=== PATIENT | female | born 1960 | race Caucasian/White ===

== ENCOUNTER 2016-02-29 22:46 | Inpatient (IN) | payer OTHER ==
[~2016-02-29] VITALS: Ht 162.6 cm; Wt 83.9 kg
[~2016-02-29 22:46] MED LIST: AMLO10TA2 PO; CETI10TA84 PO; CMBIN INH; FLNIN NAE; MOME200A INH; MONT1TAB3 PO; ONDA4TAB10 SL
[2016-02-29] MEDS ORDERED: METHYLPREDNISOLONE 125 MG VIAL IV STA (23:17)
[2016-02-29] MEDS ORDERED: LORAZEPAM 2 MG/ML 1 ML VIAL IV STA (23:17)
[2016-02-29] MEDS ORDERED: ALBUT/IPRATROP 3MG/0.5MG NEB 3 ML VIAL INH ONE (23:30)
[2016-03-01] VITALS (19 sets, daily range): BP systolic 118–148; BP diastolic 84–88; PULSE 88–128; TEMP 36.5–37.1; O2SAT 93–99; Ht 162.6 cm; Wt 83.9 kg
[2016-03-01] MEDS ORDERED: LEVO1TAB33 PO
[2016-03-01] MEDS ORDERED: AZIT250T PO (00:01)
[2016-03-01 00:03] LABS: BASO % 0.1 %; BASO ABS # 0.02 K/uL (0-0.2); COMPLETE YES; EOS % 0.1 %; HEMATOCRIT 41.7 % (37-47); IG% 0.3 %; LYMPH % 14.7 %; LYMPH ABS # 1.98 K/uL (1.2-3.4); MEAN CELL VOLUME 88.3 fL (80-100); MEAN CORPUSCULAR HEMOGLOBIN 30.3 pg (25-34); MEAN CORPUSCULAR HGB CONC 34.3 g/dl (32-36); MEAN PLATELET VOLUME 10.4 fL (7.4-10.4); MONO % 11.6 %; NEUT % 73.2 %; PLATELET COUNT 248 K/uL (130-400); RED BLOOD COUNT 4.72 M/uL (4.2-5.4); WHITE BLOOD COUNT 13.47 K/uL (4.8-10.8)
[2016-03-01] MEDS ORDERED: PRED20TA2 PO (00:03)
[2016-03-01] MEDS ORDERED: ALBU1.257 NEB (00:06)
[2016-03-01] MEDS ORDERED: GUAISYP4 PO (00:07)
[2016-03-01 00:26] LABS: BLOOD UREA NITROGEN 12 mg/dl (7-18); CALCIUM 9.4 mg/dl (8.5-10.1); CARBON DIOXIDE 25 mmol/L (21-32); CHLORIDE 108 mmol/L (98-107); GLUCOSE 145 mg/dl (70-99); MAGNESIUM 2.2 mg/dl (1.8-2.4); POTASSIUM 3.7 mmol/L (3.5-5.1); SODIUM 145 mmol/L (136-145)
[2016-03-01 00:31] LABS: CKMB/CK RATIO 1.1 (0-3.0)
[2016-03-01] MEDS ORDERED: HYDROCODONE/HOMATROPINE SYRUP 5MG/1.5MG 5ML UDP PO STA (00:37)
[2016-03-01] MEDS ORDERED: SODIUM CHLORIDE 0.9% 1000ML 1,000 ML IV STA (00:37)
[2016-03-01] MEDS ORDERED: LEVAQUIN 750MG / 150ML D5W IV STA (00:47)
[2016-03-01] MEDS ORDERED: ONDANSETRON INJ 2 MG/ML 2 ML VIAL IV PRN (01:30)
[2016-03-01] MEDS ORDERED: ALBUT/IPRATROP 3MG/0.5MG NEB 3 ML VIAL INH PRN (01:30)
[2016-03-01] MEDS ORDERED: ALUMINUM/MAGNESIUM/SIMETH (MAALOX MAX) 30 ML UDC PO PRN (01:30)
[2016-03-01] MEDS ORDERED: MAGNESIUM HYDROXIDE SUSP 30 ML UDC PO PRN (01:30)
[2016-03-01] MEDS ORDERED: POLYETHYLENE (MIRALAX) 17 GM PACK PO PRN (01:30)
--- NOTE | 2016-03-01 01:54 | History and Physical ---
History & Physical Date & Time of Service: Mar 01, 2016 at 01:44 Chief Complaint: Sob, Asthma, Cough Primary Care Physician: Shannan Bailey D.O. History of Present Illness Source: patient, family, clinic records, hospital records This is a 55 year old female with PMH of persistent asthma, allergic rhinitis/ seasonal allergies, HTN presents with worsening shortness of breath/wheezing x 3 days. Patient states that she has been on numerous medications for this asthma including Combivent, Dulera, prednisone, DuoNeb, Singulair, Flonase but this has been a long-standing issue. She states that she usually has to take rescue prednisone and nebulizer treatments to take care of this issue at home. She tried this treatment at home for a few days, but her breathing was worsening and so she presented to the ER. She was saturating well, but continued to wheeze and have difficulty breathing, even after being given IV steroids and nebulizer treatments. She has seen pulmonary in the past. Denies chest pain. Family History No pertinent family history Social History Smoking Status: Never Smoker Occupational Status: employed Multi-Drug Resistant Organisms History of MDRO: No Allergies Coded Allergies: Promethazine (Verified Allergy, Unknown, HYPOTENSION, 03/01/16) Sulfa Drugs (Verified Allergy, Unknown, DRESS, 03/01/16) Replaces SULFAMETHOXAZ Sulfamethoxazole (Verified Allergy, Unknown, 03/01/16) Replaces SULFAMETHOXAZ Trimethoprim (Verified Allergy, Unknown, 03/01/16) Replaces SULFAMETHOXAZ Home Medications Scheduled Amlodipine Besylate (Norvasc), 10 MG PO DAILY Azithromycin (Zithromax), 250 MG PO DIRECTED Cetirizine (Zyrtec), 10 MG PO QPM Fluticasone Propionate (Flonase Nasal [place] *), 2 SPRAYS MENG DAILY Ipratropium/Albuterol (Combivent *), 2 PUFFS INH PRN Levofloxacin (Levaquin), 500 MG PO DAILY Mometasone Furoate-Formoterol (Dulera 200/5 Mcg), 2 PUFFS INH BID Montelukast Sodium (Singulair), 10 MG PO DAILY Prednisone (Prednisone Tab), 40 MG PO DIRECTED Scheduled PRN Albuterol Sulfate (Albuterol Sulfate), 1 VIAL NEB QID PRN for SOB/Wheezing Guaifenesin/Codeine (Robitussin-Ac Syrup), 5 ML PO QID PRN for Cough Review of Systems Constitutional: No chills, No fever, No weakness Respiratory: + cough, + dyspnea at rest, + dyspnea on exertion, + shortness of breath, + sputum, + wheezing, No hemoptysis Cardiovascular: No chest pain, No edema, No orthopnea, No palpitations Abdomen: No constipation, No diarrhea, No nausea, No pain, No vomiting Musculoskeletal: + muscle pain (back, secondary to coughing) Genitourinary - Female: No dysuria, No urinary frequency, No urinary incontinence, No urinary retention, No urinary urgency Neurologic: No memory loss Psychiatric: No depression symptoms Endocrine: No fatigue Hematologic / Lymphatic: No abnormal bleeding/bruising Integumentary: No rash Allergic / Immunologic: + environmental allergies, + seasonal allergies, No food allergies Physical Exam Vital Signs Date Time Temp Pulse Resp B/P Pulse Ox O2 Delivery O2 Flow Rate FiO2 03/01/16 01:06 109 20 144/82 99 Nebulizer 03/01/16 00:12 115 03/01/16 00:00 88 24 99 Room Air 02/29/16 23:18 97 24 152/88 98 Room Air 02/29/16 23:18 98 Room Air 02/29/16 22:55 36.8 108 22 156/90 99 Room Air General Appearance: + moderate distress Respiratory/Chest: + respiratory distress, + decreased breath sounds, + accessory muscle use, + wheezing (diffuse wheezing, audible throughout lung estrada) Cardiovascular: no edema, no murmur, + tachycardia Abdomen/GI: normal bowel sounds, non tender, soft Extremities/Musculoskelatal: normal capillary refill, no pedal edema Neurologic/Psych: no motor/sensory deficits, alert, normal mood/affect Skin: normal color Lymphatic: no adenopathy Diagnostics Laboratory Results Results Past 24 Hours Test 02/29/16 23:45 Range/Units White Blood Count 13.47 4.8-10.8 K/uL Red Blood Count 4.72 4.2-5.4 M/uL Hemoglobin 14.3 12.0-16.0 g/dL Hematocrit 41.7 37-47 % Mean Corpuscular Volume 88.3 80-100 fL Mean Corpuscular Hemoglobin 30.3 25-34 pg Mean Corpuscular Hemoglobin Concent 34.3 32-36 g/dl Platelet Count 248 130-400 K/uL Mean Platelet Volume 10.4 7.4-10.4 fL Neutrophils (%) (Auto) 73.2 % Lymphocytes (%) (Auto) 14.7 % Monocytes (%) (Auto) 11.6 % Eosinophils (%) (Auto) 0.1 % Basophils (%) (Auto) 0.1 % Neutrophils # (Auto) 9.86 1.4-6.5 K/uL Lymphocytes # (Auto) 1.98 1.2-3.4 K/uL Monocytes # (Auto) 1.56 0.11-0.59 K/uL Eosinophils # (Auto) 0.01 0-0.5 K/uL Basophils # (Auto) 0.02 0-0.2 K/uL RDW Standard Deviation 45.7 36.4-46.3 fL RDW Coefficient of Variation 14.1 11.5-14.5 % Immature Granulocyte % (Auto) 0.3 % Immature Granulocyte # (Auto) 0.04 0.00-0.02 K/uL Sodium Level 145 136-145 mmol/L Potassium Level 3.7 3.5-5.1 mmol/L Chloride Level 108 98-107 mmol/L Carbon Dioxide Level 25 21-32 mmol/L Anion Gap 12.0 3-11 mmol/L Blood Urea Nitrogen 12 7-18 mg/dl Creatinine 1.10 0.60-1.20 mg/dl Est Creatinine Clear Calc Drug Dose 59.2 ml/min Estimated GFR () 65.0 Estimated GFR (Non- 56.1 BUN/Creatinine Ratio 11.0 10-20 Random Glucose 145 70-99 mg/dl Calcium Level 9.4 8.5-10.1 mg/dl Magnesium Level 2.2 1.8-2.4 mg/dl Total Creatine Kinase 589 26-192 U/L Creatine Kinase MB 6.7 0.5-3.6 ng/ml Creatine Kinase MB Ratio 1.1 0-3.0 Troponin I < 0.015 0-0.045 ng/ml CXR normal Impression Assessment and Plan This is a 55 year old female with PMH of persistent asthma, allergic rhinitis/ seasonal allergies, HTN presents with worsening shortness of breath/wheezing Acute Asthma Exacerbation -->patient with long-standing asthma and difficult to control allergies -->tried home medications, oral steroids, nebulizer treatments at home -->will add IV steroids, DuoNeb around the clock and PRN -->doxycycline -->continue mediations for allergies including Zyrtec -->will consult pulmonology for further input and medication reconciliation for outpatient HTN -->continue norvasc DVT ppx -->lovenox FULL CODE VTE Prophylaxis VTE Risk Assessment Done? Y/N: Yes Risk Level: Moderate
[2016-03-01] MEDS ORDERED: GUAIFENESIN/CODEINE 100MG/10MG 5ML UDC PO PRN (02:00)
--- NOTE | 2016-03-01 05:42 | EMERGENCY ROOM VISIT NOTE ---
History Report prepared by Rosa: Efraín Rosado Under the Supervision of: Dr. Ed Croft M.D. First contact with patient: 23:09 Chief Complaint: RESPIRATORY PROBLEMS Stated Complaint: SOB, ASTHMA, COUGH History of Present Illness The patient is a 55 year old female with a history of asthma who presents to the Emergency Room with complaints of worsening shortness of breath for the past several days. The patient also complains of coughing and rhinorrhea. She denies any fevers, abdominal pain, swelling of the extremities, or rashes. The patient has a DuoNeb at home, which she used at 2000 and 2200 tonight with minimal relief. She has been taking antibiotics and Prednisone 40 mg from her rescue kit for several days with no relief. The patient does not have any sick contacts. The patient was in the hospital for respiratory issues several years ago. Source of History: patient Onset: several days Position: other (respiratory) Quality: other (short of breath) Timing: worsening Associated Symptoms: + cough, No abdominal pain, No fevers, No rash Review of Systems See HPI for pertinent positives & negatives. A total of 10 systems reviewed and were otherwise negative. Past Medical & Surgical Medical Problems: (1) Acute asthma exacerbation (2) History of asthma (3) History of high blood pressure Family History No pertinent family history Social History Smoking Status: Never Smoker Occupation Status: employed Current/Historical Medications Scheduled Amlodipine Besylate (Norvasc), 10 MG PO DAILY Azithromycin (Zithromax), 250 MG PO DIRECTED Cetirizine (Zyrtec), 10 MG PO QPM Fluticasone Propionate (Flonase Nasal [place] *), 2 SPRAYS MENG DAILY Ipratropium/Albuterol (Combivent *), 2 PUFFS INH PRN Levofloxacin (Levaquin), 500 MG PO DAILY Mometasone Furoate-Formoterol (Dulera 200/5 Mcg), 2 PUFFS INH BID Montelukast Sodium (Singulair), 10 MG PO DAILY Prednisone (Prednisone Tab), 40 MG PO DIRECTED Scheduled PRN Albuterol Sulfate (Albuterol Sulfate), 1 VIAL NEB QID PRN for SOB/Wheezing Guaifenesin/Codeine (Robitussin-Ac Syrup), 5 ML PO QID PRN for Cough Allergies Coded Allergies: Promethazine (Verified Allergy, Unknown, HYPOTENSION, 03/01/16) Sulfa Drugs (Verified Allergy, Unknown, DRESS, 03/01/16) Replaces SULFAMETHOXAZ Sulfamethoxazole (Verified Allergy, Unknown, 03/01/16) Replaces SULFAMETHOXAZ Trimethoprim (Verified Allergy, Unknown, 03/01/16) Replaces SULFAMETHOXAZ Physical Exam Vital Signs Date Time Temp Pulse Resp B/P Pulse Ox O2 Delivery O2 Flow Rate FiO2 03/01/16 01:06 109 20 144/82 99 Nebulizer 03/01/16 00:12 115 03/01/16 00:00 88 24 99 Room Air 02/29/16 23:18 97 24 152/88 98 Room Air 02/29/16 23:18 98 Room Air 02/29/16 22:55 36.8 108 22 156/90 99 Room Air Physical Exam GENERAL: Patient is severely anxious appearing and in moderate distress. HEENT: No acute trauma, normocephalic atraumatic, mucous membranes moist, no nasal congestion, no scleral icterus. NECK: No stridor, no adenopathy, no meningismus, trachea is midline. LUNGS: Tachypneic and dyspneic with diffuse tight lung sounds and wheezing. Peak flow 175. HEART: Regular rate and rhythm. No murmurs, rubs, gallops appreciated. ABDOMEN: Soft, nontender, bowel sounds positive, no masses appreciated, no peritonitis. BACK: No midline tenderness, no CVA tenderness EXTREMITIES: Normal motion all extremities, no cyanosis, no edema. NEUROLOGIC: Alert and oriented, no acute motor or sensory deficits, no focal weakness, cranial nerves grossly intact. SKIN: No rash, no jaundice, no diaphoresis. Medical Decision & Procedures ER Provider Diagnostic Interpretation: X ray results are stated below per my interpretation: Chest: 1 view: No infiltrate, no effusion, normal cardiac border. Laboratory Results Test 02/29/16 23:45 RDW Standard Deviation 45.7 fL (36.4-46.3) RDW Coefficient of Variation 14.1 % (11.5-14.5) White Blood Count 13.47 K/uL (4.8-10.8) Red Blood Count 4.72 M/uL (4.2-5.4) Hemoglobin 14.3 g/dL (12.0-16.0) Hematocrit 41.7 % (37-47) Mean Corpuscular Volume 88.3 fL (80-100) Mean Corpuscular Hemoglobin 30.3 pg (25-34) Mean Corpuscular Hemoglobin Concent 34.3 g/dl (32-36) Platelet Count 248 K/uL (130-400) Mean Platelet Volume 10.4 fL (7.4-10.4) Neutrophils (%) (Auto) 73.2 % Lymphocytes (%) (Auto) 14.7 % Monocytes (%) (Auto) 11.6 % Eosinophils (%) (Auto) 0.1 % Basophils (%) (Auto) 0.1 % Neutrophils # (Auto) 9.86 K/uL (1.4-6.5) Lymphocytes # (Auto) 1.98 K/uL (1.2-3.4) Monocytes # (Auto) 1.56 K/uL (0.11-0.59) Eosinophils # (Auto) 0.01 K/uL (0-0.5) Basophils # (Auto) 0.02 K/uL (0-0.2) Immature Granulocyte % (Auto) 0.3 % Immature Granulocyte # (Auto) 0.04 K/uL (0.00-0.02) Est Creatinine Clear Calc Drug Dose 59.2 ml/min Magnesium Level 2.2 mg/dl (1.8-2.4) Total Creatine Kinase 589 U/L (26-192) Creatine Kinase MB 6.7 ng/ml (0.5-3.6) Creatine Kinase MB Ratio 1.1 (0-3.0) Troponin I < 0.015 ng/ml (0-0.045) Laboratory results as reviewed by me. Medications Administered Medications (Trade) Dose Ordered Sig/Delicia Route Start Time Stop Time Status Last Admin Dose Admin Albuterol/ Ipratropium (Duoneb) 12 ml ONE ONCE INH 02/29/16 23:30 02/29/16 23:31 DC 02/29/16 23:30 12 ML Methylprednisolone Sodium Succinate (Solu-Medrol IV) 125 mg NOW STAT IV 02/29/16 23:17 02/29/16 23:20 DC 02/29/16 23:58 125 MG Lorazepam (Ativan Inj) 0.5 mg NOW STAT IV 02/29/16 23:17 02/29/16 23:20 DC 02/29/16 23:59 0.5 MG Hydrocodone Bit/ Homatropine Methylb 5 ml 5 ml NOW STAT PO 03/01/16 00:37 03/01/16 00:38 DC 03/01/16 00:57 5 ML Sodium Chloride (Nss 1000ml) 1,000 ml @ 999 mls/hr Q1H1M STAT IV 03/01/16 00:37 03/01/16 01:37 DC 03/01/16 00:57 999 MLS/HR Levofloxacin (Levaquin / D5W) 750 mg NOW STAT IV 03/01/16 00:47 03/01/16 00:48 DC 03/01/16 00:57 750 MG ECG Indication: SOB/dyspnea Rate (beats per minute): 106 Rhythm: sinus tachycardia Findings: no acute ischemic change, no ectopy ED Course 2312: The patient was evaluated in room A4b. A complete history and physical exam was performed. 2317: Ativan 0.5 mg IV, Solu-Medrol 125 mg IV. 2330: DuoNeb 12 ml INH. 0015: The patient is feeling a little better but is still short of breath. 0037: NSS 1000 ml @ 999 mls/hr, Hycodan Syrup 5 ml PO. 0038: [facility] The patient will be evaluated. 0040: The patient is breathing okay at this time. 0047: Levaquin / D5w 750 mg IV. Medical Decision Differential: Infectious, Reactive Airway Disease, Pneumonia, Pneumothorax, COPD , CHF, ACS, Pulmonary Embolism, MSK, GI, Dissection, amongst other etiologies entertained. 55 yr old female arrives with acute shob and cough. Long history of asthma though no recent attacks. This has been brewing over last few days and has unfortunately failed outpatient abx/steroid regimens with regular duonebs. Is much improved with DUONEB but she persists diffuse loud wheezing and shob. Given this I feel bringing is necessary and patient agrees. Given Levaquin empirically for bronchitis though no evidence of PNA appreciated on CXR. Did discuss risks of levaquin with patient and . Consults Time Called: 29 Consulting Physician[facility] Returned Call: [phone]: Discussed the case with Elsa Reis Hospitalist. The patient will be evaluated. Impression Primary Impression: Acute asthma exacerbation Scribe Attestation The scribe's documentation has been prepared under my direction and personally reviewed by me in its entirety. I confirm that the note above accurately reflects all work, treatment, procedures, and medical decision making performed by me. Departure Information Dispostion Being Evaluated By Hospitalist Referrals Shannan Bailey D.O. (PCP) Patient Instructions A Signature Page, My [facility]
[2016-03-01] MEDS: ENOXAPARIN 40 MG/0.4 ML SYR SQ SCH (06:11)
--- NOTE | 2016-03-01 07:30 | DIAGNOSTIC IMAGING REPORT ---
CHEST ONE VIEW PORTABLE CLINICAL HISTORY: Shortness of breath COMPARISON STUDY: 02/10/2016 FINDINGS: The cardiac and mediastinal contours are normal. There is no evidence of focal pulmonary consolidation. There is no evidence of failure. No pleural effusions are visualized.[ IMPRESSION: No active disease in the chest. Electronically signed by: Onur Hoang M.D. 03/01/2016 7:28 AM
[2016-03-01 07:52] LABS: HEMATOCRIT 40.8 % (37-47); MEAN CELL VOLUME 89.1 fL (80-100); MEAN CORPUSCULAR HEMOGLOBIN 30.1 pg (25-34); MEAN CORPUSCULAR HGB CONC 33.8 g/dl (32-36); MEAN PLATELET VOLUME 10.6 fL (7.4-10.4); PLATELET COUNT 238 K/uL (130-400); RED BLOOD COUNT 4.58 M/uL (4.2-5.4)
[2016-03-01 07:59] LABS: PROTHROMBIN TIME (PATIENT) 10.3 SECONDS (9.0-12.0)
[2016-03-01] MEDS ORDERED: ALBUT/IPRATROP 3MG/0.5MG NEB 3 ML VIAL INH SCH (08:00)
[2016-03-01 08:17] LABS: BUN/CREATININE RATIO 9.1 (10-20); CALCIUM 9.5 mg/dl (8.5-10.1); CREATININE 0.91 mg/dl (0.60-1.20); POTASSIUM 3.8 mmol/L (3.5-5.1)
[2016-03-01] MEDS: METHYLPREDNISOLONE IV 60 MG in SYRINGE 0 ML IV SCH ×2 (08:36→15:59)
[2016-03-01] MEDS ORDERED: DOXYCYCLINE HYCLATE 100 MG CAP PO SCH (09:00)
[2016-03-01] MEDS: AMLODIPINE BESYLATE 5 MG TAB PO SCH (09:12)
[2016-03-01] MEDS: MONTELUKAST SOD 10 MG TAB PO SCH (09:12)
[2016-03-01] MEDS ORDERED: LEVALBUTEROL/IPRATROPIUM NEB INH PRN ×2 (09:45→13:45)
[2016-03-01] MEDS ORDERED: SODIUM CHLORIDE 0.9% 1000ML 1,000 ML IV SCH (09:45)
[2016-03-01] MEDS ORDERED: LEVALBUTEROL/IPRATROPIUM NEB INH SCH (09:45)
--- NOTE | 2016-03-01 10:04 | Progress Note ---
Medicine Progress Note Date & Time of Visit: Mar 01, 2016 at 09:59. Subjective seen resting in bed alert, states her breathing is a little better speaks in sentences with very mild effort, no accessory muscles has occasional productive cough denies chest pain, palpitations, dizziness, nausea, abdominal pain no other symptoms Objective Last 8 Hrs Date Time Temp Pulse Resp B/P Pulse Ox O2 Delivery O2 Flow Rate FiO2 03/01/16 08:58 125 24 96 Room Air 03/01/16 07:19 37.0 112 20 140/85 93 Room Air 03/01/16 05:30 94 24 96 Room Air 03/01/16 05:10 94 Room Air 03/01/16 05:10 36.6 119 18 136/85 94 Room Air 03/01/16 03:00 95 Room Air 03/01/16 03:00 36.5 128 18 133/87 95 Room Air 03/01/16 03:00 95 Room Air 03/01/16 02:49 36.5 128 18 133/87 03/01/16 02:14 121 20 127/82 96 Physical Exam: per H&P adult Head- atraumatic Eyes- EOMI, anicteric ENT- oropharynx clear Neck- supple, no JVD Lungs- (+) bilateral scattered wheezing Heart- (+) tachycardic, regular rhythm; no murmur, no gallop, no rub appreciated Abdomen- normal bowel sounds, soft, nontender Extremities- no pretibial edema, no calf tenderness Neuro- alert, oriented x 3; no focal gross motor/sensory deficits Skin- warm & dry Laboratory Results: Last 24 Hours Test 02/29/16 23:45 03/01/16 07:00 03/01/16 07:06 03/01/16 09:42 White Blood Count 13.47 K/uL 10.60 K/uL Red Blood Count 4.72 M/uL 4.58 M/uL Hemoglobin 14.3 g/dL 13.8 g/dL Hematocrit 41.7 % 40.8 % Mean Corpuscular Volume 88.3 fL 89.1 fL Mean Corpuscular Hemoglobin 30.3 pg 30.1 pg Mean Corpuscular Hemoglobin Concent 34.3 g/dl 33.8 g/dl Platelet Count 248 K/uL 238 K/uL Mean Platelet Volume 10.4 fL 10.6 fL Neutrophils (%) (Auto) 73.2 % Lymphocytes (%) (Auto) 14.7 % Monocytes (%) (Auto) 11.6 % Eosinophils (%) (Auto) 0.1 % Basophils (%) (Auto) 0.1 % Neutrophils # (Auto) 9.86 K/uL Lymphocytes # (Auto) 1.98 K/uL Monocytes # (Auto) 1.56 K/uL Eosinophils # (Auto) 0.01 K/uL Basophils # (Auto) 0.02 K/uL RDW Standard Deviation 45.7 fL 46.7 fL RDW Coefficient of Variation 14.1 % 14.4 % Immature Granulocyte % (Auto) 0.3 % Immature Granulocyte # (Auto) 0.04 K/uL Sodium Level 145 mmol/L 143 mmol/L Potassium Level 3.7 mmol/L 3.8 mmol/L Chloride Level 108 mmol/L 108 mmol/L Carbon Dioxide Level 25 mmol/L 22 mmol/L Anion Gap 12.0 mmol/L 13.0 mmol/L Blood Urea Nitrogen 12 mg/dl 8 mg/dl Creatinine 1.10 mg/dl 0.91 mg/dl Est Creatinine Clear Calc Drug Dose 59.2 ml/min 71.6 ml/min Estimated GFR () 65.0 81.7 Estimated GFR (Non- 56.1 70.5 BUN/Creatinine Ratio 11.0 9.1 Random Glucose 145 mg/dl 162 mg/dl Calcium Level 9.4 mg/dl 9.5 mg/dl Magnesium Level 2.2 mg/dl Total Creatine Kinase 589 U/L Creatine Kinase MB 6.7 ng/ml Creatine Kinase MB Ratio 1.1 Troponin I < 0.015 ng/ml Prothrombin Time 10.3 SECONDS Prothromb Time International Ratio 1.0 Assessment & Plan This is a 55 year old female with PMH of persistent asthma, allergic rhinitis/ seasonal allergies, HTN presents with worsening shortness of breath/wheezing Acute Asthma Exacerbation , possible Acute Bronchitis -->patient with long-standing asthma and difficult to control allergies -->tried home medications, oral steroids, nebulizer treatments at home - slowly improving - continue Solumedrol, Nebs changed to Xopenex, Doxycycline check Serum IGE, Dimer - discussed with Dr. Zhou Sinus Tachycardia - monitor in Tele Nonspecific T wave changes in the Anterolateral leads - no cardiac symptoms - repeat EKG in am HTN stable -->continue norvasc DVT ppx -->lovenox FULL CODE Current Inpatient Medications: Current Inpatient Medications Medications (Trade) Dose Ordered Sig/Delicia Route Start Time Stop Time Status Last Admin Dose Admin Enoxaparin Sodium (Lovenox Inj) 40 mg Q24H SQ 03/01/16 06:00 03/31/16 05:59 03/01/16 06:11 40 MG Acetaminophen (Tylenol Tab) 650 mg Q4H PRN PO 03/01/16 01:30 03/31/16 01:29 Al Hydrox/Mg Hydrox/Simethicone (Maalox Max Susp) 15 ml Q4H PRN PO 03/01/16 01:30 03/31/16 01:29 Magnesium Hydroxide (Milk Of Magnesia Susp) 30 ml Q6H PRN PO 03/01/16 01:30 03/31/16 01:29 Polyethylene (Miralax Powder Packet) 17 gm DAILY PRN PO 03/01/16 01:30 03/31/16 01:29 Ondansetron HCl 4 mg 4 mg Q6H PRN IV 03/01/16 01:30 03/31/16 01:29 Methylprednisolone Sodium Succinate/ Syringe (Solu-Medrol IV/ Syringe) 0.96 ml @ 1.5 mls/min Q8H IV 03/01/16 08:00 03/31/16 07:59 03/01/16 08:36 1.5 MLS/MIN Doxycycline Hyclate (Vibramycin Cap) 100 mg BID PO 03/01/16 09:00 03/08/16 08:59 03/01/16 09:12 100 MG Amlodipine Besylate (Norvasc Tab) 10 mg DAILY PO 03/01/16 09:00 03/31/16 08:59 03/01/16 09:12 10 MG Cetirizine HCl (zyrTEC TAB) 10 mg QPM PO 03/01/16 21:00 03/31/16 20:59 Codeine Phosphate/ Guaifenesin (Robitussin-AC Sugar Free Syrup) 5 ml QID PRN PO 03/01/16 02:00 03/31/16 01:59 Montelukast Sodium (Singulair Tab) 10 mg DAILY PO 03/01/16 09:00 03/31/16 08:59 03/01/16 09:12 10 MG Miscellaneous (Xopenex/ Atrovent Neb) 1 ea Q4H INH 03/01/16 09:45 03/31/16 09:44 UNV Miscellaneous 1 ea 1 ea Q2H PRN INH 03/01/16 09:45 03/31/16 09:44 UNV Sodium Chloride (Nss 1000ml) 1,000 ml @ 80 mls/hr [id number] IV 03/01/16 09:45 03/31/16 09:44 UNV Nystatin (Mycostatin Susp) 4 ml QID PO 03/01/16 13:00 03/11/16 12:59 UNV
--- NOTE | 2016-03-01 10:41 | PULMONARY CONSULTATION ---
DATE OF CONSULTATION: 03/01/2016 TIME: 9:00 a.m. REPORT OF CONSULTATION: The patient was seen in room 476 bed 2. She is a 55-year-old female who has a history of asthma diagnosed approximately a year ago. She actually has had some sort of breathing problems much of her lifetime. She states as a child she had pneumonia. Throughout her life she had recurring bronchitis. She was seeing Dr. Kurtz approximately 4 or 5 years ago. He had done bronchoscopy on her at some point in time. She states until 5 years ago she was still able to do 5K runs. Over the past several years she has had gradual progression in her respiratory symptoms. She states that she has had episodes of intermittent wheezing for about 20 years. She is knowingly very sensitive to smoke, olivo, grass, cats, and various bleaches. 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 She is apparently sensitive to some of the solutions that she works with, particularly those with [employer] in. She cannot use any Clorox products at home. Usually she is in and out of the cleansing area and is not there continuously. In October 2015, she had an episode where she was having an exacerbation of her asthma and she was on her rescue kit. She had work a day doing the cleaning and she had problems at that time. Yesterday, she also spent about 4 hours or more in the cleaning area. She did not notice a lot of problems then, but as the day went on she became more and more tight. She has been not feeling right for about a week or so. She has been seeing Jennifer Salguero PA-C for followup of her asthma symptoms. I believe she saw her very recently. She had started the rescue kit a few days ago with prednisone and Zithromax. She was then changed to Levaquin within the past day or so, but she actually did not even get to start the medicines. She went to the Emergency Room late yesterday. She had taken some treatments at home, but without benefit. She persists with severe tightness. This seems to be clearly exacerbated by when she has coughing spells. She states she does not really feel like she has a cold. She is not bothered very often with reflux. She has no reflux symptoms at present. She has had some chest pain associated with coughing. Yesterday she was lifting a bottle of saline and she could feel some discomfort in her intercostal area. She does not seem to have true pleuritic chest pains. This is the worst asthma attack she has had. In terms of pets, the patient does have 2 dogs in the house. She does not believe she is sensitive to the dogs. PAST MEDICAL HISTORY: 1. Asthma as noted. 2. Hypertension. 3. Pneumonia in the 1980s. 4. Childbirth x2. SOCIAL HISTORY: Tobacco never. ETOH -- rare. ALLERGIES: SEVERE ALLERGY TO SULFA. SHE STATES SHE HAD DRESS SYNDROME ABOUT 15 YEARS AGO. THERE IS ALSO LISTED ALLERGY TO PHENERGAN SHE DEVELOPED SIGNIFICANT DROP IN BLOOD PRESSURE WITH IT. FAMILY HISTORY: The only family history of asthma is a granddaughter. Her mother is living at age 80, has thyroid cancer, diabetes, and mini strokes. Father living at age 82, alive and well. REVIEW OF SYSTEMS: GENERAL: The patient has noticed a gradual decline in her energy level, especially in the past year. The patient lives at home with her . NEUROLOGIC: There has been no syncope or near syncope. OPHTHALMIC: No visual complaints. ENT: Mild nasal coryza. She denies trouble swallowing. She does have some hoarseness. CARDIAC: No chest pain except for the above-mentioned pain apparently associated with coughing and movement. She does not feel palpitations, but she knows her heart rates have been going up. This morning, her heart rate is above 125 as I examined her. PULMONARY: As noted above. The patient does not have a peak flow meter at home. GASTROINTESTINAL: Denies significant heartburn, nausea, vomiting, or diarrhea. GENITOURINARY: Denies complaints. MUSCULOSKELETAL: Denies myalgias or arthralgias. DERMATOLOGIC: No rash or edema. ENDOCRINE: No lymphadenopathy. PHYSICAL EXAMINATION: GENERAL: The patient is a 55-year-old female who was cooperative, alert and oriented. She was intermittently having some respiratory distress during this exam. This was oftentimes after having coughing spells. The cough has been nonproductive. HEENT: Pupils were reactive to light. Nares were clear. Mouth exam showed a mild amount of oral candidiasis in the left side of her posterior pharynx. NECK: Palpation of the neck reveals no lymph nodes. She does have a large neck. CHEST: Of normal development. Heart rate is 125 per minute. The rhythm was regular. VITAL SIGNS: Temperature is 37. Blood pressure 140/85. Respiratory rate 24 breaths per minute. Oxygen saturation 95% on room air done by myself at the time of this exam. She is moving her air, but she has tightness posteriorly on expiration. ABDOMEN: Soft. It was mildly obese. Bowel sounds were present. There was no tenderness to palpation. EXTREMITIES: Showed no cyanosis, clubbing or edema. There was no evidence of erythema or induration. Electrolytes show sodium 143, potassium 3.8, chloride 108, bicarbonate 22. BUN was 8 with a creatinine of 0.91. Troponin was negative. Calcium was normal at 9.5. Blood sugar this morning is 162. White count was 13.47. Hemoglobin is 14.3. Platelets 248,000. Differential showed 73.2 neutrophils, 14.7 lymphs, 11.6 monos, 0.1 eosinophils, 0.1 basophil. Chest x-ray was clear. No active disease was noted. EKG showed a sinus rhythm. The rate was 106 representing mild tachycardia. There was a mild left axis deviation. There was poor R-wave progression across the precordium. Fairly diffuse nonspecific ST and T-wave changes were noted. IMPRESSION: 1. Status asthmaticus. 2. Oral candidiasis. 3. Tachycardia. COMMENTS AND RECOMMENDATIONS: The patient remains quite tight. She is, however, having episodes of tachycardia. She has noticed this in the past, even with her Combivent inhaler. I believe her treatments should be changed to Xopenex plus ipratropium, rather than albuterol plus ipratropium. She will then need Xopenex p.r.n. as well. She is on Solu-Medrol 60 mg IV q. 8 hours. I would continue this. Her blood sugars appear to be rising. These will need close observation and perhaps even coverage if they stay elevated. I would suggest checking an IgE level. Will order some nystatin for the candidiasis. Would check peak flows daily. Her symptoms seem very compatible with status asthma. However, if she does not respond, we might need to consider other causes such as pulmonary embolic disease. She does not have any known risk factors. Consideration could be given to doing a D-dimer. I do think however, in light of the tachyarrhythmia, she might best be monitored from a cardiac perspective by telemetry which would require her going to a different room. Thank you for asking me to assist in her care. SUGAR
[2016-03-01] MEDS: IPRATROPIUM BROMIDE NEB SOLN 0.02% 2.5 ML VIAL INH SCH ×4 (11:27→23:19)
[2016-03-01] MEDS: LEVALBUTEROL 1.25MG/0.5ML NEB INH SCH ×4 (11:27→23:19)
[2016-03-01] MEDS ORDERED: NURSING VERBAL MED ORDER ONE (13:45)
[2016-03-01] MEDS: LEVALBUTEROL 1.25MG/0.5ML NEB INH PRN ×2 (13:50→18:15)
[2016-03-01] MEDS: IPRATROPIUM BROMIDE NEB SOLN 0.02% 2.5 ML VIAL INH PRN ×2 (13:50→18:15)
--- NOTE | 2016-03-01 13:51 | DIAGNOSTIC IMAGING REPORT ---
CHEST ONE VIEW PORTABLE HISTORY: Short of breath. ff up, r/o pulmonary edema COMPARISON: Chest 02/29/2016. FINDINGS: There are low lung volumes. No pneumothorax. No pleural effusions. Bibasilar linear densities have progressed. The heart is normal in size. The upper lung zones are clear. No evidence for pulmonary edema. IMPRESSION: Low lung volumes with increased bibasilar linear densities. This suggests subsegmental atelectasis. No evidence for pulmonary edema at this time. Electronically signed by: Benji Morris M.D. 03/01/2016 1:49 PM
[2016-03-01] MEDS ORDERED: IPRATROPIUM BROMIDE NEB SOLN 0.02% 2.5 ML VIAL INH PRN ×3 (14:00)
[2016-03-01] MEDS ORDERED: LEVALBUTEROL 1.25MG/0.5ML NEB INH PRN (14:00)
[2016-03-01] MEDS: NYSTATIN SUSP 500,000 U/5 ML UDC PO SCH ×3 (14:12→21:42)
[2016-03-01 14:35] LABS: ARTERIAL BLD GAS O2 SATURATION 97.4 % (90-95); ARTERIAL BLOOD GAS BASE EXCESS -0.1 mEq/L (-9-1.8); ARTERIAL BLOOD GAS HCO3 22 mmol/L (19-24); ARTERIAL BLOOD GAS PO2 88 mm/Hg (80-95); ARTERIAL BLOOD GAS pH 7.49 (7.35-7.45)
[2016-03-01 14:37] LABS: O2 ADMINISTRATION 4 L
[2016-03-01 14:38] LABS: ALLEN TEST POS (POS)
[2016-03-01] MEDS: CETIRIZINE HCL 10 MG TAB PO SCH (21:42)
[2016-03-02] VITALS (15 sets, daily range): BP systolic 112–140; BP diastolic 67–91; PULSE 92–121; TEMP 36.7–36.9; O2SAT 93–98
[2016-03-02] MEDS: METHYLPREDNISOLONE IV 60 MG in SYRINGE 0 ML IV SCH (00:30)
[2016-03-02] MEDS: LEVOFLOXACIN / D5W 500 MG in PREMIXED IN D5W 100 ML IV SCH (01:17)
[2016-03-02] MEDS: LEVALBUTEROL 1.25MG/0.5ML NEB INH SCH ×6 (03:29→23:18)
[2016-03-02] MEDS: IPRATROPIUM BROMIDE NEB SOLN 0.02% 2.5 ML VIAL INH SCH ×6 (03:29→23:17)
[2016-03-02] MEDS: ENOXAPARIN 40 MG/0.4 ML SYR SQ SCH (06:05)
[2016-03-02 07:06] LABS: BUN/CREATININE RATIO 15.6 (10-20); CALCIUM 9.8 mg/dl (8.5-10.1); CREATININE 0.84 mg/dl (0.60-1.20); POTASSIUM 3.7 mmol/L (3.5-5.1)
--- NOTE | 2016-03-02 08:38 | Progress Note ---
Medicine Progress Note Date & Time of Visit: Mar 02, 2016 at 08:31. Subjective patient seen sitting up in bed, appears fatigued after moving to bedside commode, was tachypneic, desaturating to high 80s on exam, patient states she feels about the same as yesterday breathing also about the same, with intermittent coughing spells denies chest pain no other symptoms Objective Last 8 Hrs Date Time Temp Pulse Resp B/P Pulse Ox O2 Delivery O2 Flow Rate FiO2 03/02/16 08:28 107 20 95 Nasal Cannula 3.0 03/02/16 07:15 121 20 97 Nasal Cannula 3.0 03/02/16 04:15 36.7 96 18 140/91 93 2.0 03/02/16 04:00 93 Nasal Cannula 3.0 03/02/16 03:29 107 20 95 Nasal Cannula 3.0 Physical Exam: general- alert, appears fatigued, mild tachypnea, speaks in sentences with some effort and accessory muscles Eyes- anicteric Neck- no JVD Lungs- (+) bilateral scattered wheezing. crackles Heart- (+) tachycardic, regular rhythm; no murmur Abdomen- normal bowel sounds, soft, nontender Extremities- no pretibial edema, no calf tenderness Neuro- alert, oriented x 3; no focal gross motor/sensory deficits Skin- warm & dry Laboratory Results: Last 24 Hours Test 03/01/16 09:42 03/01/16 14:14 03/01/16 14:17 03/02/16 06:10 Pro-B-Type Natriuretic Peptide 78 pg/ml Arterial Blood pH 7.49 Arterial Blood Partial Pressure CO2 30 mmHg Arterial Blood Partial Pressure O2 88 mm/Hg Arterial Blood HCO3 22 mmol/L Arterial Blood Oxygen Saturation 97.4 % Arterial Blood Base Excess -0.1 mEq/L Arterial Blood Gas Delivery 4 L Collin Test POS Sodium Level 143 mmol/L Potassium Level 3.7 mmol/L Chloride Level 107 mmol/L Carbon Dioxide Level 25 mmol/L Anion Gap 11.0 mmol/L Blood Urea Nitrogen 13 mg/dl Creatinine 0.84 mg/dl Est Creatinine Clear Calc Drug Dose 77.5 ml/min Estimated GFR () 90.0 Estimated GFR (Non- 77.7 BUN/Creatinine Ratio 15.6 Random Glucose 142 mg/dl Calcium Level 9.8 mg/dl Assessment & Plan This is a 55 year old female with PMH of persistent asthma, allergic rhinitis/ seasonal allergies, HTN presents with worsening shortness of breath/wheezing Acute Asthma Exacerbation , possible Acute Bronchitis -->patient with long-standing asthma and difficult to control allergies -->tried home medications, oral steroids, nebulizer treatments at home - D dimer negative repeat CXR 03/01/15: no signs of pneumonia - appears to be about the same as yesterday hour long breathing treatment ordered - discussed with Dr. Zhou will increase Solumedrol to 80mg q6h continue Nebs q4h, Levaquin Sinus Tachycardia - monitor in Tele Nonspecific T wave changes in the Anterolateral leads - no cardiac symptoms - repeat EKG in am HTN stable -->continue norvasc DVT ppx -->lovenox FULL CODE Current Inpatient Medications: Current Inpatient Medications Medications (Trade) Dose Ordered Sig/Delicia Route Start Time Stop Time Status Last Admin Dose Admin Enoxaparin Sodium (Lovenox Inj) 40 mg Q24H SQ 03/01/16 06:00 03/31/16 05:59 03/02/16 06:05 40 MG Acetaminophen (Tylenol Tab) 650 mg Q4H PRN PO 03/01/16 01:30 03/31/16 01:29 Al Hydrox/Mg Hydrox/Simethicone (Maalox Max Susp) 15 ml Q4H PRN PO 03/01/16 01:30 03/31/16 01:29 Magnesium Hydroxide (Milk Of Magnesia Susp) 30 ml Q6H PRN PO 03/01/16 01:30 03/31/16 01:29 Polyethylene (Miralax Powder Packet) 17 gm DAILY PRN PO 03/01/16 01:30 03/31/16 01:29 Ondansetron HCl (Zofran Inj) 4 mg Q6H PRN IV 03/01/16 01:30 03/31/16 01:29 Amlodipine Besylate (Norvasc Tab) 10 mg DAILY PO 03/01/16 09:00 03/31/16 08:59 03/01/16 09:12 10 MG Cetirizine HCl (zyrTEC TAB) 10 mg QPM PO 03/01/16 21:00 03/31/16 20:59 03/01/16 21:42 10 MG Codeine Phosphate/ Guaifenesin (Robitussin-AC Sugar Free Syrup) 5 ml QID PRN PO 03/01/16 02:00 03/31/16 01:59 03/02/16 01:17 5 ML Montelukast Sodium (Singulair Tab) 10 mg DAILY PO 03/01/16 09:00 03/31/16 08:59 03/01/16 09:12 10 MG Nystatin (Mycostatin Susp) 5 ml QID PO 03/01/16 13:00 03/11/16 12:59 03/01/16 21:42 5 ML Ipratropium [place] (Atrovent 0.02% 0.5MG/2.5ML Neb) 0.5 mg Q4R INH 03/01/16 12:00 03/31/16 11:59 03/02/16 07:14 0.5 MG Levalbuterol (Xopenex 1.25MG/ 0.5ML Neb) 1.25 mg Q4R INH 03/01/16 12:00 03/31/16 11:59 03/02/16 07:14 1.25 MG Ipratropium [place] (Atrovent 0.02% 0.5MG/2.5ML Neb) 0.5 mg Q2H PRN INH 03/01/16 14:00 03/31/16 13:59 03/01/16 18:15 0.5 MG Levalbuterol 1.25 mg 1.25 mg Q2H PRN INH 03/01/16 14:00 03/31/16 13:59 03/01/16 18:15 1.25 MG Levofloxacin/Prmx (Levaquin / D5W/ Premixed D5W) 100 ml @ 100 mls/hr Q24H IV 03/02/16 01:00 03/07/16 01:59 03/02/16 01:17 100 MLS/HR
[2016-03-02] MEDS ORDERED: IPRATROPIUM BROMIDE NEB SOLN 0.02% 2.5 ML VIAL INH ONE ×2 (09:00→13:15)
[2016-03-02] MEDS ORDERED: LEVALBUTEROL 1.25MG/3ML NEB INH ONE ×2 (09:00→12:45)
[2016-03-02] MEDS ORDERED: METHYLPREDNISOLONE IV 20 MG in SYRINGE 0 ML IV ONE (09:15)
[2016-03-02] MEDS: AMLODIPINE BESYLATE 5 MG TAB PO SCH (09:21)
[2016-03-02] MEDS: NYSTATIN SUSP 500,000 U/5 ML UDC PO SCH ×4 (09:21→21:24)
[2016-03-02] MEDS: MONTELUKAST SOD 10 MG TAB PO SCH (09:22)
[2016-03-02] MEDS: METHYLPREDNISOLONE IV 80 MG in SYRINGE 0 ML IV SCH ×2 (14:13→20:21)
--- NOTE | 2016-03-02 14:51 | PULMONARY PROGRESS NOTE ---
DATE: 03/02/2016 TIME: 2:10 p.m. SUBJECTIVE: The patient continues to be extremely short of breath. She has not improved from yesterday. She states that she is desaturating if she puts her head back. She is keeping herself at about 70 degrees elevation. She desaturates if she gets to the bedside commode. She did have a treatment for 1 hour this morning. She states she felt better during that treatment than any other time. She is not expectorating any phlegm. She is not having chills, fevers or sweats. The patient has had anxiety related to her shortness of breath. OBJECTIVE: GENERAL: The patient seems comfortable. She has been afebrile. EARS, NOSE, THROAT: Unremarkable. VITAL SIGNS: Heart rate remains elevated. Current heart rate is 113 per minute. Blood pressure 131/84. Current oxygen saturation 97% on 3 liters of oxygen. LUNGS: Auscultation of the lung estrada now reveals rales at the lower lung estrada bilaterally. She has some wheezing with prolongation to the expiratory phase. ABDOMEN: Soft and nontender. EXTREMITIES: Showed no cyanosis, clubbing or edema. LABORATORY DATA: Serum IgE is still pending. Electrolytes show sodium 143, potassium 3.7, chloride 107, and bicarbonate 25. BUN 13 with a creatinine of 0.84. CPK was elevated at 589. Troponin however, was normal. ProBNP was 78. Blood gas done yesterday afternoon showed a pH of 7.49 with a pCO2 of 30 and a pO2 of 88 on 4 liters. D-dimer was normal at less than 190. IMPRESSIONS: 1. Status asthmaticus. 2. Oral candidiasis. 3. Tachycardia. COMMENTS AND RECOMMENDATIONS: The patient obviously remains tight. I did not see her desaturate, but this is what she is telling me. Her nurse is not currently available. We have boosted upper steroids to 80 mg IV q. 6 hours. She is on levofloxacin still, daily. She is getting levalbuterol and ipratropium every 4 hours. She is getting montelukast. If the patient's status worsens, I would transfer her to regular ICU. Her aeration; however, seems better than I would expect considering her symptoms and oxygen desaturations. The normal D-dimer makes the chance of pulmonary embolic disease to be much less. She still remains critical. An echo has been ordered for completeness and I agree with that. There are no physical signs of any stridor or anything to suggest an upper airway obstruction.
--- NOTE | 2016-03-02 14:53 | DIAGNOSTIC IMAGING REPORT ---
CHEST ONE VIEW PORTABLE CLINICAL HISTORY: Progressive shortness of breath. COMPARISON STUDY: Chest radiograph March 01, 2016. FINDINGS: Lung volumes are diminished. This is not changed. There is no evidence of pulmonary edema. Cardiomediastinal silhouette is stable. There is no pneumothorax. There is a possible small left pleural effusion. Bibasilar opacities, left greater than right, persist. IMPRESSION: 1. Diminished lung volumes, similar to prior exam. Bibasilar opacities which favor atelectasis. 2. Possible small left pleural effusion. Electronically signed by: Sushil Ibrahim M.D. 03/02/2016 2:52 PM Dictated Date/Time: 03/02/2016 2:51 PM
[2016-03-02] MEDS: CETIRIZINE HCL 10 MG TAB PO SCH (21:23)
[2016-03-02] MEDS: LORAZEPAM 0.5 MG TAB PO PRN (23:16)
[2016-03-03] VITALS (17 sets, daily range): BP systolic 133–151; BP diastolic 83–87; PULSE 88–115; TEMP 36.7–36.9; O2SAT 91–97
[2016-03-03] MEDS: LEVOFLOXACIN / D5W 500 MG in PREMIXED IN D5W 100 ML IV SCH (01:14)
[2016-03-03] MEDS: METHYLPREDNISOLONE IV 80 MG in SYRINGE 0 ML IV SCH ×4 (02:27→20:07)
[2016-03-03] MEDS: LEVALBUTEROL 1.25MG/0.5ML NEB INH SCH ×6 (03:27→23:13)
[2016-03-03] MEDS: IPRATROPIUM BROMIDE NEB SOLN 0.02% 2.5 ML VIAL INH SCH ×6 (03:27→23:13)
[2016-03-03] MEDS: ENOXAPARIN 40 MG/0.4 ML SYR SQ SCH (06:08)
[2016-03-03] MEDS: IPRATROPIUM BROMIDE NEB SOLN 0.02% 2.5 ML VIAL INH PRN (06:20)
[2016-03-03] MEDS: LEVALBUTEROL 1.25MG/0.5ML NEB INH PRN (06:20)
[2016-03-03 06:42] LABS: BUN/CREATININE RATIO 20.6 (10-20); CALCIUM 9.7 mg/dl (8.5-10.1); CREATININE 0.8 mg/dl (0.60-1.20); POTASSIUM 3.9 mmol/L (3.5-5.1)
[2016-03-03] MEDS: AMLODIPINE BESYLATE 5 MG TAB PO SCH (08:54)
[2016-03-03] MEDS: MONTELUKAST SOD 10 MG TAB PO SCH (08:54)
[2016-03-03] MEDS: NYSTATIN SUSP 500,000 U/5 ML UDC PO SCH ×4 (08:55→20:07)
--- NOTE | 2016-03-03 11:37 | Progress Note ---
Medicine Progress Note Date & Time of Visit: Mar 03, 2016 at 11:33. Subjective states she still feels easily short of breath and desaturates with minimal movement- going to commode at rest, she feels a little better, patient seems more comfortable while talking today has very scant yellow sputum denies chest pain, palpitations, dizziness, pleuritic pain no other symptoms Objective Last 8 Hrs Date Time Temp Pulse Resp B/P Pulse Ox O2 Delivery O2 Flow Rate FiO2 03/03/16 08:31 36.9 109 20 137/85 94 Nasal Cannula 3.0 03/03/16 08:00 Nasal Cannula 3.0 03/03/16 07:13 102 18 94 Nasal Cannula 3.0 03/03/16 06:20 103 22 92 Nasal Cannula 3.0 03/03/16 04:00 95 Nasal Cannula 3.0 03/03/16 03:59 36.7 95 18 144/85 95 Nasal Cannula 3.0 Physical Exam: general- alert, appears comfortable, speaks in sentences with no effort/acc muscles Eyes- anicteric Neck- no JVD Lungs- (+) scattered crackles, very mild wheeze Heart- (+) tachycardic- mild, regular rhythm; no murmur Abdomen- normal bowel sounds, soft, nontender Extremities- no pretibial edema, no calf tenderness Neuro- alert, oriented x 3; no focal gross motor/sensory deficits Skin- warm & dry Laboratory Results: Last 24 Hours Test 03/03/16 05:55 03/03/16 06:15 03/03/16 11:20 Sodium Level 145 mmol/L Potassium Level 3.9 mmol/L Chloride Level 108 mmol/L Carbon Dioxide Level 26 mmol/L Anion Gap 11.0 mmol/L Blood Urea Nitrogen 17 mg/dl Creatinine 0.80 mg/dl Est Creatinine Clear Calc Drug Dose 81.4 ml/min Estimated GFR () 95.5 Estimated GFR (Non- 82.4 BUN/Creatinine Ratio 20.6 Random Glucose 142 mg/dl Calcium Level 9.7 mg/dl Bedside Glucose 129 mg/dl Assessment & Plan This is a 55 year old female with PMH of persistent asthma, allergic rhinitis/ seasonal allergies, HTN presents with worsening shortness of breath/wheezing Acute Asthma Exacerbation , possible Acute Bronchitis -->patient with long-standing asthma and difficult to control allergies -->tried home medications, oral steroids, nebulizer treatments at home - D dimer negative repeat CXR 03/01/15: no signs of pneumonia - appears somewhat better today less tachycardic, less effort with breathing, still on 3 liters nasal cannula Solumedrol 80mg q6h continue Nebs q4h Levaquin - appreciate Dr. Zhou's recommendations Sinus Tachycardia - check echo Nonspecific T wave changes in the Anterolateral leads - no cardiac symptoms - repeat ekg unchanged HTN stable -->continue norvasc DVT ppx -->lovenox FULL CODE Disposition pending Current Inpatient Medications: Current Inpatient Medications Medications (Trade) Dose Ordered Sig/Delicia Route Start Time Stop Time Status Last Admin Dose Admin Enoxaparin Sodium (Lovenox Inj) 40 mg Q24H SQ 03/01/16 06:00 03/31/16 05:59 03/03/16 06:08 40 MG Acetaminophen (Tylenol Tab) 650 mg Q4H PRN PO 03/01/16 01:30 03/31/16 01:29 Al Hydrox/Mg Hydrox/Simethicone (Maalox Max Susp) 15 ml Q4H PRN PO 03/01/16 01:30 03/31/16 01:29 Magnesium Hydroxide (Milk Of Magnesia Susp) 30 ml Q6H PRN PO 03/01/16 01:30 03/31/16 01:29 Polyethylene (Miralax Powder Packet) 17 gm DAILY PRN PO 03/01/16 01:30 03/31/16 01:29 Ondansetron HCl (Zofran Inj) 4 mg Q6H PRN IV 03/01/16 01:30 03/31/16 01:29 Amlodipine Besylate (Norvasc Tab) 10 mg DAILY PO 03/01/16 09:00 03/31/16 08:59 03/03/16 08:54 10 MG Cetirizine HCl (zyrTEC TAB) 10 mg QPM PO 03/01/16 21:00 03/31/16 20:59 03/02/16 21:23 10 MG Codeine Phosphate/ Guaifenesin (Robitussin-AC Sugar Free Syrup) 5 ml QID PRN PO 03/01/16 02:00 03/31/16 01:59 03/02/16 01:17 5 ML Montelukast Sodium (Singulair Tab) 10 mg DAILY PO 03/01/16 09:00 03/31/16 08:59 03/03/16 08:54 10 MG Nystatin (Mycostatin Susp) 5 ml QID PO 03/01/16 13:00 03/11/16 12:59 03/03/16 08:55 5 ML Ipratropium [place] (Atrovent 0.02% 0.5MG/2.5ML Neb) 0.5 mg Q4R INH 03/01/16 12:00 03/31/16 11:59 03/03/16 07:13 0.5 MG Levalbuterol (Xopenex 1.25MG/ 0.5ML Neb) 1.25 mg Q4R INH 03/01/16 12:00 03/31/16 11:59 03/03/16 07:13 1.25 MG Levalbuterol 1.25 mg 1.25 mg Q2H PRN INH 03/01/16 14:00 03/31/16 13:59 03/03/16 06:20 1.25 MG Levofloxacin 500 mg/Prmx 100 ml @ 100 mls/hr Q24H IV 03/02/16 01:00 03/07/16 01:59 03/03/16 01:14 100 MLS/HR Methylprednisolone Sodium Succinate/ Syringe (Solu-Medrol IV/ Syringe) 1.28 ml @ 1.5 mls/min Q6H IV 03/02/16 14:30 04/01/16 14:29 03/03/16 08:55 1.5 MLS/MIN Ipratropium [place] (Atrovent 0.02% 0.5MG/2.5ML Neb) 0.5 mg Q2R PRN INH 03/02/16 14:45 04/01/16 14:44 03/03/16 06:20 0.5 MG Lorazepam (Ativan Tab) 0.5 mg Q6H PRN PO 03/02/16 18:00 04/01/16 17:59 03/02/16 23:16 0.5 MG
--- NOTE | 2016-03-03 12:07 | ECHOCARDIOGRAM REPORT ---
*NOTICE TO RECEIVING DEMOCRAT AGENCY This information is strictly Confidential and protected under [place] law. [place] law prohibits you from making any further disclosure of this information unless further disclosure is expressly permitted by the written consent of the person to whom it pertains or is authorized by law. A general authorization for the release of medical or other information is not sufficient for this purpose. Hospital accepts no responsibility if the information is made available to any other person, INCLUDING THE PATIENT. Interpretation Summary * Name: KILEY ANDUJAR Study Date: 03/03/2016 11:04 AM BP: 137/85 mmHg * Patient Location: C.2E\S\E211\S\1 HR: 109 * : 1960 (M/d/yyyy) Gender: Female Height: 64 in * Age: 55 yrs Ethnicity: [place] Weight: 181 lb * Ordering Physician: Mike Bhakta * Referring Physician: Self, Referred * Performed By: Cathryn Reese RDCS * * Reason For Study: PERSISTENT TACHYCARDIA * BSA: 1.9 m2 * History: PERSISTENT TACHYCARDIA * -- Conclusions -- * Normal LV chamber size with mild concetric LVH. * Normal LV systolic function, EF 60-65%. * No segmental left ventricular wall motion abnormalities are noted. * Grade I diastolic dysfunction. * No significant valvular pathology. * Trivial, anterior pericardial effusion without hemodynamic significance. Procedure Details * A complete two-dimensional transthoracic echocardiogram was performed (2D, M-mode, Doppler and color flow Doppler). Left Ventricle * The left ventricle is normal in size. * There is mild concentric left ventricular hypertrophy. * Ejection Fraction = 55-60%. * Left ventricular systolic function is normal. * No segmental left ventricular wall motion abnormalities are noted. * The left ventricular wall motion is normal. Right Ventricle * The right ventricular cavity size is normal (basal dimension <4.2 cm in right ventricular apical 4-chamber view). * The right ventricular systolic function is normal as assessed by tricuspid annular plane systolic excursion (TAPSE) (normal >1.5 cm). Atria * The left atrial size is normal. * Right atrial size is normal. Mitral Valve * The mitral valve is normal in structure and function. Tricuspid Valve * The tricuspid valve is normal in structure and function. Aortic Valve * The aortic valve is not well visualized. * No hemodynamically significant valvular aortic stenosis. * There is no significant aortic regurgitation. Pulmonic Valve * The pulmonary valve is not well seen, but the Doppler examination is normal without significant regurgitation or stenosis. Great Vessels * The aortic root is normal size. Pericardium/Pleural * There is no pericardial effusion. Left Ventricular Diastolic Function * Grade I diastolic dysfunction, (abnormal relaxation pattern). MMode 2D Measurements and Calculations IVSd 1.1 cm IVSs 1.4 cm LVIDd 4.3 cm LVIDs 3.1 cm LVPWd 1.1 cm LVPWs 1.3 cm IVS/LVPW 0.97 FS 27.8 % EDV(Teich) 84.8 ml ESV(Teich) 38.8 ml EF(Teich) 54.2 % EDV(cubed) 81.7 ml ESV(cubed) 30.7 ml EF(cubed) 62.4 % % IVS thick 37.8 % % LVPW thick 22.0 % LV mass(C)d 158.3 grams LV mass(C)dI 84.4 grams/m\S\2 LV mass(C)s 146.0 grams LV mass(C)sI 77.9 grams/m\S\2 SV(Teich) 46.0 ml SI(Teich) 24.5 ml/m\S\2 SV(cubed) 51.0 ml SI(cubed) 27.2 ml/m\S\2 Ao root diam 3.0 cm Ao root area 7.2 cm\S\2 LA dimension 2.9 cm LA/Ao 0.96 LVAd ap4 29.2 cm\S\2 LVLd ap4 8.4 cm EDV(MOD-sp4) 82.6 ml EDV(sp4-el) 86.4 ml LVAs ap4 15.2 cm\S\2 LVLs ap4 6.3 cm ESV(MOD-sp4) 32.3 ml ESV(sp4-el) 31.1 ml EF(MOD-sp4) 60.9 % EF(sp4-el) 64.0 % LVAd ap2 29.2 cm\S\2 LVLd ap2 7.9 cm EDV(MOD-sp2) 90.4 ml EDV(sp2-el) 92.1 ml LVAs ap2 17.4 cm\S\2 LVLs ap2 6.9 cm ESV(MOD-sp2) 37.1 ml ESV(sp2-el) 37.5 ml EF(MOD-sp2) 59.0 % EF(sp2-el) 59.3 % LVLd %diff -6.45 % EDV(MOD-bp) 89.7 ml LVLs %diff 8.1 % ESV(MOD-bp) 36.0 ml EF(MOD-bp) 59.9 % SV(MOD-sp4) 50.3 ml SI(MOD-sp4) 26.8 ml/m\S\2 SV(MOD-sp2) 53.4 ml SI(MOD-sp2) 28.5 ml/m\S\2 SV(MOD-bp) 53.7 ml SI(MOD-bp) 28.6 ml/m\S\2 SV(sp4-el) 55.4 ml SI(sp4-el) 29.5 ml/m\S\2 SV(sp2-el) 54.6 ml SI(sp2-el) 29.1 ml/m\S\2 Doppler Measurements and Calculations MV E max katherine 81.5 cm/sec MV A max katherine 108.5 cm/sec MV E/A 0.75 MV dec time 0.22 sec Ao V2 max 160.1 cm/sec Ao max PG 10.3 mmHg Ao max PG (full) 4.2 mmHg LV V1 max PG 6.1 mmHg LV V1 max 123.0 cm/sec
[2016-03-03] MEDS ORDERED: MoRPHine SULFATE 2 MG/ML CARP IV PRN (16:00)
--- NOTE | 2016-03-03 16:32 | PULMONARY PROGRESS NOTE ---
DATE: 03/03/2016 TIME: 03:40 p.m. SUBJECTIVE: The patient continues to be very short of breath. She is barely able to get to the bedside commode, which is right next to her bed. She is dyspneic with any movement. She still feels tight. Overall, she had a good night last night, but does not feel as good this afternoon. This morning, she was also feeling a little better. She feels it is loosening, but nothing is coming out in terms of sputum. She has no chest pains. The patient did have an echocardiogram done. This shows normal left ventricular function. There was mild concentric LVH. Grade 1 diastolic dysfunction was reported. There does not seem to be any significant cardiac abnormality that would explain the tachycardia and dyspnea. OBJECTIVE: GENERAL: The patient looks tired. She was somewhat dyspneic at rest. She is anxious. Temperature 36.8. NECK: Palpation of the neck reveals no lymph nodes. HEART: Heart rate was 125 when I was in the room. Most of the day, it has been a little lower. Blood pressure is 151/83. Oxygen saturation currently is 93% on 3 liters. LUNGS: Breath sounds remained diminished. She has prominent crackles in the lower lung estrada bilaterally. There is wheezing heard as well. Respiratory rate is 20 breaths per minute. ABDOMEN: Soft and nontender. EXTREMITIES: Showed no edema. Chest x-ray done yesterday again shows diminished lung volumes with some bibasilar opacities that may reflect atelectasis. The left lung base is more abnormal than it was at the time of admission. A small effusion cannot be excluded. Flu test was negative. Electrolytes show sodium 145, potassium 3.9, chloride 108, and bicarb 26. BUN was 17 with a creatinine of 0.8. The IgE is still pending. IMPRESSIONS: 1. Status asthmaticus. 2. Tachycardia. 3. Oral candidiasis -- improved. COMMENTS AND RECOMMENDATIONS: The patient still seems much more short of breath than expected. This still most likely seems to be status asthmaticus. She has a history of asthma associated with fairly rapid onset. 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 It seems like she had an acute respiratory infection preceding. She apparently does not have influenza. The D-dimer is normal, making PE very unlikely. I believe that hydration may be of benefit. She did have a lot of diuresis over the prior couple of days. On March 02, she had 3600 mL out and thus far today, she has had 1800. I do not believe she is getting any diuretics. In light of the normal echocardiogram, I believe hydration would be a good idea. I have also spoken with the patient about a trial of BiPAP. She is agreeable to try. She knows what this is because her wears a CPAP nightly. We will give her a trial and see if that relieves some of her dyspnea. Would continue with the IV levofloxacin and the nebulizer treatments as ordered. She certainly is much tired than expected considering her amount of medication she is receiving. Ideally, I would like to do a CAT scan of the chest, but I do not believe that she could lie back at all for a few minutes to do this. Her course is obviously very complex. Would continue with the methylprednisolone at 80 mg IV q. 6 hours. MTDD
[2016-03-03] MEDS: SODIUM CHLORIDE 0.9% 1000ML 1,000 ML IV SCH (18:00)
[2016-03-03] MEDS: CETIRIZINE HCL 10 MG TAB PO SCH (20:07)
[2016-03-03] MEDS: LORAZEPAM 0.5 MG TAB PO PRN (21:03)
[2016-03-04] VITALS (17 sets, daily range): BP systolic 109–138; BP diastolic 73–86; PULSE 64–120; TEMP 36.7–37.7; O2SAT 91–95
[2016-03-04] MEDS: SODIUM CHLORIDE 0.9% 1000ML 1,000 ML IV SCH ×3 (01:45→21:29)
[2016-03-04] MEDS: LEVOFLOXACIN / D5W 500 MG in PREMIXED IN D5W 100 ML IV SCH (01:45)
[2016-03-04] MEDS: METHYLPREDNISOLONE IV 80 MG in SYRINGE 0 ML IV SCH ×4 (01:45→20:48)
[2016-03-04] MEDS: IPRATROPIUM BROMIDE NEB SOLN 0.02% 2.5 ML VIAL INH SCH ×6 (03:51→23:11)
[2016-03-04] MEDS: LEVALBUTEROL 1.25MG/0.5ML NEB INH SCH ×6 (03:51→23:11)
[2016-03-04 05:54] LABS: HEMATOCRIT 39.4 % (37-47); MEAN CELL VOLUME 89.5 fL (80-100); MEAN CORPUSCULAR HEMOGLOBIN 29.8 pg (25-34); MEAN CORPUSCULAR HGB CONC 33.2 g/dl (32-36); MEAN PLATELET VOLUME 10.3 fL (7.4-10.4); PLATELET COUNT 247 K/uL (130-400)
[2016-03-04] MEDS: ENOXAPARIN 40 MG/0.4 ML SYR SQ SCH (06:14)
[2016-03-04 06:29] LABS: BUN/CREATININE RATIO 25.1 (10-20); CALCIUM 9.1 mg/dl (8.5-10.1); CREATININE 0.76 mg/dl (0.60-1.20); POTASSIUM 3.8 mmol/L (3.5-5.1)
[2016-03-04] MEDS: NYSTATIN SUSP 500,000 U/5 ML UDC PO SCH ×4 (08:23→21:27)
[2016-03-04] MEDS: MONTELUKAST SOD 10 MG TAB PO SCH (08:24)
[2016-03-04] MEDS: AMLODIPINE BESYLATE 5 MG TAB PO SCH (08:24)
--- NOTE | 2016-03-04 08:40 | PULMONARY PROGRESS NOTE ---
DATE: 03/04/2016 TIME: 8:10 a.m. SUBJECTIVE: The patient was placed on BiPAP late yesterday afternoon. She felt dramatically better with the BiPAP in place. Her breathing was much easier. She was able to sleep well last night. She is not coughing much when she has the BiPAP on. She still coughs with any deep breaths. There has been no significant sputum. She has been off the BiPAP now for approximately 30 minutes. She still feels pretty good. She has some appetite. She has not had any chills, fevers or sweats. OBJECTIVE: GENERAL: The patient appears comfortable at rest. Temperature is 37 degrees. ENT: Exam is unremarkable. VITAL SIGNS: Heart rate is currently 107. The rhythm is sinus tachycardia. When she was on the BiPAP, her heart rates were down in the upper 80s. Blood pressure is 131/75. LUNGS: Auscultation of the lung estrada reveals posteriorly bilaterally in the lower lung estrada prominent crackles. The wheezes are less prominent today. These adventitious sounds are not at all typical for asthma. Her work of breathing is much diminished compared with yesterday. She has not exerted herself at all, however. The patient notices that she can put her head back farther than before. Oxygen saturation is 94%, this was on nasal cannula. ABDOMEN: Soft. Bowel sounds were normal. There was no tenderness to palpation or masses. EXTREMITIES: Showed no cyanosis, clubbing or edema. LABORATORY DATA: White count today is 15.6. Hemoglobin 13.1. Platelets 247,000. Sodium is 143, potassium 3.8, chloride 108, bicarb 26. BUN is 19 with a creatinine of 0.76. Blood sugar was 156 this morning. Her total intake and output for yesterday balanced. There was 2381 mL intake and 2400 output. IMPRESSION: 1. Respiratory failure with hypoxia. 2. Status asthmaticus. 3. Cannot exclude hypersensitivity reaction. 4. Tachycardia. 5. Oral candidiasis -- improved. The patient has had improvement with BiPAP. However, the underlying process is still going on. Her lung sounds are at least as abnormal as yesterday. Although she has a history of asthma, it is not acting exactly like an asthma attack typically does. She has more crackles than wheezes. She believes she could do a CAT scan while wearing BiPAP if need be. She thinks she could lie back long enough. That would certainly be a consideration if her status worsens. I am going to repeat a chest x-ray for tomorrow morning. We will continue the nebulizer treatments and the levofloxacin. I am going to check a sed rate. Prognosis is still guarded. We will allow her to wear the BiPAP as she needs it during the day and we will ask her to wear it at night. I am pretty certain she is going to want the BiPAP off and on during the day.
--- NOTE | 2016-03-04 10:32 | Progress Note ---
Medicine Progress Note Date & Time of Visit: Mar 04, 2016 at 10:28. Subjective patient states she feels somewhat better this morning states Bipap is really helping her has mild dyspne on nasal cannula no other symptoms Objective Last 8 Hrs Date Time Temp Pulse Resp B/P Pulse Ox O2 Delivery O2 Flow Rate FiO2 03/04/16 07:53 37.0 89 22 131/75 94 BiPAP 4.0 89 03/04/16 07:27 91 94 4.0 03/04/16 07:24 91 18 94 BiPAP/CPAP 4.0 03/04/16 04:00 93 BiPAP 4.0 03/04/16 04:00 36.8 89 18 117/73 95 BiPAP 03/04/16 03:51 83 16 95 BiPAP/CPAP 4.0 03/04/16 03:51 83 95 4.0 Physical Exam: general- alert, appears comfortable, speaks in sentences with no effort/acc muscles Eyes- anicteric Neck- no JVD Lungs- (+) scattered crackles, no wheeze Heart- HR 90s regular rhythm; no murmur Abdomen- normal bowel sounds, soft, nontender Extremities- no pretibial edema, no calf tenderness Neuro- alert, oriented x 3; no focal gross motor/sensory deficits Skin- warm & dry Laboratory Results: Last 24 Hours Test 03/03/16 11:20 03/04/16 05:31 Influenza Type A Antigen Neg for Influ A Influenza Type B Antigen Neg for Influ B White Blood Count 15.60 K/uL Red Blood Count 4.40 M/uL Hemoglobin 13.1 g/dL Hematocrit 39.4 % Mean Corpuscular Volume 89.5 fL Mean Corpuscular Hemoglobin 29.8 pg Mean Corpuscular Hemoglobin Concent 33.2 g/dl RDW Standard Deviation 47.4 fL RDW Coefficient of Variation 14.4 % Platelet Count 247 K/uL Mean Platelet Volume 10.3 fL Sodium Level 143 mmol/L Potassium Level 3.8 mmol/L Chloride Level 108 mmol/L Carbon Dioxide Level 26 mmol/L Anion Gap 9.0 mmol/L Blood Urea Nitrogen 19 mg/dl Creatinine 0.76 mg/dl Est Creatinine Clear Calc Drug Dose 84.9 ml/min Estimated GFR () 101.6 Estimated GFR (Non- 87.7 BUN/Creatinine Ratio 25.1 Random Glucose 156 mg/dl Calcium Level 9.1 mg/dl Assessment & Plan This is a 55 year old female with PMH of persistent asthma, allergic rhinitis/ seasonal allergies, HTN presents with worsening shortness of breath/wheezing Acute Asthma Exacerbation , possible Acute Bronchitis -->patient with long-standing asthma and difficult to control allergies -->tried home medications, oral steroids, nebulizer treatments at home - D dimer negative repeat CXR 03/01/15: no signs of pneumonia - slightly improved continue Bipap Solumedrol 80mg q6h continue Nebs q4h Levaquin IV fluids - possible CT chest today if patient tolerating supine positiong - appreciate Dr. Zhou's recommendations Sinus Tachycardia - resolving - Echo: - -- Conclusions -- * Normal LV chamber size with mild concetric LVH. * Normal LV systolic function, EF 60-65%. * No segmental left ventricular wall motion abnormalities are noted. * Grade I diastolic dysfunction. * No significant valvular pathology. * Trivial, anterior pericardial effusion without hemodynamic significance. Nonspecific T wave changes in the Anterolateral leads - no cardiac symptoms - repeat ekg unchanged HTN stable -->continue norvasc DVT ppx -->lovenox FULL CODE Disposition pending Current Inpatient Medications: Current Inpatient Medications Medications (Trade) Dose Ordered Sig/Delicia Route Start Time Stop Time Status Last Admin Dose Admin Enoxaparin Sodium (Lovenox Inj) 40 mg Q24H SQ 03/01/16 06:00 03/31/16 05:59 03/04/16 06:14 40 MG Acetaminophen (Tylenol Tab) 650 mg Q4H PRN PO 03/01/16 01:30 03/31/16 01:29 Al Hydrox/Mg Hydrox/Simethicone (Maalox Max Susp) 15 ml Q4H PRN PO 03/01/16 01:30 03/31/16 01:29 Magnesium Hydroxide (Milk Of Magnesia Susp) 30 ml Q6H PRN PO 03/01/16 01:30 03/31/16 01:29 Polyethylene (Miralax Powder Packet) 17 gm DAILY PRN PO 03/01/16 01:30 03/31/16 01:29 Ondansetron HCl (Zofran Inj) 4 mg Q6H PRN IV 03/01/16 01:30 03/31/16 01:29 Amlodipine Besylate (Norvasc Tab) 10 mg DAILY PO 03/01/16 09:00 03/31/16 08:59 03/04/16 08:24 10 MG Cetirizine HCl (zyrTEC TAB) 10 mg QPM PO 03/01/16 21:00 03/31/16 20:59 03/03/16 20:07 10 MG Codeine Phosphate/ Guaifenesin (Robitussin-AC Sugar Free Syrup) 5 ml QID PRN PO 03/01/16 02:00 03/31/16 01:59 03/02/16 01:17 5 ML Montelukast Sodium (Singulair Tab) 10 mg DAILY PO 03/01/16 09:00 03/31/16 08:59 03/04/16 08:24 10 MG Nystatin (Mycostatin Susp) 5 ml QID PO 03/01/16 13:00 03/11/16 12:59 03/04/16 08:23 5 ML Ipratropium [place] (Atrovent 0.02% 0.5MG/2.5ML Neb) 0.5 mg Q4R INH 03/01/16 12:00 03/31/16 11:59 03/04/16 07:23 0.5 MG Levalbuterol (Xopenex 1.25MG/ 0.5ML Neb) 1.25 mg Q4R INH 03/01/16 12:00 03/31/16 11:59 03/04/16 07:23 1.25 MG Levalbuterol 1.25 mg 1.25 mg Q2H PRN INH 03/01/16 14:00 03/31/16 13:59 03/03/16 06:20 1.25 MG Levofloxacin 500 mg/Prmx 100 ml @ 100 mls/hr Q24H IV 03/02/16 01:00 03/07/16 01:59 03/04/16 01:45 100 MLS/HR Methylprednisolone Sodium Succinate/ Syringe (Solu-Medrol IV/ Syringe) 1.28 ml @ 1.5 mls/min Q6H IV 03/02/16 14:30 04/01/16 14:29 03/04/16 08:23 1.5 MLS/MIN Ipratropium [place] (Atrovent 0.02% 0.5MG/2.5ML Neb) 0.5 mg Q2R PRN INH 03/02/16 14:45 04/01/16 14:44 03/03/16 06:20 0.5 MG Lorazepam 0.5 mg 0.5 mg Q6H PRN PO 03/02/16 18:00 04/01/16 17:59 03/03/16 21:03 0.5 MG Sodium Chloride (Nss 1000ml) 1,000 ml @ 100 mls/hr Q10H IV 03/03/16 16:00 04/02/16 15:59 03/04/16 01:45 100 MLS/HR Morphine Sulfate (MoRPHine SULFATE INJ) 2 mg Q3H PRN IV 03/03/16 16:00 03/17/16 15:59
[2016-03-04] MEDS: IPRATROPIUM BROMIDE NEB SOLN 0.02% 2.5 ML VIAL INH PRN (11:36)
[2016-03-04] MEDS: LEVALBUTEROL 1.25MG/0.5ML NEB INH PRN (11:36)
[2016-03-04] MEDS ORDERED: OPTIRAY 320 IV PRN (15:30)
[2016-03-04] MEDS: LORAZEPAM 0.5 MG TAB PO PRN (15:58)
--- NOTE | 2016-03-04 16:23 | DIAGNOSTIC IMAGING REPORT ---
CHEST CT WITH CONTRAST CT DOSE: 818.99 mGy.cm HISTORY: hypoxia TECHNIQUE: Multiaxial CT images of the chest were performed following the intravenous administration of contrast. COMPARISON: Chest 03/02/2016. FINDINGS: There is mild respiratory motion. The central airways are patent. No pneumothorax. There are left greater than right bibasilar airspace opacities. The visualized liver, spleen, and adrenal glands are unremarkable. The heart is normal in size. No mediastinal or hilar lymphadenopathy. Normal caliber thoracic aorta. The main pulmonary arteries are patent. IMPRESSION: Bibasilar airspace opacities, left greater than right. This may represent a pneumonia or atelectasis. Electronically signed by: Benji Morris M.D. 03/04/2016 4:21 PM Dictated Date/Time: 03/04/2016 4:18 PM
[2016-03-04] MEDS: CETIRIZINE HCL 10 MG TAB PO SCH (21:27)
[2016-03-05] VITALS (18 sets, daily range): BP systolic 119–169; BP diastolic 73–103; PULSE 65–115; TEMP 36.8–37.2; O2SAT 91–95
[2016-03-05] MEDS: LEVOFLOXACIN / D5W 500 MG in PREMIXED IN D5W 100 ML IV SCH (01:22)
[2016-03-05] MEDS: METHYLPREDNISOLONE IV 80 MG in SYRINGE 0 ML IV SCH ×2 (02:22→09:11)
[2016-03-05] MEDS: LEVALBUTEROL 1.25MG/0.5ML NEB INH SCH ×6 (03:16→23:24)
[2016-03-05] MEDS: IPRATROPIUM BROMIDE NEB SOLN 0.02% 2.5 ML VIAL INH SCH ×6 (03:16→23:24)
[2016-03-05] MEDS: ENOXAPARIN 40 MG/0.4 ML SYR SQ SCH (06:00)
[2016-03-05 06:53] LABS: CALCIUM 9.1 mg/dl (8.5-10.1); CREATININE 0.75 mg/dl (0.60-1.20); POTASSIUM 3.5 mmol/L (3.5-5.1)
[2016-03-05] MEDS: SODIUM CHLORIDE 0.9% 1000ML 1,000 ML IV SCH ×2 (07:44→20:31)
--- NOTE | 2016-03-05 08:00 | DIAGNOSTIC IMAGING REPORT ---
CHEST ONE VIEW PORTABLE HISTORY: Short of breath. f/u left atelectasis vs infiltrate COMPARISON: Chest 03/02/2016. FINDINGS: There are low lung volumes. The heart is stable in size. No pneumothorax. Small bilateral pleural effusions and bibasilar densities. This has slightly progressed on the right The upper lung zones remain clear. No evidence for pulmonary edema. IMPRESSION: Small bilateral pleural effusions with bibasilar densities which favor atelectasis. However, a pneumonia could also have a similar appearance. This has slightly progressed on the right. Electronically signed by: Benji Morris M.D. 03/05/2016 7:58 AM Dictated Date/Time: 03/05/2016 7:56 AM
[2016-03-05] MEDS: NYSTATIN SUSP 500,000 U/5 ML UDC PO SCH ×4 (09:12→20:29)
[2016-03-05] MEDS: MONTELUKAST SOD 10 MG TAB PO SCH (09:13)
[2016-03-05] MEDS: AMLODIPINE BESYLATE 5 MG TAB PO SCH (09:13)
--- NOTE | 2016-03-05 14:40 | PULMONARY PROGRESS NOTE ---
DATE: 03/05/2016 TIME: 12:30 p.m. SUBJECTIVE: The patient continues to slowly improve. She was able to lie back and sleep almost flat last night with BiPAP in place. She has been very comfortable with BiPAP. She has expectorated just a small amount of phlegm. She was able to increase her exertion today. She got up to the chair and got up to the commode. She is still winded with any significant exertion. The patient did have a CAT scan of the chest done yesterday. She ultimately felt that she could lay down enough to do so. There were bibasilar opacifications greater on the left than the right, suggesting pneumonia versus atelectasis. OBJECTIVE: GENERAL: The patient is fairly comfortable at rest. She looks just mildly short of breath. Maximum temperature today 37.2. She indicates that she feels puffy in the face. However, she showed me a picture of herself from [facility] time and it did not look too much different. NECK: Palpation in the neck reveals no lymph nodes. HEART: Heart rate currently is 122 per minute. However, she was up to the bathroom just a few minutes earlier. The rhythm is regular. Blood pressure 166/73. Respiratory rate 18 breaths per minute. CHEST: Auscultation again reveals dry rales in both lower lung estrada posteriorly, greater on the right than the left. Oxygen saturation is 94% on 3 liters. ABDOMEN: Soft and nontender. Good bowel sounds were heard. EXTREMITIES: Showed no cyanosis, clubbing or edema. IMAGING: The patient did have a portable chest x-ray this morning. This again showed bibasilar densities which may represent atelectasis or pneumonia. There has been some progression on the right side. LABORATORY DATA: Electrolytes show sodium 144, potassium 3.5, chloride 106, bicarbonate 28. BUN 15, creatinine 0.75. IgE level is normal at 44. IMPRESSION: 1. Respiratory failure with hypoxia. 2. Status asthmaticus. 3. Possible hypersensitivity reaction to chemicals at work. 4. Oral candidiasis -- resolved. 5. Sinus tachycardia. COMMENTS AND RECOMMENDATIONS: The patient is slowly improving. She continues to sound abnormal on physical exam and her chest x-ray is actually slightly progressive on the right. Clinically, however, she is improving. As mentioned above, she has rales bilaterally. She also does have wheezing on expiration, which was not mentioned above. Would continue with her current treatments in general. I believe the Solu-Medrol can be decreased to 60 mg IV q. 6 hours. I will continue with the Levaquin. Obviously, continue the neb treatments. Dr. Boyce will be seeing her from pulmonary division starting tomorrow. I questioned the patient regarding the possibility of sleep apnea. She denies snoring, disturbed nocturnal sleep, or excessive daytime somnolence. Thus a sleep study likely is not indicated. SUGAR
[2016-03-05] MEDS: METHYLPREDNISOLONE IV 60 MG in SYRINGE 0 ML IV SCH ×2 (15:49→20:28)
[2016-03-05] MEDS ORDERED: CLONIDINE HCL 0.1 MG TAB PO PRN (16:00)
--- NOTE | 2016-03-05 17:26 | Progress Note ---
Medicine Progress Note Date & Time of Visit: Mar 05, 2016 at 17:06. Subjective seen sitting up in chair having dinner states her breathing is slightly better today less desaturation when moving still has occasional cough, very scant sputum denies chest pain no other symptoms Objective Last 8 Hrs Date Time Temp Pulse Resp B/P Pulse Ox O2 Delivery O2 Flow Rate FiO2 03/05/16 16:46 107 20 139/93 94 Nasal Cannula 4.0 107 03/05/16 16:04 Nasal Cannula 4.0 03/05/16 15:50 37.1 92 24 160/92 94 Nasal Cannula 3.0 03/05/16 14:52 99 16 93 Nasal Cannula 3.0 03/05/16 12:50 102 91 3.0 03/05/16 12:00 Nasal Cannula 3.0 03/05/16 11:57 37.0 113 18 166/73 94 Nasal Cannula 3.0 113 03/05/16 11:10 103 16 93 Nasal Cannula 3.0 Physical Exam: general- alert, appears comfortable, speaks in sentences with no effort/acc muscles Eyes- anicteric Neck- no JVD Lungs- (+) mild scattered crackles, no wheeze Heart- normal rate, regular rhythm; no murmur Abdomen- normal bowel sounds, soft, nontender Extremities- no pretibial edema, no calf tenderness Neuro- alert, oriented x 3; no focal gross motor/sensory deficits Skin- warm & dry Laboratory Results: Last 24 Hours Test 03/05/16 05:50 03/05/16 05:55 Erythrocyte Sedimentation Rate 4 mm/hr Sodium Level 144 mmol/L Potassium Level 3.5 mmol/L Chloride Level 106 mmol/L Carbon Dioxide Level 28 mmol/L Anion Gap 10.0 mmol/L Blood Urea Nitrogen 15 mg/dl Creatinine 0.75 mg/dl Est Creatinine Clear Calc Drug Dose 87.7 ml/min Estimated GFR () 103.3 Estimated GFR (Non- 89.1 BUN/Creatinine Ratio 20.0 Random Glucose 153 mg/dl Calcium Level 9.1 mg/dl Assessment & Plan This is a 55 year old female with PMH of persistent asthma, allergic rhinitis/ seasonal allergies, HTN presents with worsening shortness of breath/wheezing Acute Asthma Exacerbation , possible Acute Bronchitis -->patient with long-standing asthma and difficult to control allergies -->tried home medications, oral steroids, nebulizer treatments at home - D dimer negative repeat CXR 03/01/15: no signs of pneumonia - CT chest: bibasilar infiltrates, possible pneumonia and atelectasis - continues to improve gradually continue Bipap Solumedrol decreased to 60mg q6h continue Nebs q4h Levaquin IV fluids - appreciate Dr. Zhou's recommendations HTN mildly elevated today -->continue norvasc PRN Clonidine Sinus Tachycardia - resolving - Echo: - -- Conclusions -- * Normal LV chamber size with mild concetric LVH. * Normal LV systolic function, EF 60-65%. * No segmental left ventricular wall motion abnormalities are noted. * Grade I diastolic dysfunction. * No significant valvular pathology. * Trivial, anterior pericardial effusion without hemodynamic significance. - continue IV fluids Nonspecific T wave changes in the Anterolateral leads - no cardiac symptoms - repeat ekg unchanged DVT ppx -->lovenox FULL CODE Disposition pending Current Inpatient Medications: Current Inpatient Medications Medications (Trade) Dose Ordered Sig/Delicia Route Start Time Stop Time Status Last Admin Dose Admin Enoxaparin Sodium (Lovenox Inj) 40 mg Q24H SQ 03/01/16 06:00 03/31/16 05:59 03/05/16 06:00 40 MG Acetaminophen (Tylenol Tab) 650 mg Q4H PRN PO 03/01/16 01:30 03/31/16 01:29 Al Hydrox/Mg Hydrox/Simethicone (Maalox Max Susp) 15 ml Q4H PRN PO 03/01/16 01:30 03/31/16 01:29 Magnesium Hydroxide (Milk Of Magnesia Susp) 30 ml Q6H PRN PO 03/01/16 01:30 03/31/16 01:29 Polyethylene (Miralax Powder Packet) 17 gm DAILY PRN PO 03/01/16 01:30 03/31/16 01:29 Ondansetron HCl (Zofran Inj) 4 mg Q6H PRN IV 03/01/16 01:30 03/31/16 01:29 Amlodipine Besylate (Norvasc Tab) 10 mg DAILY PO 03/01/16 09:00 03/31/16 08:59 03/05/16 09:13 10 MG Cetirizine HCl (zyrTEC TAB) 10 mg QPM PO 03/01/16 21:00 03/31/16 20:59 1/7/17 21:27 10 MG Codeine Phosphate/ Guaifenesin (Robitussin-AC Sugar Free Syrup) 5 ml QID PRN PO 03/01/16 02:00 03/31/16 01:59 03/02/16 01:17 5 ML Montelukast Sodium (Singulair Tab) 10 mg DAILY PO 03/01/16 09:00 03/31/16 08:59 03/05/16 09:13 10 MG Nystatin (Mycostatin Susp) 5 ml QID PO 03/01/16 13:00 03/11/16 12:59 03/05/16 15:50 5 ML Ipratropium [place] (Atrovent 0.02% 0.5MG/2.5ML Neb) 0.5 mg Q4R INH 03/01/16 12:00 03/31/16 11:59 03/05/16 14:52 0.5 MG Levalbuterol (Xopenex 1.25MG/ 0.5ML Neb) 1.25 mg Q4R INH 03/01/16 12:00 03/31/16 11:59 03/05/16 14:52 1.25 MG Levalbuterol 1.25 mg 1.25 mg Q2H PRN INH 03/01/16 14:00 03/31/16 13:59 03/04/16 11:36 1.25 MG Levofloxacin/Prmx (Levaquin / D5W/ Premixed D5W) 100 ml @ 100 mls/hr Q24H IV 03/02/16 01:00 03/07/16 01:59 03/05/16 01:22 100 MLS/HR Ipratropium [place] (Atrovent 0.02% 0.5MG/2.5ML Neb) 0.5 mg Q2R PRN INH 03/02/16 14:45 04/01/16 14:44 03/04/16 11:36 0.5 MG Lorazepam 0.5 mg 0.5 mg Q6H PRN PO 03/02/16 18:00 04/01/16 17:59 03/04/16 15:58 0.5 MG Sodium Chloride (Nss 1000ml) 1,000 ml @ 60 mls/hr [id number] IV 03/03/16 16:00 04/02/16 15:59 03/05/16 07:44 100 MLS/HR Morphine Sulfate (MoRPHine SULFATE INJ) 2 mg Q3H PRN IV 03/03/16 16:00 03/17/16 15:59 Ioversol 100 ml 100 ml UD PRN IV 03/04/16 15:30 03/08/16 15:29 Methylprednisolone Sodium Succinate/ Syringe (Solu-Medrol IV/ Syringe) 0.96 ml @ 1.5 mls/min Q6H IV 03/05/16 16:00 04/04/16 14:29 03/05/16 15:49 1.5 MLS/MIN Clonidine HCl (Catapres Tab) 0.1 mg Q6H PRN PO 03/05/16 16:00 04/04/16 15:59
[2016-03-05] MEDS: CETIRIZINE HCL 10 MG TAB PO SCH (20:29)
[2016-03-05] MEDS: LORAZEPAM 0.5 MG TAB PO PRN (22:00)
[2016-03-06] VITALS (15 sets, daily range): BP systolic 125–154; BP diastolic 60–94; PULSE 64–105; TEMP 36.8–37.3; O2SAT 90–96
[2016-03-06] MEDS: LEVOFLOXACIN / D5W 500 MG in PREMIXED IN D5W 100 ML IV SCH (00:57)
[2016-03-06] MEDS: METHYLPREDNISOLONE IV 60 MG in SYRINGE 0 ML IV SCH ×4 (03:25→21:27)
[2016-03-06] MEDS: IPRATROPIUM BROMIDE NEB SOLN 0.02% 2.5 ML VIAL INH SCH ×6 (04:10→23:42)
[2016-03-06] MEDS: LEVALBUTEROL 1.25MG/0.5ML NEB INH SCH ×6 (04:10→23:42)
[2016-03-06] MEDS: ENOXAPARIN 40 MG/0.4 ML SYR SQ SCH (05:37)
[2016-03-06 06:23] LABS: BUN/CREATININE RATIO 23.1 (10-20); CALCIUM 8.9 mg/dl (8.5-10.1); CREATININE 0.68 mg/dl (0.60-1.20); POTASSIUM 3.5 mmol/L (3.5-5.1)
[2016-03-06] MEDS: AMLODIPINE BESYLATE 5 MG TAB PO SCH (08:41)
[2016-03-06] MEDS: NYSTATIN SUSP 500,000 U/5 ML UDC PO SCH ×4 (08:42→21:27)
[2016-03-06] MEDS: MONTELUKAST SOD 10 MG TAB PO SCH (08:42)
--- NOTE | 2016-03-06 11:50 | Progress Note ---
Medicine Progress Note Date & Time of Visit: Mar 06, 2016 at 11:35. Subjective patient states she feels slightly better today, day by day she is improving less dyspnea, coughing spells, desaturations with minimal exertion tolerating bipap well, highly motivated no other symptoms Objective Last 8 Hrs Date Time Temp Pulse Resp B/P Pulse Ox O2 Delivery O2 Flow Rate FiO2 03/06/16 11:13 97 14 96 Nasal Cannula 3.0 03/06/16 08:08 37.2 94 18 145/87 93 4.0 03/06/16 08:00 Nasal Cannula 4.0 BiPAP 03/06/16 07:07 96 14 95 Nasal Cannula 3.0 03/06/16 04:11 84 96 5.0 03/06/16 04:10 84 16 96 BiPAP/CPAP 5.0 03/06/16 04:00 Nasal Cannula 3.0 03/06/16 04:00 37.0 93 18 136/94 92 BiPAP Physical Exam: general- alert, appears comfortable, speaks in sentences slowly with no effort/ acc muscles Eyes- anicteric Neck- no JVD Lungs- (+) mild scattered crackles- improving, no wheezes Heart- normal rate, regular rhythm; no murmur Abdomen- normal bowel sounds, soft, nontender Extremities- no pretibial edema, no calf tenderness Neuro- alert, oriented x 3; no focal gross motor/sensory deficits Skin- warm & dry Laboratory Results: Last 24 Hours Test 03/06/16 05:37 Sodium Level 145 mmol/L Potassium Level 3.5 mmol/L Chloride Level 106 mmol/L Carbon Dioxide Level 30 mmol/L Anion Gap 9.0 mmol/L Blood Urea Nitrogen 16 mg/dl Creatinine 0.68 mg/dl Est Creatinine Clear Calc Drug Dose 96.7 ml/min Estimated GFR () 113.3 Estimated GFR (Non- 97.8 BUN/Creatinine Ratio 23.1 Random Glucose 150 mg/dl Calcium Level 8.9 mg/dl Assessment & Plan This is a 55 year old female with PMH of persistent asthma, allergic rhinitis/ seasonal allergies, HTN presents with worsening shortness of breath/wheezing Acute Asthma Exacerbation , possible Acute Bronchitis -->patient moderate persistent asthma and difficult to control allergies- follows with Thoracic Medicine in [facility] PFTs in 2016 appears normal? (report attached to chart) -->tried home medications, oral steroids, nebulizer treatments at home with no relief - D dimer negative - CT chest 03/04/16: bibasilar infiltrates, possible pneumonia and atelectasis - continues to improve gradually daily continue Bipap Solumedrol decreased to 60mg q6h continue Nebs q4h Levaquin IV fluids - appreciate Dr. Zhou's recommendations HTN -->continue norvasc PRN Clonidine Sinus Tachycardia - resolving - Echo: - -- Conclusions -- * Normal LV chamber size with mild concetric LVH. * Normal LV systolic function, EF 60-65%. * No segmental left ventricular wall motion abnormalities are noted. * Grade I diastolic dysfunction. * No significant valvular pathology. * Trivial, anterior pericardial effusion without hemodynamic significance. - continue IV fluids Nonspecific T wave changes in the Anterolateral leads - no cardiac symptoms - repeat ekg unchanged DVT ppx -->lovenox FULL CODE Disposition pending Current Inpatient Medications: Current Inpatient Medications Medications (Trade) Dose Ordered Sig/Delicia Route Start Time Stop Time Status Last Admin Dose Admin Enoxaparin Sodium (Lovenox Inj) 40 mg Q24H SQ 03/01/16 06:00 03/31/16 05:59 03/06/16 05:37 40 MG Acetaminophen (Tylenol Tab) 650 mg Q4H PRN PO 03/01/16 01:30 03/31/16 01:29 Al Hydrox/Mg Hydrox/Simethicone (Maalox Max Susp) 15 ml Q4H PRN PO 03/01/16 01:30 03/31/16 01:29 Magnesium Hydroxide (Milk Of Magnesia Susp) 30 ml Q6H PRN PO 03/01/16 01:30 03/31/16 01:29 Polyethylene (Miralax Powder Packet) 17 gm DAILY PRN PO 03/01/16 01:30 03/31/16 01:29 Ondansetron HCl (Zofran Inj) 4 mg Q6H PRN IV 03/01/16 01:30 03/31/16 01:29 Amlodipine Besylate (Norvasc Tab) 10 mg DAILY PO 03/01/16 09:00 03/31/16 08:59 03/06/16 08:41 10 MG Cetirizine HCl (zyrTEC TAB) 10 mg QPM PO 03/01/16 21:00 03/31/16 20:59 1/8/17 20:29 10 MG Codeine Phosphate/ Guaifenesin (Robitussin-AC Sugar Free Syrup) 5 ml QID PRN PO 03/01/16 02:00 03/31/16 01:59 03/02/16 01:17 5 ML Montelukast Sodium (Singulair Tab) 10 mg DAILY PO 03/01/16 09:00 03/31/16 08:59 03/06/16 08:42 10 MG Nystatin (Mycostatin Susp) 5 ml QID PO 03/01/16 13:00 03/11/16 12:59 03/06/16 08:42 5 ML Ipratropium [place] (Atrovent 0.02% 0.5MG/2.5ML Neb) 0.5 mg Q4R INH 03/01/16 12:00 03/31/16 11:59 03/06/16 11:10 0.5 MG Levalbuterol (Xopenex 1.25MG/ 0.5ML Neb) 1.25 mg Q4R INH 03/01/16 12:00 03/31/16 11:59 03/06/16 11:10 1.25 MG Levalbuterol 1.25 mg 1.25 mg Q2H PRN INH 03/01/16 14:00 03/31/16 13:59 03/04/16 11:36 1.25 MG Levofloxacin/Prmx (Levaquin / D5W/ Premixed D5W) 100 ml @ 100 mls/hr Q24H IV 03/02/16 01:00 03/07/16 01:59 03/06/16 00:57 100 MLS/HR Ipratropium [place] (Atrovent 0.02% 0.5MG/2.5ML Neb) 0.5 mg Q2R PRN INH 03/02/16 14:45 04/01/16 14:44 03/04/16 11:36 0.5 MG Lorazepam 0.5 mg 0.5 mg Q6H PRN PO 03/02/16 18:00 04/01/16 17:59 03/05/16 22:00 0.5 MG Sodium Chloride (Nss 1000ml) 1,000 ml @ 60 mls/hr [id number] IV 03/03/16 16:00 04/02/16 15:59 03/05/16 20:31 60 MLS/HR Morphine Sulfate (MoRPHine SULFATE INJ) 2 mg Q3H PRN IV 03/03/16 16:00 03/17/16 15:59 Ioversol 100 ml 100 ml UD PRN IV 03/04/16 15:30 03/08/16 15:29 Methylprednisolone Sodium Succinate/ Syringe (Solu-Medrol IV/ Syringe) 0.96 ml @ 1.5 mls/min Q6H IV 03/05/16 16:00 04/04/16 14:29 03/06/16 10:29 1.5 MLS/MIN Clonidine HCl (Catapres Tab) 0.1 mg Q6H PRN PO 03/05/16 16:00 04/04/16 15:59
[2016-03-06] MEDS: SODIUM CHLORIDE 0.9% 1000ML 1,000 ML IV SCH (14:55)
--- NOTE | 2016-03-06 16:50 | Pulmonology Progress Note ---
Pulmonary Progress Note Date of Service Mar 06, 2016. Attending Dr. Tyron Boyce Subjective Patient continues to require BiPAP as she continues to have dyspnea on exertion/ shortness of breath at rest. Objective During our conversation the patient was notably to, had interrupted her sentences and was using accessory muscles. She was much more comfortable on the BiPAP. VS: SaO2 91-95% on 4Lnc and BiPAP Respiratory: Patient still has mild expiratory wheezing in the upper lobes with decreased breath sounds/blunting in the bilateral lower lobes posterior. Cardiac: S1-S2 no murmurs rubs or gallops appreciated CT thorax reviewed: Notable for diffuse mucoid impaction with bronchial airway signs. Assessment & Plan 55-year-old female admitted with status asthmaticus: #1 status asthmaticus: She continue patient on a current steroid dosing as well as BiPAP. We'll initiate dornase, flutter valve and best physiotherapy for attempt to disimpact patient's current lower lobe posterior subsegment's. We spoke at length about using peak flow meters in the future for evaluation of possible troubling/posterior situations. Data Medications: Current Inpatient Medications Medications (Trade) Dose Ordered Sig/Delicia Route Start Time Stop Time Status Last Admin Dose Admin Enoxaparin Sodium (Lovenox Inj) 40 mg Q24H SQ 03/01/16 06:00 03/31/16 05:59 03/06/16 05:37 40 MG Acetaminophen (Tylenol Tab) 650 mg Q4H PRN PO 03/01/16 01:30 03/31/16 01:29 Al Hydrox/Mg Hydrox/Simethicone (Maalox Max Susp) 15 ml Q4H PRN PO 03/01/16 01:30 03/31/16 01:29 Magnesium Hydroxide (Milk Of Magnesia Susp) 30 ml Q6H PRN PO 03/01/16 01:30 03/31/16 01:29 Polyethylene (Miralax Powder Packet) 17 gm DAILY PRN PO 03/01/16 01:30 03/31/16 01:29 Ondansetron HCl (Zofran Inj) 4 mg Q6H PRN IV 03/01/16 01:30 03/31/16 01:29 Amlodipine Besylate (Norvasc Tab) 10 mg DAILY PO 03/01/16 09:00 03/31/16 08:59 03/06/16 08:41 10 MG Cetirizine HCl (zyrTEC TAB) 10 mg QPM PO 03/01/16 21:00 03/31/16 20:59 03/05/16 20:29 10 MG Codeine Phosphate/ Guaifenesin (Robitussin-AC Sugar Free Syrup) 5 ml QID PRN PO 03/01/16 02:00 03/31/16 01:59 03/02/16 01:17 5 ML Montelukast Sodium (Singulair Tab) 10 mg DAILY PO 03/01/16 09:00 03/31/16 08:59 03/06/16 08:42 10 MG Nystatin (Mycostatin Susp) 5 ml QID PO 03/01/16 13:00 03/11/16 12:59 03/06/16 08:42 5 ML Ipratropium [place] (Atrovent 0.02% 0.5MG/2.5ML Neb) 0.5 mg Q4R INH 03/01/16 12:00 03/31/16 11:59 03/06/16 15:42 0.5 MG Levalbuterol (Xopenex 1.25MG/ 0.5ML Neb) 1.25 mg Q4R INH 03/01/16 12:00 03/31/16 11:59 03/06/16 15:42 1.25 MG Levalbuterol 1.25 mg 1.25 mg Q2H PRN INH 03/01/16 14:00 03/31/16 13:59 03/04/16 11:36 1.25 MG Levofloxacin/Prmx (Levaquin / D5W/ Premixed D5W) 100 ml @ 100 mls/hr Q24H IV 03/02/16 01:00 03/07/16 01:59 03/06/16 00:57 100 MLS/HR Ipratropium [place] (Atrovent 0.02% 0.5MG/2.5ML Neb) 0.5 mg Q2R PRN INH 03/02/16 14:45 04/01/16 14:44 03/04/16 11:36 0.5 MG Lorazepam 0.5 mg 0.5 mg Q6H PRN PO 03/02/16 18:00 04/01/16 17:59 03/05/16 22:00 0.5 MG Sodium Chloride (Nss 1000ml) 1,000 ml @ 60 mls/hr [id number] IV 03/03/16 16:00 04/02/16 15:59 03/05/16 20:31 60 MLS/HR Morphine Sulfate (MoRPHine SULFATE INJ) 2 mg Q3H PRN IV 03/03/16 16:00 03/17/16 15:59 Ioversol 100 ml 100 ml UD PRN IV 03/04/16 15:30 03/08/16 15:29 Methylprednisolone Sodium Succinate/ Syringe (Solu-Medrol IV/ Syringe) 0.96 ml @ 1.5 mls/min Q6H IV 03/05/16 16:00 04/04/16 14:29 03/06/16 10:29 1.5 MLS/MIN Clonidine HCl (Catapres Tab) 0.1 mg Q6H PRN PO 03/05/16 16:00 04/04/16 15:59 Dornase [place] (Pulmozyme Inhalation Soln 2.5ml Amp) 2.5 ml BID INH 03/06/16 21:00 04/05/16 20:59 UNV I & O: 24-Hour Column 03/06/16 08:00 Intake Total 3645 ml Output Total 2250 ml Balance 1395 ml Vital Signs: Date Time Temp Pulse Resp B/P Pulse Ox O2 Delivery O2 Flow Rate FiO2 03/06/16 16:00 Nasal Cannula 4.0 BiPAP 03/06/16 15:42 74 95 4.0 03/06/16 15:42 74 14 95 BiPAP/CPAP 4.0 03/06/16 15:30 91 20 154/87 94 BiPAP 03/06/16 13:38 84 94 4.0 03/06/16 12:00 Nasal Cannula 4.0 BiPAP 03/06/16 11:38 37.3 81 18 146/60 93 4.0 03/06/16 11:13 97 14 96 Nasal Cannula 3.0 03/06/16 08:08 37.2 94 18 145/87 93 4.0 03/06/16 08:00 Nasal Cannula 4.0 BiPAP 03/06/16 07:07 96 14 95 Nasal Cannula 3.0 03/06/16 04:11 84 96 5.0 03/06/16 04:10 84 16 96 BiPAP/CPAP 5.0 03/06/16 04:00 Nasal Cannula 3.0 03/06/16 04:00 37.0 93 18 136/94 92 BiPAP 03/06/16 00:00 36.8 85 17 125/73 92 BiPAP 03/05/16 23:59 Nasal Cannula 3.0 03/05/16 23:25 76 93 5.0 03/05/16 23:25 76 14 93 BiPAP/CPAP 5.0 03/05/16 22:24 80 91 5.0 03/05/16 20:00 Nasal Cannula 3.0 03/05/16 19:14 93 14 93 Nasal Cannula 3.0 03/05/16 19:13 37.0 94 22 152/99 94 4.0 Laboratory Results: Last 24 Hours Test 03/06/16 05:37 03/06/16 16:36 Sodium Level 145 mmol/L Potassium Level 3.5 mmol/L Chloride Level 106 mmol/L Carbon Dioxide Level 30 mmol/L Anion Gap 9.0 mmol/L Blood Urea Nitrogen 16 mg/dl Creatinine 0.68 mg/dl Est Creatinine Clear Calc Drug Dose 96.7 ml/min Estimated GFR () 113.3 Estimated GFR (Non- 97.8 BUN/Creatinine Ratio 23.1 Random Glucose 150 mg/dl Calcium Level 8.9 mg/dl
[2016-03-06] MEDS: DORNASE ALFA (2500U) 2.5MG/2.5ML INH SCH (19:51)
[2016-03-06] MEDS: CETIRIZINE HCL 10 MG TAB PO SCH (21:27)
[2016-03-06] MEDS: LORAZEPAM 0.5 MG TAB PO PRN (21:32)
[2016-03-07] VITALS (14 sets, daily range): BP systolic 120–138; BP diastolic 60–85; PULSE 69–109; TEMP 36.5–37; O2SAT 95–98
[2016-03-07] MEDS: LEVOFLOXACIN / D5W 500 MG in PREMIXED IN D5W 100 ML IV SCH (01:22)
[2016-03-07] MEDS: LEVALBUTEROL 1.25MG/0.5ML NEB INH SCH ×5 (03:33→23:03)
[2016-03-07] MEDS: IPRATROPIUM BROMIDE NEB SOLN 0.02% 2.5 ML VIAL INH SCH ×6 (03:33→23:03)
[2016-03-07] MEDS: METHYLPREDNISOLONE IV 60 MG in SYRINGE 0 ML IV SCH (04:52)
[2016-03-07] MEDS: SODIUM CHLORIDE 0.9% 1000ML 1,000 ML IV SCH (04:54)
[2016-03-07] MEDS: ENOXAPARIN 40 MG/0.4 ML SYR SQ SCH (05:44)
[2016-03-07 06:23] LABS: HEMATOCRIT 41.8 % (37-47); MEAN CELL VOLUME 88.4 fL (80-100); MEAN CORPUSCULAR HEMOGLOBIN 30.2 pg (25-34); MEAN CORPUSCULAR HGB CONC 34.2 g/dl (32-36); MEAN PLATELET VOLUME 10.3 fL (7.4-10.4); PLATELET COUNT 270 K/uL (130-400); RED BLOOD COUNT 4.73 M/uL (4.2-5.4); WHITE BLOOD COUNT 16.63 K/uL (4.8-10.8)
[2016-03-07 07:05] LABS: CREATININE 0.76 mg/dl (0.60-1.20)
[2016-03-07] MEDS: DORNASE ALFA (2500U) 2.5MG/2.5ML INH SCH ×2 (07:07→19:05)
[2016-03-07] MEDS: AMLODIPINE BESYLATE 5 MG TAB PO SCH (08:22)
[2016-03-07] MEDS: MONTELUKAST SOD 10 MG TAB PO SCH (08:22)
[2016-03-07] MEDS: NYSTATIN SUSP 500,000 U/5 ML UDC PO SCH ×4 (08:22→21:18)
--- NOTE | 2016-03-07 10:00 | Pulmonology Progress Note ---
Pulmonary Progress Note Date of Service Mar 07, 2016. Attending Dr. Tyron Boyce Subjective Patient feels she has increased mucus production, decreased pulmonary resistance. She also noted inability to ambulate without feeling desaturations throughout her room. Objective Patient sitting in a chair on 4 L nasal cannula able to complete full sentences showing no signs of increased work of breathing. VS: SaO2 91-97% on 4Lnc and BiPAP Respiratory: Patient's upper lobes bilaterally. Posterior anterior within normal limits/lower lobes decreased breath sounds Cardiac: S1-S2 no murmurs rubs or gallops appreciated Assessment & Plan 55-year-old female admitted with status asthmaticus: #1 status asthmaticus: Patient currently on methylprednisolone 60 mg every 6 which is an equivalent of 300 mg of prednisone per day. We'll switch her to oral prednisone 60 mg, continue her nebulizer and MDIs. #2: Bilateral atelectasis/mucoid impaction: Patient is doing well on dornase, flutter valve, chest physiotherapy. Suggest we get her up-to-date do an ambulation desaturation study for both evaluation and clearance/pulmonary. Data Medications: Current Inpatient Medications Medications (Trade) Dose Ordered Sig/Delicia Route Start Time Stop Time Status Last Admin Dose Admin Enoxaparin Sodium (Lovenox Inj) 40 mg Q24H SQ 03/01/16 06:00 03/31/16 05:59 03/07/16 05:44 40 MG Acetaminophen (Tylenol Tab) 650 mg Q4H PRN PO 03/01/16 01:30 03/31/16 01:29 Al Hydrox/Mg Hydrox/Simethicone (Maalox Max Susp) 15 ml Q4H PRN PO 03/01/16 01:30 03/31/16 01:29 Magnesium Hydroxide (Milk Of Magnesia Susp) 30 ml Q6H PRN PO 03/01/16 01:30 03/31/16 01:29 Polyethylene (Miralax Powder Packet) 17 gm DAILY PRN PO 03/01/16 01:30 03/31/16 01:29 Ondansetron HCl (Zofran Inj) 4 mg Q6H PRN IV 03/01/16 01:30 03/31/16 01:29 Amlodipine Besylate (Norvasc Tab) 10 mg DAILY PO 03/01/16 09:00 2/3/17 08:59 03/07/16 08:22 10 MG Cetirizine HCl (zyrTEC TAB) 10 mg QPM PO 03/01/16 21:00 03/31/16 20:59 03/06/16 21:27 10 MG Codeine Phosphate/ Guaifenesin (Robitussin-AC Sugar Free Syrup) 5 ml QID PRN PO 03/01/16 02:00 03/31/16 01:59 03/02/16 01:17 5 ML Montelukast Sodium (Singulair Tab) 10 mg DAILY PO 03/01/16 09:00 03/31/16 08:59 03/07/16 08:22 10 MG Nystatin (Mycostatin Susp) 5 ml QID PO 03/01/16 13:00 03/11/16 12:59 03/07/16 08:22 5 ML Ipratropium [place] (Atrovent 0.02% 0.5MG/2.5ML Neb) 0.5 mg Q4R INH 03/01/16 12:00 03/31/16 11:59 03/07/16 07:07 0.5 MG Levalbuterol (Xopenex 1.25MG/ 0.5ML Neb) 1.25 mg Q4R INH 03/01/16 12:00 03/31/16 11:59 03/07/16 07:07 1.25 MG Levalbuterol (Xopenex 1.25MG/ 0.5ML Neb) 1.25 mg Q2H PRN INH 03/01/16 14:00 03/31/16 13:59 03/04/16 11:36 1.25 MG Ipratropium [place] (Atrovent 0.02% 0.5MG/2.5ML Neb) 0.5 mg Q2R PRN INH 03/02/16 14:45 04/01/16 14:44 03/04/16 11:36 0.5 MG Lorazepam 0.5 mg 0.5 mg Q6H PRN PO 03/02/16 18:00 04/01/16 17:59 03/06/16 21:32 0.5 MG Sodium Chloride (Nss 1000ml) 1,000 ml @ 60 mls/hr [id number] IV 03/03/16 16:00 04/02/16 15:59 03/07/16 04:54 60 MLS/HR Morphine Sulfate (MoRPHine SULFATE INJ) 2 mg Q3H PRN IV 03/03/16 16:00 03/17/16 15:59 Ioversol 100 ml 100 ml UD PRN IV 03/04/16 15:30 03/08/16 15:29 Methylprednisolone Sodium Succinate/ Syringe (Solu-Medrol IV/ Syringe) 0.96 ml @ 1.5 mls/min Q6H IV 03/05/16 16:00 04/04/16 14:29 03/07/16 04:52 1.5 MLS/MIN Clonidine HCl (Catapres Tab) 0.1 mg Q6H PRN PO 03/05/16 16:00 04/04/16 15:59 Dornase [place] (Pulmozyme Inhalation Soln 2.5ml Amp) 2.5 ml BIDR INH 03/06/16 20:00 03/08/16 08:01 03/07/16 07:07 2.5 ML I & O: 24-Hour Column 03/07/16 08:00 Intake Total 2654 ml Output Total 2350 ml Balance 304 ml Vital Signs: Date Time Temp Pulse Resp B/P Pulse Ox O2 Delivery O2 Flow Rate FiO2 03/07/16 08:00 Nasal Cannula 4.0 BiPAP 03/07/16 08:00 37.0 104 18 124/60 98 03/07/16 07:07 99 22 97 Nasal Cannula 3.0 03/07/16 04:00 Nasal Cannula 3.0 03/07/16 04:00 36.8 81 18 129/67 95 BiPAP 03/07/16 03:33 95 14 95 BiPAP/CPAP 4.0 03/07/16 00:00 36.8 85 18 120/70 95 BiPAP 03/06/16 23:59 BiPAP 03/06/16 23:42 64 14 96 BiPAP/CPAP 4.0 03/06/16 22:21 64 96 4.0 03/06/16 20:00 Nasal Cannula 3.0 03/06/16 19:52 105 14 90 Nasal Cannula 4.0 03/06/16 19:51 37.1 94 16 148/87 91 4.0 03/06/16 16:00 Nasal Cannula 4.0 BiPAP 03/06/16 15:42 74 95 4.0 03/06/16 15:42 74 14 95 BiPAP/CPAP 4.0 03/06/16 15:30 91 20 154/87 94 BiPAP 03/06/16 13:38 84 94 4.0 03/06/16 12:00 Nasal Cannula 4.0 BiPAP 03/06/16 11:38 37.3 81 18 146/60 93 4.0 03/06/16 11:13 97 14 96 Nasal Cannula 3.0 Laboratory Results: Last 24 Hours Test 03/06/16 16:36 03/07/16 06:00 White Blood Count 16.63 K/uL Red Blood Count 4.73 M/uL Hemoglobin 14.3 g/dL Hematocrit 41.8 % Mean Corpuscular Volume 88.4 fL Mean Corpuscular Hemoglobin 30.2 pg Mean Corpuscular Hemoglobin Concent 34.2 g/dl RDW Standard Deviation 43.7 fL RDW Coefficient of Variation 13.5 % Platelet Count 270 K/uL Mean Platelet Volume 10.3 fL Creatinine 0.76 mg/dl Est Creatinine Clear Calc Drug Dose 84.9 ml/min Estimated GFR () 101.6 Estimated GFR (Non- 87.7
--- NOTE | 2016-03-07 19:00 | Progress Note ---
Medicine Progress Note Date & Time of Visit: Mar 07, 2016 at 19:00. Subjective Patient reports feeling better overall; is optimistic about her progress. No overnight events noted. Has been increasing ambulation with some dyspnea present with exertion. No other complaints at this time. Has a cough that has not been fully productive of sputum but patient reports feeling the phlegm loosening up. Objective Last 8 Hrs Date Time Temp Pulse Resp B/P Pulse Ox O2 Delivery O2 Flow Rate FiO2 03/07/16 16:00 Nasal Cannula 2.0 BiPAP 03/07/16 15:32 79 16 121/68 96 BiPAP 03/07/16 15:30 74 22 95 BiPAP/CPAP 3.0 03/07/16 12:00 Nasal Cannula 2.0 BiPAP 03/07/16 11:50 36.5 109 18 132/63 95 03/07/16 11:39 97 22 97 Nasal Cannula 3.0 Physical Exam: GENERAL: Patient is in no acute distress. HEENT: No acute trauma, normocephalic, mucous membranes moist, no nasal congestion, no scleral icterus. NECK: No stridor, trachea is midline. LUNGS: Diminished in bases bilaterally, no wheeze, no rhonchi, breath sounds equal. HEART: Without murmurs gallops or rubs, regular rate and rhythm. ABDOMEN: Soft, nontender, bowel sounds positive EXTREMITIES: No cyanosis or edema NEUROLOGIC: Oriented x 3, no acute motor or sensory deficits, no focal weakness. SKIN: No rash, no jaundice, no diaphoresis. Laboratory Results: Last 24 Hours Test 03/07/16 06:00 White Blood Count 16.63 K/uL Red Blood Count 4.73 M/uL Hemoglobin 14.3 g/dL Hematocrit 41.8 % Mean Corpuscular Volume 88.4 fL Mean Corpuscular Hemoglobin 30.2 pg Mean Corpuscular Hemoglobin Concent 34.2 g/dl RDW Standard Deviation 43.7 fL RDW Coefficient of Variation 13.5 % Platelet Count 270 K/uL Mean Platelet Volume 10.3 fL Creatinine 0.76 mg/dl Est Creatinine Clear Calc Drug Dose 84.9 ml/min Estimated GFR () 101.6 Estimated GFR (Non- 87.7 Assessment & Plan ACUTE ASTHMA EXACERBATION: possible Acute Bronchitis -has moderate persistent asthma and difficult to control allergies; has known triggers -was routinely following with Thoracic Medicine in [facility] -PFTs in 2016 appeared normal (per report attached to chart) -home medications, oral steroids, nebulizer treatments at home without relief -Pulmonary consulted, appreciate recs -on IV solumedrol + nebs + dornase -D dimer negative -CT chest 03/04/16: bibasilar infiltrates, possible pneumonia and atelectasis; mucoid impactions -was initially requiring Bipap -continued on Levaquin HTN: controlled -continue norvasc -PRN Clonidine SINUS TACHYCARDIA: -resolving -TTE Report: - -- Conclusions -- * Normal LV chamber size with mild concetric LVH. * Normal LV systolic function, EF 60-65%. * No segmental left ventricular wall motion abnormalities are noted. * Grade I diastolic dysfunction. * No significant valvular pathology. * Trivial, anterior pericardial effusion without hemodynamic significance. - continue IV fluids EKG CHANGES: Nonspecific T wave changes in the Anterolateral leads - no cardiac symptoms - repeat ekg unchanged - TTE without wall motion abnormalities Current Inpatient Medications: Current Inpatient Medications Medications (Trade) Dose Ordered Sig/Delicia Route Start Time Stop Time Status Last Admin Dose Admin Enoxaparin Sodium (Lovenox Inj) 40 mg Q24H SQ 03/01/16 06:00 03/31/16 05:59 03/07/16 05:44 40 MG Acetaminophen (Tylenol Tab) 650 mg Q4H PRN PO 03/01/16 01:30 03/31/16 01:29 Al Hydrox/Mg Hydrox/Simethicone (Maalox Max Susp) 15 ml Q4H PRN PO 03/01/16 01:30 03/31/16 01:29 Magnesium Hydroxide (Milk Of Magnesia Susp) 30 ml Q6H PRN PO 03/01/16 01:30 03/31/16 01:29 Polyethylene (Miralax Powder Packet) 17 gm DAILY PRN PO 03/01/16 01:30 03/31/16 01:29 Ondansetron HCl (Zofran Inj) 4 mg Q6H PRN IV 03/01/16 01:30 03/31/16 01:29 Amlodipine Besylate (Norvasc Tab) 10 mg DAILY PO 03/01/16 09:00 03/31/16 08:59 03/07/16 08:22 10 MG Cetirizine HCl (zyrTEC TAB) 10 mg QPM PO 03/01/16 21:00 03/31/16 20:59 03/06/16 21:27 10 MG Codeine Phosphate/ Guaifenesin (Robitussin-AC Sugar Free Syrup) 5 ml QID PRN PO 03/01/16 02:00 03/31/16 01:59 03/02/16 01:17 5 ML Montelukast Sodium (Singulair Tab) 10 mg DAILY PO 03/01/16 09:00 03/31/16 08:59 03/07/16 08:22 10 MG Nystatin (Mycostatin Susp) 5 ml QID PO 03/01/16 13:00 03/11/16 12:59 03/07/16 17:00 5 ML Ipratropium [place] (Atrovent 0.02% 0.5MG/2.5ML Neb) 0.5 mg Q4R INH 03/01/16 12:00 03/31/16 11:59 03/07/16 15:31 0.5 MG Levalbuterol (Xopenex 1.25MG/ 0.5ML Neb) 1.25 mg Q4R INH 03/01/16 12:00 03/31/16 11:59 03/07/16 11:39 1.25 MG Levalbuterol (Xopenex 1.25MG/ 0.5ML Neb) 1.25 mg Q2H PRN INH 03/01/16 14:00 03/31/16 13:59 03/04/16 11:36 1.25 MG Ipratropium [place] (Atrovent 0.02% 0.5MG/2.5ML Neb) 0.5 mg Q2R PRN INH 03/02/16 14:45 04/01/16 14:44 03/04/16 11:36 0.5 MG Lorazepam 0.5 mg 0.5 mg Q6H PRN PO 03/02/16 18:00 04/01/16 17:59 03/06/16 21:32 0.5 MG Sodium Chloride (Nss 1000ml) 1,000 ml @ 60 mls/hr [id number] IV 03/03/16 16:00 04/02/16 15:59 03/07/16 04:54 60 MLS/HR Morphine Sulfate (MoRPHine SULFATE INJ) 2 mg Q3H PRN IV 03/03/16 16:00 03/17/16 15:59 Ioversol (Optiray 320) 100 ml UD PRN IV 03/04/16 15:30 03/08/16 15:29 Clonidine HCl (Catapres Tab) 0.1 mg Q6H PRN PO 03/05/16 16:00 04/04/16 15:59 Dornase [place] (Pulmozyme Inhalation Soln 2.5ml Amp) 2.5 ml BIDR INH 03/06/16 20:00 03/08/16 08:01 03/07/16 07:07 2.5 ML Prednisone (PredniSONE TAB) 60 mg DAILY PO 03/07/16 10:45 04/06/16 10:44 03/07/16 11:30 60 MG
[2016-03-07] MEDS: CETIRIZINE HCL 10 MG TAB PO SCH (21:17)
[2016-03-07] MEDS: LORAZEPAM 0.5 MG TAB PO PRN (21:18)
[2016-03-08] VITALS (14 sets, daily range): BP systolic 105–127; BP diastolic 67–88; PULSE 74–104; TEMP 36.4–37; O2SAT 93–98
[2016-03-08] MEDS: LEVALBUTEROL 1.25MG/0.5ML NEB INH SCH ×5 (03:45→23:17)
[2016-03-08] MEDS: IPRATROPIUM BROMIDE NEB SOLN 0.02% 2.5 ML VIAL INH SCH ×5 (03:45→23:17)
[2016-03-08] MEDS: ENOXAPARIN 40 MG/0.4 ML SYR SQ SCH (06:05)
[2016-03-08] MEDS: SODIUM CHLORIDE 0.9% 1000ML 1,000 ML IV SCH ×2 (06:07→14:02)
[2016-03-08] MEDS: MONTELUKAST SOD 10 MG TAB PO SCH (08:30)
[2016-03-08] MEDS: AMLODIPINE BESYLATE 5 MG TAB PO SCH (08:30)
[2016-03-08] MEDS: NYSTATIN SUSP 500,000 U/5 ML UDC PO SCH ×4 (08:32→20:59)
[2016-03-08] MEDS: DORNASE ALFA (2500U) 2.5MG/2.5ML INH SCH (11:20)
--- NOTE | 2016-03-08 12:32 | Pulmonology Progress Note ---
Pulmonary Progress Note Date of Service Mar 08, 2016. Attending Dr. Tyron Boyce Subjective Patient fatigued today as she had a poor night sleeping. She does note increasing pulmonary status. She also notes an excellent night's sleep on the BiPAP machine. Objective Patient sitting in a chair on 4 L nasal cannula able to complete full sentences showing no signs of increased work of breathing. VS: SaO2 95-97% on 3Lnc and BiPAP Respiratory: Patient's upper lobes bilaterally. Notable rhonchi bilaterally at the bases. US of evaluation notes lung sliding to the diaphragm. Cardiac: S1-S2 no murmurs rubs or gallops appreciated Assessment & Plan 55-year-old female admitted with status asthmaticus: #1 Status Asthmaticus: We will decrease prednisone to 40 mg per day. continue her nebulizer and MDIs. #2: Bilateral Atelectasis/Mucoid Impaction: Patient notes she is clearing more air and therapeutical we have used: Dornase, Chest Physiotherapy, flutter valve , incentive spirometer. Ultrasound suggests the patient has lung sliding to the diaphragms but difficult view. Will obtain PA and lateral chest x-rays for further evaluation. Data Medications: Current Inpatient Medications Medications (Trade) Dose Ordered Sig/Delicia Route Start Time Stop Time Status Last Admin Dose Admin Enoxaparin Sodium (Lovenox Inj) 40 mg Q24H SQ 03/01/16 06:00 03/31/16 05:59 03/08/16 06:05 40 MG Acetaminophen (Tylenol Tab) 650 mg Q4H PRN PO 03/01/16 01:30 03/31/16 01:29 Al Hydrox/Mg Hydrox/Simethicone (Maalox Max Susp) 15 ml Q4H PRN PO 03/01/16 01:30 03/31/16 01:29 Magnesium Hydroxide (Milk Of Magnesia Susp) 30 ml Q6H PRN PO 03/01/16 01:30 03/31/16 01:29 Polyethylene (Miralax Powder Packet) 17 gm DAILY PRN PO 03/01/16 01:30 03/31/16 01:29 Ondansetron HCl (Zofran Inj) 4 mg Q6H PRN IV 03/01/16 01:30 03/31/16 01:29 Amlodipine Besylate (Norvasc Tab) 10 mg DAILY PO 03/01/16 09:00 03/31/16 08:59 03/08/16 08:30 10 MG Cetirizine HCl (zyrTEC TAB) 10 mg QPM PO 03/01/16 21:00 03/31/16 20:59 03/07/16 21:17 10 MG Codeine Phosphate/ Guaifenesin (Robitussin-AC Sugar Free Syrup) 5 ml QID PRN PO 03/01/16 02:00 03/31/16 01:59 03/02/16 01:17 5 ML Montelukast Sodium (Singulair Tab) 10 mg DAILY PO 03/01/16 09:00 03/31/16 08:59 03/08/16 08:30 10 MG Nystatin (Mycostatin Susp) 5 ml QID PO 03/01/16 13:00 03/11/16 12:59 03/08/16 08:32 5 ML Ipratropium [place] (Atrovent 0.02% 0.5MG/2.5ML Neb) 0.5 mg Q4R INH 03/01/16 12:00 03/31/16 11:59 03/08/16 11:20 0.5 MG Levalbuterol (Xopenex 1.25MG/ 0.5ML Neb) 1.25 mg Q4R INH 03/01/16 12:00 03/31/16 11:59 03/08/16 11:21 1.25 MG Levalbuterol (Xopenex 1.25MG/ 0.5ML Neb) 1.25 mg Q2H PRN INH 03/01/16 14:00 03/31/16 13:59 03/04/16 11:36 1.25 MG Ipratropium [place] (Atrovent 0.02% 0.5MG/2.5ML Neb) 0.5 mg Q2R PRN INH 03/02/16 14:45 04/01/16 14:44 03/04/16 11:36 0.5 MG Lorazepam 0.5 mg 0.5 mg Q6H PRN PO 03/02/16 18:00 04/01/16 17:59 03/07/16 21:18 0.5 MG Sodium Chloride (Nss 1000ml) 1,000 ml @ 60 mls/hr [id number] IV 03/03/16 16:00 04/02/16 15:59 03/08/16 06:07 60 MLS/HR Morphine Sulfate (MoRPHine SULFATE INJ) 2 mg Q3H PRN IV 03/03/16 16:00 03/17/16 15:59 Ioversol (Optiray 320) 100 ml UD PRN IV 03/04/16 15:30 03/08/16 15:29 Clonidine HCl (Catapres Tab) 0.1 mg Q6H PRN PO 03/05/16 16:00 04/04/16 15:59 Prednisone (PredniSONE TAB) 60 mg DAILY PO 03/07/16 10:45 04/06/16 10:44 03/08/16 08:31 60 MG I & O: 24-Hour Column 03/08/16 08:00 Intake Total 2328 ml Output Total 700 ml Balance 1628 ml Vital Signs: Date Time Temp Pulse Resp B/P Pulse Ox O2 Delivery O2 Flow Rate FiO2 03/08/16 11:21 88 16 95 Nasal Cannula 3.0 03/08/16 08:09 36.9 101 20 125/82 95 Nasal Cannula 3.0 03/08/16 08:00 Nasal Cannula 3.0 03/08/16 07:20 98 16 94 Nasal Cannula 3.0 03/08/16 04:07 36.4 78 18 119/73 97 BiPAP 03/08/16 04:00 Nasal Cannula 3.0 03/08/16 03:46 74 97 4.0 03/08/16 03:45 74 16 97 BiPAP/CPAP 4.0 03/08/16 00:00 36.8 88 19 118/67 93 BiPAP 03/07/16 23:59 BiPAP 03/07/16 23:03 69 18 96 BiPAP/CPAP 4.0 03/07/16 22:49 69 96 4.0 03/07/16 20:00 96 Nasal Cannula 3.0 03/07/16 19:11 101 16 96 Nasal Cannula 3.0 03/07/16 19:07 37.0 93 20 138/85 96 3.0 03/07/16 16:00 Nasal Cannula 2.0 BiPAP 03/07/16 15:32 79 16 121/68 96 BiPAP 03/07/16 15:30 74 22 95 BiPAP/CPAP 3.0
--- NOTE | 2016-03-08 13:47 | DIAGNOSTIC IMAGING REPORT ---
TWO VIEW CHEST CLINICAL HISTORY: Bilateral pneumonia. FINDINGS: PA and lateral chest radiographs are compared to study dated 03/05/2016 and correlated with chest CT dated 03/04/2016. The cardiomediastinal silhouette is unremarkable. There are low lung volumes with bibasilar consolidation. No pleural effusion or pneumothorax is seen. The bony thorax appears intact. IMPRESSION: Bibasilar consolidation is similar to previous. This could present atelectasis, pneumonia, and/or aspiration pneumonitis. Clinical correlation will be required. Electronically signed by: Junior Barriga M.D. 03/08/2016 1:45 PM Dictated Date/Time: 03/08/2016 1:44 PM
--- NOTE | 2016-03-08 17:28 | Progress Note ---
Medicine Progress Note Date & Time of Visit: Mar 08, 2016 at 17:28. Subjective Patient is anxious about her medications and treatment being tapered too quickly ; states she is worried she will be rushed out before recovering and that her respiratory issues will recur. No overnight events noted. Patient states she slept well on Bipap and uses it in the day time during naps as well. States she is coughing but it is not as productive. No other complaints. Has some CARRERA but is trying to increase her activity. Objective Last 8 Hrs Date Time Temp Pulse Resp B/P Pulse Ox O2 Delivery O2 Flow Rate FiO2 03/08/16 17:06 37.0 94 18 127/88 96 Nasal Cannula 3.0 03/08/16 16:23 100 16 95 Nasal Cannula 3.0 03/08/16 16:00 Nasal Cannula 3.0 03/08/16 12:00 36.7 104 20 105/69 96 Nasal Cannula 3.0 03/08/16 12:00 Nasal Cannula 3.0 03/08/16 11:21 88 16 95 Nasal Cannula 3.0 Physical Exam: GENERAL: Patient is in no acute distress. HEENT: No acute trauma, normocephalic, mucous membranes moist, no nasal congestion, no scleral icterus. NECK: No stridor, trachea is midline. LUNGS: Rhonchi in bases bilaterally, no wheeze, no rales, breath sounds equal. HEART: Without murmurs gallops or rubs, regular rate and rhythm. ABDOMEN: Soft, nontender, bowel sounds positive EXTREMITIES: No cyanosis; trace LE edema NEUROLOGIC: Oriented x 3, no acute motor or sensory deficits, no focal weakness. SKIN: No rash, no jaundice, no diaphoresis. Assessment & Plan ACUTE ASTHMA EXACERBATION: possible Acute Bronchitis -has moderate persistent asthma and difficult to control allergies; has known triggers -was routinely following with Thoracic Medicine in [facility] -PFTs in 2016 appeared normal (per report attached to chart) -tried home medications, oral steroids, nebulizer treatments at home without relief -Pulmonary consulted, appreciate recs -was on IV solumedrol + nebs + dornase; steroids being weaned per Pulm -D dimer negative -CT chest 03/04/16: bibasilar infiltrates, possible pneumonia and atelectasis; mucoid impactions -was initially requiring Bipap, now has been using it at night and intermittently thru the day -continued on Levaquin HTN: controlled -continue norvasc -PRN Clonidine SINUS TACHYCARDIA: -resolving -TTE Report: - -- Conclusions -- * Normal LV chamber size with mild concetric LVH. * Normal LV systolic function, EF 60-65%. * No segmental left ventricular wall motion abnormalities are noted. * Grade I diastolic dysfunction. * No significant valvular pathology. * Trivial, anterior pericardial effusion without hemodynamic significance. -discontinue IV fluids EKG CHANGES: Nonspecific T wave changes in the Anterolateral leads - no cardiac symptoms - repeat ekg unchanged - TTE without wall motion abnormalities Current Inpatient Medications: Current Inpatient Medications Medications (Trade) Dose Ordered Sig/Delicia Route Start Time Stop Time Status Last Admin Dose Admin Enoxaparin Sodium (Lovenox Inj) 40 mg Q24H SQ 03/01/16 06:00 03/31/16 05:59 03/08/16 06:05 40 MG Acetaminophen (Tylenol Tab) 650 mg Q4H PRN PO 03/01/16 01:30 03/31/16 01:29 Al Hydrox/Mg Hydrox/Simethicone (Maalox Max Susp) 15 ml Q4H PRN PO 03/01/16 01:30 03/31/16 01:29 Magnesium Hydroxide (Milk Of Magnesia Susp) 30 ml Q6H PRN PO 03/01/16 01:30 03/31/16 01:29 Polyethylene (Miralax Powder Packet) 17 gm DAILY PRN PO 03/01/16 01:30 03/31/16 01:29 Ondansetron HCl (Zofran Inj) 4 mg Q6H PRN IV 03/01/16 01:30 03/31/16 01:29 Amlodipine Besylate (Norvasc Tab) 10 mg DAILY PO 03/01/16 09:00 03/31/16 08:59 03/08/16 08:30 10 MG Cetirizine HCl (zyrTEC TAB) 10 mg QPM PO 03/01/16 21:00 03/31/16 20:59 03/07/16 21:17 10 MG Codeine Phosphate/ Guaifenesin (Robitussin-AC Sugar Free Syrup) 5 ml QID PRN PO 03/01/16 02:00 03/31/16 01:59 03/02/16 01:17 5 ML Montelukast Sodium (Singulair Tab) 10 mg DAILY PO 03/01/16 09:00 03/31/16 08:59 03/08/16 08:30 10 MG Nystatin (Mycostatin Susp) 5 ml QID PO 03/01/16 13:00 03/11/16 12:59 03/08/16 17:23 5 ML Ipratropium [place] (Atrovent 0.02% 0.5MG/2.5ML Neb) 0.5 mg Q4R INH 03/01/16 12:00 03/31/16 11:59 03/08/16 11:20 0.5 MG Levalbuterol (Xopenex 1.25MG/ 0.5ML Neb) 1.25 mg Q4R INH 03/01/16 12:00 03/31/16 11:59 03/08/16 11:21 1.25 MG Levalbuterol (Xopenex 1.25MG/ 0.5ML Neb) 1.25 mg Q2H PRN INH 03/01/16 14:00 03/31/16 13:59 03/04/16 11:36 1.25 MG Ipratropium [place] (Atrovent 0.02% 0.5MG/2.5ML Neb) 0.5 mg Q2R PRN INH 03/02/16 14:45 04/01/16 14:44 03/04/16 11:36 0.5 MG Lorazepam 0.5 mg 0.5 mg Q6H PRN PO 03/02/16 18:00 04/01/16 17:59 03/07/16 21:18 0.5 MG Sodium Chloride (Nss 1000ml) 1,000 ml @ 60 mls/hr [id number] IV 03/03/16 16:00 04/02/16 15:59 03/08/16 14:02 60 MLS/HR Morphine Sulfate (MoRPHine SULFATE INJ) 2 mg Q3H PRN IV 03/03/16 16:00 03/17/16 15:59 Clonidine HCl (Catapres Tab) 0.1 mg Q6H PRN PO 03/05/16 16:00 04/04/16 15:59 Prednisone (PredniSONE TAB) 40 mg DAILY PO 03/09/16 09:00 04/08/16 08:59
[2016-03-08] MEDS: CETIRIZINE HCL 10 MG TAB PO SCH (20:59)
[2016-03-09] VITALS (14 sets, daily range): BP systolic 95–136; BP diastolic 58–79; PULSE 73–105; TEMP 36.8–37.8; O2SAT 91–97
[2016-03-09] MEDS: LEVALBUTEROL 1.25MG/0.5ML NEB INH SCH ×6 (03:52→23:18)
[2016-03-09] MEDS: IPRATROPIUM BROMIDE NEB SOLN 0.02% 2.5 ML VIAL INH SCH ×6 (03:52→23:18)
[2016-03-09 06:07] LABS: HEMATOCRIT 37.7 % (37-47); MEAN CELL VOLUME 88.7 fL (80-100); MEAN CORPUSCULAR HEMOGLOBIN 30.1 pg (25-34); MEAN PLATELET VOLUME 10.1 fL (7.4-10.4); PLATELET COUNT 187 K/uL (130-400); RED BLOOD COUNT 4.25 M/uL (4.2-5.4); WHITE BLOOD COUNT 10.77 K/uL (4.8-10.8)
[2016-03-09] MEDS: ENOXAPARIN 40 MG/0.4 ML SYR SQ SCH (06:18)
[2016-03-09 06:41] LABS: BUN/CREATININE RATIO 22.1 (10-20); CALCIUM 8.4 mg/dl (8.5-10.1); CREATININE 0.57 mg/dl (0.60-1.20); POTASSIUM 3.3 mmol/L (3.5-5.1)
[2016-03-09] MEDS ORDERED: POTASSIUM CHLORIDE 10 MEQ TABCR PO STA (07:53)
[2016-03-09] MEDS: AMLODIPINE BESYLATE 5 MG TAB PO SCH (08:19)
[2016-03-09] MEDS: ACETAMINOPHEN 325 MG TAB PO PRN (08:19)
[2016-03-09] MEDS: MONTELUKAST SOD 10 MG TAB PO SCH (08:20)
[2016-03-09] MEDS: NYSTATIN SUSP 500,000 U/5 ML UDC PO SCH ×4 (08:21→20:19)
[2016-03-09 10:54] LABS: LEGIONELLA ANTIGEN NOT DETECTED
--- NOTE | 2016-03-09 12:36 | Pulmonology Progress Note ---
Pulmonary Progress Note Date of Service Mar 09, 2016. Attending Dr. Tyron Boyce Subjective Patient very fatigued today has asked to be placed back on BiPAP. This occurred after ambulation. Objective Patient sitting in a chair on 4 L nasal cannula able to complete full sentences showing no signs of increased work of breathing. VS: SaO2 88-97% % on 3Lnc and BiPAP Respiratory: Patient's upper lobes bilaterally. Notable rhonchi bilaterally at the bases. Cardiac: S1-S2 no murmurs rubs or gallops appreciated Assessment & Plan 55-year-old female admitted with status asthmaticus: #1 Status Asthmaticus: We will decrease prednisone to 40 mg per day. continue her nebulizer and MDIs. Pulmonary medications: Prednisone 40 mg Atrovent nebulizer Zyrtec Xopenex Nystatin swish and swallow initiated 03/01/16 discontinue 03/11/16 Atrovent nebulizer Singulair Robitussin Initiate Advair 500/50 at this time Initiate Spiriva #2: Bilateral Atelectasis/Mucoid Impaction: We'll repeat noncontrast CT of the lungs Data Medications: Current Inpatient Medications Medications (Trade) Dose Ordered Sig/Delicia Route Start Time Stop Time Status Last Admin Dose Admin Enoxaparin Sodium (Lovenox Inj) 40 mg Q24H SQ 03/01/16 06:00 03/31/16 05:59 03/09/16 06:18 40 MG Acetaminophen (Tylenol Tab) 650 mg Q4H PRN PO 03/01/16 01:30 03/31/16 01:29 03/09/16 08:19 650 MG Al Hydrox/Mg Hydrox/Simethicone (Maalox Max Susp) 15 ml Q4H PRN PO 03/01/16 01:30 03/31/16 01:29 Magnesium Hydroxide (Milk Of Magnesia Susp) 30 ml Q6H PRN PO 03/01/16 01:30 03/31/16 01:29 Polyethylene (Miralax Powder Packet) 17 gm DAILY PRN PO 03/01/16 01:30 03/31/16 01:29 Ondansetron HCl (Zofran Inj) 4 mg Q6H PRN IV 03/01/16 01:30 03/31/16 01:29 03/09/16 09:25 4 MG Amlodipine Besylate (Norvasc Tab) 10 mg DAILY PO 03/01/16 09:00 03/31/16 08:59 03/09/16 08:19 10 MG Cetirizine HCl (zyrTEC TAB) 10 mg QPM PO 03/01/16 21:00 03/31/16 20:59 03/08/16 20:59 10 MG Codeine Phosphate/ Guaifenesin (Robitussin-AC Sugar Free Syrup) 5 ml QID PRN PO 03/01/16 02:00 03/31/16 01:59 03/02/16 01:17 5 ML Montelukast Sodium (Singulair Tab) 10 mg DAILY PO 03/01/16 09:00 03/31/16 08:59 03/09/16 08:20 10 MG Nystatin (Mycostatin Susp) 5 ml QID PO 03/01/16 13:00 03/11/16 12:59 03/09/16 08:21 5 ML Ipratropium [place] (Atrovent 0.02% 0.5MG/2.5ML Neb) 0.5 mg Q4R INH 03/01/16 12:00 03/31/16 11:59 03/09/16 11:05 0.5 MG Levalbuterol (Xopenex 1.25MG/ 0.5ML Neb) 1.25 mg Q4R INH 03/01/16 12:00 03/31/16 11:59 03/09/16 11:05 1.25 MG Levalbuterol (Xopenex 1.25MG/ 0.5ML Neb) 1.25 mg Q2H PRN INH 03/01/16 14:00 03/31/16 13:59 03/04/16 11:36 1.25 MG Ipratropium [place] (Atrovent 0.02% 0.5MG/2.5ML Neb) 0.5 mg Q2R PRN INH 03/02/16 14:45 04/01/16 14:44 03/04/16 11:36 0.5 MG Lorazepam (Ativan Tab) 0.5 mg Q6H PRN PO 03/02/16 18:00 04/01/16 17:59 03/07/16 21:18 0.5 MG Morphine Sulfate (MoRPHine SULFATE INJ) 2 mg Q3H PRN IV 03/03/16 16:00 1/20/17 15:59 Clonidine HCl (Catapres Tab) 0.1 mg Q6H PRN PO 03/05/16 16:00 04/04/16 15:59 Prednisone (PredniSONE TAB) 40 mg DAILY PO 03/09/16 09:00 04/08/16 08:59 03/09/16 08:19 40 MG I & O: 24-Hour Column 03/09/16 08:00 Intake Total 1854 ml Output Total 300 ml Balance 1554 ml Vital Signs: Date Time Temp Pulse Resp B/P Pulse Ox O2 Delivery O2 Flow Rate FiO2 03/09/16 11:08 102 16 91 Nasal Cannula 2.0 03/09/16 08:00 Nasal Cannula 3.0 03/09/16 07:52 37.1 93 20 136/79 91 Nasal Cannula 2.0 03/09/16 07:18 103 16 93 Nasal Cannula 2.0 03/09/16 04:33 36.8 77 18 117/58 96 Nasal Cannula 2.0 03/09/16 04:00 Nasal Cannula 3.0 03/09/16 03:52 79 16 97 Nasal Cannula 2.0 03/09/16 00:00 36.8 73 18 110/60 95 BiPAP 03/08/16 23:59 BiPAP 03/08/16 23:18 80 98 3.0 03/08/16 23:17 80 18 98 BiPAP/CPAP 3.0 03/08/16 20:00 Nasal Cannula 3.0 03/08/16 19:53 36.6 84 16 113/78 96 Nasal Cannula 3.0 03/08/16 19:45 98 16 97 Nasal Cannula 3.0 03/08/16 17:06 37.0 94 18 127/88 96 Nasal Cannula 3.0 03/08/16 16:23 100 16 95 Nasal Cannula 3.0 03/08/16 16:00 Nasal Cannula 3.0 Laboratory Results: Last 24 Hours Test 03/09/16 05:55 White Blood Count 10.77 K/uL Red Blood Count 4.25 M/uL Hemoglobin 12.8 g/dL Hematocrit 37.7 % Mean Corpuscular Volume 88.7 fL Mean Corpuscular Hemoglobin 30.1 pg Mean Corpuscular Hemoglobin Concent 34.0 g/dl RDW Standard Deviation 44.5 fL RDW Coefficient of Variation 13.7 % Platelet Count 187 K/uL Mean Platelet Volume 10.1 fL Sodium Level 146 mmol/L Potassium Level 3.3 mmol/L Chloride Level 106 mmol/L Carbon Dioxide Level 31 mmol/L Anion Gap 9.0 mmol/L Blood Urea Nitrogen 13 mg/dl Creatinine 0.57 mg/dl Est Creatinine Clear Calc Drug Dose 116.7 ml/min Estimated GFR () 120.1 Estimated GFR (Non- 103.6 BUN/Creatinine Ratio 22.1 Random Glucose 85 mg/dl Calcium Level 8.4 mg/dl
--- NOTE | 2016-03-09 15:43 | DIAGNOSTIC IMAGING REPORT ---
CT SCAN OF THE CHEST WITHOUT IV CONTRAST CLINICAL HISTORY: Asthma exacerbation. Pneumonia. COMPARISON STUDY: Chest CT scan dated 03/04/2016. Chest x-ray dated 03/08/2016. TECHNIQUE: CT scan of the thorax was performed from the thoracic inlet to the upper abdomen. Images are reviewed in the axial, sagittal, and coronal planes. IV contrast was not administered for this examination as per the referring clinician. CT DOSE: 535.35 mGycm FINDINGS: Thyroid: Imaged portions of the thyroid gland are normal in size and attenuation. Thoracic aorta: The thoracic aorta is normal in caliber and demonstrates standard 3-vessel arch anatomy. Heart: The heart is mildly enlarged and without pericardial effusion. Lungs and pleural spaces: There is bibasilar airspace consolidation, left greater than right. Consolidation is also seen in the lingula. Minimal patchy airspace consolidation is seen in the inferior aspect of the upper lobes. Trace pleural effusions are identified. The trachea and central airways are clear. A 4 mm right lower lobe nodule seen image #129. A 6 mm right middle lobe nodule is seen on image #142. Mediastinum: There are scattered subcentimeter mediastinal lymph nodes. These are not pathologically enlarged by size criteria. Gladys: Not well assessed without IV contrast. Axillae: There is no axillary lymphadenopathy. Upper abdomen: There is a small hiatal hernia. A calcified granuloma is noted in the right lobe of liver. Hepatic steatosis is observed. Diverticular disease is noted in the partially imaged left colon. Skeletal structures: No lytic or blastic bony lesions are seen. IMPRESSION: 1. There is dense bibasilar airspace consolidation with more patchy airspace opacities present in the upper lobes. The appearance is typical for pneumonia, and this appears modestly worsened from 03/04/2016. Radiographic follow-up to resolution is recommended. 2. Trace pleural effusions are identified. 3. There are pulmonary nodules measuring up to 6 mm seen in the right middle and right lower lobes. These may be on an inflammatory basis. Precautionary 6 month follow-up chest CT is recommended for reassessment. 4. No pathologically enlarged mediastinal lymph nodes are identified. 5. Hepatic steatosis. 6. Mild cardiomegaly. Electronically signed by: Junior Barriga M.D. 03/09/2016 3:41 PM Dictated Date/Time: 03/09/2016 3:35 PM
--- NOTE | 2016-03-09 19:08 | Progress Note ---
Medicine Progress Note Date & Time of Visit: Mar 09, 2016 at 19:08. Subjective Patient states she has not had a great day, was feeling very tired earlier and has not been working with IS or flutter valve due to fatigue today. Has not been coughing as much as a result. No overnight events noted. Using Bipap at night. Attempted to ambulate in halls with therapy but was very weak and SOB. No other complaints noted. Objective Last 8 Hrs Date Time Temp Pulse Resp B/P Pulse Ox O2 Delivery O2 Flow Rate FiO2 03/09/16 16:10 37.1 99 22 99/76 91 Nasal Cannula 3.0 03/09/16 16:00 Nasal Cannula 3.0 03/09/16 15:45 101 16 94 Nasal Cannula 3.0 03/09/16 12:00 Nasal Cannula 3.0 03/09/16 11:26 37.6 98 20 115/65 93 Nasal Cannula 3.0 Physical Exam: GENERAL: Patient is in no acute distress. HEENT: No acute trauma, normocephalic, mucous membranes moist, no nasal congestion, no scleral icterus. NECK: No stridor, trachea is midline. LUNGS: Rhonchi in bases bilaterally R>L, no wheeze, no rales, breath sounds equal. HEART: Without murmurs gallops or rubs, regular rate and rhythm. ABDOMEN: Soft, nontender, bowel sounds positive EXTREMITIES: No cyanosis; trace LE edema NEUROLOGIC: Oriented x 3, no acute motor or sensory deficits, no focal weakness. SKIN: No rash, no jaundice, no diaphoresis. Laboratory Results: Last 24 Hours Test 03/09/16 05:55 White Blood Count 10.77 K/uL Red Blood Count 4.25 M/uL Hemoglobin 12.8 g/dL Hematocrit 37.7 % Mean Corpuscular Volume 88.7 fL Mean Corpuscular Hemoglobin 30.1 pg Mean Corpuscular Hemoglobin Concent 34.0 g/dl RDW Standard Deviation 44.5 fL RDW Coefficient of Variation 13.7 % Platelet Count 187 K/uL Mean Platelet Volume 10.1 fL Sodium Level 146 mmol/L Potassium Level 3.3 mmol/L Chloride Level 106 mmol/L Carbon Dioxide Level 31 mmol/L Anion Gap 9.0 mmol/L Blood Urea Nitrogen 13 mg/dl Creatinine 0.57 mg/dl Est Creatinine Clear Calc Drug Dose 116.7 ml/min Estimated GFR () 120.1 Estimated GFR (Non- 103.6 BUN/Creatinine Ratio 22.1 Random Glucose 85 mg/dl Calcium Level 8.4 mg/dl Assessment & Plan ACUTE ASTHMA EXACERBATION: possible Acute Bronchitis -has moderate persistent asthma and difficult to control allergies; has known triggers -was routinely following with Thoracic Medicine in [facility] -PFTs in 2016 appeared normal (per report attached to chart) -tried home medications, oral steroids, nebulizer treatments at home without relief -Pulmonary consulted, appreciate recs -was on IV solumedrol + nebs + dornase; steroids being weaned per Pulm -D dimer negative -CT chest 03/04/16: bibasilar infiltrates, possible pneumonia and atelectasis; mucoid impactions -was initially requiring Bipap, now has been using it at night and intermittently thru the day -continued on Levaquin -repeat CXR yesterday shows no significant change in bibasilar opacities -a repeat CT chest non-contrast was ordered by Pulm for further evaluation HTN: controlled -continue norvasc -PRN Clonidine SINUS TACHYCARDIA: -resolving -TTE Report: - -- Conclusions -- * Normal LV chamber size with mild concetric LVH. * Normal LV systolic function, EF 60-65%. * No segmental left ventricular wall motion abnormalities are noted. * Grade I diastolic dysfunction. * No significant valvular pathology. * Trivial, anterior pericardial effusion without hemodynamic significance. -discontinued IV fluids EKG CHANGES: Nonspecific T wave changes in the Anterolateral leads - no cardiac symptoms - repeat ekg unchanged - TTE without wall motion abnormalities Current Inpatient Medications: Current Inpatient Medications Medications (Trade) Dose Ordered Sig/Delicia Route Start Time Stop Time Status Last Admin Dose Admin Enoxaparin Sodium (Lovenox Inj) 40 mg Q24H SQ 03/01/16 06:00 03/31/16 05:59 03/09/16 06:18 40 MG Acetaminophen (Tylenol Tab) 650 mg Q4H PRN PO 03/01/16 01:30 03/31/16 01:29 03/09/16 08:19 650 MG Al Hydrox/Mg Hydrox/Simethicone (Maalox Max Susp) 15 ml Q4H PRN PO 03/01/16 01:30 03/31/16 01:29 Magnesium Hydroxide (Milk Of Magnesia Susp) 30 ml Q6H PRN PO 03/01/16 01:30 03/31/16 01:29 Polyethylene (Miralax Powder Packet) 17 gm DAILY PRN PO 03/01/16 01:30 03/31/16 01:29 Ondansetron HCl (Zofran Inj) 4 mg Q6H PRN IV 03/01/16 01:30 03/31/16 01:29 03/09/16 09:25 4 MG Amlodipine Besylate (Norvasc Tab) 10 mg DAILY PO 03/01/16 09:00 03/31/16 08:59 03/09/16 08:19 10 MG Cetirizine HCl (zyrTEC TAB) 10 mg QPM PO 03/01/16 21:00 03/31/16 20:59 03/08/16 20:59 10 MG Codeine Phosphate/ Guaifenesin (Robitussin-AC Sugar Free Syrup) 5 ml QID PRN PO 03/01/16 02:00 03/31/16 01:59 03/02/16 01:17 5 ML Montelukast Sodium (Singulair Tab) 10 mg DAILY PO 03/01/16 09:00 03/31/16 08:59 03/09/16 08:20 10 MG Nystatin (Mycostatin Susp) 5 ml QID PO 03/01/16 13:00 03/11/16 12:59 03/09/16 13:00 5 ML Ipratropium [place] (Atrovent 0.02% 0.5MG/2.5ML Neb) 0.5 mg Q4R INH 03/01/16 12:00 03/31/16 11:59 03/09/16 15:45 0.5 MG Levalbuterol (Xopenex 1.25MG/ 0.5ML Neb) 1.25 mg Q4R INH 03/01/16 12:00 03/31/16 11:59 03/09/16 15:45 1.25 MG Levalbuterol (Xopenex 1.25MG/ 0.5ML Neb) 1.25 mg Q2H PRN INH 03/01/16 14:00 03/31/16 13:59 03/04/16 11:36 1.25 MG Ipratropium [place] (Atrovent 0.02% 0.5MG/2.5ML Neb) 0.5 mg Q2R PRN INH 03/02/16 14:45 04/01/16 14:44 03/04/16 11:36 0.5 MG Lorazepam (Ativan Tab) 0.5 mg Q6H PRN PO 03/02/16 18:00 04/01/16 17:59 03/07/16 21:18 0.5 MG Morphine Sulfate (MoRPHine SULFATE INJ) 2 mg Q3H PRN IV 03/03/16 16:00 03/17/16 15:59 Clonidine HCl (Catapres Tab) 0.1 mg Q6H PRN PO 03/05/16 16:00 04/04/16 15:59 Prednisone (PredniSONE TAB) 40 mg DAILY PO 03/09/16 09:00 04/08/16 08:59 03/09/16 08:19 40 MG Salmeterol Xinafoate/ Fluticasone (Advair Diskus 500/50 Inh) 1 puff BID INH 03/09/16 21:00 04/08/16 20:59 Tiotropium [place] (Spiriva Handihaler Inhaler) 1 puff QAM INH 03/10/16 09:00 04/09/16 08:59
[2016-03-09] MEDS: FLUTICASONE/SALMETEROL (ADVAIR) 500/50 INH 14 PUFF INH SCH (20:19)
[2016-03-09] MEDS: CETIRIZINE HCL 10 MG TAB PO SCH (20:20)
[2016-03-09] MEDS: LORAZEPAM 0.5 MG TAB PO PRN (21:55)
[2016-03-10] VITALS (13 sets, daily range): BP systolic 102–120; BP diastolic 59–80; PULSE 77–113; TEMP 36.6–38; O2SAT 92–100
[2016-03-10] MEDS: IPRATROPIUM BROMIDE NEB SOLN 0.02% 2.5 ML VIAL INH SCH ×6 (03:48→23:27)
[2016-03-10] MEDS: LEVALBUTEROL 1.25MG/0.5ML NEB INH SCH ×6 (03:48→23:27)
[2016-03-10] MEDS: ENOXAPARIN 40 MG/0.4 ML SYR SQ SCH (06:02)
[2016-03-10 06:16] LABS: HEMATOCRIT 37.2 % (37-47); MEAN CELL VOLUME 89.9 fL (80-100); MEAN CORPUSCULAR HEMOGLOBIN 30.4 pg (25-34); MEAN CORPUSCULAR HGB CONC 33.9 g/dl (32-36); MEAN PLATELET VOLUME 10.4 fL (7.4-10.4); PLATELET COUNT 178 K/uL (130-400); RED BLOOD COUNT 4.14 M/uL (4.2-5.4)
[2016-03-10 06:44] LABS: CREATININE 0.63 mg/dl (0.60-1.20)
[2016-03-10] MEDS: DORNASE ALFA (2500U) 2.5MG/2.5ML INH SCH ×2 (07:21→19:06)
[2016-03-10] MEDS: FLUTICASONE/SALMETEROL (ADVAIR) 500/50 INH 14 PUFF INH SCH (08:22)
[2016-03-10] MEDS: AMLODIPINE BESYLATE 5 MG TAB PO SCH (08:22)
[2016-03-10] MEDS: NYSTATIN SUSP 500,000 U/5 ML UDC PO SCH ×4 (08:23→21:29)
[2016-03-10] MEDS: MONTELUKAST SOD 10 MG TAB PO SCH (08:23)
[2016-03-10] MEDS: TIOTROPIUM BROMIDE 5 PUFF/90 MCG INH INH SCH ×2 (08:23→08:32)
[2016-03-10] MEDS: ACETAMINOPHEN 325 MG TAB PO PRN (08:32)
[2016-03-10] MEDS ORDERED: POTASSIUM CHLORIDE 20 MEQ TABCR PO STA (08:42)
[2016-03-10 10:57] LABS: BUN/CREATININE RATIO 15.8 (10-20); CALCIUM 8.4 mg/dl (8.5-10.1); CREATININE 0.69 mg/dl (0.60-1.20); POTASSIUM 3.7 mmol/L (3.5-5.1)
[2016-03-10] MEDS ORDERED: PIPERACILL/TAZOBAC CONSULT ACTIVE PRN ×2 (12:00→12:30)
[2016-03-10] MEDS ORDERED: PIPERACILL/TAZOBAC IV 3.375 GM in DEXTROSE 5% 100ML 100 ML IV ONE (12:00)
--- NOTE | 2016-03-10 12:34 | Pulmonology Progress Note ---
Pulmonary Progress Note Date of Service Mar 10, 2016. Attending Dr. Tyron Boyce Subjective Patient noting increased shortness of breath and notable dyspnea on exertion. She is also noting fatigue with frustration associated with her current severe illness. Objective Patient currently on 6 L nasal cannula extremely dyspneic using accessory muscles during our conversation with SaO2 dropping to 88%. 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 At this time we will reinitiate dornase and physiotherapy. The patient is unable to clear the atelectasis bronchoscopy might be warranted. #3 family discussion: I was able to sit down with the patient, her daughter and her today. We discussed the current case in her continued hypoxemia. We discussed that this is not similar to a status asthmaticus but at this time appears more similar to a chemical induced pneumonitis. We will with a go through her CT of the thorax and also discuss the continued bilateral lower lobe opacifications. Data Medications: Current Inpatient Medications Medications (Trade) Dose Ordered Sig/Delicia Route Start Time Stop Time Status Last Admin Dose Admin Enoxaparin Sodium (Lovenox Inj) 40 mg Q24H SQ 03/01/16 06:00 03/31/16 05:59 03/10/16 06:02 40 MG Acetaminophen (Tylenol Tab) 650 mg Q4H PRN PO 03/01/16 01:30 03/31/16 01:29 03/10/16 08:32 650 MG Al Hydrox/Mg Hydrox/Simethicone (Maalox Max Susp) 15 ml Q4H PRN PO 03/01/16 01:30 03/31/16 01:29 Magnesium Hydroxide (Milk Of Magnesia Susp) 30 ml Q6H PRN PO 03/01/16 01:30 03/31/16 01:29 Polyethylene (Miralax Powder Packet) 17 gm DAILY PRN PO 03/01/16 01:30 03/31/16 01:29 Ondansetron HCl (Zofran Inj) 4 mg Q6H PRN IV 03/01/16 01:30 03/31/16 01:29 03/09/16 09:25 4 MG Amlodipine Besylate (Norvasc Tab) 10 mg DAILY PO 03/01/16 09:00 03/31/16 08:59 03/10/16 08:22 10 MG Cetirizine HCl (zyrTEC TAB) 10 mg QPM PO 03/01/16 21:00 03/31/16 20:59 03/09/16 20:20 10 MG Codeine Phosphate/ Guaifenesin (Robitussin-AC Sugar Free Syrup) 5 ml QID PRN PO 03/01/16 02:00 03/31/16 01:59 03/02/16 01:17 5 ML Montelukast Sodium (Singulair Tab) 10 mg DAILY PO 03/01/16 09:00 03/31/16 08:59 03/10/16 08:23 10 MG Nystatin (Mycostatin Susp) 5 ml QID PO 03/01/16 13:00 03/11/16 12:59 03/10/16 08:23 5 ML Ipratropium [place] (Atrovent 0.02% 0.5MG/2.5ML Neb) 0.5 mg Q4R INH 03/01/16 12:00 03/31/16 11:59 03/10/16 07:05 0.5 MG Levalbuterol (Xopenex 1.25MG/ 0.5ML Neb) 1.25 mg Q4R INH 03/01/16 12:00 03/31/16 11:59 03/10/16 07:05 1.25 MG Levalbuterol (Xopenex 1.25MG/ 0.5ML Neb) 1.25 mg Q2H PRN INH 03/01/16 14:00 03/31/16 13:59 03/04/16 11:36 1.25 MG Ipratropium [place] (Atrovent 0.02% 0.5MG/2.5ML Neb) 0.5 mg Q2R PRN INH 03/02/16 14:45 04/01/16 14:44 03/04/16 11:36 0.5 MG Lorazepam (Ativan Tab) 0.5 mg Q6H PRN PO 03/02/16 18:00 04/01/16 17:59 03/09/16 21:55 0.5 MG Morphine Sulfate (MoRPHine SULFATE INJ) 2 mg Q3H PRN IV 03/03/16 16:00 03/17/16 15:59 Clonidine HCl (Catapres Tab) 0.1 mg Q6H PRN PO 03/05/16 16:00 04/04/16 15:59 Prednisone (PredniSONE TAB) 40 mg DAILY PO 03/09/16 09:00 04/08/16 08:59 03/10/16 08:23 40 MG Salmeterol Xinafoate/ Fluticasone (Advair Diskus 500/50 Inh) 1 puff BID INH 03/09/16 21:00 04/08/16 20:59 03/10/16 08:22 1 PUFF Tiotropium [place] (Spiriva Handihaler Inhaler) 1 puff QAM INH 03/10/16 09:00 04/09/16 08:59 03/10/16 08:32 1 PUFF Dornase [place] 2.5 ml 2.5 ml BIDR INH 03/10/16 08:00 04/09/16 07:59 03/10/16 07:21 2.5 ML Piperacillin Sod/ Tazobactam Sod 3.375 gm/Dextrose 115 ml @ 230 mls/hr NOW ONCE IV 03/10/16 12:00 03/10/16 12:29 Piperacillin Sod/ Tazobactam Sod/ Dextrose (Zosyn Iv/D5 100ml) 115 ml @ 28.75 mls/ hr Q8H IV 03/10/16 18:00 03/17/16 17:59 Piperacillin Sod/ Tazobactam Sod (Consult) 1 ea UD PRN N/A 03/10/16 12:30 04/09/16 12:29 I & O: 24-Hour Column 03/10/16 08:00 Intake Total 740 ml Balance 740 ml Vital Signs: Date Time Temp Pulse Resp B/P Pulse Ox O2 Delivery O2 Flow Rate FiO2 03/10/16 08:00 38.0 113 24 113/80 92 Nasal Cannula 6.0 03/10/16 08:00 93 Nasal Cannula 6.0 03/10/16 07:06 102 16 94 Nasal Cannula 2.0 03/10/16 04:00 36.8 98 18 109/64 92 BiPAP 03/10/16 03:48 91 93 2.0 03/10/16 03:48 91 16 94 BiPAP/CPAP 2.0 03/10/16 03:30 BiPAP 03/09/16 23:50 36.8 105 19 95/60 91 BiPAP 03/09/16 23:30 BiPAP 03/09/16 23:18 90 93 2.0 03/09/16 23:18 90 16 93 BiPAP/CPAP 2.0 03/09/16 22:15 96 92 2.0 03/09/16 19:48 37.8 102 20 113/75 91 Nasal Cannula 3.0 03/09/16 19:30 Nasal Cannula 3.0 03/09/16 19:12 97 14 93 Nasal Cannula 3.0 03/09/16 16:10 37.1 99 22 99/76 91 Nasal Cannula 3.0 03/09/16 16:00 Nasal Cannula 3.0 03/09/16 15:45 101 16 94 Nasal Cannula 3.0 Laboratory Results: Last 24 Hours Test 03/10/16 06:01 03/10/16 10:05 White Blood Count 14.10 K/uL Red Blood Count 4.14 M/uL Hemoglobin 12.6 g/dL Hematocrit 37.2 % Mean Corpuscular Volume 89.9 fL Mean Corpuscular Hemoglobin 30.4 pg Mean Corpuscular Hemoglobin Concent 33.9 g/dl RDW Standard Deviation 46.5 fL RDW Coefficient of Variation 14.1 % Platelet Count 178 K/uL Mean Platelet Volume 10.4 fL Creatinine 0.63 mg/dl 0.69 mg/dl Est Creatinine Clear Calc Drug Dose 105.1 ml/min 95.9 ml/min Estimated GFR () 116.2 112.8 Estimated GFR (Non- 100.3 97.3 Sodium Level 139 mmol/L Potassium Level 3.7 mmol/L Chloride Level 102 mmol/L Carbon Dioxide Level 29 mmol/L Anion Gap 8.0 mmol/L Blood Urea Nitrogen 11 mg/dl BUN/Creatinine Ratio 15.8 Random Glucose 122 mg/dl Calcium Level 8.4 mg/dl
[2016-03-10] MEDS ORDERED: PIPERACILL/TAZOBAC IV 3.375 GM in DEXTROSE 5% 100ML 100 ML IV SCH (14:00)
[2016-03-10] MEDS: METHYLPREDNISOLONE IV 60 MG in SYRINGE 0 ML IV SCH ×2 (15:05→21:29)
--- NOTE | 2016-03-10 17:47 | Progress Note ---
Medicine Progress Note Date & Time of Visit: Mar 10, 2016 at 17:46. Subjective Patient was reportedly feeling worse and breathing worse this AM, required oxygen to be increased to 6L to maintain sats. No overnight events noted, pt wore bipap and slept well. Activity limited by SOB and desat. No other complaints noted at this time. Objective Last 8 Hrs Date Time Temp Pulse Resp B/P Pulse Ox O2 Delivery O2 Flow Rate FiO2 03/10/16 16:00 93 Nasal Cannula 4.0 03/10/16 15:47 37.1 104 22 116/74 92 Nasal Cannula 4.0 03/10/16 14:36 90 16 94 Nasal Cannula 4.0 03/10/16 12:30 37.4 103 20 102/59 95 Nasal Cannula 6.0 03/10/16 12:00 94 Nasal Cannula 6.0 Physical Exam: GENERAL: Patient is in no acute distress. HEENT: No acute trauma, normocephalic, mucous membranes moist, no nasal congestion, no scleral icterus. NECK: No stridor, trachea is midline. LUNGS: Rhonchi in bases bilaterally, no wheeze, no rales, breath sounds equal. HEART: Without murmurs gallops or rubs, regular rate and rhythm. ABDOMEN: Soft, nontender, bowel sounds positive EXTREMITIES: No cyanosis; trace LE edema NEUROLOGIC: Oriented x 3, no acute motor or sensory deficits, no focal weakness. SKIN: No rash, no jaundice, no diaphoresis. Laboratory Results: Last 24 Hours Test 03/10/16 06:01 03/10/16 10:05 White Blood Count 14.10 K/uL Red Blood Count 4.14 M/uL Hemoglobin 12.6 g/dL Hematocrit 37.2 % Mean Corpuscular Volume 89.9 fL Mean Corpuscular Hemoglobin 30.4 pg Mean Corpuscular Hemoglobin Concent 33.9 g/dl RDW Standard Deviation 46.5 fL RDW Coefficient of Variation 14.1 % Platelet Count 178 K/uL Mean Platelet Volume 10.4 fL Creatinine 0.63 mg/dl 0.69 mg/dl Est Creatinine Clear Calc Drug Dose 105.1 ml/min 95.9 ml/min Estimated GFR () 116.2 112.8 Estimated GFR (Non- 100.3 97.3 Sodium Level 139 mmol/L Potassium Level 3.7 mmol/L Chloride Level 102 mmol/L Carbon Dioxide Level 29 mmol/L Anion Gap 8.0 mmol/L Blood Urea Nitrogen 11 mg/dl BUN/Creatinine Ratio 15.8 Random Glucose 122 mg/dl Calcium Level 8.4 mg/dl Date/Time Source Procedure Growth Status 03/10/16 15:15 Nasal MRSA DNA Surveillance Screen - Final Specimen Negative for MRSA by DNA Probe Complete Assessment & Plan ACUTE ASTHMA EXACERBATION: possible Acute Bronchitis, with possible chemical exposure pneumonitis -has moderate persistent asthma and difficult to control allergies; has known triggers, was also exposed to prolonged chemicals that were inhaled prior to admission -was routinely following with Thoracic Medicine in [facility] -PFTs in 2016 appeared normal (per report attached to chart) -tried home medications, oral steroids, and nebulizer treatments at home without relief -Pulmonary consulted, appreciate recs -was on IV solumedrol + nebs + dornase; steroids being weaned per Pulm, but given AM events the steroids have been increased back to IV -D dimer negative -CT chest 03/04/16: bibasilar infiltrates, possible pneumonia and atelectasis; mucoid impactions -was initially requiring Bipap, now has been using it at night and intermittently thru the day -was on Levaquin, now on Zosyn as well given worsening respiratory state and trending up WBCs; MRSA negative, will hold off on starting Vanco -repeat CXR shows no significant change in bibasilar opacities -repeat CT chest non-contrast: dense bibasilar airspace consolidation with more patchy airspace opacities present in the upper lobes. The appearance is typical for pneumonia, and this appears modestly worsened from 03/04/2016. -patient will likely undergo bronchoscopy next week per Pulm HTN: controlled -continue norvasc -PRN Clonidine SINUS TACHYCARDIA: -resolving -TTE Report: - -- Conclusions -- * Normal LV chamber size with mild concetric LVH. * Normal LV systolic function, EF 60-65%. * No segmental left ventricular wall motion abnormalities are noted. * Grade I diastolic dysfunction. * No significant valvular pathology. * Trivial, anterior pericardial effusion without hemodynamic significance. -discontinued IV fluids EKG CHANGES: -on admission EKG: Nonspecific T wave changes in the Anterolateral leads -no cardiac symptoms -repeat ekg unchanged -TTE without wall motion abnormalities Current Inpatient Medications: Current Inpatient Medications Medications (Trade) Dose Ordered Sig/Delicia Route Start Time Stop Time Status Last Admin Dose Admin Enoxaparin Sodium (Lovenox Inj) 40 mg Q24H SQ 03/01/16 06:00 03/31/16 05:59 03/10/16 06:02 40 MG Acetaminophen (Tylenol Tab) 650 mg Q4H PRN PO 03/01/16 01:30 03/31/16 01:29 03/10/16 08:32 650 MG Al Hydrox/Mg Hydrox/Simethicone (Maalox Max Susp) 15 ml Q4H PRN PO 03/01/16 01:30 03/31/16 01:29 Magnesium Hydroxide (Milk Of Magnesia Susp) 30 ml Q6H PRN PO 03/01/16 01:30 03/31/16 01:29 Polyethylene (Miralax Powder Packet) 17 gm DAILY PRN PO 03/01/16 01:30 03/31/16 01:29 03/10/16 15:25 17 GM Ondansetron HCl (Zofran Inj) 4 mg Q6H PRN IV 03/01/16 01:30 03/31/16 01:29 03/09/16 09:25 4 MG Amlodipine Besylate (Norvasc Tab) 10 mg DAILY PO 03/01/16 09:00 03/31/16 08:59 03/10/16 08:22 10 MG Cetirizine HCl (zyrTEC TAB) 10 mg QPM PO 03/01/16 21:00 03/31/16 20:59 03/09/16 20:20 10 MG Codeine Phosphate/ Guaifenesin (Robitussin-AC Sugar Free Syrup) 5 ml QID PRN PO 03/01/16 02:00 03/31/16 01:59 03/02/16 01:17 5 ML Montelukast Sodium (Singulair Tab) 10 mg DAILY PO 03/01/16 09:00 03/31/16 08:59 03/10/16 08:23 10 MG Nystatin (Mycostatin Susp) 5 ml QID PO 03/01/16 13:00 03/11/16 12:59 03/10/16 12:44 5 ML Ipratropium [place] (Atrovent 0.02% 0.5MG/2.5ML Neb) 0.5 mg Q4R INH 03/01/16 12:00 03/31/16 11:59 03/10/16 14:36 0.5 MG Levalbuterol (Xopenex 1.25MG/ 0.5ML Neb) 1.25 mg Q4R INH 03/01/16 12:00 03/31/16 11:59 03/10/16 14:36 1.25 MG Levalbuterol (Xopenex 1.25MG/ 0.5ML Neb) 1.25 mg Q2H PRN INH 03/01/16 14:00 03/31/16 13:59 03/04/16 11:36 1.25 MG Ipratropium [place] (Atrovent 0.02% 0.5MG/2.5ML Neb) 0.5 mg Q2R PRN INH 03/02/16 14:45 04/01/16 14:44 03/04/16 11:36 0.5 MG Lorazepam (Ativan Tab) 0.5 mg Q6H PRN PO 03/02/16 18:00 04/01/16 17:59 03/09/16 21:55 0.5 MG Morphine Sulfate (MoRPHine SULFATE INJ) 2 mg Q3H PRN IV 03/03/16 16:00 03/17/16 15:59 Clonidine HCl (Catapres Tab) 0.1 mg Q6H PRN PO 03/05/16 16:00 04/04/16 15:59 Dornase [place] 2.5 ml 2.5 ml BIDR INH 03/10/16 08:00 04/09/16 07:59 03/10/16 07:21 2.5 ML Piperacillin Sod/ Tazobactam Sod/ Dextrose (Zosyn Iv/D5 100ml) 115 ml @ 28.75 mls/ hr Q8H IV 03/10/16 18:00 03/17/16 17:59 Piperacillin Sod/ Tazobactam Sod 1 ea 1 ea UD PRN N/A 03/10/16 12:30 04/09/16 12:29 Methylprednisolone Sodium Succinate/ Syringe (Solu-Medrol IV/ Syringe) 0.96 ml @ 1.5 mls/min TID IV 03/10/16 14:00 04/09/16 13:59 03/10/16 15:05 1.5 MLS/MIN Psyllium Hydrophilic Mucilloid (Metamucil Powder) 1 pkt QAM PO 03/11/16 09:00 04/10/16 08:59 Calcium/Vitamin D (Caltrate Plus Tab) 1 tab BID PO 03/10/16 21:00 04/09/16 20:59
[2016-03-10] MEDS: PIPERACILL/TAZOBAC IV 3.375 GM in DEXTROSE 5% 100ML IV SCH (18:01)
[2016-03-10] MEDS: CALCIUM 600MG + VIT D 400 IU TAB PO SCH (21:29)
[2016-03-10] MEDS: CETIRIZINE HCL 10 MG TAB PO SCH (21:29)
[2016-03-10] MEDS: LORAZEPAM 0.5 MG TAB PO PRN (22:18)
[2016-03-11] VITALS (12 sets, daily range): BP systolic 102–138; BP diastolic 65–79; PULSE 75–118; TEMP 36.9–37.5; O2SAT 90–100
[2016-03-11] MEDS: PIPERACILL/TAZOBAC IV 3.375 GM in DEXTROSE 5% 100ML IV SCH ×3 (03:07→18:21)
[2016-03-11] MEDS: LEVALBUTEROL 1.25MG/0.5ML NEB INH SCH ×6 (03:28→23:40)
[2016-03-11] MEDS: IPRATROPIUM BROMIDE NEB SOLN 0.02% 2.5 ML VIAL INH SCH ×6 (03:28→23:40)
[2016-03-11] MEDS: ENOXAPARIN 40 MG/0.4 ML SYR SQ SCH (06:21)
[2016-03-11] MEDS: METHYLPREDNISOLONE IV 60 MG in SYRINGE 0 ML IV SCH ×3 (07:49→21:27)
[2016-03-11] MEDS: AMLODIPINE BESYLATE 5 MG TAB PO SCH (07:50)
[2016-03-11] MEDS: CALCIUM 600MG + VIT D 400 IU TAB PO SCH ×2 (07:50→21:27)
[2016-03-11] MEDS: NYSTATIN SUSP 500,000 U/5 ML UDC PO SCH (07:50)
[2016-03-11] MEDS: PSYLLIUM 58.6% PWD PACK S\\F PO SCH (07:50)
[2016-03-11] MEDS: MONTELUKAST SOD 10 MG TAB PO SCH (07:51)
[2016-03-11 11:20] LABS: BUN/CREATININE RATIO 10.9 (10-20); CREATININE 0.97 mg/dl (0.60-1.20); MAGNESIUM 2.2 mg/dl (1.8-2.4); POTASSIUM 3.6 mmol/L (3.5-5.1)
[2016-03-11 11:30] LABS: BETA-HYDROXYBUTYRATE 1.03 mg/dL (0.2-2.81)
[2016-03-11 11:31] LABS: MEAN CORPUSCULAR HEMOGLOBIN 30.2 pg (25-34); MEAN CORPUSCULAR HGB CONC 34.4 g/dl (32-36); MEAN PLATELET VOLUME 10.6 fL (7.4-10.4); PLATELET COUNT 223 K/uL (130-400); RED BLOOD COUNT 4.43 M/uL (4.2-5.4); WHITE BLOOD COUNT 23.09 K/uL (4.8-10.8)
[2016-03-11 11:58] LABS: CALCIUM 9.7 mg/dl (8.5-10.1)
--- NOTE | 2016-03-11 18:34 | Progress Note ---
Medicine Progress Note Date & Time of Visit: Mar 11, 2016 at 18:25. Subjective Patient doing much better today, states she has been sitting up in the chair for several hours, and that she has not been desating when coughing which is a great change from yesterday. She also did not wear bipap last night and feels as though she has been able to cough up more phlegm today. She slept well and has no complaints other than some LE edema which has been ongoing. No overnight events noted. Her mother is at the bedside and was updated. Objective Last 8 Hrs Date Time Temp Pulse Resp B/P Pulse Ox O2 Delivery O2 Flow Rate FiO2 03/11/16 18:03 Nasal Cannula 2.0 95 03/11/16 16:06 37.2 90 22 117/75 94 Nasal Cannula 2.0 03/11/16 16:01 91 16 96 Nasal Cannula 2.0 03/11/16 12:00 Nasal Cannula 2.0 96 03/11/16 11:50 37.3 118 20 129/79 95 Room Air 03/11/16 11:28 111 16 95 Nasal Cannula 2.0 Physical Exam: GENERAL: Patient is in no acute distress. HEENT: No acute trauma, normocephalic, mucous membranes moist, no nasal congestion, no scleral icterus. NECK: No stridor, trachea is midline. LUNGS: Coarse rhonchi in bases bilaterally, no wheeze, no rales, breath sounds equal. + Cough with deep breathing; + intercostal tenderness right angle of scapula level HEART: Without murmurs gallops or rubs, regular rate and rhythm. ABDOMEN: Soft, nontender, bowel sounds positive EXTREMITIES: No cyanosis; trace LE edema NEUROLOGIC: Oriented x 3, no acute motor or sensory deficits, no focal weakness. SKIN: No rash, no jaundice, no diaphoresis. Laboratory Results: Last 24 Hours Test 03/11/16 09:48 03/11/16 16:09 White Blood Count 23.09 K/uL Red Blood Count 4.43 M/uL Hemoglobin 13.4 g/dL Hematocrit 39.0 % Mean Corpuscular Volume 88.0 fL Mean Corpuscular Hemoglobin 30.2 pg Mean Corpuscular Hemoglobin Concent 34.4 g/dl RDW Standard Deviation 44.3 fL RDW Coefficient of Variation 13.6 % Platelet Count 223 K/uL Mean Platelet Volume 10.6 fL Sodium Level 139 mmol/L Potassium Level 3.6 mmol/L Chloride Level 101 mmol/L Carbon Dioxide Level 28 mmol/L Anion Gap 10.0 mmol/L Blood Urea Nitrogen 11 mg/dl Creatinine 0.97 mg/dl Est Creatinine Clear Calc Drug Dose 66.7 ml/min Estimated GFR () 75.7 Estimated GFR (Non- 65.3 BUN/Creatinine Ratio 10.9 Random Glucose 349 mg/dl Calcium Level 9.7 mg/dl Magnesium Level 2.2 mg/dl Beta-Hydroxybutyric Acid 1.03 mg/dL Bedside Glucose 201 mg/dl Assessment & Plan ACUTE ASTHMA EXACERBATION: possible Acute Bronchitis, with possible chemical exposure pneumonitis -has moderate persistent asthma and difficult to control allergies; has known triggers, was also exposed to chemicals for a prolonged period that were inhaled prior to admission -was routinely following with Thoracic Medicine in [facility] -PFTs in 2016 appeared normal (per report attached to chart) -tried home medications, oral steroids, and nebulizer treatments at home without relief -Pulmonary consulted, trino chin -was on IV solumedrol + nebs + dornase; steroids were being weaned per Pulm, but given AM events the steroids have been increased back to IV -D-dimer negative -CT chest 03/04/16: bibasilar infiltrates, possible pneumonia and atelectasis; mucoid impactions -was initially requiring Bipap, now has been using it at night and intermittently thru the day; last night did not use the Bipap and slept well without it -was on Levaquin, now on Zosyn as well given worsening respiratory state and trending up WBCs; MRSA negative, will hold off on starting Vanco -repeat CXR shows no significant change in bibasilar opacities -repeat CT chest non-contrast: dense bibasilar airspace consolidation with more patchy airspace opacities present in the upper lobes. The appearance is typical for pneumonia, and this appears modestly worsened from 03/04/2016. -patient will likely undergo bronchoscopy next week per Pulm LEUKOCYTOSIS: -trending up, however steroids were increased yesterday -abx broadened to piperacillin/tazobactam -no indication for vanco HTN: controlled -continue norvasc -PRN Clonidine SINUS TACHYCARDIA: -resolving -TTE Report: - -- Conclusions -- * Normal LV chamber size with mild concetric LVH. * Normal LV systolic function, EF 60-65%. * No segmental left ventricular wall motion abnormalities are noted. * Grade I diastolic dysfunction. * No significant valvular pathology. * Trivial, anterior pericardial effusion without hemodynamic significance. -discontinued IV fluids EKG CHANGES: -on admission EKG: Nonspecific T wave changes in the Anterolateral leads -no cardiac symptoms -repeat ekg unchanged -TTE without wall motion abnormalities Current Inpatient Medications: Current Inpatient Medications Medications (Trade) Dose Ordered Sig/Delicia Route Start Time Stop Time Status Last Admin Dose Admin Enoxaparin Sodium (Lovenox Inj) 40 mg Q24H SQ 03/01/16 06:00 03/31/16 05:59 03/11/16 06:21 40 MG Acetaminophen (Tylenol Tab) 650 mg Q4H PRN PO 03/01/16 01:30 03/31/16 01:29 03/10/16 08:32 650 MG Al Hydrox/Mg Hydrox/Simethicone (Maalox Max Susp) 15 ml Q4H PRN PO 03/01/16 01:30 03/31/16 01:29 Magnesium Hydroxide (Milk Of Magnesia Susp) 30 ml Q6H PRN PO 03/01/16 01:30 03/31/16 01:29 Polyethylene (Miralax Powder Packet) 17 gm DAILY PRN PO 03/01/16 01:30 03/31/16 01:29 03/10/16 15:25 17 GM Ondansetron HCl (Zofran Inj) 4 mg Q6H PRN IV 03/01/16 01:30 03/31/16 01:29 03/09/16 09:25 4 MG Amlodipine Besylate (Norvasc Tab) 10 mg DAILY PO 03/01/16 09:00 03/31/16 08:59 03/11/16 07:50 10 MG Cetirizine HCl (zyrTEC TAB) 10 mg QPM PO 03/01/16 21:00 03/31/16 20:59 03/10/16 21:29 10 MG Codeine Phosphate/ Guaifenesin (Robitussin-AC Sugar Free Syrup) 5 ml QID PRN PO 03/01/16 02:00 03/31/16 01:59 03/02/16 01:17 5 ML Montelukast Sodium (Singulair Tab) 10 mg DAILY PO 03/01/16 09:00 03/31/16 08:59 03/11/16 07:51 10 MG Ipratropium [place] (Atrovent 0.02% 0.5MG/2.5ML Neb) 0.5 mg Q4R INH 03/01/16 12:00 03/31/16 11:59 03/11/16 16:00 0.5 MG Levalbuterol (Xopenex 1.25MG/ 0.5ML Neb) 1.25 mg Q4R INH 03/01/16 12:00 03/31/16 11:59 03/11/16 16:00 1.25 MG Levalbuterol (Xopenex 1.25MG/ 0.5ML Neb) 1.25 mg Q2H PRN INH 03/01/16 14:00 03/31/16 13:59 03/04/16 11:36 1.25 MG Ipratropium [place] (Atrovent 0.02% 0.5MG/2.5ML Neb) 0.5 mg Q2R PRN INH 03/02/16 14:45 04/01/16 14:44 03/04/16 11:36 0.5 MG Lorazepam (Ativan Tab) 0.5 mg Q6H PRN PO 03/02/16 18:00 04/01/16 17:59 03/10/16 22:18 0.5 MG Morphine Sulfate (MoRPHine SULFATE INJ) 2 mg Q3H PRN IV 03/03/16 16:00 03/17/16 15:59 Clonidine HCl (Catapres Tab) 0.1 mg Q6H PRN PO 03/05/16 16:00 04/04/16 15:59 Dornase [place] 2.5 ml 2.5 ml BIDR INH 03/10/16 08:00 04/09/16 07:59 03/10/16 19:06 2.5 ML Piperacillin Sod/ Tazobactam Sod/ Dextrose (Zosyn Iv/D5 100ml) 115 ml @ 28.75 mls/ hr Q8H IV 03/10/16 18:00 03/17/16 17:59 03/11/16 18:21 28.75 MLS/HR Piperacillin Sod/ Tazobactam Sod 1 ea 1 ea UD PRN N/A 03/10/16 12:30 04/09/16 12:29 Methylprednisolone Sodium Succinate/ Syringe (Solu-Medrol IV/ Syringe) 0.96 ml @ 1.5 mls/min TID IV 03/10/16 14:00 04/09/16 13:59 03/11/16 15:03 1.5 MLS/MIN Psyllium Hydrophilic Mucilloid (Metamucil Powder) 1 pkt QAM PO 03/11/16 09:00 04/10/16 08:59 03/11/16 07:50 1 PKT Calcium/Vitamin D (Caltrate Plus Tab) 1 tab BID PO 03/10/16 21:00 04/09/16 20:59 03/11/16 07:50 1 TAB
[2016-03-11] MEDS: DORNASE ALFA (2500U) 2.5MG/2.5ML INH SCH (19:47)
[2016-03-11] MEDS: CETIRIZINE HCL 10 MG TAB PO SCH (21:27)
[2016-03-11] MEDS: LORAZEPAM 0.5 MG TAB PO PRN (22:31)
[2016-03-12] VITALS (12 sets, daily range): BP systolic 107–128; BP diastolic 61–88; PULSE 71–102; TEMP 37–37.4; O2SAT 90–96
[2016-03-12] MEDS: PIPERACILL/TAZOBAC IV 3.375 GM in DEXTROSE 5% 100ML IV SCH ×3 (03:08→17:39)
[2016-03-12] MEDS: IPRATROPIUM BROMIDE NEB SOLN 0.02% 2.5 ML VIAL INH SCH ×6 (03:48→23:38)
[2016-03-12] MEDS: LEVALBUTEROL 1.25MG/0.5ML NEB INH SCH ×6 (03:48→23:38)
[2016-03-12] MEDS: ENOXAPARIN 40 MG/0.4 ML SYR SQ SCH (05:47)
[2016-03-12 06:36] LABS: MEAN CELL VOLUME 88.2 fL (80-100); MEAN CORPUSCULAR HEMOGLOBIN 29.7 pg (25-34); MEAN CORPUSCULAR HGB CONC 33.6 g/dl (32-36); MEAN PLATELET VOLUME 10.5 fL (7.4-10.4); PLATELET COUNT 215 K/uL (130-400); RED BLOOD COUNT 4.08 M/uL (4.2-5.4); WHITE BLOOD COUNT 24.82 K/uL (4.8-10.8)
[2016-03-12 07:09] LABS: BUN/CREATININE RATIO 20.5 (10-20); CALCIUM 9.7 mg/dl (8.5-10.1); CREATININE 0.75 mg/dl (0.60-1.20); POTASSIUM 3.6 mmol/L (3.5-5.1)
[2016-03-12] MEDS: DORNASE ALFA (2500U) 2.5MG/2.5ML INH SCH ×2 (07:21→19:07)
[2016-03-12] MEDS: CALCIUM 600MG + VIT D 400 IU TAB PO SCH ×2 (08:23→20:15)
[2016-03-12] MEDS: AMLODIPINE BESYLATE 5 MG TAB PO SCH (08:23)
[2016-03-12] MEDS: MONTELUKAST SOD 10 MG TAB PO SCH (08:23)
[2016-03-12] MEDS: METHYLPREDNISOLONE IV 60 MG in SYRINGE 0 ML IV SCH ×3 (08:23→20:15)
[2016-03-12] MEDS: PSYLLIUM 58.6% PWD PACK S\\F PO SCH (08:23)
[2016-03-12 11:33] LABS: ARTERIAL BLD GAS O2 SATURATION 94.1 % (90-95); ARTERIAL BLOOD GAS BASE EXCESS 5.1 mEq/L (-9-1.8); ARTERIAL BLOOD GAS HCO3 29 mmol/L (19-24); ARTERIAL BLOOD GAS PO2 66 mm/Hg (80-95)
[2016-03-12 11:34] LABS: ALLEN TEST POS (POS); O2 ADMINISTRATION 6 LITERS
--- NOTE | 2016-03-12 11:40 | Pulmonology Progress Note ---
Pulmonary Progress Note Date of Service Mar 12, 2016. Attending Tyron Boyce M.D. Subjective Patient continues to note severe hypoxemia especially with exertion and currently with the rest she also notes severe fatigue increasing the last 24 hours Objective Patient was able to complete full sentences during our conversation with no accessory muscle use and during proper waveform GLENN twos were noted to be 94% and no tachypnea. VS: SaO2: 88-100% ranging from 2-6 L nasal cannula Respiratory rate 16-22 MAXIMUM TEMPERATURE 37.3 Respiratory: Patient was coughing during the examination difficult to evaluate expiratory phase Cardiac: S1-S2 no murmurs rubs or gallops Medications: #1: Zosyn started 03/10/16 #2: Methylprednisolone 60 mg IV 3 times a day (initiated 03/10/16) after previous down titration to prednisone by mouth #3: Dornase twice a day #4: Atrovent nebulizer every 2 when necessary #5: Levalbuterol nebulizer every 2 when necessary # 6: Atrovent nebulizer every 4 #7: Xopenex every 4 #8: Singular 10 mg daily #9 Lovenox 40 mg subcutaneous every day #10: Robitussin/before meals when necessary #11: Oxygen support #12: BiPAP support Laboratory: #1 WBC count 25,000 #2 serum chemistry: Within normal limits #3 influenza A/B negative #4 ABG (03/01/16) 7.49/30/88/22 (4Lnc)--Aa gradient: 110 ABG (03/12/16) Pending Assessment & Plan 55-year-old female continuing hypoxemia with possible chemical pneumonitis: #1: Hypoxemia/Chemical Pneumonitis - Steroids: Chemical pneumonitis is are not classically responsive to steroids but as we taper down to oral the patient clinically noted a relapse will continue at this time - ABG for a gradient analysis - Shunt study: Possible shunt study via echocardiogram/bubble study if hypoxia continues - BiPAP: BiPAP does appear to help the patient with exhaustion/ hypoxemia. Possibly decreased work of breathing is difficult to say as patient' s SaO2 while sleep on 2 L 10 to be 92% #2: Bilateral Atelectasis/Mucoid Impaction: At this time continue flutter valve , incentive spirometer, dornase and vest physiotherapy as well as up to chair 3 times a day #3: Rehabilitation: The patient is able to in the future should initiate physical therapy rehabilitation Data Medications: Current Inpatient Medications Medications (Trade) Dose Ordered Sig/Delicia Route Start Time Stop Time Status Last Admin Dose Admin Enoxaparin Sodium (Lovenox Inj) 40 mg Q24H SQ 03/01/16 06:00 03/31/16 05:59 03/12/16 05:47 40 MG Acetaminophen (Tylenol Tab) 650 mg Q4H PRN PO 03/01/16 01:30 03/31/16 01:29 03/10/16 08:32 650 MG Al Hydrox/Mg Hydrox/Simethicone (Maalox Max Susp) 15 ml Q4H PRN PO 03/01/16 01:30 03/31/16 01:29 Magnesium Hydroxide (Milk Of Magnesia Susp) 30 ml Q6H PRN PO 03/01/16 01:30 03/31/16 01:29 Polyethylene (Miralax Powder Packet) 17 gm DAILY PRN PO 03/01/16 01:30 03/31/16 01:29 03/10/16 15:25 17 GM Ondansetron HCl (Zofran Inj) 4 mg Q6H PRN IV 03/01/16 01:30 03/31/16 01:29 03/09/16 09:25 4 MG Amlodipine Besylate (Norvasc Tab) 10 mg DAILY PO 03/01/16 09:00 03/31/16 08:59 03/12/16 08:23 10 MG Cetirizine HCl (zyrTEC TAB) 10 mg QPM PO 03/01/16 21:00 03/31/16 20:59 03/11/16 21:27 10 MG Codeine Phosphate/ Guaifenesin (Robitussin-AC Sugar Free Syrup) 5 ml QID PRN PO 03/01/16 02:00 03/31/16 01:59 03/02/16 01:17 5 ML Montelukast Sodium (Singulair Tab) 10 mg DAILY PO 03/01/16 09:00 03/31/16 08:59 03/12/16 08:23 10 MG Ipratropium [place] (Atrovent 0.02% 0.5MG/2.5ML Neb) 0.5 mg Q4R INH 03/01/16 12:00 03/31/16 11:59 03/12/16 11:14 0.5 MG Levalbuterol (Xopenex 1.25MG/ 0.5ML Neb) 1.25 mg Q4R INH 03/01/16 12:00 03/31/16 11:59 03/12/16 11:15 1.25 MG Levalbuterol (Xopenex 1.25MG/ 0.5ML Neb) 1.25 mg Q2H PRN INH 03/01/16 14:00 03/31/16 13:59 03/04/16 11:36 1.25 MG Ipratropium [place] (Atrovent 0.02% 0.5MG/2.5ML Neb) 0.5 mg Q2R PRN INH 03/02/16 14:45 04/01/16 14:44 03/04/16 11:36 0.5 MG Lorazepam (Ativan Tab) 0.5 mg Q6H PRN PO 03/02/16 18:00 04/01/16 17:59 03/11/16 22:31 0.5 MG Morphine Sulfate (MoRPHine SULFATE INJ) 2 mg Q3H PRN IV 03/03/16 16:00 03/17/16 15:59 Clonidine HCl (Catapres Tab) 0.1 mg Q6H PRN PO 03/05/16 16:00 04/04/16 15:59 Dornase [place] 2.5 ml 2.5 ml BIDR INH 03/10/16 08:00 04/09/16 07:59 03/12/16 07:21 2.5 ML Piperacillin Sod/ Tazobactam Sod/ Dextrose (Zosyn Iv/D5 100ml) 115 ml @ 28.75 mls/ hr Q8H IV 03/10/16 18:00 03/17/16 17:59 03/12/16 10:22 28.75 MLS/HR Piperacillin Sod/ Tazobactam Sod 1 ea 1 ea UD PRN N/A 03/10/16 12:30 04/09/16 12:29 Methylprednisolone Sodium Succinate/ Syringe (Solu-Medrol IV/ Syringe) 0.96 ml @ 1.5 mls/min TID IV 03/10/16 14:00 04/09/16 13:59 03/12/16 08:23 1.5 MLS/MIN Psyllium Hydrophilic Mucilloid (Metamucil Powder) 1 pkt QAM PO 03/11/16 09:00 04/10/16 08:59 03/12/16 08:23 1 PKT Calcium/Vitamin D (Caltrate Plus Tab) 1 tab BID PO 03/10/16 21:00 04/09/16 20:59 03/12/16 08:23 1 TAB I & O: 24-Hour Column 03/12/16 07:59 Intake Total 2193 ml Balance 2193 ml Vital Signs: Date Time Temp Pulse Resp B/P Pulse Ox O2 Delivery O2 Flow Rate FiO2 03/12/16 08:00 Nasal Cannula 6.0 03/12/16 07:46 37.3 80 18 126/76 90 4.0 03/12/16 07:20 94 22 90 Nasal Cannula 4.0 03/12/16 04:00 Nasal Cannula 2.0 03/12/16 03:48 71 16 90 Nasal Cannula 2.0 03/12/16 03:08 37.0 79 18 107/67 92 1.0 03/11/16 23:59 Nasal Cannula 2.0 03/11/16 23:40 75 16 94 Nasal Cannula 2.0 03/11/16 23:28 37.2 81 20 107/66 92 Nasal Cannula 2.0 03/11/16 20:00 Nasal Cannula 2.0 03/11/16 19:54 101 16 94 Nasal Cannula 2.0 03/11/16 19:49 37.5 109 22 138/73 90 Nasal Cannula 2.0 03/11/16 18:03 Nasal Cannula 2.0 95 03/11/16 16:06 37.2 90 22 117/75 94 Nasal Cannula 2.0 03/11/16 16:01 91 16 96 Nasal Cannula 2.0 03/11/16 12:00 Nasal Cannula 2.0 96 03/11/16 11:50 37.3 118 20 129/79 95 Room Air 03/11/16 11:28 111 16 95 Nasal Cannula 2.0 Laboratory Results: Last 24 Hours Test 03/11/16 16:09 03/11/16 20:03 03/12/16 06:05 03/12/16 10:48 Bedside Glucose 201 mg/dl 311 mg/dl White Blood Count 24.82 K/uL Red Blood Count 4.08 M/uL Hemoglobin 12.1 g/dL Hematocrit 36.0 % Mean Corpuscular Volume 88.2 fL Mean Corpuscular Hemoglobin 29.7 pg Mean Corpuscular Hemoglobin Concent 33.6 g/dl RDW Standard Deviation 44.4 fL RDW Coefficient of Variation 13.7 % Platelet Count 215 K/uL Mean Platelet Volume 10.5 fL Sodium Level 143 mmol/L Potassium Level 3.6 mmol/L Chloride Level 105 mmol/L Carbon Dioxide Level 29 mmol/L Anion Gap 9.0 mmol/L Blood Urea Nitrogen 15 mg/dl Creatinine 0.75 mg/dl Est Creatinine Clear Calc Drug Dose 86.4 ml/min Estimated GFR () 103.3 Estimated GFR (Non- 89.1 BUN/Creatinine Ratio 20.5 Random Glucose 198 mg/dl Calcium Level 9.7 mg/dl
--- NOTE | 2016-03-12 14:35 | ECHOCARDIOGRAM REPORT ---
*NOTICE TO RECEIVING [employer] This information is strictly Confidential and protected under [place] law. [place] law prohibits you from making any further disclosure of this information unless further disclosure is expressly permitted by the written consent of the person to whom it pertains or is authorized by law. A general authorization for the release of medical or other information is not sufficient for this purpose. Hospital accepts no responsibility if the information is made available to any other person, INCLUDING THE PATIENT. Interpretation Summary * Name: KILEY ANDUJAR Study Date: 03/12/2016 01:17 PM BP: 128/87 mmHg * Patient Location: [facility] HR: 101 * : 1960 (M/d/yyyy) Gender: Female Height: 64 in * Age: 55 yrs Ethnicity: CA Weight: 179 lb * Ordering Physician: MALKA * Referring Physician: MALKA * Performed By: Tanya Leon RCS * * Reason For Study: EVAL FOR PFO * BSA: 1.9 m2 * -- Conclusions -- * The interatrial septum is intact with no evidence for an atrial septal defect. * Injection of contrast documented no interatrial shunt. * No PFO Procedure Details * A two-dimensional transthoracic echocardiogram was performed. * A saline contrast injection was performed to assess for cardiac shunting. * The injection was performed through an intravenous line in the right arm. * The attending nurse who injected the saline contrast was ROBERTO Espinoza. * A total of 20 cc of agitated saline was given. Atria * The interatrial septum is intact with no evidence for an atrial septal defect. * Injection of contrast documented no interatrial shunt.
[2016-03-12] MEDS ORDERED: PHARMACY GLYCEMIC MGMT CONSULT SCH (14:46)
[2016-03-12] MEDS ORDERED: GLUCOSE 10 TABS/TUBE PO PRN (15:15)
[2016-03-12] MEDS ORDERED: DEXTROSE 50% 50 ML SYR IV PRN (15:15)
[2016-03-12] MEDS ORDERED: GLUCOSE 40% GEL 15 GM TUBE PO PRN (15:15)
[2016-03-12] MEDS ORDERED: GLUCAGON FOR INJ 1 MG VIAL SQ PRN (15:15)
--- NOTE | 2016-03-12 15:15 | Pharmacy Progress Note ---
Glycemic Control Intl Consult Date of Service Mar 12, 2016. Scope Glycemic Pharmacist consulted by Dr Cheung on 03/12/16 for glycemic control and to write orders per [facility] inpatient glycemic control protocol Objective Weight (Kilograms): 81.300 Accuchecks BSG (last 24hrs): Test 03/11/16 16:09 03/11/16 20:03 03/12/16 06:05 03/12/16 11:04 Bedside Glucose 201 mg/dl (70-90) 311 mg/dl (70-90) 180 mg/dl (70-90) Random Glucose 198 mg/dl (70-99) Laboratory Data (last 24hrs) Test 03/12/16 06:05 Anion Gap 9.0 mmol/L BUN/Creatinine Ratio 20.5 Blood Urea Nitrogen 15 mg/dl Creatinine 0.75 mg/dl Potassium Level 3.6 mmol/L Sodium Level 143 mmol/L White Blood Count 24.82 K/uL Recent Pertinent Medications Outpatient Anti-diabetic Regimen: * none The patient is currently receiving: * none at time of consult Risk Factors for Insulin Resistance: * Steroids: Solu-Medrol 60mg IV every 8 hours * Infection: bronchitis, r/o pneumonia - current treatment with piperacillin/ tazobactam (mixed in dextrose) IV q8H * Diet: Regular Assessment & Plan ASSESSMENT: 03/12/16 * 55 y/o with no known history of diabetes who is experiencing steroid induced hyperglycemia. * As an outpatient, utilizes prednisone for asthma flares. * Currently receiving around the clock Solu-Medrol which is effecting postprandial BSGs * Will begin NovoLog correctional as well as prandial coverage based on patient 's weight and a stress of 2 * A1c is unkonwn at time of consult * on order with AM labs - add to discharge instructions * Forgo basal insulin at this time as Ms Hernandez is insulin naive and may not require this. PLAN FOR INPATIENT GLYCEMIC CONTROL: * NovoLog AC and HS * Correction factor: 30mg/dL/unit * Carb ratio: 1 unit per 10g of CHO consumed * Goal range: 110-140mg/dL - lower goal chosen based on age and lack of DM dx * A1c - on order * Please note that the plan above was derived based on current level of insulin resistance and hospital stress. These recommendations are appropriate for inpatient admission only. Plan of care upon discharge will need to be reassessed to avoid potential outpatient hypo/hyperglycemia. Thank you.
[2016-03-12] MEDS: INSULIN ASPART 100 UNITS/ML 3 ML PEN SC SCH ×2 (17:38→20:21)
--- NOTE | 2016-03-12 18:21 | Progress Note ---
Medicine Progress Note Date & Time of Visit: Mar 12, 2016 at 18:20. Subjective Patient reports feeling ok now, but reports having a rough morning due to her oxygen being weaned down. No events overnight. Tolerating PO. Has not been coughing as much today but relates this to being more tired. No other complaints at this time. Pts came to bedside ad was updated as well. Patient has been using bipap intermittently today. Objective Last 8 Hrs Date Time Temp Pulse Resp B/P Pulse Ox O2 Delivery O2 Flow Rate FiO2 03/12/16 16:00 Nasal Cannula 6.0 03/12/16 15:41 37.0 93 20 120/61 92 Nasal Cannula 4.0 03/12/16 15:18 102 20 94 Nasal Cannula 5.0 03/12/16 12:00 Nasal Cannula 6.0 03/12/16 11:32 37.2 86 18 128/87 95 6.0 03/12/16 11:30 86 22 96 Nasal Cannula 6.0 Physical Exam: GENERAL: Patient is in no acute distress. HEENT: No acute trauma, normocephalic, mucous membranes moist, no nasal congestion, no scleral icterus. NECK: No stridor, trachea is midline. LUNGS: Rhonchi to mid lung bilaterally, no wheeze, no rales, breath sounds equal. + Coughing with deep breathing HEART: Without murmurs gallops or rubs, regular rate and rhythm. ABDOMEN: Soft, nontender, bowel sounds positive EXTREMITIES: No cyanosis; trace LE edema NEUROLOGIC: Oriented x 3, no acute motor or sensory deficits, no focal weakness. SKIN: No rash, no jaundice, no diaphoresis. Laboratory Results: Last 24 Hours Test 03/11/16 20:03 03/12/16 06:05 03/12/16 11:04 03/12/16 11:18 Bedside Glucose 311 mg/dl 180 mg/dl White Blood Count 24.82 K/uL Red Blood Count 4.08 M/uL Hemoglobin 12.1 g/dL Hematocrit 36.0 % Mean Corpuscular Volume 88.2 fL Mean Corpuscular Hemoglobin 29.7 pg Mean Corpuscular Hemoglobin Concent 33.6 g/dl RDW Standard Deviation 44.4 fL RDW Coefficient of Variation 13.7 % Platelet Count 215 K/uL Mean Platelet Volume 10.5 fL Sodium Level 143 mmol/L Potassium Level 3.6 mmol/L Chloride Level 105 mmol/L Carbon Dioxide Level 29 mmol/L Anion Gap 9.0 mmol/L Blood Urea Nitrogen 15 mg/dl Creatinine 0.75 mg/dl Est Creatinine Clear Calc Drug Dose 86.4 ml/min Estimated GFR () 103.3 Estimated GFR (Non- 89.1 BUN/Creatinine Ratio 20.5 Random Glucose 198 mg/dl Calcium Level 9.7 mg/dl Arterial Blood pH 7.50 Arterial Blood Partial Pressure CO2 38 mmHg Arterial Blood Partial Pressure O2 66 mm/Hg Arterial Blood HCO3 29 mmol/L Arterial Blood Oxygen Saturation 94.1 % Arterial Blood Base Excess 5.1 mEq/L Arterial Blood Gas Delivery 6 LITERS Collin Test POS Test 03/12/16 15:56 Bedside Glucose 237 mg/dl Assessment & Plan ACUTE ASTHMA EXACERBATION: possible Acute Bronchitis, with possible chemical exposure pneumonitis -has moderate persistent asthma and difficult to control allergies; has known triggers, was also exposed to chemicals for a prolonged period that were inhaled prior to admission -was routinely following with Thoracic Medicine in [facility] -PFTs in 2015 appeared normal (per report attached to chart) -tried home medications, oral steroids, and nebulizer treatments at home without relief -Pulmonary consulted, appreciate recs -was on IV solumedrol + nebs + dornase; steroids were being weaned but given worsening symptoms, the steroids were increased back to IV -D-dimer negative -CT chest 03/04/16: bibasilar infiltrates, possible pneumonia and atelectasis; mucoid impactions -was initially requiring Bipap, now has been using it at night and intermittently thru the day; last night did not use the Bipap but today has needed to use it for symptomatic relief -was on Levaquin, now on Zosyn as well given worsening respiratory state and trending up WBCs; MRSA negative, will hold off on starting Vanco -repeat CXR shows no significant change in bibasilar opacities -repeat CT chest non-contrast: dense bibasilar airspace consolidation with more patchy airspace opacities present in the upper lobes. The appearance is typical for pneumonia, and this appears modestly worsened from 03/04/2016. -ABG from AM: 7.50/38/66 showing hypoxemia; oxygen increased to 4-6L much of the day with bipap intermittently -TTE bubble study did not demonstrate any shunt LEUKOCYTOSIS: -trending up -abx broadened to piperacillin/tazobactam -no indication for vanco at this time HTN: controlled -continue norvasc -PRN Clonidine SINUS TACHYCARDIA: -resolving -TTE Report: - -- Conclusions -- * Normal LV chamber size with mild concetric LVH. * Normal LV systolic function, EF 60-65%. * No segmental left ventricular wall motion abnormalities are noted. * Grade I diastolic dysfunction. * No significant valvular pathology. * Trivial, anterior pericardial effusion without hemodynamic significance. -discontinued IV fluids EKG CHANGES: -on admission EKG: Nonspecific T wave changes in the Anterolateral leads -no cardiac symptoms -repeat ekg unchanged -TTE as above Current Inpatient Medications: Current Inpatient Medications Medications (Trade) Dose Ordered Sig/Delicia Route Start Time Stop Time Status Last Admin Dose Admin Enoxaparin Sodium (Lovenox Inj) 40 mg Q24H SQ 03/01/16 06:00 03/31/16 05:59 03/12/16 05:47 40 MG Acetaminophen (Tylenol Tab) 650 mg Q4H PRN PO 03/01/16 01:30 03/31/16 01:29 03/10/16 08:32 650 MG Al Hydrox/Mg Hydrox/Simethicone (Maalox Max Susp) 15 ml Q4H PRN PO 03/01/16 01:30 03/31/16 01:29 Magnesium Hydroxide (Milk Of Magnesia Susp) 30 ml Q6H PRN PO 03/01/16 01:30 03/31/16 01:29 Polyethylene (Miralax Powder Packet) 17 gm DAILY PRN PO 03/01/16 01:30 03/31/16 01:29 03/10/16 15:25 17 GM Ondansetron HCl (Zofran Inj) 4 mg Q6H PRN IV 03/01/16 01:30 03/31/16 01:29 03/09/16 09:25 4 MG Amlodipine Besylate (Norvasc Tab) 10 mg DAILY PO 03/01/16 09:00 03/31/16 08:59 03/12/16 08:23 10 MG Cetirizine HCl (zyrTEC TAB) 10 mg QPM PO 03/01/16 21:00 03/31/16 20:59 03/11/16 21:27 10 MG Codeine Phosphate/ Guaifenesin (Robitussin-AC Sugar Free Syrup) 5 ml QID PRN PO 03/01/16 02:00 03/31/16 01:59 03/02/16 01:17 5 ML Montelukast Sodium (Singulair Tab) 10 mg DAILY PO 03/01/16 09:00 03/31/16 08:59 03/12/16 08:23 10 MG Ipratropium [place] (Atrovent 0.02% 0.5MG/2.5ML Neb) 0.5 mg Q4R INH 03/01/16 12:00 03/31/16 11:59 03/12/16 15:18 0.5 MG Levalbuterol (Xopenex 1.25MG/ 0.5ML Neb) 1.25 mg Q4R INH 03/01/16 12:00 03/31/16 11:59 03/12/16 15:18 1.25 MG Levalbuterol (Xopenex 1.25MG/ 0.5ML Neb) 1.25 mg Q2H PRN INH 03/01/16 14:00 03/31/16 13:59 03/04/16 11:36 1.25 MG Ipratropium [place] (Atrovent 0.02% 0.5MG/2.5ML Neb) 0.5 mg Q2R PRN INH 03/02/16 14:45 04/01/16 14:44 03/04/16 11:36 0.5 MG Lorazepam (Ativan Tab) 0.5 mg Q6H PRN PO 03/02/16 18:00 04/01/16 17:59 03/11/16 22:31 0.5 MG Morphine Sulfate (MoRPHine SULFATE INJ) 2 mg Q3H PRN IV 03/03/16 16:00 03/17/16 15:59 Clonidine HCl (Catapres Tab) 0.1 mg Q6H PRN PO 03/05/16 16:00 04/04/16 15:59 Dornase [place] 2.5 ml 2.5 ml BIDR INH 03/10/16 08:00 04/09/16 07:59 03/12/16 07:21 2.5 ML Piperacillin Sod/ Tazobactam Sod/ Dextrose (Zosyn Iv/D5 100ml) 115 ml @ 28.75 mls/ hr Q8H IV 03/10/16 18:00 03/17/16 17:59 03/12/16 17:39 28.75 MLS/HR Piperacillin Sod/ Tazobactam Sod 1 ea 1 ea UD PRN N/A 03/10/16 12:30 04/09/16 12:29 Methylprednisolone Sodium Succinate/ Syringe (Solu-Medrol IV/ Syringe) 0.96 ml @ 1.5 mls/min TID IV 03/10/16 14:00 04/09/16 13:59 03/12/16 13:29 1.5 MLS/MIN Psyllium Hydrophilic Mucilloid (Metamucil Powder) 1 pkt QAM PO 03/11/16 09:00 04/10/16 08:59 03/12/16 08:23 1 PKT Calcium/Vitamin D (Caltrate Plus Tab) 1 tab BID PO 03/10/16 21:00 04/09/16 20:59 03/12/16 08:23 1 TAB Miscellaneous Information (Consult Glycemic Management Pharmacy) 1 ea UD N/A 03/12/16 14:46 04/11/16 14:45 Insulin Aspart (novoLOG ASPART) SLIDING SCALE ACHS SC 03/12/16 16:15 04/11/16 16:14 03/12/16 17:38 14 UNITS Glucose (Glucose 40% Gel) 15-30 GRAMS 15 GRAMS... UD PRN PO 03/12/16 15:15 04/11/16 15:14 Glucose (Glucose Chew Tab) 4-8 Tablets 4 Tabl... UD PRN PO 03/12/16 15:15 04/11/16 15:14 Dextrose (Dextrose 50% 50ML Syringe) 25-50ML OF 50% DW IV FOR... UD PRN IV 03/12/16 15:15 04/11/16 15:14 Glucagon (Glucagon Inj) 1 mg UD PRN SQ 03/12/16 15:15 04/11/16 15:14
[2016-03-12] MEDS: LORAZEPAM 0.5 MG TAB PO PRN (20:15)
[2016-03-12] MEDS: CETIRIZINE HCL 10 MG TAB PO SCH (20:16)
[2016-03-13] VITALS (14 sets, daily range): BP systolic 108–135; BP diastolic 59–83; PULSE 67–92; TEMP 36.4–37.4; O2SAT 92–98
[2016-03-13] MEDS: PIPERACILL/TAZOBAC IV 3.375 GM in DEXTROSE 5% 100ML IV SCH ×3 (03:18→21:14)
[2016-03-13] MEDS: IPRATROPIUM BROMIDE NEB SOLN 0.02% 2.5 ML VIAL INH SCH ×6 (03:29→23:17)
[2016-03-13] MEDS: LEVALBUTEROL 1.25MG/0.5ML NEB INH SCH ×6 (03:29→23:17)
[2016-03-13] MEDS: ENOXAPARIN 40 MG/0.4 ML SYR SQ SCH (05:48)
[2016-03-13 07:38] LABS: HEMATOCRIT 36.9 % (37-47); MEAN CELL VOLUME 88.3 fL (80-100); MEAN CORPUSCULAR HEMOGLOBIN 30.1 pg (25-34); MEAN CORPUSCULAR HGB CONC 34.1 g/dl (32-36); MEAN PLATELET VOLUME 10.6 fL (7.4-10.4); PLATELET COUNT 225 K/uL (130-400); RED BLOOD COUNT 4.18 M/uL (4.2-5.4); WHITE BLOOD COUNT 21.33 K/uL (4.8-10.8)
[2016-03-13 08:04] LABS: BUN/CREATININE RATIO 19.9 (10-20); CALCIUM 9.6 mg/dl (8.5-10.1); CREATININE 0.82 mg/dl (0.60-1.20); POTASSIUM 3.6 mmol/L (3.5-5.1)
[2016-03-13] MEDS: DORNASE ALFA (2500U) 2.5MG/2.5ML INH SCH ×2 (08:10→20:11)
[2016-03-13] MEDS: PSYLLIUM 58.6% PWD PACK S\\F PO SCH (08:33)
[2016-03-13] MEDS: MONTELUKAST SOD 10 MG TAB PO SCH (08:34)
[2016-03-13] MEDS: AMLODIPINE BESYLATE 5 MG TAB PO SCH (08:34)
[2016-03-13] MEDS: METHYLPREDNISOLONE IV 60 MG in SYRINGE 0 ML IV SCH ×3 (08:35→21:05)
[2016-03-13] MEDS: CALCIUM 600MG + VIT D 400 IU TAB PO SCH ×2 (08:35→21:05)
--- NOTE | 2016-03-13 08:52 | PULMONARY PROGRESS NOTE ---
DATE: 03/13/2016 The patient is comfortable this morning. It appears each time she is placed on IV steroids, she does well. When she has a reduction in that dose, she does poorly. She presented to the hospital with worsening shortness of breath and wheezing on 03/01/2016. She had been seen by Dr. Zhou from the department of pulmonary medicine and also Dr. Boyce from the same department. Now I am following up with her as a third week of pulmonary consultative work. She did have an echocardiogram done on 03/03/2016 that showed well-preserved left ventricular function, there is no evidence of any shunt. It is interesting that her chest x-ray on 02/29/2016 was unremarkable and now reveals bibasilar infiltrates. Initial CT scan of the chest on 03/04/2016 revealed bibasilar airspace opacities. She then had a CAT scan of her chest done on 03/09/2016 that reveals to my eye that these are worse. There is consolidation in the bases bilaterally and in the lingula with a patchy infiltrate in the inferior aspect of the right upper lobe. 4 mm nodules noted as well in the right lower lobe and a 6 mm nodule in the right middle lobe. No significant adenopathy is noted. A small hiatal hernia is noted with hepatic steatosis and diverticulosis. To my eye, it is worse when compared to the previous CT of 03/04/2016. She states she feels better, although according to nurses' notes, she has profound hypoxemia off oxygen, and with walking, she becomes hypoxic, although I do not see it documented in the record. She has been on BiPAP at night and states she feels better with that. Legionella titers, all the cultures have been unremarkable, although she has not produced much sputum. MRSA DNA surveillance screen was negative. She has not had a workup for any vasculitis. Blood gas reveals pH 7.5, pCO2 of 38, pO2 of 66 on 6 liters on 03/12/2016. She continues to have cough which is nonproductive, shortness of breath with exertion. She states her activity is limited to just walking to the bathroom. The notes and x-rays and laboratory work were reviewed. I reviewed her records. She did have a bronchoscopy performed by Dr. Kurtz, but no biopsies were done. The bronchoalveolar lavage was unremarkable, that was done on 01/29/2009. She did have an abdominal CAT scan on 07/21/2003 and at that time she had ground-glass opacities at the lung bases bilaterally. She has been followed by tracee Vaca and Dr. Resendez from [facility] as an outpatient for the asthma. Presently, she is eating breakfast and states she is comfortable. PHYSICAL EXAMINATION: VITAL SIGNS: Stable and she is afebrile. Oxygen saturation is 98% on 4 liters. I\T\O, 2133 in and 1687 out. Weight is 83.3 kilograms, that is down from 87.2 kilograms on 03/08/2016. She was 80.5 kilograms at the time of admission on 2016. HEENT: Unremarkable. No thrush noted. No adenopathy is palpable anywhere. There is no neck vein distention or HJR. Expansion of the thorax is good with deep inspiration. HEART: Regular rate and rhythm. No murmurs are heard. Second heart sound normal. LUNGS: Reveal decreased breath sounds. She has vigorous coughing with inspiration. Minimal crackles are noted at the bases but they are very minimal. I do not detect any wheezing. Forced expiratory maneuver reproduces coughing with no wheezing. There is no fremitus or dullness to percussion. ABDOMEN: Soft, obese, nontender. Liver and spleen are normal. EXTREMITIES: She has no cyanosis, clubbing or edema. There is no clinical evidence of DVT. CT is reviewed. LABORATORY DATA: White count 21.3, H\T\H 12.6 and 37% with platelet count 225,000. PRP is pending. Yesterday, it was unremarkable with sugars in the 180-237 range. IMPRESSION: Bibasilar pulmonary infiltrates with profound hypoxemia with widening of the A-a gradient. I am concerned about the possibility of cryptogenic organizing pneumonitis or even alveolar proteinosis causing this disorder. It seems to be mostly at the lung bases and including the lingula, but it is very dense. I do not think this is pure asthma since she does not have any bronchospasm now and this degree of hypoxemia would be unusual in a patient with asthma with a respiratory rate of 20 and no significant wheezing. I think there is an alveolar process ongoing here that I believe needs a biopsy. RECOMMENDATIONS: At this point, I would recommend transfer to [facility] in [place] for consideration for bronchoscopy with bronchoalveolar lavage and transbronchial biopsy or even an open lung biopsy of the left lower lobe. She has been treated with antimicrobial agents, 2 weeks worth of steroids, and I think the CT scan is worse. An evaluation for vasculitis could be undertaken, but I think a vasculitis is less likely, especially with a sed rate on 03/05/2016 of 4. The patient was agreeable to this. She should be continued on her steroids, IV antimicrobial agents, and I would place her on Symbicort 160/4.5 two puffs b.i.d. until transfer can be instituted. MTDD
[2016-03-13 09:30] LABS: ESTIMATED AVERAGE GLUCOSE 151 mg/dl; HA1C FLAG Normal (Normal)
[2016-03-13] MEDS: BUDESONIDE/FORMOTEROL FUMARATE 160/4.5 60 PUFFS/INHALER INH SCH ×2 (09:32→21:05)
[2016-03-13] MEDS: INSULIN ASPART 100 UNITS/ML 3 ML PEN SC SCH ×4 (09:36→21:14)
--- NOTE | 2016-03-13 11:09 | Discharge Instructions ---
Discharge Instructions Admission Reason for Admission: Acute Asthma Exacerbation Discharge Discharge Diagnosis / Problem: Hypoxemia, possible pneumonitis Discharge Goals Goal(s): Therapeutic intervention Activity Recommendations Activity Limitations: as noted below Exercise/Sports Limitations: gradually increase as tolerated . Current Hospital Diet Patient's current hospital diet: Diabetes Type 2 Diet Discharge Diet Recommended Diet: Diabetes Type 2 Diet Pending Studies Studies pending at discharge: no Laboratory Results Hemoglobin A1c Test 03/13/16 07:05 Range/Units Estimated Average Glucose 151 mg/dl Hemoglobin A1c 6.9 H 4.5-5.6 % Medical Emergencies . Who to Call and When: Medical Emergencies: If at any time you feel your situation is an emergency, please call 911 immediately. . Non-Emergent Contact Non-Emergency issues call your: Hospital Doctor . . "Provider Documentation" section prepared by Yolanda Cheung. VTE Core Measure Inpt VTE Proph given/why not?: Enoxaparin (Lovenox)SQ
--- NOTE | 2016-03-13 11:21 | Discharge Summary ---
Discharge Summary Admission Date: Mar 01, 2016 at 01:30 Discharge Date: Mar 13, 2016 Discharge Disposition: Acute care facility Principal Diagnosis: Hypoxemia, Respiratory failure, possible pneumonitis, persistent pulmonary infiltrates, widened A-a gradient Consultations: Pulmonary Admission Information HPI (per Admitting provider): This is a 55 year old female with PMH of persistent asthma, allergic rhinitis/ seasonal allergies, HTN presents with worsening shortness of breath/wheezing x 3 days. Patient states that she has been on numerous medications for this asthma including Combivent, Dulera, prednisone, DuoNeb, Singulair, Flonase but this has been a long-standing issue. She states that she usually has to take rescue prednisone and nebulizer treatments to take care of this issue at home. She tried this treatment at home for a few days, but her breathing was worsening and so she presented to the ER. She was saturating well, but continued to wheeze and have difficulty breathing, even after being given IV steroids and nebulizer treatments. She has seen pulmonary in the past. Denies chest pain. Physical Exam (per Admitting): General Appearance: + moderate distress Respiratory/Chest: + respiratory distress, + decreased breath sounds, + accessory muscle use, + wheezing (diffuse wheezing, audible throughout lung esrtada) Cardiovascular: no edema, no murmur, + tachycardia Abdomen/GI: normal bowel sounds, non tender, soft Extremities/Musculoskelatal: normal capillary refill, no pedal edema Neurologic/Psych: no motor/sensory deficits, alert, normal mood/affect Skin: normal color Lymphatic: no adenopathy Hospital Course ACUTE HYPOXEMIC RESPIRATORY FAILURE: -initially treated as possible acute bronchitis, with asthma exacerbation; -completed 7 days of levaquin -possible chemical exposure pneumonitis per patient history -has moderate persistent asthma and difficult to control allergies; has known triggers, was also exposed to chemicals for a prolonged period that were inhaled prior to admission -was routinely following with [facility] in [facility] -PFTs in 2016 appeared normal (per report attached to chart) -tried home medications, oral steroids, and nebulizer treatments at home without relief -Pulmonary consulted, appreciate recs -was on IV solumedrol + nebs + dornase; steroids were being weaned but given worsening symptoms, the steroids were increased back to IV q8 hours -D-dimer negative -CT chest 03/04/16: bibasilar infiltrates, possible pneumonia and atelectasis; mucoid impactions -was initially requiring Bipap, now has been using it at night and intermittently thru the day; patient did request use last night -was on Levaquin, now on Zosyn given worsening appearance on CT and trending up WBCs; MRSA negative, will hold off on starting Vanco -repeat CXR shows no significant change in bibasilar opacities -repeat CT chest non-contrast: dense bibasilar airspace consolidation with more patchy airspace opacities present in the upper lobes. The appearance is typical for pneumonia, and this appears modestly worsened from 03/04/2016. -ABG from yesterday AM: 7.50/38/66 showing hypoxemia; oxygen increased to 4-6L much of the day with bipap intermittently -TTE bubble study did not demonstrate any shunt -sputum cultures and legionella were negative LEUKOCYTOSIS: -was trending up, 25-->21 today -abx broadened to piperacillin/tazobactam -no indication for vanco at this time HTN: controlled -continue norvasc -PRN Clonidine SINUS TACHYCARDIA: -resolving -TTE Report: - -- Conclusions -- * Normal LV chamber size with mild concetric LVH. * Normal LV systolic function, EF 60-65%. * No segmental left ventricular wall motion abnormalities are noted. * Grade I diastolic dysfunction. * No significant valvular pathology. * Trivial, anterior pericardial effusion without hemodynamic significance. -discontinued IV fluids EKG CHANGES: -on admission EKG: Nonspecific T wave changes in the Anterolateral leads -no cardiac symptoms -repeat ekg unchanged -TTE as above PHYSICAL EXAM ON DAY OF DISCHARGE: GENERAL: Patient is in no acute distress. HEENT: No acute trauma, normocephalic, mucous membranes moist, no nasal congestion, no scleral icterus. NECK: No stridor, trachea is midline. LUNGS: Rhonchi bilaterally, no wheeze, no rhonchi, breath sounds equal. HEART: Without murmurs gallops or rubs, regular rate and rhythm. ABDOMEN: Soft, nontender, bowel sounds positive EXTREMITIES: No cyanosis; trace LE edema NEUROLOGIC: Oriented x 3, no acute motor or sensory deficits, no focal weakness. SKIN: No rash, no jaundice, no diaphoresis. Total time spent on discharge = 45 This includes examination of the patient, discharge planning, medication reconciliation, and communication with other providers. Discharge Instructions 03/13/16 07:05 03/13/16 07:05 Test 03/12/16 11:18 03/13/16 07:05 Arterial Blood pH 7.50 (7.35-7.45) Arterial Blood Partial Pressure CO2 38 mmHg (35-46) Arterial Blood Partial Pressure O2 66 mm/Hg (80-95) Arterial Blood HCO3 29 mmol/L (19-24) Arterial Blood Oxygen Saturation 94.1 % (90-95) Arterial Blood Base Excess 5.1 mEq/L (-9-1.8) Arterial Blood Gas Delivery 6 LITERS Collin Test POS (POS) Red Blood Count 4.18 M/uL (4.2-5.4) Mean Corpuscular Volume 88.3 fL (80-100) Mean Corpuscular Hemoglobin 30.1 pg (25-34) Mean Corpuscular Hemoglobin Concent 34.1 g/dl (32-36) RDW Standard Deviation 44.3 fL (36.4-46.3) RDW Coefficient of Variation 13.7 % (11.5-14.5) Mean Platelet Volume 10.6 fL (7.4-10.4) Anion Gap 11.0 mmol/L (3-11) Est Creatinine Clear Calc Drug Dose 80.0 ml/min Estimated GFR () 92.7 Estimated GFR (Non- 80.0 BUN/Creatinine Ratio 19.9 (10-20) Bedside Glucose 149 mg/dl (70-90) Estimated Average Glucose 151 mg/dl Hemoglobin A1c 6.9 % (4.5-5.6) Calcium Level 9.6 mg/dl (8.5-10.1)
--- NOTE | 2016-03-13 12:55 | Pharmacy Progress Note ---
Glycemic Control: Progress Nt Date of Service Mar 13, 2016. Scope Glycemic Pharmacist consulted by Dr Cheung on 03/12/16 for glycemic control and to write orders per [facility] inpatient glycemic control protocol. Objective Accuchecks BSG (last 24hrs): Test 03/12/16 15:56 03/12/16 20:04 03/13/16 07:05 03/13/16 11:40 Bedside Glucose 237 mg/dl (70-90) 243 mg/dl (70-90) 149 mg/dl (70-90) 164 mg/dl (70-90) Random Glucose 156 mg/dl (70-99) Laboratory Data (last 24hrs) Test 03/13/16 07:05 Anion Gap 11.0 mmol/L BUN/Creatinine Ratio 19.9 Blood Urea Nitrogen 16 mg/dl Creatinine 0.82 mg/dl Hemoglobin A1c 6.9 % Potassium Level 3.6 mmol/L Sodium Level 144 mmol/L White Blood Count 21.33 K/uL HbA1c: Test 03/13/16 07:05 Hemoglobin A1c 6.9 % (4.5-5.6) H Recent Pertinent Medications Outpatient Anti-diabetic Regimen: * none The patient is currently receiving: * none at time of consult Risk Factors for Insulin Resistance: * Steroids: Solu-Medrol 60mg IV every 8 hours * Infection: bronchitis, r/o pneumonia - current treatment with piperacillin/ tazobactam (mixed in dextrose) IV q8H * Diet: Regular Assessment & Plan ASSESSMENT: 03/12/16 * 55 y/o with no known history of diabetes who is experiencing steroid induced hyperglycemia. * As an outpatient, utilizes prednisone for asthma flares. * Currently receiving around the clock Solu-Medrol which is effecting postprandial BSGs * Will begin NovoLog correctional as well as prandial coverage based on patient 's weight and a stress of 2 * A1c is unkonwn at time of consult * on order with AM labs - add to discharge instructions * Forgo basal insulin at this time as Ms Hernandez is insulin naive and may not require this. 03/13/16 * BSGs improved with the addition of NovoLog on 03/12 * continue same parameters at this time * A1c resulted * May warrant discussion with patient regarding possible diagnosis of diabetes and starting oral agents (metformin) if there are no contraindications * Diet * change regular --> T2DM for carb restriction while on steroids PLAN FOR INPATIENT GLYCEMIC CONTROL: * NovoLog AC and HS * Correction factor: 30mg/dL/unit * Carb ratio: 1 unit per 10g of CHO consumed * Goal range: 110-140mg/dL - lower goal chosen based on age and lack of DM dx * A1c - added to discharge instructions * Please note that the plan above was derived based on current level of insulin resistance and hospital stress. These recommendations are appropriate for inpatient admission only. Plan of care upon discharge will need to be reassessed to avoid potential outpatient hypo/hyperglycemia. Thank you.
[2016-03-13] MEDS: CETIRIZINE HCL 10 MG TAB PO SCH (21:05)
[2016-03-13] MEDS: LORAZEPAM 0.5 MG TAB PO PRN (21:07)
[2016-03-14] VITALS (13 sets, daily range): BP systolic 111–137; BP diastolic 64–89; PULSE 67–99; TEMP 36.7–37.3; O2SAT 92–98
[2016-03-14] MEDS: IPRATROPIUM BROMIDE NEB SOLN 0.02% 2.5 ML VIAL INH SCH ×5 (03:08→19:49)
[2016-03-14] MEDS: LEVALBUTEROL 1.25MG/0.5ML NEB INH SCH ×5 (03:08→19:49)
[2016-03-14] MEDS: PIPERACILL/TAZOBAC IV 3.375 GM in DEXTROSE 5% 100ML IV SCH ×3 (04:00→19:46)
[2016-03-14] MEDS: ENOXAPARIN 40 MG/0.4 ML SYR SQ SCH (06:28)
[2016-03-14] MEDS: DORNASE ALFA (2500U) 2.5MG/2.5ML INH SCH ×2 (07:41→20:11)
--- NOTE | 2016-03-14 08:05 | PULMONARY PROGRESS NOTE ---
DATE: 03/14/2016 The patient is comfortable this morning using her nebulizer. She is able to ambulate in the room on high-flow oxygen. States she feels better over the last 2 days with the increase in steroids intravenously 60 mg of IV Solu-Medrol q. 8 hours. She denies cough or orthopnea. According to nurses' note she slept fairly well last night. She denies any chest pain. We discussed exercise at great length, especially walking to prevent steroid induced myopathy if possible and she understands. PHYSICAL EXAMINATION: VITAL SIGNS: Stable and she is afebrile, oxygen saturation 93%. HEENT: Unremarkable. No thrush noted. No adenopathy is noted. Expansion of the thorax good with deep inspiration. No muscle weakness noted. No fasciculations are noted. SKIN: Unremarkable. No telangiectasias or periungual lesions are noted. HEART: Regular rate and rhythm. No murmurs are heard. LUNGS: Reveal some crackles at the lung bases now with some coarse breath sounds at the left base. The crackles definitely are there between mid and late inspiration bilaterally up to the inferior aspect of the scapula bilaterally. The upper lobes and anterior lungs are clear today. ABDOMEN: Soft and obese, nontender. EXTREMITIES: She has no cyanosis, clubbing or edema. LABORATORY DATA: Stable with an improved white count down to 21,000. Cultures are all unremarkable. IMPRESSION: 1. Bilateral lower lobe pulmonary infiltrates. I would be concerned about either hypersensitivity pneumonitis related to exposures to cleaning fluids in the endoscopy suite or cryptogenic organizing pneumonitis. I think pulmonary alveolar proteinosis is less likely since this is more of a basilar disease. 2. Asthma. PLAN: At this point, the patient is scheduled to be transferred down to [place] when a bed is available. According to nurses' notes they checked with the recycling crew supervisor there this morning and they are waiting for confirmation. I would continue on steroids and we discussed the risk of that at great length. She should continue on her present antimicrobial agents and inhalers. In my opinion she needs at least a bronchoscopy with bronchoalveolar lavage and transbronchial biopsy or an open lung biopsy to assess this abnormality. The physicians that can do those procedures are gone for this week in our institution and therefore transfer to [place] would be appropriate.
[2016-03-14] MEDS: INSULIN ASPART 100 UNITS/ML 3 ML PEN SC SCH ×4 (08:49→21:14)
[2016-03-14] MEDS: METHYLPREDNISOLONE IV 60 MG in SYRINGE 0 ML IV SCH ×3 (08:51→21:10)
[2016-03-14] MEDS: AMLODIPINE BESYLATE 5 MG TAB PO SCH (08:52)
[2016-03-14] MEDS: BUDESONIDE/FORMOTEROL FUMARATE 160/4.5 60 PUFFS/INHALER INH SCH ×2 (08:52→21:21)
[2016-03-14] MEDS: PSYLLIUM 58.6% PWD PACK S\\F PO SCH (08:52)
[2016-03-14] MEDS: MONTELUKAST SOD 10 MG TAB PO SCH (08:52)
[2016-03-14] MEDS: CALCIUM 600MG + VIT D 400 IU TAB PO SCH ×2 (08:52→21:10)
[2016-03-14 10:33] LABS: BASO % 0.1 %; BASO ABS # 0.01 K/uL (0-0.2); COMPLETE YES; HEMATOCRIT 38.1 % (37-47); IG% 2.2 %; LYMPH % 7.5 %; LYMPH ABS # 1.43 K/uL (1.2-3.4); MEAN CORPUSCULAR HEMOGLOBIN 30.5 pg (25-34); MEAN CORPUSCULAR HGB CONC 34.6 g/dl (32-36); MEAN PLATELET VOLUME 10.2 fL (7.4-10.4); MONO % 1.3 %; NEUT % 88.9 %; PLATELET COUNT 223 K/uL (130-400); RED BLOOD COUNT 4.33 M/uL (4.2-5.4); WHITE BLOOD COUNT 19.07 K/uL (4.8-10.8)
[2016-03-14 11:05] LABS: CALCIUM 10.2 mg/dl (8.5-10.1); CREATININE 0.83 mg/dl (0.60-1.20); POTASSIUM 3.3 mmol/L (3.5-5.1)
[2016-03-14] MEDS ORDERED: POTASSIUM CHLORIDE 20 MEQ TABCR PO ONE (11:30)
--- NOTE | 2016-03-14 15:39 | Pharmacy Progress Note ---
Glycemic: Assessment & Plan Date of Service Mar 14, 2016. Assessment & Plan * Pt with no prior h/o diabetes. A1c = 6.9%. No home DM meds. * BSGs ranging 164 - 215 mg/dl over the past 24hrs. * Pt with steroid induced hyperglycemia. BSG control has improved since addition of Novolog. * Will tighten Novolog parameters further. No basal insulin needed. PLAN FOR INPATIENT GLYCEMIC CONTROL: * Basal insulin: none * Correctional Insulin: Novolog Correction per scale ACHS Goal Range: Low 110 mg/dL - High 140 mg/dL Tighten - Correction Factor: 24 mg/dL/unit * Prandial insulin: Tighten - Per carb ratio of 1 unit per 8 grams CHO consumed Pharmacy will continue to monitor patient daily and write orders per [facility] inpatient glycemic control protocol. Thanks. * Please note that the plan above was derived based on current level of insulin resistance and hospital stress. These recommendations are appropriate for inpatient admission only. Plan of care upon discharge will need to be reassessed to avoid potential outpatient hypo/hyperglycemia.
[2016-03-14] MEDS: CETIRIZINE HCL 10 MG TAB PO SCH (21:11)
[2016-03-14] MEDS: LORAZEPAM 0.5 MG TAB PO PRN (22:12)
--- NOTE | 2016-03-21 16:39 | Progress Note ---
Medicine Progress Note Date & Time of Visit: Mar 15, 2016 at 01:08. delayed entry date of service as noted above Subjective patient seen resting in bedside chair alert, conversant with minimal effort better than last week dyspnea improving, as well as cough no other symptoms Objective Last 8 Hrs Date Time Temp Pulse Resp B/P Pulse Ox O2 Delivery O2 Flow Rate FiO2 03/14/16 20:53 37.3 99 16 96 Nasal Cannula 03/14/16 20:00 Nasal Cannula 4.0 03/14/16 20:00 Nasal Cannula 4.0 03/14/16 19:49 99 16 96 Nasal Cannula 4.0 03/14/16 19:38 37.3 91 20 111/64 94 Nasal Cannula 4.0 Physical Exam: general- alert, appears comfortable,no acc muscle use, speaks in sentences with no effort Eyes- anicteric Neck- no JVD Lungs- (+) mild scattered crackles- no wheeze Heart- normal rate, regular rhythm; no murmur Abdomen- normal bowel sounds, soft, nontender Extremities- no pretibial edema, no calf tenderness Neuro- alert, oriented x 3; no focal gross motor/sensory deficits Skin- warm & dry Laboratory Results: Last 24 Hours Test 03/14/16 06:35 03/14/16 10:21 03/14/16 11:12 03/14/16 16:34 Bedside Glucose 215 mg/dl 180 mg/dl 232 mg/dl White Blood Count 19.07 K/uL Red Blood Count 4.33 M/uL Hemoglobin 13.2 g/dL Hematocrit 38.1 % Mean Corpuscular Volume 88.0 fL Mean Corpuscular Hemoglobin 30.5 pg Mean Corpuscular Hemoglobin Concent 34.6 g/dl Platelet Count 223 K/uL Mean Platelet Volume 10.2 fL Neutrophils (%) (Auto) 88.9 % Lymphocytes (%) (Auto) 7.5 % Monocytes (%) (Auto) 1.3 % Eosinophils (%) (Auto) 0.0 % Basophils (%) (Auto) 0.1 % Neutrophils # (Auto) 16.96 K/uL Lymphocytes # (Auto) 1.43 K/uL Monocytes # (Auto) 0.25 K/uL Eosinophils # (Auto) 0.00 K/uL Basophils # (Auto) 0.01 K/uL RDW Standard Deviation 43.7 fL RDW Coefficient of Variation 13.6 % Immature Granulocyte % (Auto) 2.2 % Immature Granulocyte # (Auto) 0.42 K/uL Sodium Level 141 mmol/L Potassium Level 3.3 mmol/L Chloride Level 101 mmol/L Carbon Dioxide Level 29 mmol/L Anion Gap 11.0 mmol/L Blood Urea Nitrogen 16 mg/dl Creatinine 0.83 mg/dl Est Creatinine Clear Calc Drug Dose 79.3 ml/min Estimated GFR () 91.4 Estimated GFR (Non- 78.8 BUN/Creatinine Ratio 19.0 Random Glucose 191 mg/dl Calcium Level 10.2 mg/dl Test 03/14/16 20:08 Bedside Glucose 217 mg/dl Assessment & Plan This is a 55 year old female with PMH of persistent asthma, allergic rhinitis/ seasonal allergies, HTN presents with worsening shortness of breath/wheezing Acute Asthma Exacerbation , possible Acute Bronchitis -- stable overall -- awaiting transfer to [facility] Weld discussed case with [facility] Lap Regulator HTN Sinus Tachycardia Nonspecific T wave changes in the Anterolateral leads Consultants: Pulmonary
[2016-07-09] MEDS ORDERED: IPRASOL4 INH (10:12)
[2016-07-09] MEDS ORDERED: CETI10TA84 PO (10:15)
[2016-07-12] MEDS ORDERED: PRD10 PO (09:12)
[2016-07-12] MEDS ORDERED: LEVO-18 PO (09:12)
[2016-07-12] MEDS ORDERED: PRED10TA PO (09:17)
== END 2016-03-14 22:59 | disposition short-term general hospital (02) | DRG 917 ==
LOC: CANRESERV → ENRESERVDT → ENRESERVTM → C.EDB 22:48 → C.MS4N 03-01 01:30 → C.2E 03-01 11:13
PROVIDERS: ADMIT Family Medicine; ATTEND Internal Medicine
DX: T48.995A Adverse effect of other agents primarily acting on the respiratory system, initial encounter (principal); J68.0 Bronchitis and pneumonitis due to chemicals, gases, fumes and vapors; J45.901 Unspecified asthma with (acute) exacerbation; J96.01 Acute respiratory failure with hypoxia; J98.11 Atelectasis; I31.3 Pericardial effusion (noninflammatory); B37.0 Candidal stomatitis; T17.890A Other foreign object in other parts of respiratory tract causing asphyxiation, initial encounter; R00.0 Tachycardia, unspecified; Z88.2 Allergy status to sulfonamides; I10 Essential (primary) hypertension; X58.XXXA Exposure to other specified factors, initial encounter; Y92.89 Other specified places as the place of occurrence of the external cause

== ENCOUNTER 2016-07-09 09:47 | Inpatient (IN) | payer OTHER ==
[~2016-07-09] VITALS: Ht 165.1 cm; Wt 78.9 kg
[2016-07-09] VITALS (7 sets, daily range): BP systolic 139–147; BP diastolic 89–90; PULSE 93–124; TEMP 36.6–36.7; O2SAT 92–99; Ht 165.1 cm; Wt 78.9 kg
[~2016-07-09 09:47] MED LIST changes: +ALBU1.257 NEB; -AMLO10TA2 PO; -CETI10TA84 PO; +GUAISYP4 PO; -MOME200A INH; -MONT1TAB3 PO; -ONDA4TAB10 SL; +PRED20TA2 PO
[2016-07-09] MEDS ORDERED: MAGNESIUM SULFATE 1GM / D5W 1 GM BAG IV STA (10:08)
[2016-07-09] MEDS ORDERED: METHYLPREDNISOLONE 125 MG VIAL IV STA (10:08)
[2016-07-09] MEDS ORDERED: PRED10TA PO (10:14)
[2016-07-09] MEDS ORDERED: ALBUT/IPRATROP 3MG/0.5MG NEB 3 ML VIAL INH ONE (10:15)
[2016-07-09] MEDS ORDERED: LORA10CA10 PO (10:15)
[2016-07-09 10:26] LABS: BASO % 0.1 %; BASO ABS # 0.01 K/uL (0-0.2); COMPLETE YES; HEMATOCRIT 45.7 % (37-47); IG% 0.1 %; LYMPH % 14.2 %; LYMPH ABS # 1.03 K/uL (1.2-3.4); MEAN CORPUSCULAR HEMOGLOBIN 29.7 pg (25-34); MEAN PLATELET VOLUME 10.2 fL (7.4-10.4); MONO % 4.8 %; NEUT % 80.8 %; PLATELET COUNT 284 K/uL (130-400); RED BLOOD COUNT 5.08 M/uL (4.2-5.4); WHITE BLOOD COUNT 7.26 K/uL (4.8-10.8)
--- NOTE | 2016-07-09 10:37 | DIAGNOSTIC IMAGING REPORT ---
CHEST ONE VIEW PORTABLE CLINICAL HISTORY: Cough and shortness of breath. COMPARISON STUDY: Chest CT March 15, 2016. FINDINGS: There is no pneumothorax or pleural effusion. Mild elevation of the right hemidiaphragm is noted. There is no evidence of pulmonary edema. Minimal left basilar opacity favors atelectasis. Cardiomediastinal silhouette is normal. IMPRESSION: Mild left basilar opacity which likely reflects atelectasis. Electronically signed by: Sushil Ibrahim M.D. 07/09/2016 10:35 AM Dictated Date/Time: 07/09/2016 10:33 AM
[2016-07-09 10:45] LABS: BLOOD UREA NITROGEN 9 mg/dl (7-18); BUN/CREATININE RATIO 10.9 (10-20); CALCIUM 10.3 mg/dl (8.5-10.1); CARBON DIOXIDE 27 mmol/L (21-32); CHLORIDE 108 mmol/L (98-107); CREATININE 0.79 mg/dl (0.60-1.20); GLUCOSE 104 mg/dl (70-99); POTASSIUM 3.9 mmol/L (3.5-5.1); SODIUM 144 mmol/L (136-145)
[2016-07-09] MEDS ORDERED: LEVAQUIN 500MG / 100ML D5W IV ONE (11:00)
[2016-07-09] MEDS ORDERED: ALBUTEROL 0.083% NEBU SOLN 3 ML VIAL INH STA (12:23)
[2016-07-09] MEDS ORDERED: ACETAMINOPHEN 325 MG TAB PO PRN (13:15)
[2016-07-09] MEDS ORDERED: LEVALBUTEROL 0.63MG/3 ML NEB INH PRN (13:15)
[2016-07-09] MEDS ORDERED: LEVALBUTEROL/IPRATROPIUM NEB INH PRN (13:15)
[2016-07-09] MEDS ORDERED: IPRATROPIUM BROMIDE NEB SOLN 0.02% 2.5 ML VIAL INH PRN (13:15)
[2016-07-09] MEDS ORDERED: PATIENT'S HEIGHT AND/OR WEIGHT NEEDED SCH (13:15)
[2016-07-09] MEDS ORDERED: ONDANSETRON INJ 2 MG/ML 2 ML VIAL IV PRN (13:15)
[2016-07-09 13:28] LABS: INR 0.9 (0.9-1.1); PROTHROMBIN TIME (PATIENT) 9.8 SECONDS (9.0-12.0)
[2016-07-09] MEDS ORDERED: FIBER PO (13:34)
[2016-07-09] MEDS ORDERED: AZIT250T PO (13:34)
--- NOTE | 2016-07-09 14:35 | EMERGENCY ROOM VISIT NOTE ---
History Report prepared by Rosa: Jason Narvaez Under the Supervision of: Dr. Vince Mcclure D.O. First contact with patient: 09:56 Chief Complaint: RESPIRATORY PROBLEMS Stated Complaint: RESPIRATORY ISSUES History of Present Illness The patient is a 55 year old female who presents to the Emergency Room with complaints of persistent respiratory problems that started 4 days ago. The patient has a history of asthma, bronchitis, and was admitted to [place] in February for acute respiratory failure. Her respiratory failure was thought to be secondary to pneumonitis. The patient says that she started getting a runny nose 4 days ago, and she started getting a cough 2 days ago. She notes that she went to the clinic yesterday, and was given an IV dose of Solu-Medrol, as well as a Z-pack and Prednisone. She was sent here by Dr. Mosqueda of family medicine. The patient says that she has taken 50 mg Prednisone yesterday and today, her last dose being around 4 hours ago. The patient states her cough is productive with yellow sputum. She says that she gets a really good cough after her nebulizer treatment. The patient says that she slept well last night and only woke up once. She denies any fevers or chest pain. Source of History: patient Onset: 4 days ago Position: other (global - respiratory problems) Timing: other (persistent) Associated Symptoms: + SOB, + cough, No chest pain, No fevers Note: Associated symptoms: Runny nose. Review of Systems See HPI for pertinent positives & negatives. A total of 10 systems reviewed and were otherwise negative. Past Medical & Surgical Medical Problems: (1) Acute asthma exacerbation (2) History of asthma (3) History of high blood pressure Family History No pertinent family history Social History Smoking Status: Never Smoker Marital Status: Housing Status: lives with family Occupation Status: employed Current/Historical Medications Scheduled Amlodipine Besylate (Norvasc), 10 MG PO DAILY Azithromycin (Zithromax), 250 MG PO UD Cetirizine (Zyrtec), 10 MG PO DAILY Fiber Laxative (Fiber Laxative), 600 MG PO DAILY Fluticasone Propionate (Flonase Nasal [place] *), 2 SPRAYS MENG DAILY Mometasone Furoate-Formoterol (Dulera 200/5 Mcg), 2 PUFFS INH BID Montelukast Sodium (Singulair), 10 MG PO DAILY Prednisone (Prednisone), 10 MG PO UD Scheduled PRN Ipratropium-Albuterol (Duoneb), 1 TREATMENT INH QID PRN for SOB/Wheezing Ipratropium/Albuterol (Combivent *), 2 PUFFS INH QID PRN for SOB/Wheezing Allergies Coded Allergies: Promethazine (Verified Allergy, Unknown, HYPOTENSION, 07/09/16) Sulfamethoxazole (Verified Allergy, Unknown, 07/09/16) Replaces SULFAMETHOXAZ Trimethoprim (Verified Allergy, Unknown, 07/09/16) Replaces SULFAMETHOXAZ Physical Exam Vital Signs Date Time Temp Pulse Resp B/P Pulse Ox O2 Delivery O2 Flow Rate FiO2 07/09/16 14:27 36.9 110 24 131/91 97 07/09/16 14:26 110 24 131/91 97 Room Air 07/09/16 13:32 125 22 92 Nasal Cannula 2.0 07/09/16 13:30 92 Nasal Cannula 2.0 07/09/16 13:27 130 23 92 07/09/16 13:22 126 22 92 07/09/16 13:17 127 22 93 07/09/16 13:12 128 19 92 07/09/16 13:07 129 27 92 07/09/16 13:02 123 24 97 07/09/16 12:57 131 29 99 07/09/16 12:52 127 16 97 07/09/16 12:47 130 20 98 07/09/16 12:42 119 19 99 07/09/16 12:37 122 28 94 07/09/16 12:32 121 23 92 Room Air 07/09/16 12:27 123 18 92 Room Air 07/09/16 12:22 123 17 94 Room Air 07/09/16 12:17 123 20 97 Nebulizer 07/09/16 12:12 130 27 97 07/09/16 12:07 123 17 93 07/09/16 12:02 120 23 93 07/09/16 11:57 122 18 94 07/09/16 11:52 138 24 95 07/09/16 11:42 115 17 98 07/09/16 11:37 110 13 98 07/09/16 11:32 118 17 98 07/09/16 11:27 112 20 131/84 97 Nebulizer 9.0 07/09/16 11:27 114 18 131/84 98 07/09/16 11:22 105 18 97 07/09/16 11:17 111 18 98 07/09/16 11:12 98 13 98 07/09/16 11:09 97 Nebulizer 07/09/16 11:08 99 07/09/16 11:07 110 30 96 07/09/16 11:02 100 28 96 07/09/16 10:57 101 12 97 07/09/16 10:52 99 13 97 07/09/16 10:47 101 17 96 07/09/16 10:42 94 8 98 07/09/16 10:37 108 23 98 07/09/16 10:32 103 56 97 07/09/16 10:27 99 17 97 07/09/16 10:25 95 Room Air 07/09/16 10:22 110 20 92 Room Air 07/09/16 09:55 36.9 112 20 144/95 96 Room Air 2.0 Physical Exam GENERAL: sitting up in bed with a non-productive cough, disheveled, talks in full sentences EYE EXAM: normal conjunctiva OROPHARYNX: no exudate, no erythema, lips, buccal mucosa, and tongue normal and mucous membranes are moist NECK: Supple, no nuchal rigidity, no adenopathy, non-tender. No JVD. LUNGS: Diffuse expiratory wheezing bilaterally HEART: Tachycardic, no murmurs, S1 normal and S2 normal ABDOMEN: abdomen soft, non-tender, normo-active bowel sounds, no masses, no rebound or guarding. BACK: Back is symmetrical on inspection and there is no deformity, no midline tenderness, no CVA tenderness. SKIN: no rashes and no bruising UPPER EXTREMITIES: upper extremities are grossly normal. LOWER EXTREMITIES: Calves equal bilateral. NEURO EXAM: Normal sensorium, cranial nerves II-XII grossly intact, normal speech, no gross weakness of arms, no gross weakness of legs. Medical Decision & Procedures ER Provider Diagnostic Interpretation: Radiology results as stated below per my review and the radiologist's interpretation: CHEST ONE VIEW PORTABLE CLINICAL HISTORY: Cough and shortness of breath. COMPARISON STUDY: Chest CT March 15, 2016. FINDINGS: There is no pneumothorax or pleural effusion. Mild elevation of the right hemidiaphragm is noted. There is no evidence of pulmonary edema. Minimal left basilar opacity favors atelectasis. Cardiomediastinal silhouette is normal. IMPRESSION: Mild left basilar opacity which likely reflects atelectasis. Electronically signed by: Sushil Ibrahim M.D. 07/09/2016 10:35 AM Dictated Date/Time: 07/09/2016 10:33 AM Laboratory Results 07/09/16 10:10 Red Blood Count 5.08, Mean Corpuscular Volume 90.0, Mean Corpuscular Hemoglobin 29.7, Mean Corpuscular Hemoglobin Concent 33.0, Mean Platelet Volume 10.2, Neutrophils (%) (Auto) 80.8, Lymphocytes (%) (Auto) 14.2, Monocytes (%) (Auto) 4.8, Eosinophils (%) (Auto) 0.0, Basophils (%) (Auto) 0.1, Neutrophils # (Auto) 5.86, Lymphocytes # (Auto) 1.03, Monocytes # (Auto) 0.35, Eosinophils # (Auto) 0.00, Basophils # (Auto) 0.01 07/09/16 10:10 Test 07/09/16 10:10 07/09/16 10:30 White Blood Count 7.26 K/uL (4.8-10.8) Red Blood Count 5.08 M/uL (4.2-5.4) Hemoglobin 15.1 g/dL (12.0-16.0) Hematocrit 45.7 % (37-47) Mean Corpuscular Volume 90.0 fL (80-100) Mean Corpuscular Hemoglobin 29.7 pg (25-34) Mean Corpuscular Hemoglobin Concent 33.0 g/dl (32-36) Platelet Count 284 K/uL (130-400) Mean Platelet Volume 10.2 fL (7.4-10.4) Neutrophils (%) (Auto) 80.8 % Lymphocytes (%) (Auto) 14.2 % Monocytes (%) (Auto) 4.8 % Eosinophils (%) (Auto) 0.0 % Basophils (%) (Auto) 0.1 % Neutrophils # (Auto) 5.86 K/uL (1.4-6.5) Lymphocytes # (Auto) 1.03 K/uL (1.2-3.4) Monocytes # (Auto) 0.35 K/uL (0.11-0.59) Eosinophils # (Auto) 0.00 K/uL (0-0.5) Basophils # (Auto) 0.01 K/uL (0-0.2) RDW Standard Deviation 40.9 fL (36.4-46.3) RDW Coefficient of Variation 12.4 % (11.5-14.5) Immature Granulocyte % (Auto) 0.1 % Immature Granulocyte # (Auto) 0.01 K/uL (0.00-0.02) Prothrombin Time 9.8 SECONDS (9.0-12.0) Prothromb Time International Ratio 0.9 (0.9-1.1) Activated Partial Thromboplast Time 24.9 SECONDS (21.0-31.0) Partial Thromboplastin Ratio 1.0 Anion Gap 9.0 mmol/L (3-11) Estimated GFR () 97.0 Estimated GFR (Non- 83.7 BUN/Creatinine Ratio 10.9 (10-20) Calcium Level 10.3 mg/dl (8.5-10.1) Influenza Type A Antigen Neg for Influ A (NEG) Influenza Type B Antigen Neg for Influ B (NEG) Laboratory results per my review. Medications Administered Medications (Trade) Dose Ordered Sig/Delicia Route Start Time Stop Time Status Last Admin Dose Admin Albuterol/ Ipratropium (Duoneb) 12 ml ONE ONCE INH 07/09/16 10:15 07/09/16 10:16 DC 07/09/16 10:21 12 ML Methylprednisolone Sodium Succinate (Solu-Medrol IV) 125 mg NOW STAT IV 07/09/16 10:08 07/09/16 10:10 DC 07/09/16 10:18 125 MG Magnesium Sulfate (Magnesium Sulfate) 1 gm NOW STAT IV 07/09/16 10:08 07/09/16 10:10 DC 07/09/16 10:18 1 GM Levofloxacin (Levaquin / D5W) 500 mg NOW ONCE IV 07/09/16 11:00 07/09/16 11:01 DC 07/09/16 11:24 500 MG Albuterol Sulfate (Ventolin 0.083% 2.5MG/3ML Neb) 2.5 mg NOW STAT INH 07/09/16 12:23 07/09/16 12:24 DC 07/09/16 12:30 2.5 MG ED Course ED COURSE: Vital signs were reviewed and showed tachycardic vitals. The patients medical record was reviewed The above diagnostic studies were performed and reviewed. ED treatments and interventions as stated above. 1000: The patient was evaluated in room C12B. A complete history and physical examination was performed. 1008: Ordered Magnesium Sulfate 1 gm IV, Solu-Medrol IV 125 mg IV. 1015: Ordered Duoneb 12 ml INH. 1100: Ordered Levaquin / D5W 500 mg IV. 1115: I reevaluated the patient and she is feeling a little bit better. Her wheezing on examination has improved. I updated her as well. 1223: Ordered Ventolin 0.083% 2.5MG/3ML Neb 2.5 mg INH. 1220: Upon reevaluation, the patient is resting comfortably. I discussed my findings with the patient and she understands and agrees with the treatment plan. Based on the patients age, coexisting illnesses, exam and lab findings the decision to treat as an inpatient was made. The patient remained stable while under my care. The patient will be evaluated for further management. 1221: I discussed the patient with María Hunter - she will evaluate the patient for further treatment. Medical Decision Differential diagnoses includes but is not limited to pneumonia, bronchitis, COPD/Asthma exacerbation, pneumothorax, pulmonary embolism, congestive heart failure, acute coronary syndrome Patient is a 55 year old female who presents the ER for shortness of breath. She has a history of asthma who has been having a yellow productive cough and a runny nose for the past 3 days. She has been on steroids and azithromycin with no improvement. She's been using nebulizers at home. She is sent in by her PCP today. Chest x-ray shows a slight consolidation in the left lower lobe stressed and possible infiltrate versus atelectasis. Based on her symptoms I favor this likely a pneumonia exacerbating her asthma. Patient was given Levaquin, IV steroids and an hour-long treatment of nebs. She had improvement of her wheezing. She was also given magnesium. She remained fairly tachypneic and tachycardic. She was in moderate distress and was admitted to internal medicine with an asthma exacerbation secondary to pneumonia. Consults Time Called: 1215 Consulting Physician: María Hunter Returned Call: 1221 I discussed the patient with María Hunter - she will evaluate the patient for further treatment. Impression Primary Impression: Asthma exacerbation Critical Care I have personally spent 35 minutes of critical care time in the direct management of this patient. This includes bedside care, interpretation of diagnostic studies, and testing, discussion with consultants, patient, and family members, and other required patient management activities. This 35 minutes is in excess of all separately billable procedures. Scribe Attestation The scribe's documentation has been prepared under my direction and personally reviewed by me in its entirety. I confirm that the note above accurately reflects all work, treatment, procedures, and medical decision making performed by me. Departure Information Dispostion Being Evaluated By Hospitalist Referrals Shannan Bailey D.O. (PCP) Patient Instructions My [facility]
[2016-07-09] MEDS ORDERED: LEVOFLOXACIN / D5W 250 MG in PREMIXED IN D5W 50 ML IV ONE (14:50)
[2016-07-09] MEDS ORDERED: LEVALBUTEROL/IPRATROPIUM NEB INH SCH (15:00)
[2016-07-09] MEDS: IPRATROPIUM BROMIDE NEB SOLN 0.02% 2.5 ML VIAL INH SCH ×2 (16:00→19:13)
[2016-07-09] MEDS: LEVALBUTEROL 1.25MG/0.5ML NEB INH SCH ×2 (16:00→19:13)
[2016-07-09] MEDS: METHYLPREDNISOLONE IV 40 MG in SYRINGE 0 ML IV SCH (17:27)
--- NOTE | 2016-07-09 18:29 | History and Physical ---
History & Physical Date & Time of Service: July 09, 2016 at 13:14 Chief Complaint: Respiratory Issues Primary Care Physician: Shannan Bailey D.O. History of Present Illness Source: patient, clinic records, hospital records This is a 55 year old female with PMH of asthma, nocturnal hypoxemia on 2 liters HS, allergic rhinitis, hypertension, and other problems listed below who presents to the ED for respiratory symptoms. Pt was admitted to [facility] and transferred to [place] in February 2016 for acute respiratory failure secondary to chemical induced pneumonitis. Patient states 4 days ago she developed rhinorrhea then 2 days ago started having cough productive of yellow sputum. She reports associated SOB when she ambulates or coughs. She has had chest discomfort only during cough which is resolved. She is feeling fatigued. She was using inhalers and nebs at home. Patient was seen by Dr. Faith Mosqueda yesterday at weekend clinic and started on prednisone and Azithromycin which she took yesterday and today without improvement. Patient states her baseline peak flow is 475 but decreased to under 300 today. Peak flow improved to 350 after hour long neb in ER. Her breathing is improved as well. Denies fevers, chills, sore throat, ear ache, sinus pain, YUSUF, abdominal pain, N/V/D, urinary changes, calf pain, edema, myalgias, rash. No sick contacts. Patient follows with Jennifer Vaca for pulmonology. 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) Multi-Drug Resistant Organisms History of MDRO: No Allergies Coded Allergies: Promethazine (Verified Allergy, Unknown, HYPOTENSION, 07/09/16) Sulfamethoxazole (Verified Allergy, Unknown, 07/09/16) Replaces SULFAMETHOXAZ Trimethoprim (Verified Allergy, Unknown, 07/09/16) Replaces SULFAMETHOXAZ Home Medications Scheduled Amlodipine Besylate (Norvasc), 10 MG PO DAILY Azithromycin (Zithromax), 250 MG PO UD Cetirizine (Zyrtec), 10 MG PO DAILY Fiber Laxative (Fiber Laxative), 600 MG PO DAILY Fluticasone Propionate (Flonase Nasal [place] *), 2 SPRAYS MENG DAILY Mometasone Furoate-Formoterol (Dulera 200/5 Mcg), 2 PUFFS INH BID Montelukast Sodium (Singulair), 10 MG PO DAILY Prednisone (Prednisone), 10 MG PO UD Scheduled PRN Ipratropium-Albuterol (Duoneb), 1 TREATMENT INH QID PRN for SOB/Wheezing Ipratropium/Albuterol (Combivent *), 2 PUFFS INH QID PRN for SOB/Wheezing Review of Systems Ten systems reviewed and negative except as noted in HPI. Physical Exam Vital Signs Date Time Temp Pulse Resp B/P Pulse Ox O2 Delivery O2 Flow Rate FiO2 07/09/16 12:32 121 23 92 Room Air 07/09/16 12:27 123 18 92 Room Air 07/09/16 12:22 123 17 94 Room Air 07/09/16 12:17 123 20 97 Nebulizer 07/09/16 12:12 130 27 97 07/09/16 12:07 123 17 93 07/09/16 12:02 120 23 93 07/09/16 11:57 122 18 94 07/09/16 11:52 138 24 95 07/09/16 11:42 115 17 98 07/09/16 11:37 110 13 98 07/09/16 11:32 118 17 98 07/09/16 11:27 112 20 131/84 97 Nebulizer 9.0 07/09/16 11:27 114 18 131/84 98 07/09/16 11:22 105 18 97 07/09/16 11:17 111 18 98 07/09/16 11:12 98 13 98 07/09/16 11:09 97 Nebulizer 07/09/16 11:08 99 07/09/16 11:07 110 30 96 07/09/16 11:02 100 28 96 07/09/16 10:57 101 12 97 07/09/16 10:52 99 13 97 07/09/16 10:47 101 17 96 07/09/16 10:42 94 8 98 07/09/16 10:37 108 23 98 07/09/16 10:32 103 56 97 07/09/16 10:27 99 17 97 07/09/16 10:25 95 Room Air 07/09/16 10:22 110 20 92 Room Air 07/09/16 09:55 36.9 112 20 144/95 96 Room Air 2.0 General Appearance: WD/WN, no apparent distress, + pertinent finding (alert cooperative 55 year old female, no distress, mildly anxious, coughing frequently , using albuterol neb currently) Head: normocephalic, atraumatic Eyes: normal inspection, PERRL, EOMI ENT: hearing grossly normal, pharynx normal Neck: supple, no adenopathy, trachea midline Respiratory/Chest: no respiratory distress, no accessory muscle use, + crackles (mild crackles left base), + wheezing (mild expiratory wheezing in mid lung estrada), + pertinent finding (coughing frequently. able to speak full sentences. sats mid to high 90s on room air) Cardiovascular: regular rate, rhythm, no murmur, normal peripheral pulses Abdomen/GI: normal bowel sounds, non tender, soft Extremities/Musculoskelatal: no calf tenderness, normal capillary refill, no pedal edema Neurologic/Psych: alert, normal mood/affect, oriented x 3 Skin: normal color, warm/dry Diagnostics Laboratory Results Results Past 24 Hours Test 07/09/16 10:10 07/09/16 10:30 Range/Units White Blood Count 7.26 4.8-10.8 K/uL Red Blood Count 5.08 4.2-5.4 M/uL Hemoglobin 15.1 12.0-16.0 g/dL Hematocrit 45.7 37-47 % Mean Corpuscular Volume 90.0 80-100 fL Mean Corpuscular Hemoglobin 29.7 25-34 pg Mean Corpuscular Hemoglobin Concent 33.0 32-36 g/dl Platelet Count 284 130-400 K/uL Mean Platelet Volume 10.2 7.4-10.4 fL Neutrophils (%) (Auto) 80.8 % Lymphocytes (%) (Auto) 14.2 % Monocytes (%) (Auto) 4.8 % Eosinophils (%) (Auto) 0.0 % Basophils (%) (Auto) 0.1 % Neutrophils # (Auto) 5.86 1.4-6.5 K/uL Lymphocytes # (Auto) 1.03 1.2-3.4 K/uL Monocytes # (Auto) 0.35 0.11-0.59 K/uL Eosinophils # (Auto) 0.00 0-0.5 K/uL Basophils # (Auto) 0.01 0-0.2 K/uL RDW Standard Deviation 40.9 36.4-46.3 fL RDW Coefficient of Variation 12.4 11.5-14.5 % Immature Granulocyte % (Auto) 0.1 % Immature Granulocyte # (Auto) 0.01 0.00-0.02 K/uL Sodium Level 144 136-145 mmol/L Potassium Level 3.9 3.5-5.1 mmol/L Chloride Level 108 98-107 mmol/L Carbon Dioxide Level 27 21-32 mmol/L Anion Gap 9.0 3-11 mmol/L Blood Urea Nitrogen 9 7-18 mg/dl Creatinine 0.79 0.60-1.20 mg/dl Estimated GFR () 97.0 Estimated GFR (Non- 83.7 BUN/Creatinine Ratio 10.9 10-20 Random Glucose 104 70-99 mg/dl Calcium Level 10.3 8.5-10.1 mg/dl Influenza Type A Antigen Neg for Influ A NEG Influenza Type B Antigen Neg for Influ B NEG Microbiology Results 07/09/16 Blood Culture, Kevin Batch Pending 07/09/16 Blood Culture, Kevin Batch Pending Diagnostic Radiology CHEST ONE VIEW PORTABLE CLINICAL HISTORY: Cough and shortness of breath. COMPARISON STUDY: Chest CT March 15, 2016. FINDINGS: There is no pneumothorax or pleural effusion. Mild elevation of the right hemidiaphragm is noted. There is no evidence of pulmonary edema. Minimal left basilar opacity favors atelectasis. Cardiomediastinal silhouette is normal. IMPRESSION: Mild left basilar opacity which likely reflects atelectasis. Impression Assessment and Plan ACUTE ASTHMA EXACERBATION Due to possible community acquired pneumonia Failed 2 days of outpatient treatment with Azithromycin and prednisone CXR- LLL opacity ? atelectasis vs. pneumonia + tachycardia- improved to 90s, afebrile, no leukocytosis, no hypotension Check sputum and blood cultures Uses home O2 2 liters HS; no hypoxia on room air Influenza antigen negative; check influenza PCR Given empiric Levaquin 500 mg IV, IV Solu-Medrol, IV magnesium, hour long DuoNeb , albuterol neb in ER Will add another 250 mg IV Levaquin for total dose 750 mg, then continue with 750 mg daily Continue IV Solu-Medrol at 40 mg q8 Xopenex-Atrovent nebs Continue Dulera, Singulair Peak flow monitoring Continue chronic nocturnal O2 TACHYCARDIA EKG shows sinus tach Possibly due to nebs, anxiety Monitor in telemetry HYPERTENSION BP is stable Continue amlodipine ALLERGIC RHINITIS Continue Flonase and Zyrtec DVT PROPHYLAXIS Lovenox SQ FULL CODE DISPOSITION Follows with Dr. Collins for primary care Patient seen in collaboration with Dr. Quiñones. Please see her addendum. I have seen and evaluated the patient and discussed the case with the provider above. I examined her after her neb treatments in the ER and on my lung auscultation, she was clear with no wheezing. She was also not tachypnea and was without conversational dyspnea. She had the tachycardia which was sinus rhythm and likely 2/2 the stress of the situation and the frequent neb treatments. Based on her prior wheezing, IV steroids were started. Based on her symptoms of productive yellow phlegm and cough, she was started on abx for treatment of community-acquired pneumonia. I agree with the plan as stated above. Ishmael, DO Level of Care Telemetry Resuscitation Status FULL RESUSCITATION VTE Prophylaxis VTE Risk Assessment Done? Y/N: Yes Risk Level: Moderate Given or contraindicated: Enoxaparin (Lovenox)SQ
[2016-07-09] MEDS ORDERED: PNEUMOCOCCAL POLYSACCHARIDES 25 MCG/0.5 ML VIAL/SYR IM. ONE (18:30)
[2016-07-09] MEDS ORDERED: PNEUMOCOCCAL ADMINISTRATION CHARGE ONE (18:30)
[2016-07-09 20:29] LABS: INFLUENZA A PCR Neg for Influ A (NEG); INFLUENZA B PCR Neg for Influ B (NEG)
[2016-07-09] MEDS: ENOXAPARIN 40 MG/0.4 ML SYR SC SCH (21:19)
[2016-07-09] MEDS: LEVALBUTEROL 0.63MG/3 ML NEB INH PRN (23:45)
[2016-07-09] MEDS: IPRATROPIUM BROMIDE NEB SOLN 0.02% 2.5 ML VIAL INH PRN (23:45)
[2016-07-10] VITALS (15 sets, daily range): BP systolic 112–143; BP diastolic 74–87; PULSE 90–117; TEMP 36.6–37; O2SAT 93–98
[2016-07-10] MEDS: METHYLPREDNISOLONE IV 40 MG in SYRINGE 0 ML IV SCH ×2 (02:22→13:49)
[2016-07-10] MEDS: IPRATROPIUM BROMIDE NEB SOLN 0.02% 2.5 ML VIAL INH SCH ×4 (03:00→22:15)
[2016-07-10] MEDS: LEVALBUTEROL 1.25MG/0.5ML NEB INH SCH ×4 (03:00→22:15)
[2016-07-10 06:43] LABS: HEMATOCRIT 41.6 % (37-47); MEAN CELL VOLUME 90.6 fL (80-100); MEAN CORPUSCULAR HEMOGLOBIN 30.7 pg (25-34); MEAN CORPUSCULAR HGB CONC 33.9 g/dl (32-36); MEAN PLATELET VOLUME 10.4 fL (7.4-10.4); PLATELET COUNT 259 K/uL (130-400); RED BLOOD COUNT 4.59 M/uL (4.2-5.4); WHITE BLOOD COUNT 9.76 K/uL (4.8-10.8)
[2016-07-10 07:09] LABS: BUN/CREATININE RATIO 15.6 (10-20); CREATININE 0.71 mg/dl (0.60-1.20); MAGNESIUM 2.6 mg/dl (1.8-2.4); POTASSIUM 4.2 mmol/L (3.5-5.1)
[2016-07-10] MEDS: FLUTICASONE PROPIONATE NA SPR 16 GM BTL NAE SCH (08:14)
[2016-07-10] MEDS: AMLODIPINE BESYLATE 5 MG TAB PO SCH (08:14)
[2016-07-10] MEDS: MONTELUKAST SOD 10 MG TAB PO SCH (08:14)
[2016-07-10] MEDS: CETIRIZINE HCL 10 MG TAB PO SCH (08:15)
--- NOTE | 2016-07-10 08:32 | Progress Note ---
Internal Med Progress Note Date of Service: July 10, 2016. Provider Documentation: SUBJECTIVE: Seen and examined at bedside. States having productive cough. Wheezing is improving. Denies chest pain, SOB. Offers no other complaints. OBJECTIVE: Vital Signs-as noted below Physical Exam: General Appearance:Moderately built and nourished, no apparent distress Head: normocephalic, Atraumatic Eyes: normal inspection, EOMI, PERRL Neck: supple, Trachea midline Respiratory/Chest: Decreased breath sounds, + Expiratory wheezes Cardiovascular: S1, S2, No murmur Abdomen/GI:Soft, Non tender, Bowel sounds present Extremities/Musculoskelatal:normal inspection, no edema Neurologic/Psych:AAOX3, grossly no focal neurological deficits Skin: normal color, warm Lab data as noted below. ASSESSMENT & PLAN: ACUTE ASTHMA EXACERBATION CHRONIC HYPOXIC RESPIRATORY FAILURE: on home O2 2L HS Failed 2 days of outpatient treatment with Azithromycin and prednisone CXR: LLL opacity likely atelectasis Follow up blood cultures Influenza PCR: Negative Continue Levaquin, IV Solu-Medrol, bronchodilators Continue home inhalers Dulera Singulair SINUS TACHYCARDIA: Improving Monitor for now HYPERTENSION stable Continue amlodipine ALLERGIC RHINITIS Continue Flonase and Zyrtec DVT PX: Lovenox SQ Code Status Full code DISPOSITION Follows with Dr. Collins for primary care Vital Signs: Date Time Temp Pulse Resp B/P Pulse Ox O2 Delivery O2 Flow Rate FiO2 07/10/16 07:16 36.9 90 18 127/84 93 2.0 07/10/16 07:00 96 20 93 Room Air 07/10/16 04:05 36.8 96 16 126/83 94 Nasal Cannula 2.0 07/10/16 04:00 Nasal Cannula 1.0 07/10/16 00:00 36.6 104 18 125/84 93 Nasal Cannula 2.0 07/09/16 23:59 Nasal Cannula 1.0 07/09/16 23:46 118 24 98 Nasal Cannula 1.0 07/09/16 20:00 Nasal Cannula 1.0 07/09/16 19:24 36.7 120 20 147/89 93 Nasal Cannula 1.0 07/09/16 19:13 118 20 92 Nasal Cannula 0.5 07/09/16 16:00 93 20 99 Nasal Cannula 1.0 07/09/16 16:00 99 Nasal Cannula 1.0 07/09/16 14:56 36.6 124 24 139/90 95 Nasal Cannula 1.0 07/09/16 14:27 36.9 110 24 131/91 97 07/09/16 14:26 110 24 131/91 97 Room Air 07/09/16 13:32 125 22 92 Nasal Cannula 2.0 07/09/16 13:30 92 Nasal Cannula 2.0 07/09/16 13:27 130 23 92 07/09/16 13:22 126 22 92 07/09/16 13:17 127 22 93 07/09/16 13:12 128 19 92 07/09/16 13:07 129 27 92 07/09/16 13:02 123 24 97 07/09/16 12:57 131 29 99 07/09/16 12:52 127 16 97 07/09/16 12:47 130 20 98 07/09/16 12:42 119 19 99 07/09/16 12:37 122 28 94 07/09/16 12:32 121 23 92 Room Air 07/09/16 12:27 123 18 92 Room Air 07/09/16 12:22 123 17 94 Room Air 07/09/16 12:17 123 20 97 Nebulizer 07/09/16 12:12 130 27 97 07/09/16 12:07 123 17 93 07/09/16 12:02 120 23 93 07/09/16 11:57 122 18 94 07/09/16 11:52 138 24 95 07/09/16 11:42 115 17 98 07/09/16 11:37 110 13 98 07/09/16 11:32 118 17 98 07/09/16 11:27 112 20 131/84 97 Nebulizer 9.0 07/09/16 11:27 114 18 131/84 98 07/09/16 11:22 105 18 97 07/09/16 11:17 111 18 98 07/09/16 11:12 98 13 98 07/09/16 11:09 97 Nebulizer 07/09/16 11:08 99 07/09/16 11:07 110 30 96 07/09/16 11:02 100 28 96 07/09/16 10:57 101 12 97 07/09/16 10:52 99 13 97 07/09/16 10:47 101 17 96 07/09/16 10:42 94 8 98 07/09/16 10:37 108 23 98 07/09/16 10:32 103 56 97 07/09/16 10:27 99 17 97 07/09/16 10:25 95 Room Air 07/09/16 10:22 110 20 92 Room Air 07/09/16 09:55 36.9 112 20 144/95 96 Room Air 2.0 Lab Results: Results Past 24 Hours Test 07/09/16 10:10 07/09/16 10:30 07/09/16 18:50 07/10/16 06:10 Range/Units White Blood Count 7.26 9.76 4.8-10.8 K/uL Red Blood Count 5.08 4.59 4.2-5.4 M/uL Hemoglobin 15.1 14.1 12.0-16.0 g/dL Hematocrit 45.7 41.6 37-47 % Mean Corpuscular Volume 90.0 90.6 80-100 fL Mean Corpuscular Hemoglobin 29.7 30.7 25-34 pg Mean Corpuscular Hemoglobin Concent 33.0 33.9 32-36 g/dl Platelet Count 284 259 130-400 K/uL Mean Platelet Volume 10.2 10.4 7.4-10.4 fL Neutrophils (%) (Auto) 80.8 % Lymphocytes (%) (Auto) 14.2 % Monocytes (%) (Auto) 4.8 % Eosinophils (%) (Auto) 0.0 % Basophils (%) (Auto) 0.1 % Neutrophils # (Auto) 5.86 1.4-6.5 K/uL Lymphocytes # (Auto) 1.03 1.2-3.4 K/uL Monocytes # (Auto) 0.35 0.11-0.59 K/uL Eosinophils # (Auto) 0.00 0-0.5 K/uL Basophils # (Auto) 0.01 0-0.2 K/uL RDW Standard Deviation 40.9 41.8 36.4-46.3 fL RDW Coefficient of Variation 12.4 12.6 11.5-14.5 % Immature Granulocyte % (Auto) 0.1 % Immature Granulocyte # (Auto) 0.01 0.00-0.02 K/uL Prothrombin Time 9.8 9.0-12.0 SECONDS Prothromb Time International Ratio 0.9 0.9-1.1 Activated Partial Thromboplast Time 24.9 21.0-31.0 SECONDS Partial Thromboplastin Ratio 1.0 Sodium Level 144 142 136-145 mmol/L Potassium Level 3.9 4.2 3.5-5.1 mmol/L Chloride Level 108 108 98-107 mmol/L Carbon Dioxide Level 27 26 21-32 mmol/L Anion Gap 9.0 8.0 3-11 mmol/L Blood Urea Nitrogen 9 11 7-18 mg/dl Creatinine 0.79 0.71 0.60-1.20 mg/dl Estimated GFR () 97.0 110.4 Estimated GFR (Non- 83.7 95.2 BUN/Creatinine Ratio 10.9 15.6 10-20 Random Glucose 104 143 70-99 mg/dl Calcium Level 10.3 10.0 8.5-10.1 mg/dl Influenza Type A Antigen Neg for Influ A NEG Influenza Type B Antigen Neg for Influ B NEG Influenza Type A (RT-PCR) Neg for Influ A NEG Influenza Type B (RT-PCR) Neg for Influ B NEG Est Creatinine Clear Calc Drug Dose 91.7 ml/min Magnesium Level 2.6 1.8-2.4 mg/dl Microbiology Results 07/09/16 Blood Culture, Received Pending 07/09/16 Blood Culture, Received Pending
[2016-07-10] MEDS ORDERED: FIBER LAXATIVE PO SCH (09:00)
[2016-07-10] MEDS: LEVOFLOXACIN / D5W 750 MG in PREMIXED IN D5W 150 ML IV SCH (11:24)
[2016-07-10] MEDS: IPRATROPIUM BROMIDE NEB SOLN 0.02% 2.5 ML VIAL INH PRN ×2 (12:23→17:53)
[2016-07-10] MEDS: LEVALBUTEROL 0.63MG/3 ML NEB INH PRN ×2 (12:23→17:53)
[2016-07-10] MEDS ORDERED: RACEPINEPHRINE 2.25% NEBU SOLN 0.5 ML VIAL INH STA (12:40)
[2016-07-10] MEDS ORDERED: RACEPINEPHRINE 2.25% NEBU SOLN 0.5 ML VIAL INH PRN (14:00)
[2016-07-10] MEDS: ENOXAPARIN 40 MG/0.4 ML SYR SC SCH (20:43)
[2016-07-11] VITALS (15 sets, daily range): BP systolic 105–129; BP diastolic 67–88; PULSE 85–116; TEMP 36.4–36.9; O2SAT 93–97
[2016-07-11] MEDS: IPRATROPIUM BROMIDE NEB SOLN 0.02% 2.5 ML VIAL INH SCH ×2 (01:55→08:54)
[2016-07-11] MEDS: LEVALBUTEROL 1.25MG/0.5ML NEB INH SCH ×4 (01:55→19:40)
[2016-07-11] MEDS: METHYLPREDNISOLONE IV 40 MG in SYRINGE 0 ML IV SCH ×2 (02:30→11:43)
[2016-07-11] MEDS: LEVALBUTEROL 0.63MG/3 ML NEB INH PRN ×2 (04:51→17:02)
[2016-07-11] MEDS: IPRATROPIUM BROMIDE NEB SOLN 0.02% 2.5 ML VIAL INH PRN (04:51)
[2016-07-11 06:12] LABS: CREATININE 0.81 mg/dl (0.60-1.20); MAGNESIUM 2.4 mg/dl (1.8-2.4); POTASSIUM 4.1 mmol/L (3.5-5.1)
[2016-07-11] MEDS: FLUTICASONE PROPIONATE NA SPR 16 GM BTL NAE SCH (07:32)
[2016-07-11] MEDS: CETIRIZINE HCL 10 MG TAB PO SCH (07:32)
[2016-07-11] MEDS: MONTELUKAST SOD 10 MG TAB PO SCH (07:32)
[2016-07-11] MEDS: AMLODIPINE BESYLATE 5 MG TAB PO SCH (07:32)
[2016-07-11] MEDS: LEVOFLOXACIN / D5W 750 MG in PREMIXED IN D5W 150 ML IV SCH (11:43)
--- NOTE | 2016-07-11 11:49 | Progress Note ---
Internal Med Progress Note Date of Service: July 11, 2016. Provider Documentation: SUBJECTIVE: Patient is feeling better today. She does feel like she is some what near her baseline. Per her, she is always a bit tachycardic. Wheezing has resolved. SOB is near baseline. Did ambulate - 2 laps [address] hallway. Denies any chest pain, fever, chills. Off oxygen on RA- 94% OBJECTIVE: Vital Signs-as noted below Exam: General-AAOX3, no distress Neck-Supple, No JVD Lungs-AEBE, chest tightness- improved, no wheezing, rales Heart-Tachycardic, no murmurs Extremities-No edema Lab data as noted below. Diagnostic Radiology CHEST ONE VIEW PORTABLE CLINICAL HISTORY: Cough and shortness of breath. COMPARISON STUDY: Chest CT March 15, 2016. FINDINGS: There is no pneumothorax or pleural effusion. Mild elevation of the right hemidiaphragm is noted. There is no evidence of pulmonary edema. Minimal left basilar opacity favors atelectasis. Cardiomediastinal silhouette is normal. IMPRESSION: Mild left basilar opacity which likely reflects atelectasis. ASSESSMENT & PLAN: Assessment and Plan ACUTE ASTHMA EXACERBATION : Improving Patient has hx of chemical pneumonitis for which she was transferred to [facility] in February 2016. She has had this on and off in past few years. Was diagnosed with mild asthma, but still not clear if true asthma vs reactive airway disease. Allergic to Smoke, Bleach, some olivo. No exposure to these allergens recently per her. Was given outpatient treatment with Azithromycin and prednisone taper- took it for 2 days but worsened and thus came to ER. -Not hypoxic -IV Solu medrol --> Change to PO prednisone 40 mg daily, Continue with Dulera, Singulair -Continue with nebulizers (dc atrovent as no COPD only asthma), antibiotics ( day 3 of antibiotics already so will finish course for 5 days, but CXR- atelectasis and no signs of pneumonia clinically) -Work up- CXR- likely atelectasis; Influenza negative -Peak flow monitoring- patient's baseline is around 400s TACHYCARDIA EKG shows sinus tach Per patient, she always runs high- at baseline she is in 100s and on ambulation at times in 130s at home ?/ -Xopenex PRN. Will discontinue atrovent as not COPD only asthma HYPERTENSION BP is stable -Continue amlodipine ALLERGIC RHINITIS -Continue Flonase and Zyrtec DVT PROPHYLAXIS -Lovenox SQ FULL CODE DISPOSITION -Eager to be discharged. Requesting discharge today. -Will discharge in AM if doing better after monitoring for one more night and also for tachycardia -Follows with Dr. Collins for primary care Vital Signs: Date Time Temp Pulse Resp B/P Pulse Ox O2 Delivery O2 Flow Rate FiO2 07/11/16 11:08 36.8 114 20 129/88 94 Room Air 07/11/16 08:57 116 20 94 Nasal Cannula 1.5 07/11/16 08:00 94 Nasal Cannula 2.0 07/11/16 07:11 36.9 94 18 105/67 94 2.0 07/11/16 04:51 91 20 96 Nasal Cannula 2.0 07/11/16 04:36 36.9 94 18 120/74 95 Nasal Cannula 07/11/16 04:00 Nasal Cannula 2.0 07/10/16 23:59 Nasal Cannula 2.0 07/10/16 23:35 36.7 100 16 112/74 95 Nasal Cannula 2.0 07/10/16 22:19 114 20 93 Nasal Cannula 1.5 07/10/16 20:00 Room Air 07/10/16 19:18 36.8 114 20 143/87 93 Nasal Cannula 2.0 07/10/16 17:54 103 22 94 Room Air 07/10/16 16:00 Room Air 07/10/16 15:40 36.8 109 22 138/84 96 Nasal Cannula 1.5 07/10/16 14:19 112 20 98 Nasal Cannula 1.0 07/10/16 12:39 112 20 97 Room Air 07/10/16 12:23 103 20 98 Room Air 07/10/16 12:00 94 Nasal Cannula 1.0 Lab Results: Results Past 24 Hours Test 07/11/16 05:16 Range/Units Sodium Level 143 136-145 mmol/L Potassium Level 4.1 3.5-5.1 mmol/L Chloride Level 107 98-107 mmol/L Carbon Dioxide Level 29 21-32 mmol/L Anion Gap 7.0 3-11 mmol/L Blood Urea Nitrogen 15 7-18 mg/dl Creatinine 0.81 0.60-1.20 mg/dl Est Creatinine Clear Calc Drug Dose 80.4 ml/min Estimated GFR () 94.1 Estimated GFR (Non- 81.2 BUN/Creatinine Ratio 19.0 10-20 Random Glucose 140 70-99 mg/dl Calcium Level 10.0 8.5-10.1 mg/dl Magnesium Level 2.4 1.8-2.4 mg/dl Microbiology Results 07/10/16 Gram Stain - Final, Complete 07/10/16 Sputum Culture - Final, Complete
[2016-07-11] MEDS: ENOXAPARIN 40 MG/0.4 ML SYR SC SCH (20:45)
[2016-07-12 02:05] VITALS: PULSE 82; O2SAT 96
[2016-07-12 03:31] VITALS: BP 113/75; PULSE 81; TEMP 36.5; O2SAT 94
[2016-07-12 07:00] LABS: HEMATOCRIT 41.4 % (37-47); MEAN CELL VOLUME 91.2 fL (80-100); MEAN CORPUSCULAR HEMOGLOBIN 30.4 pg (25-34); MEAN CORPUSCULAR HGB CONC 33.3 g/dl (32-36); PLATELET COUNT 250 K/uL (130-400); RED BLOOD COUNT 4.54 M/uL (4.2-5.4); WHITE BLOOD COUNT 8.72 K/uL (4.8-10.8)
[2016-07-12 07:16] VITALS: BP 128/88; PULSE 76; TEMP 36.9; O2SAT 94
[2016-07-12] MEDS: LEVALBUTEROL 1.25MG/0.5ML NEB INH SCH (07:20)
[2016-07-12 07:21] VITALS: PULSE 93; O2SAT 94
[2016-07-12 07:25] LABS: CREATININE 0.61 mg/dl (0.60-1.20)
[2016-07-12] MEDS: AMLODIPINE BESYLATE 5 MG TAB PO SCH (08:39)
[2016-07-12] MEDS: CETIRIZINE HCL 10 MG TAB PO SCH (08:39)
[2016-07-12] MEDS: MONTELUKAST SOD 10 MG TAB PO SCH (08:39)
[2016-07-12] MEDS: FLUTICASONE PROPIONATE NA SPR 16 GM BTL NAE SCH (08:39)
[2016-07-12] MEDS ORDERED: PANTOprazole SOD 40 MG TAB PO SCH (09:00)
--- NOTE | 2016-07-12 09:10 | Progress Note ---
Internal Med Progress Note Date of Service: July 12, 2016. Provider Documentation: SUBJECTIVE : Patient is feeling better and very anxious to be discharged. She does feel like she is some what near her baseline. SOB is near baseline. Did ambulate. Denies any chest pain, fever, chills. Off oxygen on RA- 94% OBJECTIVE: Vital Signs-as noted below Exam: General-AAOX3, no distress Neck-Supple, No JVD Lungs-AEBE, chest tightness- improved, wheezing +, No rales Heart-Tachycardic, no murmurs Extremities-No edema Lab data as noted below. Diagnostic Radiology CHEST ONE VIEW PORTABLE CLINICAL HISTORY: Cough and shortness of breath. COMPARISON STUDY: Chest CT March 15, 2016. FINDINGS: There is no pneumothorax or pleural effusion. Mild elevation of the right hemidiaphragm is noted. There is no evidence of pulmonary edema. Minimal left basilar opacity favors atelectasis. Cardiomediastinal silhouette is normal. IMPRESSION: Mild left basilar opacity which likely reflects atelectasis. ASSESSMENT & PLAN: Assessment and Plan : ACUTE ASTHMA EXACERBATION : Improved Patient has hx of chemical pneumonitis for which she was transferred to [facility] in February 2016. She has had this on and off in past few years. Was diagnosed with mild asthma, but still not clear if true asthma vs reactive airway disease. Allergic to Smoke, Bleach, some olivo. No exposure to these allergens recently per her. Was given outpatient treatment with Azithromycin and prednisone taper- took it for 2 days but worsened and thus came to ER. -Not hypoxic on RA, saturating well -S/P IV Solu medrol --> Changed to PO prednisone 40 mg daily (Day 2), Continue with Nichole Valverde. Received a dose of Racemic Epinephrine yesterday. -Continue with nebulizers (dc atrovent as no COPD only asthma), antibiotics ( day 4 of antibiotics already so will finish course for 5 days, but CXR- atelectasis and no signs of pneumonia clinically) -Work up- CXR- likely atelectasis; Influenza negative -Peak flow monitoring- patient's baseline is around 400s SINUS TACHYCARDIA EKG shows sinus tachycardia. Per patient, she always runs high- at baseline she is in 100s and on ambulation at times in 130s at home ??- -I think HR was up yesterday because of receiving a dose of racemic epinephrine - improved today but still tends to run in 110s -Xopenex PRN. Discontinued atrovent as not COPD only asthma HYPERTENSION BP is stable -Continue amlodipine ALLERGIC RHINITIS -Continue Flonase and Zyrtec DVT PROPHYLAXIS -Lovenox SQ FULL CODE DISPOSITION -Eager to be discharged. Requesting discharge today. -Okay to discharge today. Work excuse note given. -Follows with Dr. Collins for primary care Vital Signs: Date Time Temp Pulse Resp B/P Pulse Ox O2 Delivery O2 Flow Rate FiO2 07/12/16 08:00 Room Air 07/12/16 07:21 93 20 94 Nasal Cannula 1.5 07/12/16 07:16 36.9 76 18 128/88 94 2.0 07/12/16 04:00 Nasal Cannula 1.0 07/12/16 03:31 36.5 81 15 113/75 94 Nasal Cannula 1.0 07/12/16 02:05 82 20 96 Nasal Cannula 1.0 07/11/16 23:59 Nasal Cannula 2.0 07/11/16 23:17 36.4 85 22 128/85 95 Nasal Cannula 1.0 07/11/16 20:32 36.8 103 18 110/74 93 Room Air 07/11/16 20:00 94 Room Air 07/11/16 19:40 94 20 93 Room Air 07/11/16 17:02 112 20 97 Room Air 07/11/16 16:00 94 Room Air 07/11/16 15:59 102 16 116/76 93 Room Air 07/11/16 14:21 102 20 96 Nasal Cannula 1.0 07/11/16 12:00 94 Room Air 07/11/16 11:08 36.8 114 20 129/88 94 Room Air Lab Results: Results Past 24 Hours Test 07/12/16 06:26 Range/Units White Blood Count 8.72 4.8-10.8 K/uL Red Blood Count 4.54 4.2-5.4 M/uL Hemoglobin 13.8 12.0-16.0 g/dL Hematocrit 41.4 37-47 % Mean Corpuscular Volume 91.2 80-100 fL Mean Corpuscular Hemoglobin 30.4 25-34 pg Mean Corpuscular Hemoglobin Concent 33.3 32-36 g/dl RDW Standard Deviation 42.4 36.4-46.3 fL RDW Coefficient of Variation 12.6 11.5-14.5 % Platelet Count 250 130-400 K/uL Mean Platelet Volume 10.0 7.4-10.4 fL Creatinine 0.61 0.60-1.20 mg/dl Est Creatinine Clear Calc Drug Dose 106.9 ml/min Estimated GFR () 117.5 Estimated GFR (Non- 101.3 Microbiology Results 07/11/16 Gram Stain - Final, Resulted 07/11/16 Sputum Culture, Resulted Pending
[2016-07-12] MEDS ORDERED: LEVO-18 PO (09:12)
[2016-07-12] MEDS ORDERED: PRD10 PO (09:12)
--- NOTE | 2016-07-12 09:15 | Discharge Instructions ---
Discharge Instructions Date of Service July 12, 2016. Admission Reason for Admission: Acute Asthma Exacerbation Discharge Discharge Diagnosis / Problem: 1. Acute asthma exacerbation Discharge Goals Goal(s): Improve disease control, Prevent Disease Progression Activity Recommendations Activity Limitations: resume your previous activity (as tolerated) . Instructions / Follow-Up Instructions / Follow-Up MEDICATION CHANGES: 1. New medication: Levofloxacin 750 mg po daily x 2 more days to complete course of 5 days 2. New medication: Prednisone 40 mg daily x 3 days f/b 30 mg daily x 3 days f/b 20 mg daily x 3 days f/b 10 mg daily x 3 days and than discontinue 3. Continue to use nebulizers four times a day for first 3 days and than as needed as a rescue medication FOLLOW UP: 1. Follow up with Dr Shannan Bailey on 07/17/16 at 10:45 AM 2. Follow up with pulmonary as per schedule Current Hospital Diet Patient's current hospital diet: AHA Diet (Heart Healthy) Discharge Diet Recommended Diet: Regular Diet Pending Studies Studies pending at discharge: no Medical Emergencies . Who to Call and When: Medical Emergencies: If at any time you feel your situation is an emergency, please call 911 immediately. . Non-Emergent Contact Non-Emergency issues call your: Primary Care Provider . . "Provider Documentation" section prepared by Mily Santa. . VTE Core Measure Inpt VTE Proph given/why not?: Enoxaparin (Lovenox)SQ
[2016-07-12] MEDS ORDERED: PRED10TA PO (09:17)
--- NOTE | 2016-07-12 09:18 | Discharge Summary ---
Discharge Summary Date of Service July 12, 2016. Discharge Summary Admission Date: July 09, 2016 at 13:04 Discharge Date: July 12, 2016 Discharge Disposition: Home Principal Diagnosis: 1. Acute asthma exacerbation 2. Sinus tachycardia Secondary Diagnoses/Problems: 1. HTN 2. Allergic rhinitis Procedures: Tele monitoring CXR Duonebs Steroids Antibiotics Consultations: None Pending Studies/Follow-Up: Instructions / Follow-Up Instructions / Follow-Up MEDICATION CHANGES: 1. New medication: Levofloxacin 750 mg po daily x 2 more days to complete course of 5 days 2. New medication: Prednisone 40 mg daily x 3 days f/b 30 mg daily x 3 days f/b 20 mg daily x 3 days f/b 10 mg daily x 3 days and than discontinue 3. Continue to use nebulizers four times a day for first 3 days and than as needed as a rescue medication FOLLOW UP: 1. Follow up with Dr Shannan Bailey on 07/17/16 at 10:45 AM 2. Follow up with pulmonary as per schedule Medication Reconciliation New Medications: Levofloxacin (Levaquin) 750 Mg Tab 750 MG PO DAILY for 2 Days, #2 TAB Prednisone Tab (Prednisone) 10 Mg Tab 10 MG PO UD, #30 TAB Take 40 mg daily x 3 days followed by 30 mg x 3 days than 20 mg x 3 days than 10 mg x 3 days and than discontinue Continued Medications: Amlodipine Besylate (Norvasc) 10 Mg Tab 10 MG PO DAILY, TAB Azithromycin (Zithromax) 250 Mg Tab 250 MG PO UD, #4 TAB Take 2 tablets by mouth on first day, then 1 tablet daily until gone. Cetirizine (Zyrtec) 10 Mg Tab 10 MG PO DAILY, TAB Fiber Laxative (Fiber Laxative) Ea 600 MG PO DAILY Fluticasone Propionate (Flonase Nasal [place] *) Inha 2 SPRAYS MENG DAILY, 0 Refills Ipratropium-Albuterol (Duoneb) 3 Ml Nebu 1 TREATMENT INH QID PRN for SOB/Wheezing, INHA Ipratropium/Albuterol (Combivent *) Inh 2 PUFFS INH QID PRN for SOB/Wheezing, 0 Refills Mometasone Furoate-Formoterol (Dulera 200/5 Mcg) 1 Aer Aer 2 PUFFS INH BID for 30 Days, #13 GM 3 Refills Montelukast Sodium (Singulair) 10 Mg Tab 10 MG PO DAILY Discontinued Medications: Prednisone (Prednisone) 10 Mg Tab 10 MG PO UD, #1 PKT Take 5 tabs for 2 days, 4 tabs for 2 days, 3 tabs for 2 days, 2 tabs for 2 days, 1 tab for 2 days. Admission Information HPI (per Admitting provider): This is a 55 year old female with PMH of asthma, nocturnal hypoxemia on 2 liters HS, allergic rhinitis, hypertension, and other problems listed below who presents to the ED for respiratory symptoms. Pt was admitted to [facility] and transferred to [place] in February 2016 for acute respiratory failure secondary to chemical induced pneumonitis. Patient states 4 days ago she developed rhinorrhea then 2 days ago started having cough productive of yellow sputum. She reports associated SOB when she ambulates or coughs. She has had chest discomfort only during cough which is resolved. She is feeling fatigued. She was using inhalers and nebs at home. Patient was seen by Dr. Faith Mosqueda yesterday at weekend clinic and started on prednisone and Azithromycin which she took yesterday and today without improvement. Patient states her baseline peak flow is 475 but decreased to under 300 today. Peak flow improved to 350 after hour long neb in ER. Her breathing is improved as well. Denies fevers, chills, sore throat, ear ache, sinus pain, YUSUF, abdominal pain, N/V/D, urinary changes, calf pain, edema, myalgias, rash. No sick contacts. Patient follows with Jennifer Vaca for pulmonology. Physical Exam (per Admitting): General Appearance: WD/WN, no apparent distress, + pertinent finding (alert cooperative 55 year old female, no distress, mildly anxious, coughing frequently , using albuterol neb currently) Head: normocephalic, atraumatic Eyes: normal inspection, PERRL, EOMI ENT: hearing grossly normal, pharynx normal Neck: supple, no adenopathy, trachea midline Respiratory/Chest: no respiratory distress, no accessory muscle use, + crackles (mild crackles left base), + wheezing (mild expiratory wheezing in mid lung estrada), + pertinent finding (coughing frequently. able to speak full sentences. sats mid to high 90s on room air) Cardiovascular: regular rate, rhythm, no murmur, normal peripheral pulses Abdomen/GI: normal bowel sounds, non tender, soft Extremities/Musculoskelatal: no calf tenderness, normal capillary refill, no pedal edema Neurologic/Psych: alert, normal mood/affect, oriented x 3 Skin: normal color, warm/dry Hospital Course Assessment and Plan : ACUTE ASTHMA EXACERBATION : Improved Patient has hx of chemical pneumonitis for which she was transferred to [facility] in February 2016. She has had this on and off in past few years. Was diagnosed with mild asthma, but still not clear if true asthma vs reactive airway disease. Allergic to Smoke, Bleach, some olivo. No exposure to these allergens recently per her. Was given outpatient treatment with Azithromycin and prednisone taper- took it for 2 days but worsened and thus came to ER. -Not hypoxic on RA, saturating well -S/P IV Solu medrol --> Changed to PO prednisone 40 mg daily (Day 2), Continue with Emerita Valverdeir. Received a dose of Racemic Epinephrine yesterday. -Continue with nebulizers (dc atrovent as no COPD only asthma), antibiotics ( day 4 of antibiotics already so will finish course for 5 days, but CXR- atelectasis and no signs of pneumonia clinically) -Work up- CXR- likely atelectasis; Influenza negative -Peak flow monitoring- patient's baseline is around 400s SINUS TACHYCARDIA EKG shows sinus tachycardia. Per patient, she always runs high- at baseline she is in 100s and on ambulation at times in 130s at home ??- -I think HR was up yesterday because of receiving a dose of racemic epinephrine - improved today but still tends to run in 110s -Xopenex PRN. Discontinued atrovent as not COPD only asthma HYPERTENSION BP is stable -Continue amlodipine ALLERGIC RHINITIS -Continue Flonase and Zyrtec DVT PROPHYLAXIS -Lovenox SQ FULL CODE DISPOSITION -Eager to be discharged. Requesting discharge today. -Okay to discharge today. Work excuse note given. -Follows with Dr. Collins for primary care Total time spent on discharge = 35 minutes This includes examination of the patient, discharge planning, medication reconciliation, and communication with other providers. Discharge Instructions Discharge Goals Goal(s): Improve disease control, Prevent Disease Progression Activity Recommendations Activity Limitations: resume your previous activity (as tolerated) . Instructions / Follow-Up Instructions / Follow-Up MEDICATION CHANGES: 1. New medication: Levofloxacin 750 mg po daily x 2 more days to complete course of 5 days 2. New medication: Prednisone 40 mg daily x 3 days f/b 30 mg daily x 3 days f/b 20 mg daily x 3 days f/b 10 mg daily x 3 days and than discontinue 3. Continue to use nebulizers four times a day for first 3 days and than as needed as a rescue medication FOLLOW UP: 1. Follow up with Dr Shannan Bailey on 07/17/16 at 10:45 AM 2. Follow up with pulmonary as per schedule Current Hospital Diet Patient's current hospital diet: AHA Diet (Heart Healthy) Discharge Diet Recommended Diet: Regular Diet Pending Studies Studies pending at discharge: no Medical Emergencies . Who to Call and When: Medical Emergencies: If at any time you feel your situation is an emergency, please call 911 immediately. . Non-Emergent Contact Non-Emergency issues call your: Primary Care Provider . . "Provider Documentation" section prepared by Mily Santa. . VTE Core Measure Inpt VTE Proph given/why not?: Enoxaparin (Lovenox)SQ
[2016-07-12 10:13] VITALS: BP 128/88; PULSE 93; TEMP 36.9; O2SAT 94
[2016-07-12] MEDS: LEVOFLOXACIN / D5W 750 MG in PREMIXED IN D5W 150 ML IV SCH (11:00)
[2016-07-12 11:23] VITALS: BP 100/66; PULSE 91; TEMP 36.6; O2SAT 95
[2017-01-11] MEDS ORDERED: MONT1TAB3 PO (05:40)
[2017-01-11] MEDS ORDERED: IPRASOL4 INH (10:12)
[2017-01-11] MEDS ORDERED: CETI10TA84 PO (10:15)
[2017-01-11] MEDS ORDERED: MOME200A INH (17:01)
[2017-01-11] MEDS ORDERED: AMLO10TA2 PO (17:01)
[2017-01-12] MEDS ORDERED: ONDA4TAB65 PO (17:18)
[2017-01-12] MEDS ORDERED: CPR500 PO (17:18)
[2017-01-12] MEDS ORDERED: METR-163 PO (17:18)
== END 2016-07-12 11:40 | disposition home or self-care (01) | DRG 202 ==
LOC: ENRESERVDT → ENRESERVTM → C.EDB 09:49 → C.2T 13:04
PROVIDERS: ADMIT Hospitalist; ATTEND Internal Medicine
DX: J45.901 Unspecified asthma with (acute) exacerbation (principal); J96.11 Chronic respiratory failure with hypoxia; Z79.52 Long term (current) use of systemic steroids; Z79.899 Other long term (current) drug therapy; R00.0 Tachycardia, unspecified

== ENCOUNTER 2017-01-11 19:10 | Inpatient (IN) | payer OTHER ==
[~2017-01-11] VITALS: Ht 160 cm; Wt 80.2 kg
[~2017-01-11 19:10] MED LIST changes: -ALBU1.257 NEB; +AMLO10TA2 PO; +AZIT250T PO; +CETI10TA84 PO; +FIBER PO; -GUAISYP4 PO; +IPRASOL4 INH; +MOME200A INH; +MONT1TAB3 PO; +PRED10TA PO; -PRED20TA2 PO
[2017-01-11] MEDS ORDERED: SODIUM CHLORIDE 0.9% 1000ML 1,000 ML IV STA (19:30)
--- NOTE | 2017-01-11 19:35 | EMERGENCY ROOM VISIT NOTE ---
History First contact with patient: 19:18 Chief Complaint: ABDOMINAL PAIN Stated Complaint: LUQ PAIN, TENDER UNDER RIBS History of Present Illness The patient is a 56 year old female who presents to the Emergency Room via private vehicle accompanied by with complaints of "left upper quadrant pain, tender under ribs". The patient states that for the past few days she has had left upper quadrant discomfort. She states that yesterday became exquisitely tender rated as an 8/10. She has associated bloating and nausea. She has tried Metamucil, Dulcolax, as well as MiraLAX without improvement. There has been a minimal amount of stool. Her only abdominal surgeries are previous hysterectomy. There is been no vomiting, chest pain or shortness of breath. She has never had pain like this before. Review of Systems A complete 10-point Review of Systems was discussed with the patient, with pertinent positives and negatives listed in the History of Present Illness. All remaining Review of Systems questions can be considered negative unless otherwise specified. Past Medical/Surgical History Medical Problems: (1) Acute asthma exacerbation (2) Allergic rhinitis (3) Asthma (4) Hypertension (5) Nocturnal hypoxemia Surgical Problems: (1) History of hysterectomy (2) S/P tubal ligation Family History Angina MOTHER FH: thyroid cancer MOTHER Social History Smoking Status: Never Smoker Drug Use: none Marital Status: Housing Status: lives with family Occupation Status: employed Current/Historical Medications Scheduled Amlodipine Besylate (Norvasc), 10 MG PO DAILY Biotin (Biotin 5000), 1 CAP PO DAILY Calcium Carbonate-Vitamin D W/ (Caltrate 600 Plus), 1 TAB PO DAILY Cholecalciferol (Vitamin D 1000 Unit), 1,000 INTER.UNIT PO DAILY Fluticasone Propionate (Nasal) (Flonase Allergy Relief), 2 SPRAYS MENG BID Mometasone Furoate-Formoterol (Dulera 200/5 Mcg), 1 PUFFS INH BID Montelukast Sodium (Singulair), 10 MG PO DAILY Multivitamins/Minerals (Mvi With Minerals), 1 TAB PO DAILY Potassium (Potassium), 99 MG PO DAILY Psyllium (Metamucil), 1 DOSE PO DAILY Vitamin B Cmplx/Vitc/Folic Ac (Nephrocaps), 1 CAP PO DAILY Scheduled PRN Cetirizine (Zyrtec), 10 MG PO DAILY PRN for Seasonal Allergies Ipratropium-Albuterol (Duoneb), 1 TREATMENT INH QID PRN for SOB/Wheezing [Combivent], 2 SPRAYS INH QID PRN for SOB/Wheezing Allergies Coded Allergies: Promethazine (Verified Allergy, Unknown, HYPOTENSION, 07/09/16) Sulfamethoxazole (Verified Allergy, Unknown, 07/09/16) Replaces SULFAMETHOXAZ Trimethoprim (Verified Allergy, Unknown, 07/09/16) Replaces SULFAMETHOXAZ Physical Exam Vital Signs Date Time Temp Pulse Resp B/P (MAP) Pulse Ox O2 Delivery O2 Flow Rate FiO2 01/11/17 22:29 102 20 126/83 96 Room Air 01/11/17 21:46 102 01/11/17 21:01 103 16 139/81 99 Room Air 01/11/17 19:52 110 01/11/17 19:12 36.8 125 20 155/86 98 Room Air Physical Exam VITAL SIGNS - Vital signs and nursing notes were reviewed. Stable. Tachycardic. GENERAL -56-year-old female appearing her stated age who is in no acute distress but does appear to be in pain as she is sitting upright in the bed. Communicates well with provider and answers questions appropriately. SKIN - Without rashes. No petechial rashes. HEAD - NC/AT. EYES - Sclera anicteric. EARS - No deformities of external structures noted on gross examination bilaterally. NOSE - Midline and without cyanosis. No epistaxis or purulent drainage noted. MOUTH/OROPHARYNX - Without perioral cyanosis. NECK - Neck with FROM. LUNGS - Chest wall symmetric without accessory muscle use, intercostals retractions, or central cyanosis. Normal vesicular breath sounds CTA B/L. No wheezes, rales, or rhonchi appreciated. CARDIAC - RRR with S1/S2. No murmur, rubs, or gallops appreciated. ABDOMEN - Abdominal contour normal without pulsations or visible masses. BS normoactive all four quadrants. There is left upper quadrant abdominal tenderness extending into the ribs. No palpable masses, hepatosplenomegaly, or ascites noted. EXTREMITIES - No clubbing or peripheral cyanosis. No pretibial edema present. + 5/5 strength noted in UE/LE bilaterally. NEUROLOGIC - Cranial nerves II through XII grossly intact. Sensory intact to light touch throughout. PSYCH - A&O, and cooperates fully with examiner. Pt is very pleasant and interacts well with examiner. Medical Decision & Procedures ER Provider Diagnostic Interpretation: CHEST AND ABDOMEN 2 VIEWS HISTORY: Left upper quadrant abdominal pain. COMPARISON: Chest 07/09/2016. FINDINGS: The heart is normal in size. No pleural effusions. No pneumothorax. The right lung is clear. There are few linear density at the left lung base suggesting scarring or subsegmental atelectasis or pneumoperitoneum. No pneumatosis. Oral contrast seen within the small bowel. No dilated loops of bowel to suggest an obstruction. Calcifications in the deep pelvis likely represent phleboliths. IMPRESSION: No acute cardiopulmonary process. No evidence for bowel obstruction. Electronically signed by: Benji Morris M.D. 01/11/2017 9:19 PM Dictated Date/Time: 01/11/2017 9:17 PM ABDOMEN AND PELVIS CT WITH IV AND ORAL CONTRAST CT DOSE: HISTORY: LUQ abdominal pain TECHNIQUE: Multiaxial CT images of the abdomen and pelvis were performed following the use of intravenous and oral contrast. A dose lowering technique was utilized adhering to the principles of ALARA. COMPARISON STUDY: Chest and abdominal series 01/11/2017. FINDINGS: No pneumoperitoneum. No pneumatosis. Small hiatus hernia. 5 mm hypodense lesion within the left hepatic dome. This is too small to characterize. Hepatic steatosis. A few calcifications within the right liver capsule. The gallbladder, spleen, adrenal glands, and pancreas are unremarkable. No retroperitoneal lymphadenopathy. Subcentimeter hypodense renal lesions are too small to characterize but favor cysts. No hydronephrosis. The bladder is unremarkable. The uterus is surgically absent. No evidence for bowel obstruction. Normal appendix. Colonic diverticulosis. Mild to moderate thickening of the proximal to mid descending colon with surrounding pericolonic fat stranding and fluid. There is an inflamed diverticulum posteriorly on image 184. Therefore, this favors acute diverticulitis. However, a nonspecific colitis could also have a similar appearance. The mesenteric vessels appear patent. IMPRESSION: Mild to moderate thickening of the proximal to mid descending colon with surrounding pericolonic fat stranding and fluid. There is an inflamed diverticulum at this location. Therefore, this favors acute diverticulitis. However, a nonspecific colitis could also have a similar appearance. Electronically signed by: Benji Morris M.D. 01/11/2017 10:33 PM Dictated Date/Time: 01/11/2017 10:25 PM CHEST CTA for PULMONARY ARTERIES CT DOSE: 1208.99 mGy.cm HISTORY: Atypical chest pain. TECHNIQUE: Multiaxial CT images of the chest were performed following the intravenous administration of contrast to evaluate the pulmonary arteries. Maximal intensity projection images were also obtained. A dose lowering technique was utilized adhering to the principles of ALARA. COMPARISON STUDY: Chest CT 03/09/2016. FINDINGS: Normal caliber thoracic aorta with no evidence for dissection. No pleural or pericardial effusions. The heart is normal in size. Suboptimal evaluation of the left lower lobe segmental and subsegmental pulmonary arteries due to the motion artifact. However, no definite filling defects seen within the pulmonary arteries to suggest pulmonary embolus. Tiny hiatus hernia. A 13 mm right thyroid nodule. No mediastinal or hilar lymphadenopathy. The central airways are patent. No pneumothorax. Stable 3 mm nodule within the superior segment of the left lower lobe on image 151. Stable 2 mm nodule within the right upper lobe on image 184. A stable 4 mm nodule within the right middle lobe on image 145. Stable 4 mm nodule within the right lower lobe on image 140. Patchy and linear bibasilar densities have improved. No new focal lung consolidations. IMPRESSION: 1. No evidence for pulmonary embolus with limitations as described above. 2. Improvement in the patchy and linear bibasilar densities. This likely represents resolving pneumonia. 3. Stable indeterminate pulmonary nodules with the largest measuring 4 mm. Please refer to the chart below for recommended follow-up. 4. A 13 mm right thyroid nodule. Dedicated nonemergent thyroid ultrasound is recommended. Please refer to below summary of Fleischner criteria recommendations for follow-up of incidental CT nodules (Doris Peace, Guidelines for management of small pulmonary nodules detected on CT scans: A statement from the Fleischner Society, Radiology 237: [phone].) SOLID NODULES Solitary nodule size: <6 mm * Low risk patients: no follow-up needed * high risk patients: optional CT at 12 months Solitary nodule size: 6-8 mm * Low risk patients: follow-up at 6-12 months, then consider further follow-up at 18-24 months * high risk patients: initial follow-up CT at 6-12 months and then at 18-24 months if no change Solitary nodule size: >8 mm * either low or high risk patients - consider follow-up CT at 3 months, and/or CT-PET, and/or biopsy Multiple nodules size: <6 mm * Low risk patients: no routine follow-up * high risk patients: optional CT at 12 months Multiple nodules size: 6-8 mm * Low risk patients: follow-up at 3-6 months, then consider further follow-up at 18-24 months * high risk patients: follow-up at 3-6 months, then at 18-24 months if no change Multiple nodules size: >8 mm * Low risk patients: follow-up at 3-6 months, then consider further follow-up at 18-24 months * high risk patients: follow-up at 3-6 months, then at 18-24 months if no change Note: newly detected indeterminate nodule in persons 35 years of age or older. * Low risk patients: minimal or absent history of smoking and/or other known risk factors * high risk patients: history of smoking or of other known risk factors (e.g. first degree relative with lung cancer, or exposure to asbestos, radon, uranium) * if a nodule up to 8 mm is partly solid or is ground glass further follow-up is required after 24 months to exclude possible slow growing adenocarcinoma (CARLOS) SUBSOLID NODULES Solitary pure ground-glass nodule * nodule size <6 mm - no CT follow-up required * nodule size >=6 mm - follow-up CT at 6-12 months, then every 2 years until 5 years Solitary part-solid nodule * nodule size <6 mm - no CT follow-up required * nodule size >=6 mm - follow-up CT at 3-6 months. If unchanged, and solid component remains <6 mm, then annual follow-up for 5 years Multiple subsolid nodules * nodule size <6 mm - follow-up CT at 3-6 months, consider further follow-up at 2 and 4 years if stable * nodule size >=6 mm - follow-up CT at 3-6 months, subsequent management based on the most suspicious nodule(s) Electronically signed by: Benji Morris M.D. 01/11/2017 10:48 PM Dictated Date/Time: 01/11/2017 10:38 PM Laboratory Results 01/11/17 19:45 Red Blood Count 5.26, Mean Corpuscular Volume 86.5, Mean Corpuscular Hemoglobin 29.5, Mean Corpuscular Hemoglobin Concent 34.1, Mean Platelet Volume 10.7, Neutrophils (%) (Auto) 76.4, Lymphocytes (%) (Auto) 15.3, Monocytes (%) (Auto) 7.4, Eosinophils (%) (Auto) 0.3, Basophils (%) (Auto) 0.2, Neutrophils # (Auto) 9.99, Lymphocytes # (Auto) 2.00, Monocytes # (Auto) 0.97, Eosinophils # (Auto) 0.04, Basophils # (Auto) 0.02 01/11/17 19:45 Test 01/11/17 19:45 01/11/17 20:07 White Blood Count 13.07 K/uL (4.8-10.8) Red Blood Count 5.26 M/uL (4.2-5.4) Hemoglobin 15.5 g/dL (12.0-16.0) Hematocrit 45.5 % (37-47) Mean Corpuscular Volume 86.5 fL (80-100) Mean Corpuscular Hemoglobin 29.5 pg (25-34) Mean Corpuscular Hemoglobin Concent 34.1 g/dl (32-36) Platelet Count 310 K/uL (130-400) Mean Platelet Volume 10.7 fL (7.4-10.4) Neutrophils (%) (Auto) 76.4 % Lymphocytes (%) (Auto) 15.3 % Monocytes (%) (Auto) 7.4 % Eosinophils (%) (Auto) 0.3 % Basophils (%) (Auto) 0.2 % Neutrophils # (Auto) 9.99 K/uL (1.4-6.5) Lymphocytes # (Auto) 2.00 K/uL (1.2-3.4) Monocytes # (Auto) 0.97 K/uL (0.11-0.59) Eosinophils # (Auto) 0.04 K/uL (0-0.5) Basophils # (Auto) 0.02 K/uL (0-0.2) RDW Standard Deviation 41.8 fL (36.4-46.3) RDW Coefficient of Variation 13.2 % (11.5-14.5) Immature Granulocyte % (Auto) 0.4 % Immature Granulocyte # (Auto) 0.05 K/uL (0.00-0.02) Prothrombin Time 10.2 SECONDS (9.0-12.0) Prothromb Time International Ratio 1.0 (0.9-1.1) Activated Partial Thromboplast Time 28.9 SECONDS (21.0-31.0) Partial Thromboplastin Ratio 1.1 Anion Gap 12.0 mmol/L (3-11) Est Creatinine Clear Calc Drug Dose 78.8 ml/min Estimated GFR () 96.3 Estimated GFR (Non- 83.1 BUN/Creatinine Ratio 10.3 (10-20) Calcium Level 10.4 mg/dl (8.5-10.1) Magnesium Level 2.1 mg/dl (1.8-2.4) Total Bilirubin 0.5 mg/dl (0.2-1) Aspartate Amino Transf (AST/SGOT) 22 U/L (15-37) Alanine Aminotransferase (ALT/SGPT) 40 U/L (12-78) Alkaline Phosphatase 85 U/L (45-117) Total Creatine Kinase 183 U/L (26-192) Creatine Kinase MB 3.3 ng/ml (0.5-3.6) Creatine Kinase MB Ratio 1.8 (0-3.0) Troponin I < 0.015 ng/ml (0-0.045) Total Protein 8.1 gm/dl (6.4-8.2) Albumin 4.4 gm/dl (3.4-5.0) Globulin 3.7 gm/dl (2.5-4.0) Albumin/Globulin Ratio 1.2 (0.9-2) Lipase 181 U/L (73-393) Urine Color YELLOW Urine Appearance CLEAR (CLEAR) Urine pH 7.0 (4.5-7.5) Urine Specific [place] 1.014 (1.000-1.030) Urine Protein NEG (NEG) Urine Glucose (UA) NEG (NEG) Urine Ketones NEG (NEG) Urine Occult Blood NEG (NEG) Urine Nitrite NEG (NEG) Urine Bilirubin NEG (NEG) Urine Urobilinogen NEG (NEG) Urine Leukocyte Esterase LARGE (NEG) Urine WBC (Auto) >30 /hpf (0-5) Urine RBC (Auto) 0-4 /hpf (0-4) Urine Hyaline Casts (Auto) 1-5 /lpf (0-5) Urine Epithelial Cells (Auto) >30 /lpf (0-5) Urine Bacteria (Auto) NEG (NEG) Medications Administered Medications (Trade) Dose Ordered Sig/Delicia Route Start Time Stop Time Status Last Admin Dose Admin Sodium Chloride 1,000 ml @ 999 mls/hr Q1H1M STAT IV 01/11/17 19:30 01/11/17 20:30 DC 01/11/17 19:50 999 MLS/HR Ondansetron HCl (Zofran Inj) 4 mg NOW STAT IV 01/11/17 20:03 01/11/17 20:04 DC 01/11/17 20:34 4 MG Morphine Sulfate (MoRPHine SULFATE INJ) 4 mg NOW STAT IV 01/11/17 20:03 01/11/17 20:04 DC 01/11/17 20:37 4 MG Ondansetron HCl (Zofran Inj) 4 mg NOW STAT IV 01/11/17 22:33 01/11/17 22:34 DC 01/11/17 22:41 4 MG Metronidazole (Flagyl / Nss) 500 mg NOW STAT IV 01/11/17 23:12 01/11/17 23:15 DC 01/11/17 23:23 500 MG Medical Decision Patient was seen and evaluated as above. She presents to us today with left upper quadrant abdominal pain worse with a deep breath and movement. She is tachycardic at a rate of 125 bpm. IV access was initiated, and the above workup was performed. The patient's pain is reducible on exam over the left upper quadrant as well as the left inferior rib cage. Differentials entertained are diverticulitis, PE, splenic infarct, splenic rupture, ankle hepatitis, among others. Bedside EKG was obtained and revealed sinus tachycardia, rate of 111 bpm. There is a nonspecific T-wave abnormality in the inferior leads. Troponin negative. Leukocytosis of 13.7. No anemia. Coags normal. Metabolic panel reveals potassium low at 3.3. No evidence of kidney failure. Calcium high at 10.4. Lipase normal. Urine reveals no evidence of infection. X-ray reveals contrast no other acute process. There is perhaps some stool in the colon but otherwise normal. Decision was made to obtain a CT scan of the abdomen and pelvis. Because the patient's persistent tachycardia and pain on deep palpation underneath the left ribs I am concerned that there could also be a concomitant pulmonary embolism. Especially given that this would be an atypical presentation of diverticulitis as this generally is in the lower quadrant. Patient discussion was had and the decision was made to CT scan the patient's chest as well so that way she did not receive a larger contrast load spaced out from the CAT scans. This did not reveal PE but did categorize pulmonary nodules and thyroid nodules which were discussed with the patient. There is diverticulitis/colitis on CT. I discussed the case with the attending physician and the decision was made after discussing with the patient to admit her. I discussed the case with the hospitalist, Dr. Talbert. Please refer to further documentation regarding her stay. She'll be given Cipro and Flagyl. She was given morphine for pain and Zofran for nausea. I believe that inpatient management is warranted secondary to her tachycardia, persistent nausea, as well as elevated pain levels. I fear that by going home she may not be able to tolerate by mouth medication. In evaluation treatment this patient the following differential diagnoses were entertained: PR, PE, diverticulitis, splenic infarct, splenic rupture, mesenteric ischemia, among others. Impression Primary Impression: Diverticulitis Additional Impressions: Thyroid nodule Pulmonary nodule Hepatic steatosis Departure Information Dispostion Admitted as an inpatient Condition FAIR Referrals Shannan Bailey D.O. (PCP) Patient Instructions [facility] Problem Qualifiers
[2017-01-11] MEDS ORDERED: OPTIRAY 320 IV PRN (20:00)
[2017-01-11] MEDS ORDERED: ONDANSETRON INJ 2 MG/ML 2 ML VIAL IV STA ×2 (20:03→22:33)
[2017-01-11] MEDS ORDERED: MoRPHine SULFATE 4 MG/ML 1 ML CARP\\VIAL IV STA (20:03)
[2017-01-11 20:05] LABS: BASO % 0.2 %; BASO ABS # 0.02 K/uL (0-0.2); COMPLETE YES; EOS % 0.3 %; HEMATOCRIT 45.5 % (37-47); IG% 0.4 %; LYMPH % 15.3 %; MEAN CELL VOLUME 86.5 fL (80-100); MEAN CORPUSCULAR HEMOGLOBIN 29.5 pg (25-34); MEAN CORPUSCULAR HGB CONC 34.1 g/dl (32-36); MEAN PLATELET VOLUME 10.7 fL (7.4-10.4); MONO % 7.4 %; NEUT % 76.4 %; PLATELET COUNT 310 K/uL (130-400); RED BLOOD COUNT 5.26 M/uL (4.2-5.4); WHITE BLOOD COUNT 13.07 K/uL (4.8-10.8)
[2017-01-11] MEDS ORDERED: POTA99TA PO (20:16)
[2017-01-11] MEDS ORDERED: CHOL100027 PO (20:16)
[2017-01-11] MEDS ORDERED: PSYL48.59 PO (20:16)
[2017-01-11] MEDS ORDERED: CMBIN INH (20:16)
[2017-01-11] MEDS ORDERED: FLUT0.15 NAE (20:16)
[2017-01-11] MEDS ORDERED: MULT-513 PO (20:16)
[2017-01-11] MEDS ORDERED: CALCTAB7 PO (20:16)
[2017-01-11] MEDS ORDERED: BIOTCAP2 PO (20:16)
[2017-01-11] MEDS ORDERED: B-CO1CAP17 PO (20:16)
[2017-01-11 20:17] LABS: PARTIAL THROMBOPLASTIN RATIO 1.1; PROTHROMBIN TIME (PATIENT) 10.2 SECONDS (9.0-12.0)
[2017-01-11 20:24] LABS: MANUAL MICROSCOPIC REQUIRED? NO; REVIEW REQ? NO; URINE APPEARANCE CLEAR (CLEAR); URINE BILIRUBIN NEG (NEG); URINE COLOR YELLOW; URINE EPITHELIAL CELL AUTO >30 /lpf (0-5); URINE NITRITE NEG (NEG); URINE SPECIFIC GRAVITY 1.014 (1.000-1.030); UROBILINOGEN NEG (NEG); ZZUR CULT IF INDIC CLEAN CATCH YES
[2017-01-11 20:38] LABS: ALT/SGPT 40 U/L (12-78); BLOOD UREA NITROGEN 8 mg/dl (7-18); BUN/CREATININE RATIO 10.3 (10-20); CALCIUM 10.4 mg/dl (8.5-10.1); CARBON DIOXIDE 25 mmol/L (21-32); CHLORIDE 101 mmol/L (98-107); CREATININE 0.79 mg/dl (0.60-1.20); GLUCOSE 104 mg/dl (70-99); MAGNESIUM 2.1 mg/dl (1.8-2.4); POTASSIUM 3.3 mmol/L (3.5-5.1); SODIUM 138 mmol/L (136-145)
[2017-01-11 20:43] LABS: ALB/GLOB RATIO 1.2 (0.9-2); ALKALINE PHOSPHATASE 85 U/L (45-117); AST/SGOT 22 U/L (15-37); CKMB/CK RATIO 1.8 (0-3.0)
--- NOTE | 2017-01-11 21:20 | DIAGNOSTIC IMAGING REPORT ---
CHEST AND ABDOMEN 2 VIEWS HISTORY: Left upper quadrant abdominal pain. COMPARISON: Chest 07/09/2016. FINDINGS: The heart is normal in size. No pleural effusions. No pneumothorax. The right lung is clear. There are few linear density at the left lung base suggesting scarring or subsegmental atelectasis or pneumoperitoneum. No pneumatosis. Oral contrast seen within the small bowel. No dilated loops of bowel to suggest an obstruction. Calcifications in the deep pelvis likely represent phleboliths. IMPRESSION: No acute cardiopulmonary process. No evidence for bowel obstruction. Electronically signed by: Benji Morris M.D. 01/11/2017 9:19 PM Dictated Date/Time: 01/11/2017 9:17 PM
--- NOTE | 2017-01-11 22:34 | DIAGNOSTIC IMAGING REPORT ---
ABDOMEN AND PELVIS CT WITH IV AND ORAL CONTRAST CT DOSE: HISTORY: LUQ abdominal pain TECHNIQUE: Multiaxial CT images of the abdomen and pelvis were performed following the use of intravenous and oral contrast. A dose lowering technique was utilized adhering to the principles of ALARA. COMPARISON STUDY: Chest and abdominal series 01/11/2017. FINDINGS: No pneumoperitoneum. No pneumatosis. Small hiatus hernia. 5 mm hypodense lesion within the left hepatic dome. This is too small to characterize. Hepatic steatosis. A few calcifications within the right liver capsule. The gallbladder, spleen, adrenal glands, and pancreas are unremarkable. No retroperitoneal lymphadenopathy. Subcentimeter hypodense renal lesions are too small to characterize but favor cysts. No hydronephrosis. The bladder is unremarkable. The uterus is surgically absent. No evidence for bowel obstruction. Normal appendix. Colonic diverticulosis. Mild to moderate thickening of the proximal to mid descending colon with surrounding pericolonic fat stranding and fluid. There is an inflamed diverticulum posteriorly on image 184. Therefore, this favors acute diverticulitis. However, a nonspecific colitis could also have a similar appearance. The mesenteric vessels appear patent. IMPRESSION: Mild to moderate thickening of the proximal to mid descending colon with surrounding pericolonic fat stranding and fluid. There is an inflamed diverticulum at this location. Therefore, this favors acute diverticulitis. However, a nonspecific colitis could also have a similar appearance. Electronically signed by: Benji Morris M.D. 01/11/2017 10:33 PM Dictated Date/Time: 01/11/2017 10:25 PM
--- NOTE | 2017-01-11 22:49 | DIAGNOSTIC IMAGING REPORT ---
CHEST CTA for PULMONARY ARTERIES CT DOSE: 1208.99 mGy.cm HISTORY: Atypical chest pain. TECHNIQUE: Multiaxial CT images of the chest were performed following the intravenous administration of contrast to evaluate the pulmonary arteries. Maximal intensity projection images were also obtained. A dose lowering technique was utilized adhering to the principles of ALARA. COMPARISON STUDY: Chest CT 03/09/2016. FINDINGS: Normal caliber thoracic aorta with no evidence for dissection. No pleural or pericardial effusions. The heart is normal in size. Suboptimal evaluation of the left lower lobe segmental and subsegmental pulmonary arteries due to the motion artifact. However, no definite filling defects seen within the pulmonary arteries to suggest pulmonary embolus. Tiny hiatus hernia. A 13 mm right thyroid nodule. No mediastinal or hilar lymphadenopathy. The central airways are patent. No pneumothorax. Stable 3 mm nodule within the superior segment of the left lower lobe on image 151. Stable 2 mm nodule within the right upper lobe on image 184. A stable 4 mm nodule within the right middle lobe on image 145. Stable 4 mm nodule within the right lower lobe on image 140. Patchy and linear bibasilar densities have improved. No new focal lung consolidations. IMPRESSION: 1. No evidence for pulmonary embolus with limitations as described above. 2. Improvement in the patchy and linear bibasilar densities. This likely represents resolving pneumonia. 3. Stable indeterminate pulmonary nodules with the largest measuring 4 mm. Please refer to the chart below for recommended follow-up. 4. A 13 mm right thyroid nodule. Dedicated nonemergent thyroid ultrasound is recommended. Please refer to below summary of Fleischner criteria recommendations for follow-up of incidental CT nodules (Doris Peace, Guidelines for management of small pulmonary nodules detected on CT scans: A statement from the Fleischner Society, Radiology 237: [phone].) SOLID NODULES Solitary nodule size: <6 mm * Low risk patients: no follow-up needed * high risk patients: optional CT at 12 months Solitary nodule size: 6-8 mm * Low risk patients: follow-up at 6-12 months, then consider further follow-up at 18-24 months * high risk patients: initial follow-up CT at 6-12 months and then at 18-24 months if no change Solitary nodule size: >8 mm * either low or high risk patients - consider follow-up CT at 3 months, and/or CT-PET, and/or biopsy Multiple nodules size: <6 mm * Low risk patients: no routine follow-up * high risk patients: optional CT at 12 months Multiple nodules size: 6-8 mm * Low risk patients: follow-up at 3-6 months, then consider further follow-up at 18-24 months * high risk patients: follow-up at 3-6 months, then at 18-24 months if no change Multiple nodules size: >8 mm * Low risk patients: follow-up at 3-6 months, then consider further follow-up at 18-24 months * high risk patients: follow-up at 3-6 months, then at 18-24 months if no change Note: newly detected indeterminate nodule in persons 35 years of age or older. * Low risk patients: minimal or absent history of smoking and/or other known risk factors * high risk patients: history of smoking or of other known risk factors (e.g. first degree relative with lung cancer, or exposure to asbestos, radon, uranium) * if a nodule up to 8 mm is partly solid or is ground glass further follow-up is required after 24 months to exclude possible slow growing adenocarcinoma (CARLOS) SUBSOLID NODULES Solitary pure ground-glass nodule * nodule size <6 mm - no CT follow-up required * nodule size >=6 mm - follow-up CT at 6-12 months, then every 2 years until 5 years Solitary part-solid nodule * nodule size <6 mm - no CT follow-up required * nodule size >=6 mm - follow-up CT at 3-6 months. If unchanged, and solid component remains <6 mm, then annual follow-up for 5 years Multiple subsolid nodules * nodule size <6 mm - follow-up CT at 3-6 months, consider further follow-up at 2 and 4 years if stable * nodule size >=6 mm - follow-up CT at 3-6 months, subsequent management based on the most suspicious nodule(s) Electronically signed by: Benji Morris M.D. 01/11/2017 10:48 PM Dictated Date/Time: 01/11/2017 10:38 PM
[2017-01-11] MEDS ORDERED: METRONIDAZOLE 500MG / 100ML NSS IV STA (23:12)
[2017-01-11] MEDS ORDERED: CIPROFLOXACIN 400MG / 200ML D5W IV STA (23:12)
[2017-01-11] MEDS ORDERED: POTASSIUM CHLORIDE 10 MEQ TABCR PO STA (23:14)
[2017-01-11] MEDS ORDERED: LORAZEPAM 2 MG/ML 1 ML VIAL IV PRN (23:15)
[2017-01-11] MEDS ORDERED: ONDANSETRON INJ 2 MG/ML 2 ML VIAL IV PRN (23:15)
[2017-01-11] MEDS ORDERED: KETOROLAC TROMETHAMINE 30 MG/ML VIAL IV PRN (23:15)
[2017-01-12] MEDS ORDERED: LEVALBUTEROL/IPRATROPIUM NEB INH PRN (01:00)
[2017-01-12] MEDS ORDERED: CETIRIZINE HCL 10 MG TAB PO PRN (01:00)
[2017-01-12] MEDS ORDERED: LORAZEPAM 2 MG/ML 1 ML VIAL IV PRN (01:00)
[2017-01-12] MEDS ORDERED: ACETAMINOPHEN 325 MG TAB PO PRN (01:00)
[2017-01-12] MEDS ORDERED: HYDROmorphone INJ 0.5 MG/0.5 ML SYR IV PRN (01:00)
[2017-01-12] MEDS: TRAMADOL HCL 50 MG TAB PO PRN ×3 (01:48→10:55)
[2017-01-12 02:00] VITALS: BP 115/77; PULSE 89; TEMP 36.9; O2SAT 94; Ht 160 cm; Wt 80.2 kg
[2017-01-12] MEDS ORDERED: NSS + 20MEQ KCL 1000ML 1,000 ML IV ONE (02:00)
[2017-01-12] MEDS ORDERED: IPRATROPIUM BROMIDE NEB SOLN 0.02% 2.5 ML VIAL INH PRN (02:15)
[2017-01-12] MEDS ORDERED: LEVALBUTEROL 1.25MG/0.5ML NEB INH PRN (02:15)
--- NOTE | 2017-01-12 05:32 | HISTORY & PHYSICAL EXAMINATION ---
DATE OF ADMISSION: 01/12/2017 PRIMARY CARE PHYSICIAN: Dr. Bailey. CHIEF COMPLAINT: left sided abdominal pain HISTORY OF PRESENT ILLNESS: History obtained from patient and records. Medical history significant for hypertension, asthma, history of adrenal insufficiency as per records, vocal cord dysfunction, diverticulosis. Recent confinement last June 2016 for asthma exacerbation. Two days history of left-sided abdominal pain, achy bowel movement slower than usual. No fever, no chills. Patient took additional laxatives. Bowel movements nonbloody . Worsening abdominal pain at home with nausea, emesis. Patient brought to the Emergency Room. CAT scan showed mild wall thickening proximal to mid descending colon with surrounding pericolonic fat and fluid, inflamed diverticulum, acute diverticulitis versus nonspecific colitis. Patient received Cipro and Flagyl in the ER. MEDICAL HISTORY: As above. Colonoscopy in October 2010, which showed diverticulosis, otherwise normal terminal ileum. HOME MEDICATIONS: Norvasc, biotin, Zyrtec, Flonase, DuoNebs, Combivent, Dulera, Singulair, multivitamins, potassium, Metamucil, Nephrocaps. ALLERGIES: PROMETHAZINE, BACTRIM. FAMILY HISTORY: Heart disease, lung cancer, hypothyroidism. 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 PHYSICAL EXAMINATION: VITAL SIGNS: Blood pressure is 119/80, pulse rate 96, RR 26, T 37 sats 98 on room air. GENERAL: Noted to be comfortable, dysphonic (chronic). No respiratory distress. Obese. SKIN: Normal color, warm. HEENT: [place] palpebral conjuctivae. No ptosis. Dry buccal mucosa. NECK: Short neck. No tenderness. CHEST: Clear to auscultation. No tenderness. HEART: Regular rate and rhythm, no murmur. ABDOMEN: Some distention, left side abdominal tenderness. EXTREMITIES: No edema, no tenderness. No gross deformities NEUROLOGIC: Coherent. No gross focality. LABORATORY DATA: Hemoglobin was noted to be 15.5, hematocrit 45.4, white cell count 13, platelets noted to be 310. Sodium noted to be 137, potassium 3.3, chloride 101, CO2 25, BUN 8, creatinine 0.7, glucose noted to be 104. CT abdomen and pelvis as above. ASSESSMENT: 1. Acute diverticulitis/colitis. 2. Hypertension, stable. 3. Asthma, stable. 4. Hypokalemia secondary to illness. PLAN: GMF bowel rest. Cipro and Flagyl. Analgesia, antiemetics, IVF replace potassium. Check mag. Outpatient followup colonoscopy. DVT prophylaxis, Lovenox subQ. Full code. MTDD
[2017-01-12 07:05] VITALS: BP 111/69; PULSE 78; TEMP 36.8; O2SAT 94
[2017-01-12] MEDS: DULERA~ORDER AWAITING ACTION SCH ×2 (07:09→15:55)
[2017-01-12] MEDS: METRONIDAZOLE / NSS 500 MG in PREMIXED NSS 100 ML IV SCH ×2 (07:17→15:55)
[2017-01-12] MEDS ORDERED: FLUTICASONE PROPIONATE NA SPR 16 GM BTL NAE SCH (08:00)
[2017-01-12] MEDS ORDERED: ENOXAPARIN 40 MG/0.4 ML SYR SQ SCH (08:00)
[2017-01-12] MEDS ORDERED: AMLODIPINE BESYLATE 5 MG TAB PO SCH (08:00)
[2017-01-12] MEDS ORDERED: MONTELUKAST SOD 10 MG TAB PO SCH (08:00)
[2017-01-12] MEDS ORDERED: NEPHROCAPS PO SCH (08:00)
[2017-01-12] MEDS ORDERED: CEROVITE ADV FORMULA TAB PO SCH (08:00)
[2017-01-12 08:03] LABS: BASO % 0.3 %; BASO ABS # 0.02 K/uL (0-0.2); COMPLETE YES; EOS % 0.5 %; HEMATOCRIT 39.9 % (37-47); IG% 0.3 %; LYMPH % 19.6 %; LYMPH ABS # 1.47 K/uL (1.2-3.4); MEAN CELL VOLUME 88.1 fL (80-100); MEAN CORPUSCULAR HEMOGLOBIN 28.9 pg (25-34); MEAN CORPUSCULAR HGB CONC 32.8 g/dl (32-36); MEAN PLATELET VOLUME 10.7 fL (7.4-10.4); MONO % 10.4 %; NEUT % 68.9 %; PLATELET COUNT 248 K/uL (130-400); RED BLOOD COUNT 4.53 M/uL (4.2-5.4)
[2017-01-12 08:22] LABS: CALCIUM 9.4 mg/dl (8.5-10.1); CREATININE 0.83 mg/dl (0.60-1.20); POTASSIUM 3.6 mmol/L (3.5-5.1)
[2017-01-12] MEDS: CIPROFLOXACIN / D5W 400 MG in PREMIXED IN D5W 200 ML IV SCH ×2 (08:28→16:08)
[2017-01-12 14:53] VITALS: BP 116/78; PULSE 72; TEMP 36.7; O2SAT 93
--- NOTE | 2017-01-12 17:13 | Progress Note ---
Medicine Progress Note Date & Time of Visit: Jan 12, 2017 at 17:06. Subjective patient seen resting in bed states she feels much better LUQ is much less, tolerating clears and pills denies chills/fever, nausea no headache, dizziness, nausea/vomiting has low back pain- ongoing for 4 weeks no other symptoms states she is ready and would like to go home today Objective Last 8 Hrs Date Time Temp Pulse Resp B/P (MAP) Pulse Ox O2 Delivery O2 Flow Rate FiO2 01/12/17 16:00 Room Air 01/12/17 14:53 36.7 72 18 116/78 (91) 93 Room Air Physical Exam: General- oriented x 3, not in distress Head- atraumatic Eyes- EOMI, anicteric ENT- oropharynx clear Neck- supple, no JVD, no adenopathy, no thyromegaly Lungs- clear breath sounds bilaterally, no rales/wheezes Heart- regular rhythm; no murmur, normal rate Abdomen- normal bowel sounds, soft, non distended, mild LUQ tenderness Extremities- no pretibial edema, no calf tenderness; peripheral pulses intact Neuro- alert, oriented x 3;no gross focal neuro deficits noted Skin- warm & dry Laboratory Results: Last 24 Hours Test 01/11/17 19:45 01/11/17 20:07 01/12/17 07:12 White Blood Count 13.07 K/uL 7.50 K/uL Red Blood Count 5.26 M/uL 4.53 M/uL Hemoglobin 15.5 g/dL 13.1 g/dL Hematocrit 45.5 % 39.9 % Mean Corpuscular Volume 86.5 fL 88.1 fL Mean Corpuscular Hemoglobin 29.5 pg 28.9 pg Mean Corpuscular Hemoglobin Concent 34.1 g/dl 32.8 g/dl Platelet Count 310 K/uL 248 K/uL Mean Platelet Volume 10.7 fL 10.7 fL Neutrophils (%) (Auto) 76.4 % 68.9 % Lymphocytes (%) (Auto) 15.3 % 19.6 % Monocytes (%) (Auto) 7.4 % 10.4 % Eosinophils (%) (Auto) 0.3 % 0.5 % Basophils (%) (Auto) 0.2 % 0.3 % Neutrophils # (Auto) 9.99 K/uL 5.17 K/uL Lymphocytes # (Auto) 2.00 K/uL 1.47 K/uL Monocytes # (Auto) 0.97 K/uL 0.78 K/uL Eosinophils # (Auto) 0.04 K/uL 0.04 K/uL Basophils # (Auto) 0.02 K/uL 0.02 K/uL RDW Standard Deviation 41.8 fL 43.1 fL RDW Coefficient of Variation 13.2 % 13.4 % Immature Granulocyte % (Auto) 0.4 % 0.3 % Immature Granulocyte # (Auto) 0.05 K/uL 0.02 K/uL Prothrombin Time 10.2 SECONDS Prothromb Time International Ratio 1.0 Activated Partial Thromboplast Time 28.9 SECONDS Partial Thromboplastin Ratio 1.1 Sodium Level 138 mmol/L 143 mmol/L Potassium Level 3.3 mmol/L 3.6 mmol/L Chloride Level 101 mmol/L 107 mmol/L Carbon Dioxide Level 25 mmol/L 25 mmol/L Anion Gap 12.0 mmol/L 11.0 mmol/L Blood Urea Nitrogen 8 mg/dl 6 mg/dl Creatinine 0.79 mg/dl 0.83 mg/dl Est Creatinine Clear Calc Drug Dose 78.8 ml/min 75.0 ml/min Estimated GFR () 96.3 90.7 Estimated GFR (Non- 83.1 78.3 BUN/Creatinine Ratio 10.3 7.0 Random Glucose 104 mg/dl 94 mg/dl Calcium Level 10.4 mg/dl 9.4 mg/dl Magnesium Level 2.1 mg/dl Total Bilirubin 0.5 mg/dl Aspartate Amino Transf (AST/SGOT) 22 U/L Alanine Aminotransferase (ALT/SGPT) 40 U/L Alkaline Phosphatase 85 U/L Total Creatine Kinase 183 U/L Creatine Kinase MB 3.3 ng/ml Creatine Kinase MB Ratio 1.8 Troponin I < 0.015 ng/ml Total Protein 8.1 gm/dl Albumin 4.4 gm/dl Globulin 3.7 gm/dl Albumin/Globulin Ratio 1.2 Lipase 181 U/L Urine Color YELLOW Urine Appearance CLEAR Urine pH 7.0 Urine Specific [place] 1.014 Urine Protein NEG Urine Glucose (UA) NEG Urine Ketones NEG Urine Occult Blood NEG Urine Nitrite NEG Urine Bilirubin NEG Urine Urobilinogen NEG Urine Leukocyte Esterase LARGE Urine WBC (Auto) >30 /hpf Urine RBC (Auto) 0-4 /hpf Urine Hyaline Casts (Auto) 1-5 /lpf Urine Epithelial Cells (Auto) >30 /lpf Urine Bacteria (Auto) NEG Date/Time Source Procedure Growth Status 01/11/17 20:07 Urine , Clean Catch Urine Culture - Preliminary PIN-POINT GROWTH PRESENT, REINCUBATING. Resulted Assessment & Plan ASSESSMENT: 1. Acute diverticulitis/colitis. -- CT abdomen noted -- given IV Cipro and Metro PRN Tramadol and Zofran -- afebrile, leukocytosis resolved tolerating oral medications and clears well -- states she is ready and would like to be discharged tonight -- will discharge on: Cipro 500mg BID x 9 days to complete 10 days total Metronidazole TID x 9 days to complete 10 days total PRN Zofran advised to return to ER Immediately if with worsening of symptoms, fever, pain, nausea/vomiting, not able to tolerate oral meds/diet patient verbalized understanding and agreement -- will need outpatient colonoscopy in 4 weeks, please refer to GI 2. Hypertension, stable. -- continue Amlodipine daily 3. Asthma, stable. -- on Dulera, Montelukast 4. Hypokalemia secondary to illness. -- given K supplements -- resolved Disposition d/c home today ff up with PCP in 3-5 days Current Inpatient Medications: Current Inpatient Medications Medications (Trade) Dose Ordered Sig/Delicia Route Start Time Stop Time Status Last Admin Dose Admin Ioversol (Optiray 320) 111 ml UD PRN IV 01/11/17 20:00 01/15/17 19:59 Ketorolac Tromethamine (Toradol Inj) 30 mg Q6H PRN IV 01/11/17 23:15 01/16/17 23:14 Tramadol HCl (Ultram Tab) not relieved by tylenol @ Q6H PRN PO 01/11/17 23:15 02/10/17 23:14 01/12/17 10:55 50 MG Ondansetron HCl (Zofran Inj) 4 mg Q6H PRN IV 01/11/17 23:15 02/10/17 23:14 01/12/17 10:55 4 MG Lorazepam (Ativan Inj) 0.5 mg Q4H PRN IV 01/11/17 23:15 02/10/17 23:14 Enoxaparin Sodium (Lovenox Inj) 40 mg Q24H SQ 01/12/17 08:00 02/11/17 07:59 01/12/17 07:19 40 MG Acetaminophen (Tylenol Tab) 650 mg Q4H PRN PO 01/12/17 01:00 02/11/17 00:59 Ciprofloxacin/ Dextrose 400 mg/ Prmx 200 ml @ 100 mls/hr Q12 IV 01/12/17 09:00 01/22/17 08:59 01/12/17 16:08 100 MLS/HR Metronidazole 500 mg/Prmx 100 ml @ 100 mls/hr Q8H IV 01/12/17 08:00 01/22/17 07:59 01/12/17 15:55 100 MLS/HR Amlodipine Besylate (Norvasc Tab) 10 mg DAILY PO 01/12/17 08:00 02/11/17 08:59 01/12/17 07:18 10 MG Cetirizine HCl (zyrTEC TAB) 10 mg DAILY PRN PO 01/12/17 01:00 02/11/17 00:59 Fluticasone Propionate (Flonase Nasal [place]) 2 sprays BID MENG 01/12/17 08:00 02/11/17 08:59 01/12/17 07:17 2 SPRAYS Montelukast Sodium (Singulair Tab) 10 mg DAILY PO 01/12/17 08:00 02/11/17 08:59 01/12/17 07:18 10 MG Multivitamins/ Minerals (Multivitamin W/ Minerals Tab) 1 tab DAILY PO 01/12/17 08:00 02/11/17 08:59 01/12/17 07:18 1 TAB Vitamin B Complex/ Vit C/Folic Acid (Nephrocaps) 1 cap DAILY PO 01/12/17 08:00 02/11/17 08:59 01/12/17 07:18 1 CAP Miscellaneous Information (Order Awaiting Action) 1 ea QS N/A 01/12/17 08:00 02/11/17 07:59 Hydromorphone HCl (Dilaudid Inj) 0.5 mg Q6H PRN IV 01/12/17 01:00 01/26/17 00:59 Ipratropium [place] (Atrovent 0.02% 0.5MG/2.5ML Neb) 0.5 mg Q4H PRN INH 01/12/17 02:15 02/11/17 02:14 Levalbuterol (Xopenex 1.25MG/ 0.5ML Neb) 1.25 mg Q4H PRN INH 01/12/17 02:15 02/11/17 02:14
[2017-01-12] MEDS ORDERED: CPR500 PO (17:18)
[2017-01-12] MEDS ORDERED: ONDA4TAB65 PO (17:18)
[2017-01-12] MEDS ORDERED: METR-163 PO (17:18)
--- NOTE | 2017-01-12 17:27 | Discharge Instructions ---
Discharge Instructions Date of Service Jan 12, 2017. Admission Reason for Admission: Diverticulitis Discharge Discharge Diagnosis / Problem: ACUTE DIVERTICULITIS Discharge Goals Goal(s): Diagnostic testing, Therapeutic intervention Activity Recommendations Activity Limitations: as noted below (NO HEAVY EXERTION UNTIL RE-EVALUATED BY PRIMARY CARE PHYSICIAN) Lifting Limitations: until after follow-up appointment Exercise/Sports Limitations: until after follow-up appointment . Instructions / Follow-Up Instructions / Follow-Up PLEASE FOLLOW UP WITH PRIMARY CARE PHYSICIAN OR RETURN TO ER IMMEDIATELY. TAKE PROBIOTIC DAILY WHILE ON ANTIBIOTICS AND AT LEAST 1 WEEK LATER. DRINK PLENTY OF FLUIDS. PLEASE CALL PRIMARY CARE PHYSICIAN OR RETURN TO THE ER IMMEDIATELY IF WITH WORSENING OF SYMPTOMS, INCREASING ABDOMINAL PAIN, NAUSEA/VOMITING, FEVER/CHILLS, UNABLE TO TAKE ORAL MEDICATIONS OR FOOD/FLUIDS. FOLLOW UP WITH PRIMARY CARE PHYSICIAN EARLY NEXT WEEK. THE CLINIC WILL BE CALLING YOU FOR AN APPOINTMENT. Current Hospital Diet Patient's current hospital diet: Full Liquid Diet Discharge Diet Recommended Diet: Low Fiber Diet (SOFT LOW FIBER DIET UNTIL SEEN BY PRIMARY CARE PHYSICIAN) Procedures Procedures Performed: CT ABDOMEN, CT CHEST Pending Studies Studies pending at discharge: no Medical Emergencies . Who to Call and When: Medical Emergencies: If at any time you feel your situation is an emergency, please call 911 immediately. . Non-Emergent Contact Non-Emergency issues call your: Primary Care Provider Call Non-Emergent contact if: you have a fever, your pain is not controlled, your pain is worsening, you have any medication questions . . "Provider Documentation" section prepared by Mike Bhakta. . VTE Core Measure Inpt VTE Proph given/why not?: Enoxaparin (Lovenox)SQ
--- NOTE | 2017-01-12 17:53 | Discharge Summary ---
Discharge Summary Date of Service Jan 12, 2017. Discharge Summary Admission Date: Jan 12, 2017 at 00:20 Discharge Date: Jan 12, 2017 Discharge Disposition: Home Principal Diagnosis: Acute diverticulitis Secondary Diagnoses/Problems: Please refer to hospital course below. Procedures: ABDOMEN AND PELVIS CT WITH IV AND ORAL CONTRAST HISTORY: LUQ abdominal pain TECHNIQUE: Multiaxial CT images of the abdomen and pelvis were performed following the use of intravenous and oral contrast. A dose lowering technique was utilized adhering to the principles of ALARA. COMPARISON STUDY: Chest and abdominal series 01/11/2017. FINDINGS: No pneumoperitoneum. No pneumatosis. Small hiatus hernia. 5 mm hypodense lesion within the left hepatic dome. This is too small to characterize. Hepatic steatosis. A few calcifications within the right liver capsule. The gallbladder, spleen, adrenal glands, and pancreas are unremarkable. No retroperitoneal lymphadenopathy. Subcentimeter hypodense renal lesions are too small to characterize but favor cysts. No hydronephrosis. The bladder is unremarkable. The uterus is surgically absent. No evidence for bowel obstruction. Normal appendix. Colonic diverticulosis. Mild to moderate thickening of the proximal to mid descending colon with surrounding pericolonic fat stranding and fluid. There is an inflamed diverticulum posteriorly on image 184. Therefore, this favors acute diverticulitis. However, a nonspecific colitis could also have a similar appearance. The mesenteric vessels appear patent. IMPRESSION: Mild to moderate thickening of the proximal to mid descending colon with surrounding pericolonic fat stranding and fluid. There is an inflamed diverticulum at this location. Therefore, this favors acute diverticulitis. However, a nonspecific colitis could also have a similar appearance. CHEST CTA for PULMONARY ARTERIES CT DOSE: 1208.99 mGy.cm HISTORY: Atypical chest pain. TECHNIQUE: Multiaxial CT images of the chest were performed following the intravenous administration of contrast to evaluate the pulmonary arteries. Maximal intensity projection images were also obtained. A dose lowering technique was utilized adhering to the principles of ALARA. COMPARISON STUDY: Chest CT 03/09/2016. FINDINGS: Normal caliber thoracic aorta with no evidence for dissection. No pleural or pericardial effusions. The heart is normal in size. Suboptimal evaluation of the left lower lobe segmental and subsegmental pulmonary arteries due to the motion artifact. However, no definite filling defects seen within the pulmonary arteries to suggest pulmonary embolus. Tiny hiatus hernia. A 13 mm right thyroid nodule. No mediastinal or hilar lymphadenopathy. The central airways are patent. No pneumothorax. Stable 3 mm nodule within the superior segment of the left lower lobe on image 151. Stable 2 mm nodule within the right upper lobe on image 184. A stable 4 mm nodule within the right middle lobe on image 145. Stable 4 mm nodule within the right lower lobe on image 140. Patchy and linear bibasilar densities have improved. No new focal lung consolidations. IMPRESSION: 1. No evidence for pulmonary embolus with limitations as described above. 2. Improvement in the patchy and linear bibasilar densities. This likely represents resolving pneumonia. 3. Stable indeterminate pulmonary nodules with the largest measuring 4 mm. Please refer to the chart below for recommended follow-up. 4. A 13 mm right thyroid nodule. Dedicated nonemergent thyroid ultrasound is recommended. Please refer to below summary of Fleischner criteria recommendations for follow-up of incidental CT nodules (Doris Peace, Guidelines for management of small pulmonary nodules detected on CT scans: A statement from the Fleischner Society, Radiology 237: [phone].) SOLID NODULES Solitary nodule size: <6 mm * Low risk patients: no follow-up needed * high risk patients: optional CT at 12 months Solitary nodule size: 6-8 mm * Low risk patients: follow-up at 6-12 months, then consider further follow-up at 18-24 months * high risk patients: initial follow-up CT at 6-12 months and then at 18-24 months if no change Solitary nodule size: >8 mm * either low or high risk patients - consider follow-up CT at 3 months, and/or CT-PET, and/or biopsy Multiple nodules size: <6 mm * Low risk patients: no routine follow-up * high risk patients: optional CT at 12 months Multiple nodules size: 6-8 mm * Low risk patients: follow-up at 3-6 months, then consider further follow-up at 18-24 months * high risk patients: follow-up at 3-6 months, then at 18-24 months if no change Multiple nodules size: >8 mm * Low risk patients: follow-up at 3-6 months, then consider further follow-up at 18-24 months * high risk patients: follow-up at 3-6 months, then at 18-24 months if no change Note: newly detected indeterminate nodule in persons 35 years of age or older. * Low risk patients: minimal or absent history of smoking and/or other known risk factors * high risk patients: history of smoking or of other known risk factors (e.g. first degree relative with lung cancer, or exposure to asbestos, radon, uranium) * if a nodule up to 8 mm is partly solid or is ground glass further follow-up is required after 24 months to exclude possible slow growing adenocarcinoma (CARLOS) SUBSOLID NODULES Solitary pure ground-glass nodule * nodule size <6 mm - no CT follow-up required * nodule size >=6 mm - follow-up CT at 6-12 months, then every 2 years until 5 years Solitary part-solid nodule * nodule size <6 mm - no CT follow-up required * nodule size >=6 mm - follow-up CT at 3-6 months. If unchanged, and solid component remains <6 mm, then annual follow-up for 5 years Multiple subsolid nodules * nodule size <6 mm - follow-up CT at 3-6 months, consider further follow-up at 2 and 4 years if stable * nodule size >=6 mm - follow-up CT at 3-6 months, subsequent management based on the most suspicious nodule(s) Pending Studies/Follow-Up: Please refer to hospital course below. Medication Reconciliation New Medications: Ciprofloxacin (Ciprofloxacin HCl) 500 Mg Tab 1 TAB PO BID for 9 Days, #18 TABS 0 Refills Metronidazole (Flagyl) 500 Mg Tab 500 MG PO TID for 9 Days, #27 TAB 0 Refills Ondansetron Hcl (Zofran) 4 Mg Tab 4 MG PO Q6H PRN for Nausea, #15 TAB 1 Refill Continued Medications: Amlodipine Besylate (Norvasc) 10 Mg Tab 10 MG PO DAILY, TAB Biotin (Biotin 5000) 5 Mg Cap 1 CAP PO DAILY Calcium Carbonate-Vitamin D W/ (Caltrate 600 Plus) 1 Tab Tab 1 TAB PO DAILY, TAB Cetirizine (Zyrtec) 10 Mg Tab 10 MG PO DAILY PRN for Seasonal Allergies, TAB Cholecalciferol (Vitamin D 1000 Unit) 1,000 Unit Cap 1000 INTER.UNIT PO DAILY, CAP Fluticasone Propionate (Nasal) (Flonase Allergy Relief) 50 Mcg/Act Spr 2 SPRAYS MENG BID Ipratropium-Albuterol (Duoneb) 3 Ml Nebu 1 TREATMENT INH QID PRN for SOB/Wheezing, INHA Mometasone Furoate-Formoterol (Dulera 200/5 Mcg) 1 Aer Aer 1 PUFFS INH BID for 30 Days, #13 GM 3 Refills Montelukast Sodium (Singulair) 10 Mg Tab 10 MG PO DAILY Multivitamins/Minerals (Mvi With Minerals) Tab 1 TAB PO DAILY, TAB Potassium (Potassium) 99 Mg Tab 99 MG PO DAILY Vitamin B Cmplx/Vitc/Folic Ac (Nephrocaps) Cap 1 CAP PO DAILY for 90 Days, #90 CAP 3 Refills [Combivent] () 2 SPRAYS INH QID PRN for SOB/Wheezing Discontinued Medications: Psyllium (Metamucil) 48.57 % Pow 1 DOSE PO DAILY Admission Information HPI (per Admitting provider): PRIMARY CARE PHYSICIAN: Dr. Bailey. CHIEF COMPLAINT: left sided abdominal pain HISTORY OF PRESENT ILLNESS: History obtained from patient and records. Medical history significant for hypertension, asthma, history of adrenal insufficiency as per records, vocal cord dysfunction, diverticulosis. Recent confinement last June 2016 for asthma exacerbation. Two days history of left-sided abdominal pain, achy bowel movement slower than usual. No fever, no chills. Patient took additional laxatives. Bowel movements nonbloody . Worsening abdominal pain at home with nausea, emesis. Patient brought to the Emergency Room. CAT scan showed mild wall thickening proximal to mid descending colon with surrounding pericolonic fat and fluid, inflamed diverticulum, acute diverticulitis versus nonspecific colitis. Patient received Cipro and Flagyl in the ER. MEDICAL HISTORY: As above. Colonoscopy in October 2010, which showed diverticulosis, otherwise normal terminal ileum. HOME MEDICATIONS: Norvasc, biotin, Zyrtec, Flonase, DuoNebs, Combivent, Dulera, Singulair, multivitamins, potassium, Metamucil, Nephrocaps. ALLERGIES: PROMETHAZINE, BACTRIM. FAMILY HISTORY: Heart disease, lung cancer, hypothyroidism. 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 GENERAL: Noted to be comfortable, dysphonic (chronic). No respiratory distress. Obese. SKIN: Normal color, warm. HEENT: [place] palpebral conjuctivae. No ptosis. Dry buccal mucosa. NECK: Short neck. No tenderness. CHEST: Clear to auscultation. No tenderness. HEART: Regular rate and rhythm, no murmur. ABDOMEN: Some distention, left side abdominal tenderness. EXTREMITIES: No edema, no tenderness. No gross deformities NEUROLOGIC: Coherent. No gross focality. Hospital Course 1. Acute diverticulitis/colitis -- CT abdomen: Mild to moderate thickening of the proximal to mid descending colon with surrounding pericolonic fat stranding and fluid. There is an inflamed diverticulum at this location. Therefore, this favors acute diverticulitis. However, a nonspecific colitis could also have a similar appearance. -- given IV Cipro and Metro PRN Tramadol and Zofran -- afebrile, leukocytosis resolved tolerating oral medications and clear liquid diet well -- states she is ready and politely requesting to be discharged -- discharge plan: Cipro 500mg BID x 9 days to complete 10 days total Metronidazole TID x 9 days to complete 10 days total PRN Zofran advised to return to ER Immediately if with worsening of symptoms, fever, pain, nausea/vomiting, not able to tolerate oral meds/diet patient verbalized understanding and agreement -- will need outpatient colonoscopy in 4 weeks, please refer to GI 2. Hypertension, stable. -- continue Amlodipine daily 3. Asthma, stable. -- on Dulera, Montelukast 4. Hypokalemia secondary to illness. -- given K supplements -- resolved 5. Pulmonary Nodules - seen on CT Angio chest: full report noted on the Procedure Section - follow up as outpatient 6. Thyroid Nodule - seen on CT Angio chest A 13 mm right thyroid nodule. Dedicated nonemergent thyroid ultrasound is recommended. - ff up as outpatient Disposition d/c home ff up with PCP in 3-5 days Total time spent on discharge = This includes examination of the patient, discharge planning, medication reconciliation, and communication with other providers. Discharge Instructions Discharge Instructions Date of Service Jan 12, 2017. Admission Reason for Admission: Diverticulitis Discharge Discharge Diagnosis / Problem: ACUTE DIVERTICULITIS Discharge Goals Goal(s): Diagnostic testing, Therapeutic intervention Activity Recommendations Activity Limitations: as noted below (NO HEAVY EXERTION UNTIL RE-EVALUATED BY PRIMARY CARE PHYSICIAN) Lifting Limitations: until after follow-up appointment Exercise/Sports Limitations: until after follow-up appointment . Instructions / Follow-Up Instructions / Follow-Up PLEASE FOLLOW UP WITH PRIMARY CARE PHYSICIAN OR RETURN TO ER IMMEDIATELY. TAKE PROBIOTIC DAILY WHILE ON ANTIBIOTICS AND AT LEAST 1 WEEK LATER. DRINK PLENTY OF FLUIDS. PLEASE CALL PRIMARY CARE PHYSICIAN OR RETURN TO THE ER IMMEDIATELY IF WITH WORSENING OF SYMPTOMS, INCREASING ABDOMINAL PAIN, NAUSEA/VOMITING, FEVER/CHILLS, UNABLE TO TAKE ORAL MEDICATIONS OR FOOD/FLUIDS. FOLLOW UP WITH PRIMARY CARE PHYSICIAN EARLY NEXT WEEK. THE CLINIC WILL BE CALLING YOU FOR AN APPOINTMENT. Current Hospital Diet Patient's current hospital diet: Full Liquid Diet Discharge Diet Recommended Diet: Low Fiber Diet (SOFT LOW FIBER DIET UNTIL SEEN BY PRIMARY CARE PHYSICIAN) Procedures Procedures Performed: CT ABDOMEN, CT CHEST Pending Studies Studies pending at discharge: no Medical Emergencies . Who to Call and When: Medical Emergencies: If at any time you feel your situation is an emergency, please call 911 immediately. . Non-Emergent Contact Non-Emergency issues call your: Primary Care Provider Call Non-Emergent contact if: you have a fever, your pain is not controlled, your pain is worsening, you have any medication questions . . "Provider Documentation" section prepared by Mike Bhakta. . VTE Core Measure Inpt VTE Proph given/why not?: Enoxaparin (Lovenox)SQ
[2017-01-12 17:59] VITALS: BP 116/78; PULSE 72; TEMP 36.7; O2SAT 93
== END 2017-01-12 18:20 | disposition home or self-care (01) | DRG 392 ==
LOC: C.EDB 19:11 → C.MS4W 01-12 00:20 → EDBEDREQ 01-12 00:43 → ENRESERV 01-12 01:01
PROVIDERS: ADMIT Internal Medicine; ATTEND Internal Medicine
DX: K57.92 Diverticulitis of intestine, part unspecified, without perforation or abscess without bleeding (principal); K52.9 Noninfective gastroenteritis and colitis, unspecified; D72.829 Elevated white blood cell count, unspecified; I10 Essential (primary) hypertension; J45.909 Unspecified asthma, uncomplicated; E87.6 Hypokalemia; R91.1 Solitary pulmonary nodule; E04.1 Nontoxic single thyroid nodule; Z82.49 Family history of ischemic heart disease and other diseases of the circulatory system; Z80.8 Family history of malignant neoplasm of other organs or systems; Z80.1 Family history of malignant neoplasm of trachea, bronchus and lung

== ENCOUNTER → 2017-03-19 | Day surgery (SDC) | payer OTHER ==
[2017-03-05 15:53] VITALS: BMI 31.0
[~2017-03-19] VITALS: Ht 160 cm; Wt 79.5 kg
[~2017-03-19] MED LIST changes: -AZIT250T PO; +B-COTAB18 PO; +BIOTCAP2 PO; +CALCTAB7 PO; +CHOL100027 PO; -FIBER PO; -FLNIN NAE; +FLUT0.15 NAE; +LIDOCAINE HCL 2% 2 ML VIAL (20MG/ML) ONE; +MIDAZOLAM HCL 1 MG/ML 2ML VIAL ONE; +MULT-513 PO; +ONDANSETRON INJ 2 MG/ML 2 ML VIAL ONE; +OXGN; +POTA99TA PO; -PRED10TA PO; +PROPOFOL IV EMULSION 10 MG/ML 20 ML VIAL IV ONE
--- NOTE | 2017-03-19 12:42 | Endo History and Physical ---
History & Physical Date of Service: Mar 19, 2017. Chief Complaint: Diverticulitis Referring Physician: Dr. Bailey History of Present Illness 56 yo CF who presents for colonoscopy secondary to diverticulitis. Past Surgical History Hx Cardiac Surgery: No Hx Internal Defibrillator: No Hx Pacemaker: No Hx Abdominal Surgery: Yes (TUBAL LIGATION, HYSTER) Hx of Implantable Prosthesis: No Hx Post-Op Nausea and Vomiting: No Hx Cancer Surgery: No Hx Thoracic Surgery: No Hx Orthopedic: No Hx Urinary Tract Surgery: No Family History None Social History Smoking Status: Never Smoker Hx Substance Use: No Hx Alcohol Use: No Allergies Coded Allergies: Promethazine (Verified Allergy, Unknown, HYPOTENSION, 03/05/17) Sulfamethoxazole (Verified Allergy, Unknown, DRES SYNDROME, 03/05/17) Replaces SULFAMETHOXAZ Trimethoprim (Verified Allergy, Unknown, DRES SYDNROME, 03/05/17) Replaces SULFAMETHOXAZ Current Medications Reported Home Medications Medications Dose Route/Sig Max Daily Dose Days Date Category Oxygen Gas 2 Liters NA HS 03/05/17 Reported Vitamin B Complex (B-Complex Vitamins) 1 Tab Tab 1 Tab PO DAILY 03/05/17 Reported Biotin 5000 (Biotin) 5 Mg Cap 1 Cap PO DAILY 01/11/17 Reported Potassium 99 Mg Tab 99 Mg PO DAILY 01/11/17 Reported Vitamin D 1000 Unit (Cholecalciferol) 1,000 Unit Cap 1,000 Inter.unit PO DAILY 01/11/17 Reported Caltrate 600 Plus (Calcium Carbonate-Vitamin D W/) 1 Tab Tab 1 Tab PO DAILY 01/11/17 Reported Mvi With Minerals (Multivitamins/Minerals) Tab 1 Tab PO DAILY 01/11/17 Reported [Combivent] 2 Sprays INH QID PRN 01/11/17 Reported Flonase Allergy Relief (Fluticasone Propionate (Nasal)) 50 Mcg/Act Spr 2 Sprays MENG BID 01/11/17 Reported Zyrtec (Cetirizine HCl) 10 Mg Tab 10 Mg PO DAILY PRN 07/09/16 Reported Duoneb (Ipratropium-Albuterol) 3 Ml Nebu 1 Treatment INH QID PRN 07/09/16 Reported Norvasc (Amlodipine Besylate) 10 Mg Tab 10 Mg PO QAM 02/10/16 Reported Dulera 200/5 Mcg (Mometasone Furoate-Formoterol) 1 Aer Aer 1 Puffs INH BID 02/10/16 Reported Singulair (Montelukast Sodium) 10 Mg Tab 10 Mg PO QAM 06/01/11 Reported Vital Signs Weight (Kilograms): 79.55 Height (Feet): 5 Height (Inches): 3 Physical Exam General Appearance: WD/WN, no apparent distress Respiratory/Chest: Auscultation: breath sounds normal Cardiovascular: Heart Auscultation: RRR Abdomen: Bowel Sounds: normal Inspection & Palpation: soft, non-distended, no tenderness, guarding & rebound Assessment and Plan Assessment: 56 yo CF who presents for colonoscopy secondary to diverticulitis. Plan: Proceed with colonoscopy.
[2017-03-19 12:51] VITALS: Ht 160 cm; Wt 79.5 kg
--- NOTE | 2017-03-19 13:47 | Discharge Instructions ---
Endoscopy Patient Instructions Date / Procedure(s) Performed Mar 19, 2017. Colonoscopy Allergy Information Coded Allergies: Promethazine (Verified Allergy, Unknown, HYPOTENSION, 03/05/17) Sulfamethoxazole (Verified Allergy, Unknown, DRES SYNDROME, 03/05/17) Replaces SULFAMETHOXAZ Trimethoprim (Verified Allergy, Unknown, DRES SYDNROME, 03/05/17) Replaces SULFAMETHOXAZ Discharge Date / Findings Mar 19, 2017. Diverticulosis Internal hemorrhoids Medication Instructions OK to resume all medications today as prescribed Reported Home Medications Medications Dose Route/Sig Max Daily Dose Days Date Category Oxygen Gas 2 Liters NA HS 03/05/17 Reported Vitamin B Complex (B-Complex Vitamins) 1 Tab Tab 1 Tab PO DAILY 03/05/17 Reported Biotin 5000 (Biotin) 5 Mg Cap 1 Cap PO DAILY 01/11/17 Reported Potassium 99 Mg Tab 99 Mg PO DAILY 01/11/17 Reported Vitamin D 1000 Unit (Cholecalciferol) 1,000 Unit Cap 1,000 Inter.unit PO DAILY 01/11/17 Reported Caltrate 600 Plus (Calcium Carbonate-Vitamin D W/) 1 Tab Tab 1 Tab PO DAILY 01/11/17 Reported Mvi With Minerals (Multivitamins/Minerals) Tab 1 Tab PO DAILY 01/11/17 Reported [Combivent] 2 Sprays INH QID PRN 01/11/17 Reported Flonase Allergy Relief (Fluticasone Propionate (Nasal)) 50 Mcg/Act Spr 2 Sprays MENG BID 01/11/17 Reported Zyrtec (Cetirizine HCl) 10 Mg Tab 10 Mg PO DAILY PRN 07/09/16 Reported Duoneb (Ipratropium-Albuterol) 3 Ml Nebu 1 Treatment INH QID PRN 07/09/16 Reported Norvasc (Amlodipine Besylate) 10 Mg Tab 10 Mg PO QAM 02/10/16 Reported Dulera 200/5 Mcg (Mometasone Furoate-Formoterol) 1 Aer Aer 1 Puffs INH BID 02/10/16 Reported Singulair (Montelukast Sodium) 10 Mg Tab 10 Mg PO QAM 06/01/11 Reported Provider Instructions Activity Restrictions - No exercising or heavy lifting for 24 hours. - Do not drink alcohol the day of the procedure. - Do not drive a car or operate machinery until the day after the procedure. - Do not make any important decisions or sign important papers in 24 hours after the procedure. Following Day: - Return to full activity which may include returning to work/school. Diet Start your diet with liquids and light foods (jello, soup, juice, toast). Then eat your usual diet if not nauseated. Treatment For Common After Affects For mild abdominal pain, bloating, or excessive gas: - Rest - Eat lightly - Lie on right side Follow-Up Information Follow-up with DR YANY SALCEDO as scheduled Anesthesia Information What You Should Know You have had a procedure that required some medicine to reduce anxiety and discomfort. This treatment is called moderate sedation. After receiving the treatment, you may be sleepy, but you will be able to breathe on your own. The effects of the treatment may last for several hours. Follow these instructions along with Activity/Diet recommendations noted above: * Do NOT do anything where dizziness or clumsiness would be dangerous. * Rest quietly at home today, then you can be up and about tomorrow. * Have a responsible person stay with you the rest of today. * You may have had an I.V. today. If so, you may take the dressing off later today. Recommendations Call your doctor if: * Trouble breathing * Continuous vomiting for more than 24 hours * Temperature above 101 degrees * Severe abdominal pain or bloating * Pain not relieved by pain medicine ordered * There is increased drainage or redness from any incision * A large amount of rectal bleeding greater than 2-3 tablespoons. (If you had a polyp/s removed or have hemorrhoids, a small amount of blood - from the rectum is to be expected.) * You have any unanswered questions or concerns. IN THE EVENT OF A SERIOUS EMERGENCY, GO TO THE NEAREST EMERGENCY ROOM Your discharge instructions were prepared by provider Facundo Ayala. Patient Instructions Signature Page Anabella Hernandez Patient (or Guardian) Signature/Date: I have read and understand the instructions given to me by my caregivers. Caregiver/RN/Doctor Signature/Date: The above-named patient and/or guardian has received patient instructions on this date. + Original Patient Signature Page (only) stays with chart. Please make copy for patient.
[2017-03-19 14:04] VITALS: BP 129/67; PULSE 80; O2SAT 94
--- NOTE | 2017-03-19 14:09 | GI REPORT ---
Procedure Date: 03/19/2017 1:13 PM Procedure: Colonoscopy Indications: Follow-up of diverticulitis Medicines: Monitored Anesthesia Care Complications: No immediate complications. Estimated Blood Loss: Estimated blood loss: none. Procedure: Pre-Anesthesia Assessment: - Prior to the procedure, a History and Physical was performed, and patient medications and allergies were reviewed. The patient's tolerance of previous anesthesia was also reviewed. The risks and benefits of the procedure and the sedation options and risks were discussed with the patient. All questions were answered, and informed consent was obtained. Prior Anticoagulants: The patient has taken no previous anticoagulant or antiplatelet agents. ASA Grade Assessment: II - A patient with mild systemic disease. After reviewing the risks and benefits, the patient was deemed in satisfactory condition to undergo the procedure. After I obtained informed consent, the scope was passed under direct vision. Throughout the procedure, the patient's blood pressure, pulse, and oxygen saturations were monitored continuously. The scope was introduced through the anus and advanced to the terminal ileum. The colonoscopy was performed without difficulty. The patient tolerated the procedure well. The quality of the bowel preparation was good. The terminal ileum, ileocecal valve, appendiceal orifice, and rectum were photographed. Findings: The perianal and digital rectal examinations were normal. Scattered small-mouthed diverticula were found in the entire colon. Non-bleeding internal hemorrhoids were found during retroflexion. The hemorrhoids were small. Impression: - Diverticulosis in the entire examined colon. - Non-bleeding internal hemorrhoids. - No specimens collected. Recommendation: - Resume previous diet. - Continue present medications. - Repeat colonoscopy in 10 years for surveillance. - Return to primary care physician as previously scheduled. Facundo Ayala, 03/19/2017 2:09:09 PM This report has been signed electronically. Note Initiated On: 03/19/2017 1:13 PM I attest to the content of the Intraoperative Record and orders documented therein, exceptions below
--- NOTE | 2017-03-19 14:12 | Anesthesiology Progress Note ---
Anesthesia Post Op Note Date & Time Mar 19, 2017 at 14:12 Vital Signs Pain Intensity: 0 Vital Signs Past 12 Hours Date Time Temp Pulse Resp B/P (MAP) Pulse Ox O2 Delivery O2 Flow Rate FiO2 03/19/17 14:04 80 20 129/67 (87) 94 Nasal Cannula 03/19/17 13:53 79 18 135/85 (102) 98 Nasal Cannula 2 03/19/17 13:38 81 18 111/67 (82) 96 Room Air 03/19/17 12:50 36.6 102 18 155/80 (105) 95 Room Air Notes Mental Status: alert / awake / arousable, participated in evaluation Pt Amnestic to Procedure: Yes Nausea / Vomiting: adequately controlled Pain: adequately controlled Airway Patency, RR, SpO2: stable & adequate BP & HR: stable & adequate Hydration State: stable & adequate Anesthetic Complications: no major complications apparent
== END | disposition home or self-care (01) ==
LOC: C.GI 12:27
PROVIDERS: ATTEND Internal Medicine
DX: K57.30 Diverticulosis of large intestine without perforation or abscess without bleeding (principal); K64.8 Other hemorrhoids; Z99.81 Dependence on supplemental oxygen; Z90.710 Acquired absence of both cervix and uterus

== ENCOUNTER 2018-05-02 16:34 | Inpatient (IN) ==
[2018-05-02] MEDS ORDERED: ALBUT/IPRATROP 3MG/0.5MG NEB 3 ML VIAL NEB STA (17:55)
[2018-05-02] MEDS ORDERED: methylPREDNISolone 125 MG/2 ML VIAL IV STA (17:55)
[2018-05-02] MEDS ORDERED: ACETAMINOPHEN 325 MG TAB PO PRN (17:59)
[2018-05-02] MEDS ORDERED: XOPENEX/ATROVENT 1.25mg/0.5MG NEB COMBO NEB SCH (18:15)
[2018-05-02] MEDS ORDERED: methylPREDNISolone 60 MG in SYRINGE 0 ML IV ONE (18:15)
[2018-05-02 18:35] LABS: HCO3 ABG 19 mmol/L (19-24); Oxygen Saturation ABG 98.4 % (90-95); PCO2 ABG 22 mmHg (35-46); PO2 ABG 103 mm/Hg (80-95)
[2018-05-02 18:36] LABS: Basophils # (auto) 0.01 K/uL (0-0.2); Basophils % (auto) 0.1 %; Hematocrit (blood only) 45.7 % (37-47); Hemoglobin 15.8 g/dL (12.0-16.0); Immature Granulocytes # (auto) 0.23 K/uL (0.00-0.02); Immature Granulocytes % (auto) 1.8 %; Lymphocytes # (auto) 2.04 K/uL (1.2-3.4); Lymphocytes % (auto) 15.8 %; Mean Corpuscular Volume 87.2 fL (80-100); Mean Platelet Volume 10.3 fL (7.4-10.4); Monocytes # (auto) 0.59 K/uL (0.11-0.59); Monocytes % (auto) 4.6 %; Neutrophils # (auto) 10.05 K/uL (1.4-6.5); Neutrophils % (auto) 77.7 %; Platelet Count 324 K/uL (130-400); RDW Standard Deviation 44.5 fL (36.4-46.3); Red Blood Count 5.24 M/uL (4.2-5.4); White Blood Count 12.92 K/uL (4.8-10.8)
[2018-05-02 18:37] LABS: Mean Corpuscular Hgb Conc 34.6 g/dL (32-36)
[2018-05-02] MEDS ORDERED: LEVALBUTEROL HCL 0.63 MG/3 ML NEB NEB PRN (18:46)
[2018-05-02 18:49] LABS: Allen Test Pos (Pos)
[2018-05-02 18:50] LABS: pH ABG 7.54 (7.35-7.45)
--- NOTE | 2018-05-02 18:54 | XRay Report ---
XR chest 1V portable HISTORY: 57 years-old Female SOB acute shortness of breath COMPARISON: CTA chest 01/11/2017 TECHNIQUE: Portable AP view of the chest FINDINGS: Cardiomediastinal and hilar silhouettes are within normal limits. Mild right hemidiaphragmatic elevat ion is unchanged. Subsegmental left basilar opacities suggest atelectasis/scarring, unchanged. The lazarus alfredo of the chest appear grossly intact. IMPRESSION: No acute process. The above report was generated using voice recognition software. It may contain grammatical, syntax o r spelling errors. Electronically signed by: Ace Mera M.D. 05/02/2018 6:53 PM
[2018-05-02 18:56] LABS: Alanine Aminotransferase 69 U/L (12-78); Albumin Level 4.1 gm/dl (3.4-5.0); Aspartate Aminotransferase 24 U/L (15-37); BUN Creatinine Ratio 11.7 (10-20); Blood Urea Nitrogen 11 mg/dl (7-18); Calcium 9.9 mg/dl (8.5-10.1); Carbon Dioxide 25 mmol/L (21-32); Chloride 105 mmol/L (98-107); Est GFR (African American) 74.6; Est GFR (Non-African American) 64.4; Glucose 113 mg/dl (70-99); Potassium 3.7 mmol/L (3.5-5.1); Sodium 139 mmol/L (136-145)
[2018-05-02 18:57] LABS: Albumin Globulin Ratio 1.1 (0.9-2); Bilirubin,Total 0.5 mg/dl (0.2-1); Globulin 3.6 gm/dl (2.5-4.0); Total Protein 7.7 gm/dl (6.4-8.2)
[2018-05-02 19:00] LABS: Alkaline Phosphatase 83 U/L (45-117); Magnesium 2.3 mg/dl (1.8-2.4)
[2018-05-02] MEDS ORDERED: MAGNESIUM SULFATE / D5W 1 GM/100 ML BAG IV ONE (19:00)
[2018-05-02 19:07] LABS: D Dimer 400 ug/L FEU (0-500)
--- NOTE | 2018-05-02 19:35 | History & Physical Report ---
Date of Service May 02, 2018 Assessment & Plan (1) Acute respiratory failure: (2) Asthma: Pt is 57 y/o F [facility] asthma, nocturnal hypoxemia, ADAMA on CPAP with 4L oxygen presented as direct admission from out patient pulmonology office for SOB. Has been SOB for 1.5 weeks. Has been on medrol dose can, Solumedrol x 3 days and currently on prednisone. She is on day 5 Levaquin. Using xopenex nebs at home without relief. Upon arrival to hospital pt in significant respiratory distress with SOB, wheezing, hyperventilating. She was given xopenex/atrovent neb and placed on bipap. Also given solumedrol 60mg IV. ABG:pH: 7.5, pCO2: 22, pO2: 103, HCO3: 19 After bipap placed, pt breathing a little easier, however still labored and wheezing. Spoke with Dr Ho -commercial retoucher/powerhouse helper and asked evaluate pt. Pt will be transferred to ICU for further observation and treatment. xopenex/atrovent nebs bipap (3) Sleep apnea: (4) Nocturnal hypoxemia: Uses CPAP with 4L Oxygen HS at home (5) Hypertension: On atenolol DVT Prophylaxis -Heparin SQ Full Code as per discussion with pt Follows with Dr Bailey for routine care Pt was seen with Dr Finn. See addendum History of Present Illness Chief Complaint: SOB Primary Care Provider: Shannan Bailey Pt is 57 y/o F [facility] asthma, nocturnal hypoxemia, ADAMA on CPAP with 4L oxygen presented as direct admission from out patient pulmonology office for SOB. Reported pt was afebrile, O2 sats WNL, BP: 104/72, R: 20, P: 99 and pt with wheezes and given neb treatment with some improvement. Pt reported SOB and wheezing x 1.5 weeks that began after exposure to perfume. She states had followed up with PCP and walk in clinic for wheezing and SOB. Has been on medrol dose can, Solumedrol x 3 days and currently on prednisone. She is on day 5 Levaquin. Pt states continued SOB. Denied fever. States using xopenex nebs at home and has some cough after using neb, but otherwise denies cough. Having some intermittent dizziness. Denies YUSUF, hemoptysis, N/V/D, abdominal pain, CP, LE edema, rashes. Upon arrival to hospital pt in significant respiratory distress with SOB, wheezing, hyperventilating. She was given xopenex/atrovent neb and placed on bipap. Also given solumedrol 60mg IV. ABG:pH: 7.5, pCO2: 22, pO2: 103, HCO3: 19 After bipap placed, pt breathing a little easier, however still labored and wheezing. Spoke with Dr Ho -commercial retoucher/powerhouse helper to evaluate pt. Pt will be transferred to ICU for further observation and treatment. Allergies Allergy/AdvReac Type Severity Reaction Status Date / Time promethazine Allergy Unknown HYPOTENSION Verified 03/19/17 15:36 sulfamethoxazole Allergy Unknown DRES Verified 03/19/17 15:36 SYNDROME trimethoprim Allergy Unknown DRES Verified 03/19/17 15:36 SYDNROME Home Medications Home Medications Medication Instructions Recorded Confirmed Type Oxygen Home 05/02/18 05/02/18 History amlodipine 1 tab PO DAILY 05/02/18 05/02/18 History fluticasone 2 spray INTRANASAL DAILY 05/02/18 05/02/18 History ipratropium-albuterol [Combivent 1 puff INHALATION QID 05/02/18 05/02/18 History Respimat] levalbuterol HCl [Xopenex] 1.25 mg INHALATION QID PRN 05/02/18 05/02/18 History loratadine 10 mg PO DAILY PRN 05/02/18 05/02/18 History mometasone-formoterol [Dulera] 2 puff INHALATION BID 05/02/18 05/02/18 History montelukast 10 mg PO PM 05/02/18 05/02/18 History Past Med/Surg History Medical History Sleep apnea (Chronic) Asthma (Chronic) Allergic rhinitis (Chronic) Nocturnal hypoxemia (Chronic) Hypertension (Chronic) Surgical History S/P tubal ligation (Chronic) History of hysterectomy (Chronic) Social History Preferred Language: Sami Communication Ability: Effective Movable Bulkhead Installer Required: No Beliefs That Will Affect Care: None Current Living Situation: Spouse Other Information That Helps Us Care for You: No Feels Safe at Home: Yes and No Safety Concerns: Feels Safe At This Time Smoking Status: Never smoker Hx Alcohol Use: No Hx Substance Use: No Review of Systems Further ROS not obtained secondary to SOB Physical Exam Vital Signs (Past 24 Hours): Last Vital Signs Temp 36.8 C 05/02/18 18:04 Pulse 91 H 05/02/18 18:50 Resp 26 H 05/02/18 18:50 BP 157/109 H 05/02/18 18:50 Pulse Ox 100 05/02/18 18:50 Physical Exam: General:+respiratory distress, obese Head: normocephalic, atraumatic Eyes: conjunctiva non-injected, anicteric ENT: normal inspection external ears, nose, mucous membranes mildly dry Neck: supple, trachea midline Lungs: + respiratory distress, +tachypnea, accessory muscle use, Diminished cathleen ath sounds, +inspiratory and expiratory wheezing throughout CV: Pulse 104, regular rhythm, no murmur, no pretibial edema Abd: normal BS, soft, non-tender Ext: no cyanosis, no calf tenderness Neuro: A&O x 3, anxious Skin: warm, dry Results & Data Laboratory Results Short CBC 05/02/18 Range/Units 18:15 WBC 12.92 H (4.8-10.8) K/uL Hgb 15.8 (12.0-16.0) g/dL Hct 45.7 (37-47) % Plt Count 324 (130-400) K/uL BMP 05/02/18 18:15 Sodium 139 Potassium 3.7 Chloride 105 Carbon Dioxide 25 BUN 11 Creatinine 0.97 Glucose 113 H Calcium 9.9 Liver Function 05/02/18 Range/Units 18:15 Total Bilirubin 0.5 (0.2-1) mg/dl AST 24 (15-37) U/L ALT 69 (12-78) U/L Alkaline Phosphatase 83 (45-117) U/L Albumin 4.1 (3.4-5.0) gm/dl Diagnostic Findings CXR: IMPRESSION: No acute process. Supervising Physician Co-Signing Physician Notes Patient is a 57-year-old female with history of asthma, nocturnal hypoxemia, obstructive sleep apnea on CPAP and other medical problems presents with history of worsening shortness of breath and wheezing. Patient developed symptoms secondary to exposure to perfume which she is allergic to. Patient was noted to be in respiratory distress and could not provide much history. Most of the history is obtained from family, old records. On exam patient was noted to be in respiratory distress, moderately built and nourished, lungs-decreased breath sounds with bilateral wheezing, S1-S2, no murmur, tachycardia, abdomen soft, nondistended, grossly no focal deficits, alert awake and oriented, no pedal edema. Chest x-ray showed no acute process. ABG is consistent with uncompensated respiratory alkalosis. Patient was diagnosed to have acute respiratory failure secondary to asthma exacerbation. Patient was placed on BiPAP was given nebulizers, Solu-Medrol. Pulmonology was consulted, appreciate recommendations. Patient will be monitored in ICU closely with low threshold to intubation. D-dimer was negative. Plan to continue bronchodilators, glucocorticoids, oxygen support as needed. I personally reviewed the record. Patient is interviewed and examined at bedside. Patient's care is coordinated with Danielle Carranza PA-C. Please refer to the documentation above for details of patient's presentation and for discussion of other issues.
[2018-05-02] MEDS: methylPREDNISolone 80 MG in SYRINGE 0 ML IV SCH (19:51)
--- NOTE | 2018-05-02 19:54 | Critical Care Consultation ---
Date of Consultation May 02, 2018 Assessment & Plan (1) Admitted to intensive care unit: When I visited the patient upstairs she was in acute exacerbation of asthma and she was wheezing diffusely she was tachypneic she was in respiratory distress she was tachycardic and she was also on BiPAP. At the time her ABG was consistent with the acute respiratory alkalosis with a pH of 7.54. The patient was immediately transported to the ICU for higher level of care. We had increased IV Solu-Medrol to 80 mg every 6 hours and also change her nebulizer treatment to Xopenex and Atrovent every 4 hours and as as needed. We are going to continue with all this management as prescribed. Also we are going to send the sputum for Gram stain and culture and sensitivity just to be cautious that she does not have any pulmonary infection and if at all then we will start her on antibiotics. At this stage I feel she is just an acute exacerbation of asthma and will monitor closely in the ICU. She is also on home O2 as CPAP at home for her obstructive sleep apnea syndrome and we will continue with the BiPAP for tonight and will get her on CPAP machine tomorrow so we can start it once he is more stable on her current medical condition. (2) Acute respiratory failure: (3) Sleep apnea: (4) Acute asthma exacerbation: (5) Nocturnal hypoxemia: (6) Allergic rhinitis: History of Present Illness Reason for Consultation: Asthma exacerbation/respiratory failure acute requiring BiPAP Requesting Physician: Mike Bhakta MD Attending Physician: Mike Bhakta MD History of Present Illness Pt is 57 y/o F wtih PMH asthma, nocturnal hypoxemia, ADAMA on CPAP with 4L oxygen presented as direct admission from out patient pulmonology office for SOB. Upon arrival to hospital pt in significant respiratory distress with SOB, wheezing, hyperventilating. She was given xopenex/atrovent neb and placed on bipap. Also given solumedrol I received a call from Danielle Erazo about the patient was condition had deteriorated and there was a code purple was called. The patient was in acute respiratory distress. Stat ABG was done which was consistent with acute respiratory alkalosis. The patient was given emergently IV Solu-Medrol as well as nebulizer treatment including Atrovent and Xopenex and since she was very tachypneic she was started on BiPAP. She was on 40% FiO2 and she was oxygenating at 100%. The patient was still somewhat tachypneic and diffuse wheezing at that stage we had decided to bring her to the ICU. Currently she is in ICU breathing somewhat comfortably on the BiPAP and denies having any distress including chest pain or palpitations. She is still coughing not able to bring up any secretions and also tightness in the chest and wheezing. Denies having any chest pain fever chills hemoptysis. Also denies having any abdominal pain or nausea or vomiting. Patient has history of obstructive sleep apnea syndrome and she is on CPAP at home. She is also on 2 L of O2 via nasal cannula. According to the family she has been on steroids on multiple occasions for exacerbation of asthma. The patient was never intubated in the past but she was admitted about a year ago in the past. Denies any symptoms related to gastroesophageal reflux disease. She is allergic to perfume and every time she is exposed to perfume C becomes very short of breath and wheezing. The patient has a dog in the house but she is not allergic to that. Allergies Allergy/AdvReac Type Severity Reaction Status Date / Time promethazine Allergy Unknown HYPOTENSION Verified 03/19/17 15:36 sulfamethoxazole Allergy Unknown DRES Verified 03/19/17 15:36 SYNDROME trimethoprim Allergy Unknown DRES Verified 03/19/17 15:36 SYDNROME Home Medications Home Medications Medication Instructions Recorded Confirmed Type Oxygen Home 05/02/18 05/02/18 History amlodipine 1 tab PO DAILY 05/02/18 05/02/18 History fluticasone 2 spray INTRANASAL DAILY 05/02/18 05/02/18 History ipratropium-albuterol [Combivent 1 puff INHALATION QID 05/02/18 05/02/18 History Respimat] levalbuterol HCl [Xopenex] 1.25 mg INHALATION QID PRN 05/02/18 05/02/18 History loratadine 10 mg PO DAILY PRN 05/02/18 05/02/18 History mometasone-formoterol [Dulera] 2 puff INHALATION BID 05/02/18 05/02/18 History montelukast 10 mg PO PM 05/02/18 05/02/18 History Patient History Medical History Sleep apnea (Chronic) Asthma (Chronic) Allergic rhinitis (Chronic) Nocturnal hypoxemia (Chronic) Hypertension (Chronic) Surgical History S/P tubal ligation (Chronic) History of hysterectomy (Chronic) Social History Preferred Language: Mongolian Communication Ability: Effective 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 Currently she remains on a BiPAP and breathing somewhat comfortably. She is still short of breath and has cough and wheezing and tightness in her chest. The patient denies having any chest pain or palpitations. Also denies having any abdominal pain nausea vomiting. Denies having any hemoptysis. Also denies having any hematemesis. Also denies having any blood in the stool urine no painful micturition. She always gets more short of breath and wheezing and tightness on chest whenever she is exposed to strong perfume. Denies having any swollen extremities. Also denies any recent travel history. Denies any exposure to anybody with the flu or any other disease. Denies any exposure to toxic fumes. Denies having any fever chills headache or dizziness. Physical Exam Vital Signs (Past 24 Hours): Last Vital Signs Temp 36.8 C 05/02/18 18:04 Pulse 91 H 05/02/18 18:50 Resp 26 H 05/02/18 18:50 BP 157/109 H 05/02/18 18:50 Pulse Ox 100 05/02/18 18:50 Physical Exam: He relates female sitting in the bed on a BiPAP and still somewhat shortness of breath and wheezing. Not any acute distress. HEENT: PERRL. Sclera is in icterus. Conjunctivae is clear. Pupils are reactive to light. NECK: The neck is supple, no JVD, no cervical or supraclavicular lymphadenopathy. RESPIRATORY: Bilateral decreased breath sounds, coarse breathing, diffuse wheezing and rhonchi. No crackles heard. CARDIOVASCULAR: S1-S2 heard regular rate and rhythm. No murmur no rubs no gallops. GASTROINTESTINAL: Abdomen is soft nontender, no hepatosplenomegaly, bowel sounds are positive. MUSCULOSKELETAL: No clubbing no edema no swollen joints. SKIN: No rash, no lesion seen. NEUROLOGIC: The patient is alert awake and oriented x3. The pupils are reactive to light and accommodation. She is moving all her extremities and there is no neuro deficit. PSYCHIATRIC: The patient has good affect and is relaxed at this time. Results & Data Laboratory Results Abnormal lab results 05/02/18 05/02/18 05/02/18 Range/Units 18:15 18:15 18:20 WBC 12.92 H (4.8-10.8) K/uL Immature Gran # (Auto) 0.23 H (0.00-0.02) K/uL Neut # (Auto) 10.05 H (1.4-6.5) K/uL ABG pH 7.54 H* (7.35-7.45) ABG pCO2 22 L (35-46) mmHg ABG pO2 103 H (80-95) mm/Hg ABG O2 Saturation 98.4 H (90-95) % Glucose 113 H (70-99) mg/dl Diagnostic Findings Abnormal lab results 05/02/18 05/02/18 05/02/18 Range/Units 18:15 18:15 18:20 WBC 12.92 H (4.8-10.8) K/uL Immature Gran # (Auto) 0.23 H (0.00-0.02) K/uL Neut # (Auto) 10.05 H (1.4-6.5) K/uL ABG pH 7.54 H* (7.35-7.45) ABG pCO2 22 L (35-46) mmHg ABG pO2 103 H (80-95) mm/Hg ABG O2 Saturation 98.4 H (90-95) % Glucose 113 H (70-99) mg/dl XR chest 1V portable HISTORY: 57 years-old Female SOB acute shortness of breath COMPARISON: CTA chest 01/11/2017 TECHNIQUE: Portable AP view of the chest FINDINGS: Cardiomediastinal and hilar silhouettes are within normal limits. Mild right hemidiaphragmatic elevation is unchanged. Subsegmental left basilar opacities suggest atelectasis/scarring, unchanged. The bones of the chest appear grossly intact. IMPRESSION: No acute process. Electronically signed by: Ace Mera M.D. 05/02/2018 6:53 PM Medications Administered Current Inpatient Medications Acetaminophen (Tylenol) 650 mg PO Q4H PRN PRN Reason: pain/fever Stop: 06/01/18 17:58 Heparin Sodium (Porcine) (Heparin Sodium (Porcine)) 5,000 units SQ Q8 PIO Stop: 06/01/18 21:59 Magnesium Sulfate/Dextrose (Magnesium Sulfate / D5w) 1 gm in 100 mls @ 100 mls/hr IV ONE ONE Stop: 05/02/18 19:59 Last Admin: 05/02/18 19:50 Dose: 100 mls/hr Documented by: Methylprednisolone 80 mg/ (Syringe) 1.28 mls @ 1.5 mls/min IV Q6H PIO Stop: 06/01/18 19:59 Last Admin: 05/02/18 19:51 Dose: 1.5 mls/min Documented by: Pantoprazole Sodium 40 mg/ (Syringe) 10 mls @ 5 mls/min IV DAILY@1100 PIO Stop: 06/02/18 10:59 Ipratropium Arthur (Atrovent 0.02% 0.5mg/2.5ml) 0.5 mg INH Q4R PIO Stop: 06/01/18 19:59 Levalbuterol HCl (Xopenex 0.63 Mg/3 Ml Neb) 0.63 mg NEB Q4R PIO Stop: 06/01/18 19:59
[2018-05-02] MEDS ORDERED: LEVALBUTEROL 1.25MG/0.5ML NEB INH SCH (20:00)
[2018-05-02] MEDS ORDERED: IPRATROPIUM BROMIDE NEB SOLN 0.02% 2.5 ML VIAL INH SCH (20:00)
[2018-05-02] MEDS ORDERED: ICU PROTOCOL FOR HYPERGLYCEMIA PRN (20:05)
[2018-05-02 20:10] LABS: Prothrombin Time 10.1 Seconds (9.0-12.0)
[2018-05-02] MEDS: LEVALBUTEROL HCL 0.63 MG/3 ML NEB NEB SCH ×2 (20:10→23:01)
[2018-05-02] MEDS: IPRATROPIUM BROMIDE NEB SOLN 0.02% 2.5 ML VIAL INH SCH ×2 (20:10→23:01)
[2018-05-02] MEDS: NORMOSOL-R 1,000 ML IV SCH (20:27)
[2018-05-02 20:34] LABS: Influenza A virus by PCR Neg for Influ A (Neg); Influenza B virus by PCR Neg for Influ B (Neg)
[2018-05-02 20:55] LABS: iSTAT Allen Test Pass; iSTAT Arterial Blood Gas HCO3 25 meg/L (19-24); iSTAT Arterial Blood Gas pCO2 36 mmHg (35-46); iSTAT Arterial Blood Gas pH 7.44 (7.35-7.45); iSTAT Carbon Dioxide 26 mEq/l (24-31); iSTAT FiO2 40 %; iSTAT Site L Radial
[2018-05-02] MEDS: MONTELUKAST SODIUM 10 MG TABLET PO SCH (21:02)
[2018-05-02] MEDS: HEPARIN SOD 5,000 UNIT/0.5 ML VIAL SQ SCH (21:44)
[2018-05-03] MEDS ORDERED: methylPREDNISolone 60 MG in SYRINGE 0 ML IV SCH (02:00)
[2018-05-03] MEDS: methylPREDNISolone 80 MG in SYRINGE 0 ML IV SCH ×4 (02:03→17:38)
[2018-05-03] MEDS: IPRATROPIUM BROMIDE NEB SOLN 0.02% 2.5 ML VIAL INH SCH ×6 (03:08→23:15)
[2018-05-03] MEDS: LEVALBUTEROL HCL 0.63 MG/3 ML NEB NEB SCH ×6 (03:08→23:15)
[2018-05-03 04:43] LABS: Basophils # (auto) 0.01 K/uL (0-0.2); Basophils % (auto) 0.1 %; Hematocrit (blood only) 41.4 % (37-47); Hemoglobin 14.3 g/dL (12.0-16.0); Immature Granulocytes # (auto) 0.13 K/uL (0.00-0.02); Immature Granulocytes % (auto) 1.2 %; Lymphocytes # (auto) 1.17 K/uL (1.2-3.4); Lymphocytes % (auto) 10.5 %; Mean Corpuscular Hgb Conc 34.5 g/dL (32-36); Mean Corpuscular Volume 88.1 fL (80-100); Monocytes # (auto) 0.17 K/uL (0.11-0.59); Monocytes % (auto) 1.5 %; Neutrophils # (auto) 9.68 K/uL (1.4-6.5); Neutrophils % (auto) 86.7 %; Nucleated RBC # (auto) 0.02 K/uL (0-0); Nucleated RBC % (auto) 0.2 %; Platelet Count 283 K/uL (130-400); RDW Coefficient of Variation 13.9 % (11.5-14.5); RDW Standard Deviation 45.2 fL (36.4-46.3); White Blood Count 11.16 K/uL (4.8-10.8)
[2018-05-03 04:58] LABS: BUN Creatinine Ratio 16.4 (10-20); Calcium 8.5 mg/dl (8.5-10.1); Creatinine Clr Calc Pharmacy 79.8 ml/min; Est GFR (African American) 98.6; Est GFR (Non-African American) 85.1; Magnesium 2.6 mg/dl (1.8-2.4); Potassium 4.1 mmol/L (3.5-5.1)
[2018-05-03 04:59] LABS: Phosphorus 3.9 mg/dl (2.5-4.9)
[2018-05-03] MEDS: HEPARIN SOD 5,000 UNIT/0.5 ML VIAL SQ SCH ×3 (06:37→22:00)
[2018-05-03] MEDS: MONTELUKAST SODIUM 10 MG TABLET PO SCH ×2 (07:07→09:30)
--- NOTE | 2018-05-03 07:22 | XRay Report ---
XR chest 1V portable HISTORY: 57 years-old Female f/u follow-up study in a patient with bibasilar opacities COMPARISON: Chest radiograph 05/02/2018, CTA chest 01/11/2017 TECHNIQUE: Portable AP view of the chest FINDINGS: Cardiomediastinal and hilar silhouettes are within normal limits. Predominantly linear bibasilar opac ities have progressed from comparison study. No pneumothorax. Blunting of left costophrenic angle wit hout large pleural effusion. No overt pulmonary edema. Degenerative changes of the shoulders and spin e. IMPRESSION: 1. Bibasilar opacities, predominantly are linear in morphology suggestive of atelectasis. Pneumonitis considered less likely. 2. Possible trace left pleural effusion. The above report was generated using voice recognition software. It may contain grammatical, syntax o r spelling errors. Electronically signed by: Ace Mera M.D. 05/03/2018 7:21 AM
[2018-05-03] MEDS: NORMOSOL-R 1,000 ML IV SCH (07:30)
--- NOTE | 2018-05-03 08:36 | Critical Care Progress Note ---
Date of Service May 03, 2018 Assessment & Plan (1) Admitted to intensive care unit: The patient was brought into the ICU for higher level of care. Throughout the night she remained on BiPAP and ABG had improved significantly. Oxygenation is also improved. She was started on IV Solu-Medrol as well as Xopenex and Atrovent and overall she seems to be doing better. Her breathing is improved her wheezing is improved. Currently she is sitting in the bed and denies having any distress and she feels that she can breathe more easily. She has still got some cough but denies any chest pain or fever chills or hemoptysis. We will change the Solu-Medrol to 80 mg every 8 hours and continue with other medications. Also change Protonix to 40 mg p.o. instead of IV. She will be out of bed to chair as tolerated and will request her home CPAP machine and will be started on CPAP at night and when she is asleep. We will continue with all other management as prescribed. I have also discussed with the primary care physician. I have spent greater than 35 minutes of critical care time. (2) Acute respiratory failure: (3) Sleep apnea: (4) Acute asthma exacerbation: (5) Nocturnal hypoxemia: (6) Allergic rhinitis: Subjective The patient was transferred last night with worsening of her breathing and tightness in her chest. The ABG initially was acute respiratory alkalosis, but has improved. This am, she is able to breath more easily and also is off the BiPAP. Able to talk in to full sentances. Denies any chest pain or fever. Physical Exam Vital Signs (Past 24 Hours): Last Vital Signs Temp 36.6 C 05/03/18 04:00 Pulse 83 05/03/18 07:07 Resp 23 05/03/18 07:07 BP 134/77 05/03/18 06:00 Pulse Ox 96 05/03/18 07:07 Physical Exam: Middle aged female sitting in the bed off the BiPAP and still somewhat shortness of breath and wheezing. Not in any acute distress. HEENT: PERRL. Sclera is in icterus. Conjunctivae is clear. Pupils are reactive to light. NECK: The neck is supple, no JVD, no cervical or supraclavicular lymphadenopathy. RESPIRATORY: Bilateral decreased breath sounds, coarse breathing, improved wheezing, no crackles heard. CARDIOVASCULAR: S1-S2 heard regular rate and rhythm. No murmur no rubs no gallops. GASTROINTESTINAL: Abdomen is soft nontender, no hepatosplenomegaly, bowel sounds are positive. MUSCULOSKELETAL: No clubbing no edema no swollen joints. SKIN: No rash, no lesion seen. NEUROLOGIC: The patient is alert awake and oriented x3. The pupils are reactive to light and accommodation. She is moving all her extremities and there is no neuro deficit. PSYCHIATRIC: The patient has good affect and is relaxed at this time.
--- NOTE | 2018-05-03 09:16 | Hospitalist Progress Note ---
Date of Service May 03, 2018 Assessment & Plan (1) Acute respiratory failure: (2) Asthma: Pt is 57 y/o F wt PMH asthma, nocturnal hypoxemia, ADAMA on CPAP with 4L oxygen presented as direct admission from out patient pulmonology office for SOB. Has been SOB for 1.5 weeks. Has been on medrol dose can, Solumedrol x 3 days and currently on prednisone. She is on day 5 Levaquin. Using xopenex nebs at home without relief. Upon arrival to hospital pt in significant respiratory distress with SOB, wheezing, hyperventilating. She was given xopenex/atrovent neb and placed on bipap. Also given solumedrol 60mg IV. ABG:pH: 7.5, pCO2: 22, pO2: 103, HCO3: 19 Required transfer to the ICU overnight for closer monitoring Placed on BiPAP, sentimental IV, nebulizer treatments This morning patient is improving Discussed with ICU service Will transfer to telemetry Continue Solu-Medrol 80 mg every 8 hours, nebs [id number] Continue to monitor closely (3) Sleep apnea: (4) Nocturnal hypoxemia: Uses CPAP with 4L Oxygen HS at home (5) Hypertension: On atenolol DVT Prophylaxis -Heparin SQ Full Code as per discussion with pt Follows with Dr Bailey for routine care Subjective Follow-up for asthma exacerbation Patient seen resting up in bed, not in distress, States she feels improved compared to yesterday Had a coughing spell during the middle of interview, placed on BiPAP, and patient seemed to be improved after Coughing is less, no sputum Next no chest pain Denies other symptoms Physical Exam Vital Signs (Past 24 Hours): Last Vital Signs Temp 36.6 C 05/03/18 04:00 Pulse 91 H 05/03/18 08:00 Resp 23 05/03/18 08:00 BP 140/80 05/03/18 08:00 Pulse Ox 94 05/03/18 08:00 Physical Exam: General- oriented x 3, not in distress, speaks in sentences with no effort or accessory muscle use Head- atraumatic Eyes- PERRL, EOMI, anicteric ENT- oropharynx clear Neck- supple, no JVD, no adenopathy, no thyromegaly; carotids +2/2, no bruits appreciated Lungs- Mild intermittent wheeze bilaterally, No crackles Heart- normal rate, regular rhythm; no murmur, no gallop, no rub appreciated Abdomen- normal bowel sounds, nondistended, soft, nontender, no masses or hepatosplenomegaly Extremities- no pretibial edema, no calf tenderness; peripheral pulses intact Neuro- alert, oriented x 3; CN 2-12 grossly intact; motor 5/5 bi laterally;sensation 100% on all extremities; no other gross focal neurologic deficits Skin- warm & dry Results & Data Laboratory Results Laboratory Results - last 24 hr 05/02/18 05/02/18 05/02/18 18:15 18:15 18:15 WBC 12.92 H RBC 5.24 Hgb 15.8 Hct 45.7 MCV 87.2 MCH 30.2 MCHC 34.6 RDW Std Deviation 44.5 RDW Coeff of Juanjose 14.0 Plt Count 324 MPV 10.3 Immature Gran % (Auto) 1.8 Neut % (Auto) 77.7 Lymph % (Auto) 15.8 [place] % (Auto) 4.6 Eos % (Auto) 0.0 Baso % (Auto) 0.1 Immature Gran # (Auto) 0.23 H Neut # (Auto) 10.05 H Lymph # (Auto) 2.04 [place] # (Auto) 0.59 Eos # (Auto) 0.00 Baso # (Auto) 0.01 Absolute Nucleated RBC Nucleated RBC % (auto) PT INR D-Dimer 400 Sample Site POC pH POC pCO2 POC pO2 POC HCO3 POC Total CO2 POC Base Excess ABG pH ABG pCO2 ABG pO2 ABG HCO3 POC ABG O2 Sat ABG O2 Saturation ABG Base Excess Collin Test Barometric Pressure Oxygen Given O2 Delivery Device POC O2 Rate POC FiO2 IPAP Sodium 139 Potassium 3.7 Chloride 105 Carbon Dioxide 25 Anion Gap 9.0 BUN 11 Creatinine 0.97 Est Cr Clr Drug Dosing Not Reportable Est GFR ( Amer) 74.6 Est GFR (Non-Af Amer) 64.4 BUN/Creatinine Ratio 11.7 Glucose 113 H POC Glucose Calcium 9.9 Phosphorus Magnesium 2.3 Total Bilirubin 0.5 AST 24 ALT 69 Alkaline Phosphatase 83 Total Protein 7.7 Albumin 4.1 Globulin 3.6 Albumin/Globulin Ratio 1.1 Procalcitonin Nasal Screen MRSA (PCR) Influenza Type A (PCR) Influenza Type B (PCR) 03/09/1305/02/18 05/02/18 18:15 18:15 18:20 WBC RBC Hgb Hct MCV MCH MCHC RDW Std Deviation RDW Coeff of Juanjose Plt Count MPV Immature Gran % (Auto) Neut % (Auto) Lymph % (Auto) [place] % (Auto) Eos % (Auto) Baso % (Auto) Immature Gran # (Auto) Neut # (Auto) Lymph # (Auto) [place] # (Auto) Eos # (Auto) Baso # (Auto) Absolute Nucleated RBC Nucleated RBC % (auto) PT 10.1 INR 1.0 D-Dimer Sample Site POC pH POC pCO2 POC pO2 POC HCO3 POC Total CO2 POC Base Excess ABG pH 7.54 H* ABG pCO2 22 L ABG pO2 103 H ABG HCO3 19 POC ABG O2 Sat ABG O2 Saturation 98.4 H ABG Base Excess -1.4 Collin Test Pos Barometric Pressure 738.2 Oxygen Given ROOM AIR O2 Delivery Device POC O2 Rate POC FiO2 IPAP Sodium Potassium Chloride Carbon Dioxide Anion Gap BUN Creatinine Est Cr Clr Drug Dosing Est GFR ( Amer) Est GFR (Non-Af Amer) BUN/Creatinine Ratio Glucose POC Glucose Calcium Phosphorus Magnesium Cancelled Total Bilirubin AST ALT Alkaline Phosphatase Total Protein Albumin Globulin Albumin/Globulin Ratio Procalcitonin Nasal Screen MRSA (PCR) Influenza Type A (PCR) Influenza Type B (PCR) 05/02/18 05/02/18 05/02/18 19:40 19:40 20:42 WBC RBC Hgb Hct MCV MCH MCHC RDW Std Deviation RDW Coeff of Juanjose Plt Count MPV Immature Gran % (Auto) Neut % (Auto) Lymph % (Auto) [place] % (Auto) Eos % (Auto) Baso % (Auto) Immature Gran # (Auto) Neut # (Auto) Lymph # (Auto) [place] # (Auto) Eos # (Auto) Baso # (Auto) Absolute Nucleated RBC Nucleated RBC % (auto) PT INR D-Dimer Sample Site L Radial POC pH 7.44 POC pCO2 36 POC pO2 118 H POC HCO3 25 H POC Total CO2 26 POC Base Excess 0.0 ABG pH ABG pCO2 ABG pO2 ABG HCO3 POC ABG O2 Sat 99.0 H ABG O2 Saturation ABG Base Excess Collin Test Pass Barometric Pressure Oxygen Given O2 Delivery Device BIPAP POC O2 Rate 12 POC FiO2 40 IPAP 12 Sodium Potassium Chloride Carbon Dioxide Anion Gap BUN Creatinine Est Cr Clr Drug Dosing Est GFR ( Amer) Est GFR (Non-Af Amer) BUN/Creatinine Ratio Glucose POC Glucose Calcium Phosphorus Magnesium Total Bilirubin AST ALT Alkaline Phosphatase Total Protein Albumin Globulin Albumin/Globulin Ratio Procalcitonin Nasal Screen MRSA (PCR) Negative Influenza Type A (PCR) Neg for Influ A Influenza Type B (PCR) Neg for Influ B 05/02/18 05/03/18 05/03/18 21:11 04:19 04:19 WBC 11.16 H RBC 4.70 Hgb 14.3 Hct 41.4 MCV 88.1 MCH 30.4 MCHC 34.5 RDW Std Deviation 45.2 RDW Coeff of Juanjose 13.9 Plt Count 283 MPV 10.0 Immature Gran % (Auto) 1.2 Neut % (Auto) 86.7 Lymph % (Auto) 10.5 [place] % (Auto) 1.5 Eos % (Auto) 0.0 Baso % (Auto) 0.1 Immature Gran # (Auto) 0.13 H Neut # (Auto) 9.68 H Lymph # (Auto) 1.17 L [place] # (Auto) 0.17 Eos # (Auto) 0.00 Baso # (Auto) 0.01 Absolute Nucleated RBC 0.02 H Nucleated RBC % (auto) 0.2 PT INR D-Dimer Sample Site POC pH POC pCO2 POC pO2 POC HCO3 POC Total CO2 POC Base Excess ABG pH ABG pCO2 ABG pO2 ABG HCO3 POC ABG O2 Sat ABG O2 Saturation ABG Base Excess Collin Test Barometric Pressure Oxygen Given O2 Delivery Device POC O2 Rate POC FiO2 IPAP Sodium 138 Potassium 4.1 Chloride 105 Carbon Dioxide 28 Anion Gap 5.0 BUN 13 Creatinine 0.77 Est Cr Clr Drug Dosing 79.8 Est GFR ( Amer) 98.6 Est GFR (Non-Af Amer) 85.1 BUN/Creatinine Ratio 16.4 Glucose 178 H POC Glucose 138 H Calcium 8.5 Phosphorus 3.9 Magnesium 2.6 H Total Bilirubin AST ALT Alkaline Phosphatase Total Protein Albumin Globulin Albumin/Globulin Ratio Procalcitonin Nasal Screen MRSA (PCR) Influenza Type A (PCR) Influenza Type B (PCR) 05/03/18 05/03/18 04:19 11:27 WBC RBC Hgb Hct MCV MCH MCHC RDW Std Deviation RDW Coeff of Juanjose Plt Count MPV Immature Gran % (Auto) Neut % (Auto) Lymph % (Auto) [place] % (Auto) Eos % (Auto) Baso % (Auto) Immature Gran # (Auto) Neut # (Auto) Lymph # (Auto) [place] # (Auto) Eos # (Auto) Baso # (Auto) Absolute Nucleated RBC Nucleated RBC % (auto) PT INR D-Dimer Sample Site POC pH POC pCO2 POC pO2 POC HCO3 POC Total CO2 POC Base Excess ABG pH ABG pCO2 ABG pO2 ABG HCO3 POC ABG O2 Sat ABG O2 Saturation ABG Base Excess Collin Test Barometric Pressure Oxygen Given O2 Delivery Device POC O2 Rate POC FiO2 IPAP Sodium Potassium Chloride Carbon Dioxide Anion Gap BUN Creatinine Est Cr Clr Drug Dosing Est GFR ( Amer) Est GFR (Non-Af Amer) BUN/Creatinine Ratio Glucose POC Glucose 134 H Calcium Phosphorus Magnesium Total Bilirubin AST ALT Alkaline Phosphatase Total Protein Albumin Globulin Albumin/Globulin Ratio Procalcitonin < 0.05 Nasal Screen MRSA (PCR) Influenza Type A (PCR) Influenza Type B (PCR)
[2018-05-03] MEDS: FORMOTEROL INH SCH ×2 (09:29→20:34)
[2018-05-03] MEDS: AMLODIPINE BESYLATE 5 MG TAB PO SCH (09:29)
[2018-05-03] MEDS: PANTOprazole 40 MG TAB PO SCH (09:29)
[2018-05-03] MEDS: MOMETASONE INH SCH ×2 (09:29→20:34)
[2018-05-03] MEDS ORDERED: PANTOprazole 40 MG in SYRINGE 0 ML IV SCH (11:00)
[2018-05-04] MEDS: methylPREDNISolone 80 MG in SYRINGE 0 ML IV SCH ×3 (01:54→18:09)
[2018-05-04] MEDS: IPRATROPIUM BROMIDE NEB SOLN 0.02% 2.5 ML VIAL INH SCH ×6 (03:04→23:03)
[2018-05-04] MEDS: LEVALBUTEROL HCL 0.63 MG/3 ML NEB NEB SCH ×6 (03:04→23:03)
[2018-05-04] MEDS: HEPARIN SOD 5,000 UNIT/0.5 ML VIAL SQ SCH ×3 (05:36→21:18)
[2018-05-04] MEDS: FLUTICASONE PROPIONATE NA SPR 16 GM BTL SCH (08:15)
[2018-05-04] MEDS: PANTOprazole 40 MG TAB PO SCH (08:16)
[2018-05-04] MEDS: MONTELUKAST SODIUM 10 MG TABLET PO SCH (08:17)
[2018-05-04] MEDS: MOMETASONE INH SCH ×2 (08:17→20:30)
[2018-05-04] MEDS: FORMOTEROL INH SCH ×2 (08:17→20:30)
[2018-05-04] MEDS: AMLODIPINE BESYLATE 5 MG TAB PO SCH (08:17)
[2018-05-04 08:40] LABS: Magnesium 2.7 mg/dl (1.8-2.4); Phosphorus 3.5 mg/dl (2.5-4.9)
--- NOTE | 2018-05-04 11:31 | Pulmonology Progress Note ---
Date of Service May 04, 2018 Assessment & Plan (1) Admitted to intensive care unit: The patient has improved significantly since admission. Her breathing is improved her wheezing is improved. We are going to continue with the current management as prescribed. Also BiPAP as prescribed. She will continue to use BiPAP at night because she has been using CPAP at night at home for her sleep apnea syndrome. We will start changing her steroids from tomorrow. She will be out of bed to chair and ambulation in the room with oxygen. Also DVT prophylaxis and she has been explained about that as well. I will spent greater than 35 minutes of clinical time. I have also discussed with the family by the bedside in detail answered all the questions and I have also discussed with the primary care physician. (2) Acute respiratory failure: (3) Sleep apnea: (4) Acute asthma exacerbation: (5) Nocturnal hypoxemia: (6) Allergic rhinitis: Subjective The patient was seen and examined by myself. She remained on BiPAP during the night. Overall her breathing seems to be improving. Her wheezing has improved and still has some minimal cough but she feels that she has improved from the admission. Denies having any tightness in her chest or chest pain. No fever no chills no hemoptysis no chest pain. Also denies having any abdominal pain or nausea or vomiting. Denies having any headache dizziness or syncopal episode. Physical Exam Vital Signs (Past 24 Hours): Last Vital Signs Temp 36.9 C 05/04/18 07:01 Pulse 92 H 05/04/18 11:10 Resp 16 05/04/18 11:10 BP 129/76 05/04/18 07:01 Pulse Ox 93 05/04/18 11:10 Physical Exam: Middle aged female sitting in the bed off the BiPAP and still somewhat shortness of breath and wheezing. Not in any acute distress. Overall her breathing is improved significantly. HEENT: PERRL. Sclera is in icterus. Conjunctivae is clear. Pupils are reactive to light. NECK: The neck is supple, no JVD, no cervical or supraclavicular lymphadenopathy. RESPIRATORY: Bilateral decreased breath sounds, coarse breathing, improved wheezing, no crackles heard. CARDIOVASCULAR: S1-S2 heard regular rate and rhythm. No murmur no rubs no gallops. GASTROINTESTINAL: Abdomen is soft nontender, no hepatosplenomegaly, bowel sounds are positive. MUSCULOSKELETAL: No clubbing no edema no swollen joints. SKIN: No rash, no lesion seen. NEUROLOGIC: The patient is alert awake and oriented x3. The pupils are reactive to light and accommodation. She is moving all her extremities and there is no neuro deficit. PSYCHIATRIC: The patient has good affect and is relaxed at this time. Results & Data Laboratory Results Abnormal lab results 05/03/18 05/04/18 Range/Units 11:27 07:47 POC Glucose 134 H (70-99) Magnesium 2.7 H (1.8-2.4) mg/dl Medications Administered Current Inpatient Medications Acetaminophen (Tylenol) 650 mg PO Q4H PRN PRN Reason: pain/fever Stop: 06/01/18 17:58 Last Admin: 05/04/18 08:26 Dose: 650 mg Documented by: Amlodipine Besylate (Norvasc) 10 mg PO DAILY PIO Stop: 06/02/18 08:59 Last Admin: 05/04/18 08:17 Dose: 10 mg Documented by: Fluticasone Propionate (Flonase) 2 sprays NA DAILY PIO Stop: 06/03/18 08:59 Last Admin: 05/04/18 08:15 Dose: 2 sprays Documented by: Heparin Sodium (Porcine) (Heparin Sodium (Porcine)) 5,000 units SQ Q8 PIO Stop: 06/01/18 21:59 Last Admin: 05/04/18 05:36 Dose: 5,000 units Documented by: Methylprednisolone 80 mg/ (Syringe) 1.28 mls @ 1.5 mls/min IV Q8H PIO Stop: 06/02/18 09:59 Last Admin: 05/04/18 09:28 Dose: 1.5 mls/min Documented by: Ipratropium [place] (Atrovent 0.02% 0.5mg/2.5ml) 0.5 mg INH Q4R PIO Stop: 06/01/18 19:59 Last Admin: 05/04/18 11:09 Dose: 0.5 mg Documented by: Levalbuterol HCl (Xopenex 0.63 Mg/3 Ml Neb) 0.63 mg NEB Q4R PIO Stop: 06/01/18 19:59 Last Admin: 05/04/18 11:09 Dose: 0.63 mg Documented by: Miscellaneous (Icu Protocol For Hyperglycemia) 1 ea N/A PRN PRN; Protocol PRN Reason: Hyperglycemia Protocol Stop: 05/04/18 20:04 Mometasone Furoate/Formoterol Fumar (Dulera Inhaler) 2 ea INH BID [facility] Stop: 06/02/18 08:59 Last Admin: 05/04/18 08:17 Dose: 2 ea Documented by: Montelukast Sodium (Singulair) 10 mg PO DAILY [facility] Stop: 06/02/18 08:59 Last Admin: 05/04/18 08:17 Dose: 10 mg Documented by: Pantoprazole Sodium (Protonix) 40 mg PO QAM [facility] Stop: 05/05/18 09:01 Last Admin: 05/04/18 08:16 Dose: 40 mg Documented by:
--- NOTE | 2018-05-04 13:46 | Hospitalist Progress Note ---
Date of Service May 04, 2018 Assessment & Plan (1) Acute respiratory failure: presented with hypoxia , SOB with audible wheeze, failed out pt tx with IV solu medrol , neb tx possible status asthmaticus secondary to environmental trigger ? pt reports of exposure to perfume in last week -while having lab draw at [facility] stated to have bronchospasm , with minimum relief with rescue inhaler/Neb tx /Medrol Dose pack was seen by Family physician and Pulmonology , was treated with IV solu medrol X3 days /levaquin wheeze and sob improved a bit with 3rd day of out pt IV steroid was sent to ER from Pulm office for worsening of symptoms : significant respiratory distress with SOB, wheezing, hyperventilating. She was given xopenex/atrovent neb and placed on bipap. Also given solumedrol 60mg IV. ABG:pH: 7.5, pCO2: 22, pO2: 103, HCO3: 19 Required transfer to the ICU overnight for closer monitoring Placed on BiPAP, sentimental IV, nebulizer treatments respiratory status improved /stabilized got tx out of ICU pt is now in telemetry Continue Solu-Medrol 80 mg every 8 hours, nebs [id number] Continue to monitor closely pulmonology following closely Long d/w pt regarding Follow up with prevention specialist to detect - Envioronmental Allegen and possible tx for desesitization was seen by prevention specialist in [place] Dr Ku approx 2 yrs back was found to be allergic to Pollen , Cat dender, Lavender , laundry detergent , Clorax did not recieve any Allergy shots or desensitization tx pt is counselled to have referral to prevention specialist after acute pulm issues are resolved given severity of symptom and minimum response to steroids , pt will benefit with Allergey /Hypersensitivity tx Present on Admission?: Yes (2) Asthma: chronic hypersensitive air way disease usually triggered by environmental sources manamegent as outlined above Present on Admission?: Yes (3) Sleep apnea: cont CPAP at night pt can use her own machine (4) Nocturnal hypoxemia: Uses CPAP with 4L Oxygen HS at home (5) Hypertension: On atenolol DVT Prophylaxis -Heparin SQ Full Code as per discussion with pt Follows with Dr Bailey for routine care DISPOSITION: Expected to be discharged home when respiratory distress /asthma exacerbation resolved Subjective pt reports of feeling a bit better since admission still having bouts of coughing audible wheeze no fever or chills required to be on Bipap for few hours today willing to try her own CPAP machine tonight present at bedside Physical Exam Vital Signs (Past 24 Hours): Last Vital Signs Temp 36.8 C 05/04/18 11:37 Pulse 93 H 05/04/18 11:37 Resp 20 05/04/18 11:37 BP 131/68 05/04/18 11:37 Pulse Ox 93 05/04/18 11:37 Constitutional: WD/WN, vitals as above in moderate distress due to coughing spell Eyes: PERRL, conjunctivae normal, anicteric sclerae ENMT: external ear and nose normal, oropharynx normal Neck: trachea midline, no thyromegaly Respiratory: + respiratory distress, + cough, + tachypneic, + prolonged exp iratory phase and + audible wheezes; + not able to speak in complete sentence Auscultation: + wheezes Cardiovascular: RRR, no murmur, no edema Gastrointestinal (Abdomen): normal bowel sounds, soft, nontender, no hepatosplenomegaly Musculoskeletal: no cyanosis or clubbing, extremities motor strength 5/5 Skin: no rashes, warm and dry Neurologic: PERRL, EOMI, accommodation nl, no face palsy, no dysarthria Psychiatric: A+Ox3, euthymic affect
[2018-05-05] MEDS: LEVALBUTEROL HCL 0.63 MG/3 ML NEB NEB SCH ×6 (03:40→23:16)
[2018-05-05] MEDS: IPRATROPIUM BROMIDE NEB SOLN 0.02% 2.5 ML VIAL INH SCH ×6 (03:40→23:16)
[2018-05-05] MEDS: methylPREDNISolone 80 MG in SYRINGE 0 ML IV SCH ×2 (04:32→10:09)
[2018-05-05] MEDS: HEPARIN SOD 5,000 UNIT/0.5 ML VIAL SQ SCH ×3 (05:37→22:37)
[2018-05-05] MEDS: PSYLLIUM 58.6% POWDER PACKET PO PRN (08:24)
[2018-05-05 08:25] LABS: Magnesium 2.5 mg/dl (1.8-2.4); Phosphorus 3.6 mg/dl (2.5-4.9)
[2018-05-05] MEDS: AMLODIPINE BESYLATE 5 MG TAB PO SCH (08:25)
[2018-05-05] MEDS: PANTOprazole 40 MG TAB PO SCH (08:26)
[2018-05-05] MEDS: MONTELUKAST SODIUM 10 MG TABLET PO SCH (08:27)
[2018-05-05] MEDS: FLUTICASONE PROPIONATE NA SPR 16 GM BTL SCH (08:28)
[2018-05-05] MEDS: FORMOTEROL INH SCH ×2 (08:28→22:13)
[2018-05-05] MEDS: MOMETASONE INH SCH ×2 (08:28→22:13)
--- NOTE | 2018-05-05 16:53 | Hospitalist Progress Note ---
Date of Service May 05, 2018 Assessment & Plan (1) Acute respiratory failure: presented with hypoxia , SOB with audible wheeze, failed out pt tx with IV solu medrol , neb tx possible status asthmaticus secondary to environmental trigger ? pt reports of exposure to perfume in last week -while having lab draw at [facility] stated to have bronchospasm , with minimum relief with rescue inhaler/Neb tx /Medrol Dose pack was seen by Family physician and Pulmonology , was treated with IV solu medrol X3 days /levaquin wheeze and sob improved a bit with 3rd day of out pt IV steroid was sent to ER from Pulm office for worsening of symptoms : significant respiratory distress with SOB, wheezing, hyperventilating. She was given xopenex/atrovent neb and placed on bipap. Also given solumedrol 60mg IV. ABG:pH: 7.5, pCO2: 22, pO2: 103, HCO3: 19 Required transfer to the ICU overnight for closer monitoring Placed on BiPAP, sentimental IV, nebulizer treatments respiratory status improved /stabilized got tx out of ICU respiratory status much improved today will start to wean down IV solu Medrol and tansition to PO Prednisone tomorrow pulmonology following closely Long d/w pt regarding Follow up with hearing specialist to detect - Envioronmental Allegen and possible tx for desesitization was seen by hearing specialist in [place] Dr Ku approx 2 yrs back was found to be allergic to Pollen , Cat dender, Lavender , laundry detergent , Clorax did not recieve any Allergy shots or desensitization tx pt is counselled to have referral to hearing specialist after acute pulm issues are resolved given severity of symptom and minimum response to steroids , pt will benefit with Allergey /Hypersensitivity tx (2) Asthma: chronic hypersensitive air way disease usually triggered by environmental sources manamegent as outlined above (3) Sleep apnea: cont CPAP at night pt has been using her own machine (4) Nocturnal hypoxemia: Uses CPAP with 4L Oxygen HS at home (5) Hypertension: On atenolol DVT Prophylaxis -Heparin SQ Full Code as per discussion with pt Follows with Dr Bailey for routine care DISPOSITION: Expected to be discharged home when respiratory distress /asthma exacerbation resolved Subjective feels much better today cough and wheeze has resolved hoarseness of voice has improved afebrile willing to walk out in the hallway Physical Exam Vital Signs (Past 24 Hours): Last Vital Signs Temp 36.9 C 05/05/18 15:42 Pulse 110 H 05/05/18 15:42 Resp 19 05/05/18 15:42 BP 143/87 H 05/05/18 15:42 Pulse Ox 92 05/05/18 15:42 Constitutional: WD/WN, vitals as above Eyes: PERRL, conjunctivae normal, anicteric sclerae ENMT: external ear and nose normal, oropharynx normal Neck: trachea midline, no thyromegaly Respiratory: normal respiratory effort; no respiratory distress and no cough minimum wheeze, much improved from prior Cardiovascular: RRR, no murmur, no edema Gastrointestinal (Abdomen): normal bowel sounds, soft, nontender, no hepatosplenomegaly Musculoskeletal: no cyanosis or clubbing, extremities motor strength 5/5 Skin: no rashes, warm and dry Neurologic: PERRL, EOMI, accommodation nl, no face palsy, no dysarthria Psychiatric: A+Ox3, euthymic affect
--- NOTE | 2018-05-05 17:51 | Pulmonology Progress Note ---
Date of Service May 05, 2018 Assessment & Plan (1) Admitted to intensive care unit: The patient has improved significantly since admission. Her breathing has improved her wheezing has also improved. We are going to continue with the current management as prescribed. Also BiPAP as needed and at night. She will continue to use BiPAP at night because she has been using CPAP at night at home for her sleep apnea syndrome. Currently her Solu-Medrol is 60 mg IV every 12 hours. She is out of bed to chair and ambulation in the room without oxygen and is not in any distress. Also DVT prophylaxis and she has been explained about that as well. I will spent greater than 35 minutes of clinical time. I have also discussed with the family by the bedside in detail answered all the questions and I have also discussed with the primary care physician. (2) Acute respiratory failure: (3) Sleep apnea: (4) Acute asthma exacerbation: (5) Nocturnal hypoxemia: (6) Allergic rhinitis: Subjective The patient was seen and examined by myself. The patient is sitting in the chair and is off the O2 and BiPAP and is overall is doing better. Breathing and cough and oxygenation has improved significantly. Currently she is still on IV Solu-Medrol 60 mg every 12 hours. Overall she is doing much better. Is also ambulating in the room and she is not getting short of breath. Physical Exam Vital Signs (Past 24 Hours): Last Vital Signs Temp 36.9 C 05/05/18 15:42 Pulse 110 H 05/05/18 15:42 Resp 19 05/05/18 15:42 BP 143/87 H 05/05/18 15:42 Pulse Ox 92 05/05/18 15:42 Physical Exam: Middle aged female sitting in the chair off the BiPAP andalso off the O2 and is not SOB or wheezing or cough. Not in any acute distress. Overall her breathing has improved significantly. HEENT: PERRL. Sclera is in icterus. Conjunctivae is clear. Pupils are reactive to light. NECK: The neck is supple, no JVD, no cervical or supraclavicular lymphadenopathy. RESPIRATORY: Bilateral improved breathing. No wheezing no crackles no rhonchi heard. CARDIOVASCULAR: S1-S2 heard regular rate and rhythm. No murmur no rubs no gallops. GASTROINTESTINAL: Abdomen is soft nontender, no hepatosplenomegaly, bowel sounds are positive. MUSCULOSKELETAL: No clubbing no edema no swollen joints. SKIN: No rash, no lesion seen. NEUROLOGIC: The patient is alert awake and oriented x3. The pupils are reactive to light and accommodation. She is moving all her extremities and there is no neuro deficit. PSYCHIATRIC: The patient has good affect and is relaxed at this time.
[2018-05-05] MEDS ORDERED: methylPREDNISolone 60 MG in SYRINGE 0 ML IV SCH (21:00)
[2018-05-06] MEDS: LEVALBUTEROL HCL 0.63 MG/3 ML NEB NEB SCH ×6 (03:29→22:58)
[2018-05-06] MEDS: IPRATROPIUM BROMIDE NEB SOLN 0.02% 2.5 ML VIAL INH SCH ×6 (03:29→22:58)
[2018-05-06] MEDS: HEPARIN SOD 5,000 UNIT/0.5 ML VIAL SQ SCH ×3 (06:19→20:47)
[2018-05-06] MEDS ORDERED: predniSONE 20 MG TAB PO SCH (09:00)
[2018-05-06] MEDS: MONTELUKAST SODIUM 10 MG TABLET PO SCH (09:05)
[2018-05-06] MEDS: AMLODIPINE BESYLATE 5 MG TAB PO SCH (09:05)
[2018-05-06] MEDS: FORMOTEROL INH SCH ×2 (09:07→20:27)
[2018-05-06] MEDS: FLUTICASONE PROPIONATE NA SPR 16 GM BTL SCH (09:07)
[2018-05-06] MEDS: MOMETASONE INH SCH ×2 (09:07→20:27)
[2018-05-06] MEDS: PSYLLIUM 58.6% POWDER PACKET PO PRN (10:04)
[2018-05-06] MEDS ORDERED: XOPENEX/ATROVENT 1.25mg/0.5MG NEB COMBO NEB STA (10:46)
[2018-05-06] MEDS ORDERED: methylPREDNISolone 20 MG in SYRINGE 0 ML IV STA (10:58)
[2018-05-06] MEDS ORDERED: IPRATROPIUM BROMIDE NEB SOLN 0.02% 2.5 ML VIAL INH ONE (11:00)
[2018-05-06] MEDS ORDERED: LEVALBUTEROL 1.25MG/0.5ML NEB INH ONE (11:00)
--- NOTE | 2018-05-06 15:17 | Hospitalist Progress Note ---
Date of Service May 06, 2018 Assessment & Plan (1) Acute respiratory failure: presented with hypoxia , SOB with audible wheeze, failed out pt tx with IV solu medrol , neb tx possible status asthmaticus secondary to environmental trigger ? pt reports of exposure to perfume in last week -while having lab draw at [facility] stated to have bronchospasm , with minimum relief with rescue inhaler/Neb tx /Medrol Dose pack was seen by Family physician and Pulmonology , was treated with IV solu medrol X3 days /levaquin wheeze and sob improved a bit with 3rd day of out pt IV steroid was sent to ER from Pulm office for worsening of symptoms : significant respiratory distress with SOB, wheezing, hyperventilating. She was given xopenex/atrovent neb and placed on bipap. Also given solumedrol 60mg IV. ABG:pH: 7.5, pCO2: 22, pO2: 103, HCO3: 19 Required transfer to the ICU overnight for closer monitoring Placed on BiPAP, sentimental IV, nebulizer treatments respiratory status improved /stabilized got tx out of ICU respiratory status much improved today developed worsening of bronchospasm while trying to switch to PO Prednisone IV solu medrol restarted will need slow taper pulmonology following closely Long d/w pt regarding Follow up with skin care specialist to detect - Envioronmental Allegen and possible tx for desesitization was seen by skin care specialist in [place] Dr Ku approx 2 yrs back was found to be allergic to Pollen , Cat dender, Lavender , laundry detergent , Clorax did not recieve any Allergy shots or desensitization tx pt is counselled to have referral to skin care specialist after acute pulm issues are resolved given severity of symptom and minimum response to steroids , pt will benefit with Allergey /Hypersensitivity tx (2) Asthma: chronic hypersensitive air way disease usually triggered by environmental sources manamegent as outlined above (3) Sleep apnea: cont CPAP at night pt has been using her own machine (4) Nocturnal hypoxemia: Uses CPAP with 4L Oxygen HS at home (5) Hypertension: On atenolol DVT Prophylaxis -Heparin SQ Full Code as per discussion with pt Follows with Dr Bailey for routine care DISPOSITION: Expected to be discharged home when respiratory distress /asthma exacerbation resolved Subjective started to have SOB /wheeze after steroid being weaned off re started IV solu medrol Pulm Dr Barrientos updated Physical Exam Vital Signs (Past 24 Hours): Last Vital Signs Temp 37.2 C 05/06/18 11:36 Pulse 95 H 05/06/18 11:36 Resp 16 05/06/18 11:36 BP 131/85 05/06/18 11:36 Pulse Ox 98 05/06/18 11:36 Constitutional: WD/WN, vitals as above Eyes: PERRL, conjunctivae normal, anicteric sclerae ENMT: external ear and nose normal, oropharynx normal Neck: trachea midline, no thyromegaly Respiratory: normal respiratory effort; no respiratory distress and no cough Auscultation: + wheezes Cardiovascular: RRR, no murmur, no edema Gastrointestinal (Abdomen): normal bowel sounds, soft, nontender, no hepatosplenomegaly Musculoskeletal: no cyanosis or clubbing, extremities motor strength 5/5 Skin: no rashes, warm and dry Neurologic: PERRL, EOMI, accommodation nl, no face palsy, no dysarthria Psychiatric: A+Ox3, euthymic affect
[2018-05-06] MEDS: methylPREDNISolone 60 MG in SYRINGE 0 ML IV SCH (20:27)
--- NOTE | 2018-05-07 01:59 | Consultation Report ---
DATE OF CONSULTATION: 05/06/2018 REASON FOR CONSULTATION: Chronic persistent asthma. 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 She was admitted on 05/02/2018 onto the hospitalist service with acute respiratory failure and apparent status asthmaticus. She has a past history of asthma and has been followed by Dr. Felix, an surveyor helper and metal sprayer with the [facility]. She was seen there by Dr. Felix at the request of Elmira Veronica, the INFORMATION SERVICES VICE PRESIDENT who works at the allergy and immunology center at [facility] and was seen by Dr. Felix at her request. Dr. Felix writes the patient has had episodes prior to 09/12/2016 over the past year where intense shortness of breath and difficulty breathing ensues following strong smelling odors like chemicals at work, smoke, perfumes. She feels like her throat is closing and she gets stridorous. She has gone to the Emergency Room several times and received racemic epinephrine. She has been diagnosed with asthma and has been prescribed Dulera, Spiriva, Combivent, and nebulized Xopenex in the past. There is no history of asthma in her childhood or young adult years. She also gets chronic nasal congestion and postnasal drip. Tends to become hoarse and lose her voice. She is a loud snorer. She has had prolonged hospitalizations in February 2016 and in June of 2016 with the triggering factors being smells, odors, smoke, and weather changes. In June of 2016, there was no discernible trigger. She has been on Singulair and Zyrtec in the past for chronic nasal symptoms. She did have serum IgE determination in 2009 and there was a suggestion of cat sensitivity. 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 She gets mouth sores from walnuts, which she avoids, and had a severe reaction to Bactrim in the past, perhaps even DRESS syndrome including reaction to ibuprofen. She has seen Dr. Leiva from ENT without any laryngeal abnormalities seen. She lives in a 1-story house with oil forced air, heat, and air conditioning in the dining room and bedroom. The basement is finished and dry with a dehumidifier. She has in the past used scented air fresheners in the home. She has 1 dog. The bedroom on the first floor has hardwood and she has a foam pillow. Skin testing on 09/12/2016 revealed all negative results in the face of adequate positive histamine controls. CAT scan of the thorax in April 2016 was compared to previous CT scan which showed a small 3-mm right lower lobe nodule including other subcentimeter nodules that were stable. She did have bibasilar and right middle lobe as well as lingular consolidation in the past that have resolved. IgE levels were 19.6 kU/L on 03/15/2016. She was also diagnosed with vocal cord dysfunction. Dr. Boyce saw patient on 04/06/2016 and felt that her hypoxemia was from prolonged steroid use and thought that previous CT scanning abnormalities had suggested a possible diagnosis of cryptogenic organizing pneumonia, which has never been proven by biopsy. Her hypoxemia has improved. She did apparently undergo bronchoscopy with BAL with Dr. Kurtz several years ago and those records are forthcoming. She states that the BAL fluid or lavage aspirate showed eosinophils. Dr. Kurtz alluded to the possibility of targeted monotherapy in the future. When her breathing became worse, she was transferred to the ICU on 05/02/[address] Sienna Ho. Patient was placed on BiPAP, IV Solu-Medrol 80 mg q. 6 hours along with aerosolized bronchodilator was utilized. Slowly she began to improve and was transferred to the medical floor, but today in addition to her 40 mg of prednisone, was given an added dose of IV Solu-Medrol with significant improvement. She has never demonstrated hemoptysis and does not have pleuritic pain. She is quite emotionally labile about her clinical course and labile treatment response. Chest x-ray during this hospitalization showed no acute findings. ABGs on the evening of 05/02/2018 revealed a pH 7.54, pCO2 of 22, pO2 of 103 on low flow O2. Dr. Zhou saw her in consultation during the admission in February 2016. Prior to that year, she has been able to run and exercise and do 5 K runs. For details of past medical history, medications, family and social history, I refer you to current and past record. PHYSICAL EXAMINATION: GENERAL: Well-developed, cushingoid, white female, appearing in mild respiratory distress. CURRENT VITAL SIGNS: Blood pressure 103/67, pulse 90 and regular, respiratory rate 18, temperature 37, O2 sat 98%. No longer on BiPAP, which is on 4 liters. SKIN: Without lesion. HEENT: Atraumatic, normocephalic. PERRLA. EOMI. Conjunctivae pale. Sclerae nonicteric. Fundi poorly visualized. NECK: Neck veins are not distended at 45 degrees. Notes adenopathy in the supra and infraclavicular areas. LUNGS: Distant P and A, occasional wheeze. No inspiratory stridor. CARDIAC: Regular rate and rhythm. No murmurs or gallops. ABDOMEN: Soft, protuberant. EXTREMITIES: No significant pedal edema, clubbing, or cyanosis. NEUROLOGICAL: Intact. No lateralizing signs. LABORATORY DATA: Additional lab, IgE was 111 on 03/19/2009. 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 I have asked for the records from Dr. Kurtz and her allergy workup in the past to be forwarded to me for reevaluation. I wonder whether this patient would respond to targeted therapy that could include either Nucala or Fasenra. We will make further recommendations once I have had a chance to review the old records.
[2018-05-07] MEDS: LEVALBUTEROL HCL 0.63 MG/3 ML NEB NEB SCH ×3 (03:23→11:01)
[2018-05-07] MEDS: IPRATROPIUM BROMIDE NEB SOLN 0.02% 2.5 ML VIAL INH SCH ×3 (03:23→11:02)
[2018-05-07] MEDS: HEPARIN SOD 5,000 UNIT/0.5 ML VIAL SQ SCH ×2 (05:58→13:37)
[2018-05-07] MEDS: methylPREDNISolone 60 MG in SYRINGE 0 ML IV SCH ×2 (08:04→21:29)
[2018-05-07] MEDS: AMLODIPINE BESYLATE 5 MG TAB PO SCH (08:06)
[2018-05-07] MEDS: FLUTICASONE PROPIONATE NA SPR 16 GM BTL SCH (08:07)
[2018-05-07] MEDS: FORMOTEROL INH SCH ×2 (08:07→21:29)
[2018-05-07] MEDS: MONTELUKAST SODIUM 10 MG TABLET PO SCH (08:07)
[2018-05-07] MEDS: MOMETASONE INH SCH ×2 (08:07→21:29)
[2018-05-07] MEDS: PSYLLIUM 58.6% POWDER PACKET PO PRN (09:23)
[2018-05-07] MEDS ORDERED: IPRATROPIUM BROMIDE NEB SOLN 0.02% 2.5 ML VIAL INH PRN (11:14)
[2018-05-07] MEDS ORDERED: LEVALBUTEROL HCL 0.63 MG/3 ML NEB NEB PRN (11:14)
[2018-05-07] MEDS: IPRATROPIUM BROMIDE/ALBUTEROL respimat INH INH SCH ×3 (13:35→21:29)
--- NOTE | 2018-05-07 15:04 | Hospitalist Progress Note ---
Date of Service May 07, 2018 Assessment & Plan (1) Acute asthma exacerbation: Likely secondary to irritants inhaled during an outpatient visit. She has done well on IV steroids and continues on these every 12 hours. Will defer to pulmonology for taper recommendations. Patient reports doing long tapers in the past and starting out at a dose as high as 60-80 mg of prednisone. Continue Combivent scheduled for now and nebulizer therapy as needed. Pulmonology trying to gather records for data in support of an allergic etiology. (2) Acute respiratory failure: resolved (3) Sleep apnea: Continue CPAP at night with 4 L oxygen piped in per respiratory notes. (4) Nocturnal hypoxemia: Uses CPAP with 4L Oxygen HS at home (5) Hypertension: Controlled on amlodipine. (6) DVT prophylaxis: Heparin Full Code Dispo-poss to home in 1-2 days. Pending recs for steroid taper from Pulmonology and good outpatient follow-up. Dionne Quiñones DO [facility] Hospitalist Subjective 57-year-old female with a history of asthma and nocturnal hypoxia presented as a direct admission from outpatient pulmonology for an acute asthma exacerbation. She reported shortness of breath and wheezing for 1.5 weeks it began after an exposure to perfume and is noted to be very sensitive to things of this nature. She had recently been seen in a walk-in clinic for wheezing and shortness of breath and had been on steroids. She also recently finished 5 days of Levaquin. Upon arrival she was in significant respiratory distress and was given Solu- Medrol 60 mg IV and placed on BiPAP. Duo nebs were started. She was transferred to the ICU for further observation. ABG was consistent with acute respiratory alkalosis with a pH of 7.54. Solu-Medrol was increased to 80 mg IV every 6 hours. She improved on BiPAP and appeared to be doing better the following day. She continued to gradually increase her activity. The patient reports today she feels better than she has a long time. She denies any shortness of breath and there was minimal coughing during the exam. There is no conversational dyspnea present. She is tolerating p.o., afebrile and excited for starting a prednisone taper with plans to go home. No other issues at this time. Physical Exam Vital Signs (Past 24 Hours): Last Vital Signs Temp 36.9 C 05/07/18 11:15 Pulse 96 H 05/07/18 11:15 Resp 18 05/07/18 11:15 BP 120/79 05/07/18 11:15 Pulse Ox 95 05/07/18 11:15 CONSTITUTIONAL: WNWD, vitals as above, generally well-appearing, voice sounds weak but no conversational dyspnea. EYES: normal conjuctivae, no scleral icterus ENT: MMM RESPIRATORY: clear to auscultation bilaterally, no crackles, rales or wheezes, normal respiratory effort CARDIOVASCULAR: regular rate and rhythm, S1 and 2 heard without murmurs, gallops or rubs, no JVD, no peripheral edema GASTROINTESTINAL: normal bowel sounds, soft, nontender, nondistended MUSCULOSKELETAL: strength 5/5 throughout, head is normocephalic and atraumatic, no gross focal deficits. SKIN: warm and dry NEUROLOGIC: No facial palsy, no dysarthria. CN 2-12 grossly intact, normal cognition, normal speech, no tremor PSYCHIATRIC: alert cooperative and oriented to person, place and time. Results & Data Medications Administered Current Inpatient Medications Acetaminophen (Tylenol) 650 mg PO Q4H PRN PRN Reason: pain/fever Stop: 06/01/18 17:58 Last Admin: 05/04/18 08:26 Dose: 650 mg Documented by: Albuterol (Combivent Respimat) 1 puffs INH QID [facility] Stop: 06/06/18 12:59 Last Admin: 05/07/18 13:35 Dose: 1 puffs Documented by: Amlodipine Besylate (Norvasc) 10 mg PO DAILY [facility] Stop: 06/02/18 08:59 Last Admin: 05/07/18 08:06 Dose: 10 mg Documented by: Fluticasone Propionate (Flonase) 2 sprays NA DAILY [facility] Stop: 06/03/18 08:59 Last Admin: 05/07/18 08:07 Dose: 2 sprays Documented by: Heparin Sodium (Porcine) (Heparin Sodium (Porcine)) 5,000 units SQ Q8 [facility] Stop: 06/01/18 21:59 Last Admin: 05/07/18 13:37 Dose: 5,000 units Documented by: Methylprednisolone 60 mg/ (Syringe) 0.96 mls @ 1.5 mls/min IV Q12 [facility] Stop: 06/05/18 20:59 Last Admin: 05/07/18 08:04 Dose: 1.5 mls/min Documented by: Ipratropium [place] (Atrovent 0.02% 0.5mg/2.5ml) 0.5 mg INH Q4R PRN PRN Reason: SOB or wheezing Stop: 06/01/18 19:59 Levalbuterol HCl (Xopenex 0.63 Mg/3 Ml Neb) 0.63 mg NEB Q4R PRN PRN Reason: SOB or wheezing Stop: 06/01/18 19:59 Mometasone Furoate/Formoterol Fumar (Dulera Inhaler) 2 ea INH BID [facility] Stop: 06/02/18 08:59 Last Admin: 05/07/18 08:07 Dose: 2 ea Documented by: Montelukast Sodium (Singulair) 10 mg PO DAILY [facility] Stop: 06/02/18 08:59 Last Admin: 05/07/18 08:07 Dose: 10 mg Documented by: Psyllium Hydrophilic Mucilloid (Metamucil) 1 pkt PO QAM PRN PRN Reason: constipation Stop: 06/03/18 18:44 Last Admin: 05/07/18 09:23 Dose: 1 pkt Documented by:
--- NOTE | 2018-05-07 18:17 | Progress Note ---
DATE: 05/07/2018 TIME: 1500. Chart reviewed, patient examined. SUBJECTIVE: The patient seems to be feeling much better today, much less air hunger and less distressed by her breathing. I have had a chance to review records from Dr. Felix from 2017 and that was included in my Pulmonary Medicine consultation. The patient was seen back in 2008 by AMANDA Perez for Dr. Felix and the patient at that time had been under the care of Dr. Multani, her primary care physician. She felt at that time that her symptoms were triggered by exposure to polyethylene that had been used to treat the wood structure of her cabin on 12/18/2008. She was seen 6 times in the office by Dr. Multani from 12/27/2008 to 01/25/2009. She was started on prednisone, Maxair, Tessalon Perles and Hycodan. Repeat prednisone with slow taper and then once again repeat prednisone taper for the third time later that month. Singulair was added. The lisinopril was discontinued and the patient was started on amlodipine. Apparently in 1981, she was admitted with an episode of pneumonia. 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 She has been treated for reflux as well. The patient did undergo bronchoscopic evaluation in 01/[address] Kurtz. She had mucoid secretions in the left lower lobe, right lower lobe and right upper lobe. BAL carried out. She relates that eosinophils were demonstrated in the bronchoalveolar lavage fluid. I need to check on that. 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 I will set up an appointment for her with Dr. Bradley for a second opinion and given the presence of a higher IgE level in the past and eosinophils seen from the bronchoalveolar lavage fluid (according to the patient to be confirmed) ; the patient may very well be a candidate for targeted monotherapy in the form of Nucala or Fasenra subQ. MTDD
[2018-05-08 07:35] LABS: Hematocrit (blood only) 44.3 % (37-47); Hemoglobin 14.8 g/dL (12.0-16.0); Mean Corpuscular Hgb Conc 33.4 g/dL (32-36); Mean Corpuscular Volume 88.6 fL (80-100); Mean Platelet Volume 10.6 fL (7.4-10.4); Platelet Count 279 K/uL (130-400); RDW Standard Deviation 45.2 fL (36.4-46.3); White Blood Count 23.38 K/uL (4.8-10.8)
[2018-05-08 07:53] LABS: BUN Creatinine Ratio 22.9 (10-20); Calcium 9.3 mg/dl (8.5-10.1); Creatinine Clr Calc Pharmacy 82.1 ml/min; Est GFR (African American) 98.6; Est GFR (Non-African American) 85.1; Potassium 4.1 mmol/L (3.5-5.1)
[2018-05-08] MEDS ORDERED: ENOXAPARIN INJ 40 MG/0.4 ML SYR SQ SCH (09:00)
[2018-05-08] MEDS: AMLODIPINE BESYLATE 5 MG TAB PO SCH (10:38)
[2018-05-08] MEDS: methylPREDNISolone 60 MG in SYRINGE 0 ML IV SCH (10:40)
[2018-05-08] MEDS: MONTELUKAST SODIUM 10 MG TABLET PO SCH (10:41)
[2018-05-08] MEDS: FLUTICASONE PROPIONATE NA SPR 16 GM BTL SCH (10:42)
[2018-05-08] MEDS: MOMETASONE INH SCH (10:42)
[2018-05-08] MEDS: FORMOTEROL INH SCH (10:42)
[2018-05-08] MEDS: IPRATROPIUM BROMIDE/ALBUTEROL respimat INH INH SCH ×2 (10:42→13:52)
[2018-05-08 15:58] VITALS: BP 130/81; TEMP 98.2; O2SAT 92
[2018-05-08] MEDS ORDERED: predniSONE 20 MG TAB PO STA (16:40)
[2018-05-08 16:58] VITALS: PULSE 72
--- NOTE | 2018-05-17 13:41 | Discharge Summary ---
Date of Service May 17, 2018 Admission HPI Per Admitting Provider Pt is 57 y/o F wtih PMH asthma, nocturnal hypoxemia, ADAMA on CPAP with 4L oxygen presented as direct admission from out patient pulmonology office for SOB. Reported pt was afebrile, O2 sats WNL, BP: 104/72, R: 20, P: 99 and pt with wheezes and given neb treatment with some improvement. Pt reported SOB and wheezing x 1.5 weeks that began after exposure to perfume. She states had followed up with PCP and walk in clinic for wheezing and SOB. Has been on medrol dose can, Solumedrol x 3 days and currently on prednisone. She is on day 5 Levaquin. Pt states continued SOB. Denied fever. States using xopenex nebs at home and has some cough after using neb, but otherwise denies cough. Having some intermittent dizziness. Denies YUSUF, hemoptysis, N/V/D, abdominal pain, CP, LE edema, rashes. Upon arrival to hospital pt in significant respiratory distress with SOB, wheezing, hyperventilating. She was given xopenex/atrovent neb and placed on bipap. Also given solumedrol 60mg IV. ABG:pH: 7.5, pCO2: 22, pO2: 103, HCO3: 19 After bipap placed, pt breathing a little easier, however still labored and wheezing. 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 Pt will be transferred to ICU for further observation and treatment. Admission Exam Per Admitting Provider Temp 36.8 C 05/02/18 18:04 Pulse 91 H 05/02/18 18:50 Resp 26 H 05/02/18 18:50 BP 157/109 H 05/02/18 18:50 Pulse Ox 100 05/02/18 18:50 Physical Exam: General:+respiratory distress, obese Head: normocephalic, atraumatic Eyes: conjunctiva non-injected, anicteric ENT: normal inspection external ears, nose, mucous membranes mildly dry Neck: supple, trachea midline Lungs: + respiratory distress, +tachypnea, accessory muscle use, Diminished breath sounds, +inspiratory and expiratory wheezing throughout CV: Pulse 104, regular rhythm, no murmur, no pretibial edema Abd: normal BS, soft, non-tender Ext: no cyanosis, no calf tenderness Neuro: A&O x 3, anxious Skin: warm, dry Principal Diagnosis Acute asthma exacerbation Acute respiratory failure-resolved Obstructive sleep apnea, on CPAP Nocturnal hypoxemia Hypertension Discharge Data Allergies Allergy/AdvReac Type Severity Reaction Status Date / Time promethazine Allergy Unknown HYPOTENSION Verified 03/19/17 15:36 sulfamethoxazole Allergy Unknown DRES Verified 03/19/17 15:36 SYNDROME trimethoprim Allergy Unknown DRES Verified 03/19/17 15:36 SYDNROME Consultations 05/02/18 19:44 Consult Acquisitions Assistant Routine 05/02/18 20:05 Consult Case Management - Discharge Planning Routine Hospital Course (1) Acute asthma exacerbation: (2) Acute respiratory failure: (3) Sleep apnea: (4) Nocturnal hypoxemia: (5) Hypertension: 57-year-old female with a history of asthma and nocturnal hypoxia presented as a direct admission from outpatient pulmonology for an acute asthma exacerbation. She reported shortness of breath and wheezing for 1.5 weeks it began after an exposure to perfume and is noted to be very sensitive to things of this nature. She had recently been seen in a walk-in clinic for wheezing and shortness of breath and had been on steroids prior to presentation. She had also recently finished 5 days of Levaquin. Upon arrival she was in significant respiratory distress and was given Solu-Medrol 60 mg IV and placed on BiPAP. Duo nebs were started. She was transferred to the ICU for for treatment of acute respiratory failure and further observation. ABG was consistent with acute respiratory alkalosis with a pH of 7.54. Solu-Medrol was increased to 80 mg IV every 6 hours. She improved on BiPAP and appeared to be doing better the following day. She continued to gradually increase her activity, and IV steroids were continued. She was evaluated by Pulmonology who recommended a long taper of prednisone starting around 50mg daily, however, the patient insisted she be started at no less than 60mg because in the past she had difficulties when tapering steroids too quickly. Close followup with Allergy/Immunology was strongly recommended to rule out an allergic component to these symptoms. By time of discharge shew as oxygenating well on room air and was asymptomatic. She was mentating and ambulating at baseline and was tolerating PO. Physical exam was unremarkable with clear lungs to auscultation. She was discharged in stable condition on a long, slow taper of prednisone with close primary care follow-up scheduled. Total Time Total Time Spent Total Time Spent (In Minutes): 60 Total Time Includes: Examination of the Patient, Discharge Planning, Medication Reconciliation and Communication With Other Providers Discharge Plan Discharge Items Patient Disposition: Home - Self-Care Reason For Visit: ASTHMA EXACERBATION Discharge Diagnosis: Acute asthma exacerbation Acute respiratory failure-resolved Obstructive sleep apnea, on CPAP Nocturnal hypoxemia Hypertension Condition: Good Discharge Goals: Decrease discomfort Activity: Resume your previous activity Non-emergency contact: Primary Care Provider Call non-emergency contact if: you have any medication questions Follow-up/Referrals: Shannan Bailey [Primary Care Provider] - Diet: Regular Addtl Provider Instructions: Please take all medications as instructed below. You are being placed on a prednisone taper starting at 60 mg daily and decreasing by 5 mg weekly. You are being prescribed the first month of this taper which may be adjusted by your outpatient provider. Please continue CPAP every night with supplemental oxygen as prescribed. Please follow-up with Dr. Bradley at [facility] Allergy/Immunology as instructed by Dr. Barrientos. Please follow-up with Dr. Barrientos at [facility] Pulmonology You have the following appointment: 05/10/2018 10:20 AM Provider Anuja Rodrigues MD [facility] You are not cleared to return to work until seen by your outpatient physician on follow-up. It was a pleasure taking care of you! Please call if you have any questions or problems. You can reach a [facility] hospitalist on duty at [facility] 24 hours a day by calling [phone]. Take care of yourself. Dionne Quiñones, [facility] Pres[facility]: New prednisone 20 mg tablet 20 mg PO UD Qty: 63 RF: 0 prednisone 5 mg tablet 5 mg PO UD Qty: 42 RF: 0 Continued amlodipine 10 mg tablet 1 tab PO DAILY RF: 0 fluticasone propionate 50 mcg/actuation [place],Suspension 2 spray INTRANASAL DAILY RF: 0 Combivent Respimat 20-100 mcg/actuation Mist 1 puff INHALATION QID RF: 0 levalbuterol HCl [Xopenex] 1.25 mg/3 mL Solution For Nebulization 1.25 mg INHALATION QID PRN (Reason: Shortness Of Breath Or Wheezing) RF: 0 loratadine 10 mg Tablet 10 mg PO DAILY PRN (Reason: allergic rhinitis) RF: 0 montelukast 10 mg Tablet 10 mg PO PM RF: 0 Dulera 200-5 mcg/actuation Hfa Aerosol Inhaler 2 puff INHALATION BID RF: 0 Oxygen Home Liters Per Minute RF: 0 Stand-Alone Forms: My [facility], Work/School Release (Inpt) Discharge Orders: Discharge Order (Routine); Ordered 05/08/18 Ordered By: Dionne Quiñones Admission Data Admit Date/Time: 05/02/18 17:20 Attending Provider: Dionne Quiñones Admit Provider: Michel Finn Primary Care Provider: Shannan Bailey Other Providers: Mike Bhakta Ibrahim A. Service: Medical Other Interventions: Discharge Summary Assessment (RN) Last Done: 05/08/18 16:56 DC Date/Time DO NOT enter until pt leaves facility: 05/08/18 17:53
== END 2018-05-08 17:53 | disposition home or self-care (01) | DRG 189 ==
LOC: 2W 17:20 → SUATTDRO 17:20 → 2W 17:43 → 2E 18:53 → 1E 19:34 → 2S 05-03 14:53 → 4E 05-07 16:52

== ENCOUNTER 2019-03-20 17:10 | Inpatient (IN) ==
[2019-03-20] MEDS ORDERED: methylPREDNISolone 125 MG/2 ML VIAL ONE (17:19)
[2019-03-20] MEDS ORDERED: LORazepam 2 MG/4 ML VIAL ONE (17:19)
[2019-03-20] MEDS ORDERED: ALBUT/IPRATROP 3MG/0.5MG NEB 3 ML VIAL NEB ONE (17:20)
[2019-03-20 17:39] LABS: Basophils # (auto) 0.01 K/uL (0-0.2); Basophils % (auto) 0.1 %; Hemoglobin 15.5 g/dL (12.0-16.0); Immature Granulocytes # (auto) 0.03 K/uL (0.00-0.02); Immature Granulocytes % (auto) 0.3 %; Lymphocytes # (auto) 1.96 K/uL (1.2-3.4); Lymphocytes % (auto) 19.9 %; Mean Corpuscular Hgb Conc 33.7 g/dL (32-36); Mean Platelet Volume 10.2 fL (7.4-10.4); Monocytes # (auto) 0.65 K/uL (0.11-0.59); Monocytes % (auto) 6.6 %; Neutrophils # (auto) 7.18 K/uL (1.4-6.5); Neutrophils % (auto) 73.1 %; Platelet Count 300 K/uL (130-400); RDW Coefficient of Variation 14.5 % (11.5-14.5); RDW Standard Deviation 47.3 fL (36.4-46.3); Red Blood Count 5.17 M/uL (4.2-5.4); White Blood Count 9.83 K/uL (4.8-10.8)
--- NOTE | 2019-03-20 17:54 | XRay Report ---
XR chest 1V portable CLINICAL HISTORY: 58 years-old Female presenting with dyspnea. TECHNIQUE: Portable upright AP view of the chest was obtained. COMPARISON: 05/03/2018. FINDINGS: Cardiomediastinal silhouette normal. No focal opacity. No large effusion or pneumothorax. Osseous str uctures normal. Upper abdomen normal. IMPRESSION: 1. No acute cardiopulmonary disease. ACT 112: Negative or not required by law. Electronically signed by: Jae Herrera M.D. 03/20/2019 5:52 PM
[2019-03-20 18:00] LABS: BUN Creatinine Ratio 17.5 (10-20); Blood Urea Nitrogen 15 mg/dl (7-18); Calcium 10.4 mg/dl (8.5-10.1); Carbon Dioxide 30 mmol/L (21-32); Chloride 101 mmol/L (98-107); Creatinine Clr Calc Pharmacy 73.8 ml/min; Est GFR (African American) 85.7; Est GFR (Non-African American) 73.9; Glucose 104 mg/dl (70-99); Potassium 3.3 mmol/L (3.5-5.1); Sodium 138 mmol/L (136-145)
[2019-03-20 18:05] LABS: Troponin I < 0.015 ng/ml (0-0.045)
[2019-03-20 18:05] LABS: Base Excess VBG 6.5 mEq/L; Oxygen Saturation VBG 69.5 %; pH VBG 7.45 (7.36-7.41)
[2019-03-20 18:08] LABS: D Dimer 230 ug/L FEU (0-500); INR 0.9 (0.9-1.1); Partial Thromboplastin Ratio 0.9; Partial Thromboplastin Time 24.2 Seconds (21.0-31.0); Prothrombin Time 9.6 Seconds (9.0-12.0)
[2019-03-20 18:16] LABS: Influenza A virus by PCR Neg for Influ A (Neg); Influenza B virus by PCR Neg for Influ B (Neg)
[2019-03-20] MEDS ORDERED: IOVERSOL 100ml IV PRN (18:42)
--- NOTE | 2019-03-20 18:52 | CT Scan Report ---
CT SCAN OF THE NECK WITH IV CONTRAST CLINICAL HISTORY: Stridor. Dyspnea. Asthma. COMPARISON STUDY: No priors. TECHNIQUE: Following the IV administration of 96 cc of Optiray 320, CT scan of the soft tissues of th e neck was performed from the skull base to the upper chest. Images are reviewed in the axial, sagitt al, and coronal planes. IV contrast was administered without complication. A dose lowering techniqu e was utilized adhering to the principles of ALARA. CT DOSE: 586.91 mGy.cm FINDINGS: Pharynx: The nasopharynx, oropharynx, and laryngeal pharynx are normal in appearance. The pharyngeal airway is widely patent. There is no evidence of mass lesion. The vocal cords are symmetric. The para pharyngeal fat is well maintained. The prevertebral/retropharyngeal soft tissues are within normal li mits. The epiglottis is normal. Lymphadenopathy: No cervical lymphadenopathy is seen Thyroid: The thyroid gland is enlarged and heterogeneous. Subcentimeter low-attenuation nodules are n oted. Salivary glands: The parotid and submandibular glands are within normal limits. Brain parenchyma: The visualized brain parenchyma at the skull base is normal in appearance. Vascular structures: The carotid arteries and jugular veins are widely patent. Skeletal structures: Imaged portions of the calvarium at the skull base are within normal limits. The cervical spine appears intact noting multilevel spondylosis. No lytic or blastic lesion is seen. Sinuses and mastoids: The visualized paranasal sinuses are clear. The mastoid air cells are well pneu matized. Orbits: The bony orbits are intact. There is bilateral proptosis. Orbital contents are otherwise norm al as imaged. Lung apices: Visualized apical lung parenchyma is clear. IMPRESSION: 1. No acute abnormality is identified. 2. The thyroid gland is enlarged and heterogeneous. ACT 112: Negative or not required by law. Electronically signed by: Junior Barriga M.D. 03/20/2019 6:50 PM
--- NOTE | 2019-03-20 20:27 | Emergency Department Note ---
Entered by Padmini oCnnolly acting as a scribe for Kyler Campbell History of Present Illness General Chief complaint: Shortness of Breath/Dyspnea Stated complaint: SOB Time Seen by Provider: 03/20/19 17:20 Source: patient History of Present Illness Provider complaint: Shortness of Breath/Dyspnea Onset (ago): hour(s) less than 1 Location: chest Severity: severe Relieved By: + none Exacerbated By: + none Associated symptoms: + denies other symptoms (Sore throat) The patient is a 58 year old female who presents to the Emergency Room with complaints of severe shortness of breath/dyspnea that just began. The patient states that her symptoms are not relieved nor exacerbated by anything specific. The patient denies experiencing a sore throat. The patient notes that she recently came off a steroid taper. Patient states she has a history of severe asthma requiring ICU admission, no history of intubation due to asthma. Patient is in severe respiratory distress and HPI is limited by her clinical status. Home Medications Home Medications Medication Instructions Recorded Confirmed Type Combivent Respimat 1 puff INHALATION QID PRN 05/02/18 03/20/19 History Dulera 2 puff INHALATION BID 05/02/18 03/20/19 History Oxygen Home 05/02/18 03/20/19 History fluticasone propionate [Flonase 2 spray INTRANASAL DAILY PRN 05/02/18 03/20/19 History Allergy Relief] loratadine [Claritin] 10 mg PO DAILY PRN 05/02/18 03/20/19 History montelukast [Singulair] 10 mg PO QAM 05/02/18 03/20/19 History azelastine 0.15 % (205.5 mcg) 205.5 mcg INTNAS BID 12/03/18 03/20/19 History nasal spray amlodipine 5 mg tablet 5 mg PO QAM 12/20/18 03/20/19 History hydrochlorothiazide 25 mg tablet 25 mg PO QAM 12/20/18 03/20/19 History pantoprazole [Protonix] 40 mg PO QAM PRN 12/30/18 03/20/19 History prednisone 10 mg tablet See Rx Instructions PO .COMPLEX 03/04/19 03/20/19 Rx #60 tab benzonatate [Tessalon Perles] 100 mg PO TID PRN 03/20/19 03/20/19 History Allergies Allergy/AdvReac Type Severity Reaction Status Date / Time Sulfa (Sulfonamide Allergy Severe DRESS Unverified 03/20/19 18:20 Antibiotics) Syndrome sulfamethoxazole Allergy Severe DRESS Verified 03/20/19 18:20 SYNDROME trimethoprim Allergy Severe DRESS Verified 03/20/19 18:20 SYNDROME promethazine Allergy Unknown HYPOTENSION Verified 03/20/19 18:20 Past Med/Surg History Medical History Allergic rhinitis (Chronic) Asthma (Chronic) Hypertension (Chronic) Nocturnal hypoxemia (Chronic) Sleep apnea (Chronic) Surgical History History of hysterectomy (Chronic) S/P tubal ligation (Chronic) Family History Other No pertinent family history in first degree relatives Social History Preferred Language: Austrian Communication Ability: Effective 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 Physical Exam Vital Signs Vital Signs - 24 hr 03/20/19 17:20 03/20/19 17:23 03/20/19 17:30 Pulse Rate 120 H 105 H Pulse Rate [Right Finger] Pulse Rate from SpO2 Sensor 104 H Respiratory Rate 16 20 Respiratory Effort / Characteristics Respiratory Depth Respiratory Pattern Blood Pressure 161/119 H 140/94 Blood Pressure Mean 133 98 Pulse Oximetry 100 99 99 Oxygen Delivery Method Room Air Room Air Fraction of Inspired Oxygen Sepsis Recent Fever Within 48 Hours No Sepsis New/Unexplained Change in Mental Status No Sepsis Action Taken by Nursing No Action Required 03/20/19 17:39 03/20/19 17:42 03/20/19 17:45 Pulse Rate 109 H 104 H Pulse Rate [Right Finger] 100 H Pulse Rate from SpO2 Sensor 104 H Respiratory Rate 19 19 17 Respiratory Effort / Characteristics Spontaneous Pursed Lip Spontaneous Pursed Lip Respiratory Depth Normal Respiratory Pattern Regular Blood Pressure 140/81 Blood Pressure Mean 99 Pulse Oximetry 99 99 99 Oxygen Delivery Method BiPAP Room Air Fraction of Inspired Oxygen 40 40 Sepsis Recent Fever Within 48 Hours Sepsis New/Unexplained Change in Mental Status Sepsis Action Taken by Nursing 03/20/19 18:00 03/20/19 18:15 03/20/19 18:46 Pulse Rate 101 H 98 H 100 H Pulse Rate [Right Finger] Pulse Rate from SpO2 Sensor 101 H Respiratory Rate 19 20 20 Respiratory Effort / Characteristics Non-Labored Spontaneous Respiratory Depth Normal Respiratory Pattern Regular Blood Pressure 133/79 122/84 Blood Pressure Mean 95 93 Pulse Oximetry 100 98 100 Oxygen Delivery Method Room Air BiPAP Fraction of Inspired Oxygen 30 Sepsis Recent Fever Within 48 Hours Sepsis New/Unexplained Change in Mental Status Sepsis Action Taken by Nursing 03/20/19 19:00 03/20/19 19:15 03/20/19 19:30 Pulse Rate 99 H 100 H 104 H Pulse Rate [Right Finger] Pulse Rate from SpO2 Sensor 99 H Respiratory Rate 16 21 22 Respiratory Effort / Characteristics Respiratory Depth Respiratory Pattern Blood Pressure 144/78 H 162/83 H 155/84 H Blood Pressure Mean 111 107 111 Pulse Oximetry 97 Oxygen Delivery Method BiPAP Fraction of Inspired Oxygen Sepsis Recent Fever Within 48 Hours Sepsis New/Unexplained Change in Mental Status Sepsis Action Taken by Nursing 03/20/19 19:45 03/20/19 20:00 Pulse Rate 100 H 98 H Pulse Rate [Right Finger] Pulse Rate from SpO2 Sensor Respiratory Rate 15 18 Respiratory Effort / Characteristics Respiratory Depth Respiratory Pattern Blood Pressure 126/83 143/82 H Blood Pressure Mean 95 89 Pulse Oximetry Oxygen Delivery Method Fraction of Inspired Oxygen Sepsis Recent Fever Within 48 Hours Sepsis New/Unexplained Change in Mental Status Sepsis Action Taken by Nursing GENERAL: Patient is in severe respiratory distress. HENT: Exam performed. Head: Normocephalic and atraumatic. Right Ear: External ear normal. No mastoid tenderness. Left Ear: External ear normal. No mastoid tenderness. Mouth/Throat: The oropharynx is clear and moist. No trismus in the jaw. No dental abscesses or uvula swelling. No oropharyngeal exudate or tonsillar abscesses. EYES: Conjunctivae and EOM are normal. Pupils are equal, round, and reactive to light. Right eye exhibits no discharge. Left eye exhibits no discharge. No scleral icterus. NECK: Normal range of motion. Neck supple. No JVD present. No spinous process tenderness present. No carotid bruit present. No rigidity. No tracheal deviation and normal range of motion present. No Brudzinski's sign and no Kernig's sign noted. Stridor noted. CV: Tachycardic rate, regular rhythm, normal heart sounds and intact distal pulses. There is no peripheral edema. Palpable radial pulses bue. PULM/CHEST: Respiratory distress. Tachypneic. Scant bilateral expiratory wheezes. Chest Wall: She exhibits no tenderness. ABD: The abdomen is soft. Bowel sounds are normal. She has no distension. No mass is present. There is no tenderness. There is no rebound, no guarding, no Mclain's sign and no tenderness at McBurney's point. Rovsig negative MUSC/SKEL: Normal range of motion. There is no peripheral edema, tenderness or deformity. LYMPH: No cervical adenopathy. NEURO: She is alert and oriented to person, place, and time. She has normal strength. No cranial nerve deficit or sensory deficit. Coordination and gait normal. GCS eye subscore is 4. GCS verbal subscore is 5. GCS motor subscore is 6. cerbellar tests wnl. SKIN: Skin is warm and dry. She is not diaphoretic. PSYCH: She has a normal mood and affect. Her behavior is normal. Judgment and thought content normal. Course Course 1717: Past medical records reviewed. The patient was evaluated in room A11B. A complete history and physical exam was performed. 1731: I reevaluated the patient and she is currently on BiPAP. The patient states that she is more comfortable and her tachypnea, wheezing, and stridor have improved. Her stats were 99% on BiPAP. The patient states that she is feeling better and can breathe easier on BiPAP and after being given IV Ativan and Solu-Medrol. 1750: Vital signs stable. Patient continues to have her breathing improved while on the BiPAP. Chest x-ray showed no acute infiltrate or pneumothorax when viewed by me. However the upper airway did appear to be narrowed and apparent steeple sign on the chest x-ray. Given this as well as the patient's stridor and acute onset of difficulty breathing, CT of the neck will be obtained. 1910: Vital signs stable. Labs and imaging within normal limits. Feels better on BiPAP. Labs and imaging within normal limits. Patient will be admitted for COPD exacerbation to the [facility] team. I spoke with Kenia Levin PA-C about the patient's case and Dr. Castaneda- Hospitalist will accept the patient for further evaluation. Administered Medications Ioversol (Optiray 320 100ml) 96 ml IV ONCE PRN PRN Reason: Interaction Checking Stop: 03/24/19 18:41 Last Admin: 03/20/19 18:42 Dose: 96 ml Documented by: [id number] Discontinued Medications Albuterol (Duoneb) 12 ml NEB ONE ONE Stop: 03/20/19 17:21 Last Admin: 03/20/19 17:37 Dose: 12 ml Documented by: [id number] Lorazepam (Ativan) Confirm Administered Dose 2 mg .ROUTE .STK-MED ONE Stop: 03/20/19 17:20 Last Increment: 03/20/19 17:26 Dose: 1 mg Documented by: [id number] Methylprednisolone (Solumedrol) Confirm Administered Dose 125 mg .ROUTE .STK-MED ONE Stop: 03/20/19 17:20 Last Admin: 03/20/19 17:27 Dose: 125 mg Documented by: [id number] Critical Care Time Critical Care Time: Yes Total Critical Care Time: 59 I have personally spent approximately 59 minutes of critical care time in the direct management of this patient. This includes bedside care, interpretation of diagnostic studies, and testing, discussion with consultants, patient, and family members, and other required patient management activities. This approximate 59 minutes is in excess of all separately billable procedures. Medical Decision Making Medical Records Attestation: I reviewed the patient's medical records. Home Medications Current Medication List: was personally reviewed by me Laboratory Data Attestation: I reviewed the patient's lab results. Result diagrams: 03/20/19 17:23 03/20/19 17:23 Lab Results 03/20/19 03/20/19 03/20/19 Range/Units 17:23 17: 17: WBC 9.83 (4.8-10.8) K/uL RBC 5.17 (4.2-5.4) M/uL Hgb 15.5 (12.0-16.0) g/dL Hct 46.0 (37-47) % MCV 89.0 (80-100) fL MCH 30.0 (25-34) pg MCHC 33.7 (32-36) g/dL RDW Std Deviation 47.3 H (36.4-46.3) fL RDW Coeff of Juanjose 14.5 (11.5-14.5) % Plt Count 300 (130-400) K/uL MPV 10.2 (7.4-10.4) fL Immature Gran % (Auto) 0.3 % Neut % (Auto) 73.1 % Lymph % (Auto) 19.9 % Houghton % (Auto) 6.6 % Eos % (Auto) 0.0 % Baso % (Auto) 0.1 % Immature Gran # (Auto) 0.03 H (0.00-0.02) K/uL Neut # (Auto) 7.18 H (1.4-6.5) K/uL Lymph # (Auto) 1.96 (1.2-3.4) K/uL Houghton # (Auto) 0.65 H (0.11-0.59) K/uL Eos # (Auto) 0.00 (0-0.5) K/uL Baso # (Auto) 0.01 (0-0.2) K/uL PT 9.6 (9.0-12.0) Seconds INR 0.9 (0.9-1.1) APTT 24.2 (21.0-31.0) Seconds PTT Ratio 0.9 D-Dimer 230 (0-500) ug/L FEU VBG pH (7.36-7.41) VBG pCO2 (38-50) mmHg VBG pO2 mmHg VBG HCO3 mmol/L VBG O2 Saturation % VBG Base Excess mEq/L Barometric Pressure mm/Hg Sodium 138 (136-145) mmol/L Potassium 3.3 L (3.5-5.1) mmol/L Chloride 101 (98-107) mmol/L Carbon Dioxide 30 (21-32) mmol/L Anion Gap 7.0 (3-11) BUN 15 (7-18) mg/dl Creatinine 0.86 (0.6-1.2) mg/dl Est Cr Clr Drug Dosing 73.8 ml/min Est GFR ( Amer) 85.7 Est GFR (Non-Af Amer) 73.9 BUN/Creatinine Ratio 17.5 (10-20) Glucose 104 H (70-99) mg/dl Calcium 10.4 H (8.5-10.1) mg/dl Troponin I < 0.015 (0-0.045) ng/ml Influenza Type A (PCR) (Neg) Influenza Type B (PCR) (Neg) 03/20/19 03/20/19 Range/Units 17:24 17:54 WBC (4.8-10.8) K/uL RBC (4.2-5.4) M/uL Hgb (12.0-16.0) g/dL Hct (37-47) % MCV (80-100) fL MCH (25-34) pg MCHC (32-36) g/dL RDW Std Deviation (36.4-46.3) fL RDW Coeff of Juanjose (11.5-14.5) % Plt Count (130-400) K/uL MPV (7.4-10.4) fL Immature Gran % (Auto) % Neut % (Auto) % Lymph % (Auto) % Houghton % (Auto) % Eos % (Auto) % Baso % (Auto) % Immature Gran # (Auto) (0.00-0.02) K/uL Neut # (Auto) (1.4-6.5) K/uL Lymph # (Auto) (1.2-3.4) K/uL Houghton # (Auto) (0.11-0.59) K/uL Eos # (Auto) (0-0.5) K/uL Baso # (Auto) (0-0.2) K/uL PT (9.0-12.0) Seconds INR (0.9-1.1) APTT (21.0-31.0) Seconds PTT Ratio D-Dimer (0-500) ug/L FEU VBG pH 7.45 H (7.36-7.41) VBG pCO2 46 (38-50) mmHg VBG pO2 36 mmHg VBG HCO3 32 mmol/L VBG O2 Saturation 69.5 % VBG Base Excess 6.5 mEq/L Barometric Pressure 737.3 mm/Hg Sodium (136-145) mmol/L Potassium (3.5-5.1) mmol/L Chloride (98-107) mmol/L Carbon Dioxide (21-32) mmol/L Anion Gap (3-11) BUN (7-18) mg/dl Creatinine (0.6-1.2) mg/dl Est Cr Clr Drug Dosing ml/min Est GFR ( Amer) Est GFR (Non-Af Amer) BUN/Creatinine Ratio (10-20) Glucose (70-99) mg/dl Calcium (8.5-10.1) mg/dl Troponin I (0-0.045) ng/ml Influenza Type A (PCR) Neg for Influ A (Neg) Influenza Type B (PCR) Neg for Influ B (Neg) Imaging Data Radiologist's Impression: Radiology results as stated below per my review and the radiologist's interpretation: XR chest 1V portable CLINICAL HISTORY: 58 years-old Female presenting with dyspnea. TECHNIQUE: Portable upright AP view of the chest was obtained. COMPARISON: 05/03/2018. FINDINGS: Cardiomediastinal silhouette normal. No focal opacity. No large effusion or pneumothorax. Osseous structures normal. Upper abdomen normal. IMPRESSION: 1. No acute cardiopulmonary disease. ACT 112: Negative or not required by law. Electronically signed by: Jae Herrera M.D. 03/20/2019 5:[address] SCAN OF THE NECK WITH IV CONTRAST CLINICAL HISTORY: Stridor. Dyspnea. Asthma. COMPARISON STUDY: No priors. TECHNIQUE: Following the IV administration of 96 cc of Optiray 320, CT scan of the soft tissues of the neck was performed from the skull base to the upper chest. Images are reviewed in the axial, sagittal, and coronal planes. IV contrast was administered without complication. A dose lowering technique was utilized adhering to the principles of ALARA. CT DOSE: 586.91 mGy.cm FINDINGS: Pharynx: The nasopharynx, oropharynx, and laryngeal pharynx are normal in appearance. The pharyngeal airway is widely patent. There is no evidence of mass lesion. The vocal cords are symmetric. The parapharyngeal fat is well maintained. The prevertebral/retropharyngeal soft tissues are within normal limits. The epiglottis is normal. Lymphadenopathy: No cervical lymphadenopathy is seen Thyroid: The thyroid gland is enlarged and heterogeneous. Subcentimeter low-atte nuation nodules are noted. Salivary glands: The parotid and submandibular glands are within normal limits. Brain parenchyma: The visualized brain parenchyma at the skull base is normal in appearance. Vascular structures: The carotid arteries and jugular veins are widely patent. Skeletal structures: Imaged portions of the calvarium at the skull base are within normal limits. The cervical spine appears intact noting multilevel spondylosis. No lytic or blastic lesion is seen. Sinuses and mastoids: The visualized paranasal sinuses are clear. The mastoid air cells are well pneumatized. Orbits: The bony orbits are intact. There is bilateral proptosis. Orbital contents are otherwise normal as imaged. Lung apices: Visualized apical lung parenchyma is clear. IMPRESSION: 1. No acute abnormality is identified. 2. The thyroid gland is enlarged and heterogeneous. ACT 112: Negative or not required by law. Electronically signed by: Junior Barriga M.D. 03/20/2019 6:50 PM ECG Data Indication: + SOB/dyspnea Rate (beats per minute): 103 Rhythm: + sinus tachycardia ECG Intervals/blocks: + Normal QRS, + Normal NV and + Normal QT-c ECG ST segments: no ST depression and no ST elevation Blood Pressure Blood Pressure Findings: Elevated blood pressure Blood Pressure Disposition: further management by hospitalist DANIEL Narrative 1717: Past medical records reviewed. The patient was evaluated in room A11B. A complete history and physical exam was performed. 1731: I reevaluated the patient and she is currently on BiPAP. The patient states that she is more comfortable and her tachypnea, wheezing, and stridor have improved. Her stats were 99% on BiPAP. The patient states that she is feeling better and can breathe easier on BiPAP and after being given IV Ativan and Solu-Medrol. 1750: Vital signs stable. Patient continues to have her breathing improved while on the BiPAP. Chest x-ray showed no acute infiltrate or pneumothorax when viewed by me. However the upper airway did appear to be narrowed and apparent steeple sign on the chest x-ray. Given this as well as the patient's stridor and acute onset of difficulty breathing, CT of the neck will be obtained. 1910: Vital signs stable. Labs and imaging within normal limits. Feels better on BiPAP. Labs and imaging within normal limits. Patient will be admitted for COPD exacerbation to the [facility] hospitalist team. I spoke with Kenia Levin PA-C about the patient's case and Dr. Castaneda- Hospitalist will accept the patient for further evaluation. Impression & Plan COPD exacerbation, Asthma with severe exacerbation Discharge Plan Visit Data Chief Complaint: Shortness of Breath/Dyspnea Stated Complaint: SOB ED Provider: Kyler aCmpbell Discharge Problem: COPD exacerbation, Asthma with severe exacerbation Forms Stand Alone Forms: My [facility] Prescriptions Prescriptions: No Action azelastine 0.15 % (205.5 mcg) spray,non-aerosol 205.5 mcg INTNAS BID RF: 0 prednisone 10 mg tablet See Rx Instructions PO .COMPLEX Qty: 60 RF: 0 hydrochlorothiazide 25 mg tablet 25 mg PO QAM RF: 0 amlodipine [Norvasc] 5 mg tablet 5 mg PO QAM RF: 0 pantoprazole [Protonix] 40 mg tablet,delayed release (DR/EC) 40 mg PO QAM PRN (Reason: In combo with prednisone) RF: 0 benzonatate [Tessalon Perles] 100 mg capsule 100 mg PO TID PRN (Reason: Cough) RF: 0 fluticasone propionate [Flonase Allergy Relief] 50 mcg/actuation Stephen,Suspension 2 spray INTRANASAL DAILY PRN (Reason: Congestion) RF: 0 Combivent Respimat 20-100 mcg/actuation Mist 1 puff INHALATION QID PRN (Reason: Shortness Of Breath Or Wheezing) RF: 0 loratadine [Claritin] 10 mg Tablet 10 mg PO DAILY PRN (Reason: allergic rhinitis) RF: 0 montelukast [Singulair] 10 mg Tablet 10 mg PO QAM RF: 0 Dulera 200-5 mcg/actuation Hfa Aerosol Inhaler 2 puff INHALATION BID RF: 0 (DME) Oxygen Home Liters Per Minute RF: 0 The scribe's documentation has been prepared under my direction and personally reviewed by me in its entirety. I confirm that the note above accurately reflects all work, treatment, procedures, and medical decision making performed by me.
[2019-03-20] MEDS ORDERED: PANTOprazole 40 MG TAB PO PRN (22:06)
[2019-03-20] MEDS ORDERED: OXYGEN HOME SCH (22:06)
[2019-03-20] MEDS ORDERED: FLUTICASONE PROPIONATE NA SPR 16 GM BTL PRN (22:06)
[2019-03-20] MEDS ORDERED: POTASSIUM CHLORIDE 20 MEQ TABCR PO STA (22:06)
[2019-03-20] MEDS ORDERED: methylPREDNISolone 125 MG/2 ML VIAL IV SCH (22:06)
[2019-03-20] MEDS ORDERED: BENZONATATE 100 MG CAPSULE PO PRN (22:06)
[2019-03-20] MEDS ORDERED: IPRATROPIUM BROMIDE/ALBUTEROL respimat INH INH PRN (22:06)
[2019-03-20] MEDS ORDERED: ACETAMINOPHEN 325 MG TAB PO PRN (22:06)
[2019-03-20] MEDS ORDERED: ALBUT/IPRATROP 3MG/0.5MG NEB 3 ML VIAL NEB PRN (22:06)
[2019-03-20] MEDS ORDERED: ONDANSETRON INJ 2 MG/ML 2 ML VIAL IV PRN (22:06)
[2019-03-20] MEDS ORDERED: LORATADINE 10 MG TAB PO PRN (22:06)
--- NOTE | 2019-03-20 22:54 | History and Physical Report ---
DATE OF ADMISSION: 03/20/2019 CHIEF COMPLAINT: Shortness of breath. HISTORY OF PRESENT ILLNESS: This is a 58-year-old female with past medical history significant for moderate persistent asthma, vocal cord dysfunction, pulmonary nodules, obstructive sleep apnea, on CPAP, nocturnal hypoxia, hypertension, history of uterine leiomyoma, who presents with acute shortness of breath. The patient says she is allergic to chemicals and she gets these asthma attacks. She has been good for last 7-8 months ago, she even went for hiking. In the last few days at her work place one of the staff members was using essential oils for nasal congestion. The patient requested to not use it because it can trigger her asthma attacks, but the patient says she was still exposed to that essential oils for the last few days and today she suddenly got an asthma attack, she could not breathe. Whenever she gets attack, her voice changes. She used Respimat 4 times, but it did not work, and she was brought into the ER and she was having stridor at that time. She was given hour long neb treatments and she was placed on BiPAP and currently much improved. Her breathing is much better. Her stridor is improved, voice is getting better. Off BiPAP, she was able to talk in full sentences and she gave the history. 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 Currently resting comfortably and hemodynamically stable. Denies any headache, no blurred visions, no earache, no runny nose, no sore throat, no dysphagia, no odynophagia. When she had episode, she had a dry cough, but right now she is fine. Denies any fever, chills. No chest pain, no nausea, no vomiting, no abdominal pain. Normal bowel and bladder movements. No black stools or blood in stools. No swelling in the legs. No rash. Otherwise, she is active. ALLERGIES: IBUPROFEN, SULFA ANTIBIOTICS, BACTRIM, AND PROMETHAZINE. PAST MEDICAL HISTORY: As mentioned above. PAST SURGICAL HISTORY: Ligation of oviducts, total hysterectomy. MEDICATIONS: The patient is on amlodipine 5 mg p.o. daily, azelastine 0.15% nasal spray b.i.d., Tessalon Perles 100 mg p.o. t.i.d. p.r.n., Combivent Respimat 1 puff inhalation q.i.d. p.r.n., Dulera 2 puffs inhalation b.i.d., Flonase 2 sprays intranasal daily p.r.n., hydrochlorothiazide 25 mg p.o. daily, lovastatin 10 mg p.o. daily p.r.n., Singulair 10 mg p.o. a.m., Protonix 40 mg p.o. a.m. p.r.n., prednisone as directed, oxygen, follow this with CPAP at bedtime. FAMILY HISTORY: Significant for granddaughter has allergies, asthma; aunt has lung cancer; mother has thyroid cancer, heart disorder, hypothyroidism; maternal grandmother has diabetes. SOCIAL HISTORY: . No smoking, no alcohol, no drug use. REVIEW OF SYSTEMS: As per HPI. Rest of the review of systems negative. PHYSICAL EXAMINATION: GENERAL: The patient is of moderate build, not in acute distress. VITAL SIGNS: Temperature afebrile, pulse 90, respiratory rate 18, blood pressure 143/82, oxygen 97% on BiPAP. HEENT: No pallor, no icterus. Pupils equal, round, and reactive to light. NECK: No JVD, no neck masses, no carotid bruits. CARDIOVASCULAR: S1, S2 heard, regular rate and rhythm, no murmur, no gallop. RESPIRATORY SYSTEM: Normal AP diameter. No accessory muscle use. Cough on deep breaths. Mild occasional rhonchi, no crackles. ABDOMEN: Soft, bowel sounds present, nontender. No distention. CENTRAL NERVOUS SYSTEM: Alert and oriented. Speech is clear. Moves extremities. EXTREMITIES: No edema, no erythema. LABORATORY DATA: WBC 9.8, hemoglobin 15.5, hematocrit 46, platelets 300. PT 9.6, INR 0.9, APTT 24.2. Venous blood gas, pH of 7.4, pCO2 of 46, pO2 of 36, bicarbonate 32. Sodium 138, potassium 3.3, chloride 101, CO2 of 30, BUN 15, creatinine 0.8, serum glucose 104, calcium 10.4. Troponin I less than 0.015. Influenza A and B PCR negative. IMAGING DATA: Chest x-ray, no acute cardiopulmonary disease. Ct scan of Soft tissue of the neck, no acute abnormality is identified. The thyroid gland is enlarged and heterogeneous. EKG: Sinus tachycardia, rate of 103, no significant change was found. ASSESSMENT AND PLAN: This is a 58-year-old female who presents with acute asthma attack. 1. Acute asthma attack triggered by chemical, essential oil. She was having stridor when she came in and required BiPAP and neb treatments. Currently she is stable, doing fine. She also followed with allergy/immunology who recommended prednisone if she had more than 4 days of symptoms, but because of acute attack, we placed her on IV Solu-Medrol 60 b.i.d. for now and taper down quickly. Continue duonebs q.i.d. and q. 2 hours p.r.n. She uses CPAP at bedtime, which she will continue for now and monitor in the tele floor. 2. Obstructive sleep apnea and nocturnal hypoxia. Will continue CPAP at bedtime with oxygen. 3. Hypertension. Continue hydrochlorothiazide and amlodipine. We will monitor the blood pressure in the hospital. 4. Deep venous thrombosis prophylaxis, sequential compression devices for now. 5. Disposition: Admit to tele floor. Expect to discharge home and follow with her family doctor. Level 1 full code. MTDD
[2019-03-20] MEDS: FLUTICASONE/VILANTEROL 200/25MCG 14 PUFFS/INHALER INH SCH (22:59)
[2019-03-21] MEDS: AZELASTINE~ORDER AWAITING ACTION SCH ×2 (01:06→08:32)
[2019-03-21 05:53] LABS: Hematocrit (blood only) 41.9 % (37-47); Hemoglobin 14.1 g/dL (12.0-16.0); Immature Granulocytes # (auto) 0.02 K/uL (0.00-0.02); Immature Granulocytes % (auto) 0.2 %; Lymphocytes # (auto) 0.96 K/uL (1.2-3.4); Mean Corpuscular Hemoglobin 29.9 pg (25-34); Mean Corpuscular Hgb Conc 33.7 g/dL (32-36); Mean Platelet Volume 10.1 fL (7.4-10.4); Monocytes # (auto) 0.38 K/uL (0.11-0.59); Monocytes % (auto) 3.2 %; Neutrophils # (auto) 10.62 K/uL (1.4-6.5); Neutrophils % (auto) 88.6 %; Platelet Count 283 K/uL (130-400); RDW Coefficient of Variation 14.6 % (11.5-14.5); RDW Standard Deviation 47.6 fL (36.4-46.3); Red Blood Count 4.71 M/uL (4.2-5.4); White Blood Count 11.98 K/uL (4.8-10.8)
[2019-03-21 06:27] LABS: BUN Creatinine Ratio 20.9 (10-20); Calcium 9.3 mg/dl (8.5-10.1); Creatinine Clr Calc Pharmacy 88.7 ml/min; Est GFR (African American) 109.9; Est GFR (Non-African American) 94.8; Magnesium 2.3 mg/dl (1.8-2.4); Potassium 3.7 mmol/L (3.5-5.1)
[2019-03-21] MEDS: ALBUT/IPRATROP 3MG/0.5MG NEB 3 ML VIAL NEB SCH ×3 (07:12→15:19)
[2019-03-21] MEDS: FLUTICASONE/VILANTEROL 200/25MCG 14 PUFFS/INHALER INH SCH (08:31)
[2019-03-21] MEDS ORDERED: AMLODIPINE BESYLATE 5 MG TAB PO SCH (09:00)
[2019-03-21] MEDS ORDERED: hydroCHLOROthiazide 25 MG TAB PO SCH (09:00)
[2019-03-21] MEDS ORDERED: methylPREDNISolone 60 MG in SYRINGE 0 ML IV SCH (09:00)
[2019-03-21] MEDS ORDERED: MONTELUKAST SODIUM 10 MG TABLET PO SCH (09:00)
--- NOTE | 2019-03-21 17:23 | Hospitalist Progress Note ---
Date of Service March 21, 2019 Assessment & Plan (1) Acute asthma exacerbation: Severe exacerbation of asthma, apparently due to exposure to fragrance. Initially required BiPAP support in ED. Nasopharyngeal swab for influenza A/B negative. No infiltrates on chest x-ray. Treated with steroids and bronchodilators with significant improvement. PEFR 450 (compared to 500 before exacerbation and best of 550). Case discussed with Allergy. Discharge on prednisone taper starting at 60 mg. (2) DVT prophylaxis: SCD's ordered. Ambulatory. (3) Discharge planning issues: Discharge to home. Family Medicine follow-up with Dr. Bailey. Allergy follow-up with Dr. Bradley. Pulmonary follow-up with Dr. Barrientos. Subjective Recheck for asthma exacerbation. Patient seen in their room around 1010 and rechecked in the afternoon. Feels much better. Decreased wheezing / SOB. Mild nonproductive cough. Review of Systems: Constitutional- no fever. Cardiac- no chest pain. Pulmonary- as noted above. GI- no nausea, vomiting, diarrhea, melena, hematochezia. - no urinary symptoms. Otherwise, as noted above. Physical Exam Constitutional: no acute distress Respiratory: no respiratory distress Auscultation: + wheezes (moderate, diffuse) Cardiovascular: Rate/Rhythm: regular rate and regular rhythm Heart Sounds: no gallop, no murmur and no cardiac rub Vessels: no JVD Extremities: no calf tenderness and no edema Gastrointestinal (Abdomen): normal bowel sounds, soft, nontender, no hepatosplenomegaly Skin: no rashes, warm and dry Psychiatric: Orientation: alert and oriented x 3 Results & Data Vital Signs (Past 12 Hours) Vital Signs Temp Pulse Pulse Resp BP Pulse Ox 03/21/19 15:56 97 H 03/21/19 15:52 36.9 C 105 H 19 147/74 H 95 03/21/19 15:20 110 H 16 96 03/21/19 11:51 37.0 C 101 H 17 129/67 96 03/21/19 11:02 96 H 16 95 03/21/19 07:56 36.4 C L 87 18 128/80 97 03/21/19 07:36 76 03/21/19 07:12 84 84 16 99 Laboratory Results 03/21/19 05:42 03/21/19 05:42
--- NOTE | 2019-03-21 23:38 | Electrocardiogram Report ---
Test Reason : Blood Pressure : / mmHG Vent. Rate : 103 BPM Atrial Rate : 103 BPM P-R Int : 154 ms QRS Dur : 086 ms QT Int : 350 ms P-R-T Axes : 027 -19 019 degrees QTc Int : 458 ms Sinus tachycardia Otherwise normal ECG When compared with ECG of 11-JAN-2017 19:41, No significant change was found Confirmed by Patrice Patel ([id number]) on 03/21/2019 11:38:27 PM Referred By: REFERRED SELF Confirmed By:Patrice Patel
--- NOTE | 2019-03-22 06:47 | Discharge Summary ---
Date of Service Date of Admission: 03/20/19 Date of Discharge: 03/21/19 Admission HPI Per Admitting Provider This is a 58-year-old female with past medical history significant for moderate persistent asthma, vocal cord dysfunction, pulmonary nodules, obstructive sleep apnea, on CPAP, nocturnal hypoxia, hypertension, history of uterine leiomyoma, who presents with acute shortness of breath. The patient says she is allergic to chemicals and she gets these asthma attacks. She has been good for last 7-8 months ago, she even went for hiking. In the last few days at her work place one of the staff members was using essential oils for nasal congestion. The patient requested to not use it because it can trigger her asthma attacks, but the patient says she was still exposed to that essential oils for the last few days and today she suddenly got an asthma attack, she could not breathe. Whenever she gets attack, her voice changes. She used Respimat 4 times, but it did not work, and she was brought into the ER and she was having stridor at that time. She was given hour long neb treatments and she was placed on BiPAP and currently much improved. Her breathing is much better. Her stridor is improved, voice is getting better. Off BiPAP, she was able to talk in full sentences and she gave the history. 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 Currently resting comfortably and hemodynamically stable. Denies any headache, no blurred visions, no earache, no runny nose, no sore throat, no dysphagia, no odynophagia. When she had episode, she had a dry cough, but right now she is fine. Denies any fever, chills. No chest pain, no nausea, no vomiting, no abdominal pain. Normal bowel and bladder movements. No black stools or blood in stools. No swelling in the legs. No rash. Otherwise, she is active. Principal Diagnosis acute exacerbation of asthma Discharge Data Allergies Allergy/AdvReac Type Severity Reaction Status Date / Time Sulfa (Sulfonamide Allergy Severe DRESS Unverified 03/20/19 18:20 Antibiotics) Syndrome sulfamethoxazole Allergy Severe DRESS Verified 03/20/19 18:20 SYNDROME trimethoprim Allergy Severe DRESS Verified 03/20/19 18:20 SYNDROME promethazine Allergy Unknown HYPOTENSION Verified 03/20/19 18:20 Consultations 03/20/19 19:12 ED Decision to Admit Stat Ordered Studies 03/20/19 17:52 CT soft tissue neck w con Stat Hospital Course (1) Acute asthma exacerbation: Severe exacerbation of asthma, apparently due to exposure to fragrance. Initially required BiPAP support in ED. Nasopharyngeal swab for influenza A/B negative. No infiltrates on chest x-ray. Treated with steroids and bronchodilators with significant improvement. PEFR 450 (compared to 500 before exacerbation and best of 550). Case discussed with Allergy. Discharged on prednisone taper starting at 60 mg. (2) DVT prophylaxis: SCD's ordered. Ambulatory. (3) Discharge planning issues: Discharged to home. Family Medicine follow-up with Dr. Bailey. Allergy follow-up with Dr. Bradley. Pulmonary follow-up with Dr. Barrientos. Total Time Total Time Spent Total Time Spent (In Minutes): 40 Discharge Plan Discharge Items Patient Disposition: Home - Self-Care Reason For Visit: asthma attack Discharge Diagnosis: asthma attack Condition on Discharge: Good Activity: Resume your previous activity Non-emergency contact: Primary Care Provider, Hospitalist and Specialist Call non-emergency contact if: you have any medication questions and your symptoms worsen Follow-up/Referrals: Shannan Bailey DO [Primary Care Provider] - (as needed) Mary Bradley MD [Family Provider] - (Office will contact you with follow-up appointment.) Diet: Heart Healthy Addtl Attending Provider Instructions: MEDICATION CHANGES: Resume prednisone taper. Same instructions as last taper, starting with 60 mg daily. OTHER INSTRUCTIONS: Seek medical attention if you have: * temperature above 101 * chest pain or trouble breathing * abdominal pain, nausea, vomiting * diarrhea, dark stools or bloody stools * any unanswered questions or concerns Call 911 if symptoms are severe. Please take good care of yourself. Call if you have any questions or problems. You can reach a [facility] hospitalist on duty at [facility] 24 hours a day by calling [phone]. My cell # is [phone]. Pending Studies at Discharge: No Stand-Alone Forms: My [facility], Smoking Cessation Medications and DC Order Prescriptions: New prednisone 10 mg tablet See Rx Instructions PO .COMPLEX Qty: 60 RF: 0 Continued azelastine 0.15 % (205.5 mcg) spray,non-aerosol 205.5 mcg INTNAS BID RF: 0 hydrochlorothiazide 25 mg tablet 25 mg PO QAM RF: 0 amlodipine [Norvasc] 5 mg tablet 5 mg PO QAM RF: 0 pantoprazole [Protonix] 40 mg tablet,delayed release (DR/EC) 40 mg PO QAM PRN (Reason: In combo with prednisone) RF: 0 benzonatate [Tessalon Perles] 100 mg capsule 100 mg PO TID PRN (Reason: Cough) RF: 0 fluticasone propionate [Flonase Allergy Relief] 50 mcg/actuation Rosenberg,Suspension 2 spray INTRANASAL DAILY PRN (Reason: Congestion) RF: 0 Combivent Respimat 20-100 mcg/actuation Mist 1 puff INHALATION QID PRN (Reason: Shortness Of Breath Or Wheezing) RF: 0 loratadine [Claritin] 10 mg Tablet 10 mg PO DAILY PRN (Reason: allergic rhinitis) RF: 0 montelukast [Singulair] 10 mg Tablet 10 mg PO QAM RF: 0 Dulera 200-5 mcg/actuation Hfa Aerosol Inhaler 2 puff INHALATION BID RF: 0 (DME) Oxygen Home Liters Per Minute RF: 0 Discharge Orders: Discharge Order (Routine); Ordered 03/21/19 Ordered By: Rhett Roach Admission Data Admit Date/Time: 03/20/19 20:16 Attending Provider: Rhett Roach Admit Provider: Raghu Castaneda Primary Care Provider: Shannan Bailey Other Providers: Raghu Castaneda Other Interventions: Discharge Summary Assessment (RN) Last Done: 03/21/19 17:59 DC Date/Time DO NOT enter until pt leaves facility: 03/21/19 18:13
== END 2019-03-21 18:13 | disposition home or self-care (01) | DRG 203 ==
LOC: ED 17:10 → 2S 20:16

== ENCOUNTER 2020-01-26 22:29 | Inpatient (IN) ==
[2020-01-26] MEDS ORDERED: SODIUM CHLORIDE 0.9% 1000ML 1,000 ML IV SCH (23:00)
[2020-01-26] MEDS ORDERED: DEXAMETHASONE SOD INJ 10 MG/ML VIAL IV ONE (23:02)
[2020-01-26] MEDS ORDERED: MAGNESIUM SULFATE / D5W 1 GM/100 ML BAG IV SCH (23:02)
[2020-01-26 23:21] LABS: Basophils # (auto) 0.03 K/uL (0-0.2); Basophils % (auto) 0.5 %; Eosinophils # (auto) 0.03 K/uL (0-0.5); Eosinophils % (auto) 0.5 %; Hematocrit (blood only) 42.7 % (37-47); Hemoglobin 14.3 g/dL (12.0-16.0); Immature Granulocytes # (auto) 0.01 K/uL (0.00-0.02); Immature Granulocytes % (auto) 0.2 %; Lymphocytes # (auto) 0.86 K/uL (1.2-3.4); Lymphocytes % (auto) 15.7 %; Mean Corpuscular Hemoglobin 29.9 pg (25-34); Mean Corpuscular Hgb Conc 33.5 g/dL (32-36); Mean Corpuscular Volume 89.1 fL (80-100); Mean Platelet Volume 10.7 fL (7.4-10.4); Monocytes # (auto) 0.21 K/uL (0.11-0.59); Monocytes % (auto) 3.8 %; Neutrophils # (auto) 4.35 K/uL (1.4-6.5); Neutrophils % (auto) 79.3 %; Platelet Count 269 K/uL (130-400); RDW Standard Deviation 46.1 fL (36.4-46.3); Red Blood Count 4.79 M/uL (4.2-5.4); White Blood Count 5.49 K/uL (4.8-10.8)
[2020-01-26 23:27] LABS: Alanine Aminotransferase 56 U/L (12-78); Albumin Level 4.3 gm/dl (3.4-5.0); Aspartate Aminotransferase 37 U/L (15-37); BUN Creatinine Ratio 22.9 (10-20); Blood Urea Nitrogen 18 mg/dl (7-18); C Reactive Protein 0.47 mg/dl (0-0.29); Calcium 9.9 mg/dl (8.5-10.1); Carbon Dioxide 25 mmol/L (21-32); Chloride 107 mmol/L (98-107); Creatinine Clr Calc Pharmacy 84.3 ml/min; Est GFR (African American) 97.3; Est GFR (Non-African American) 83.9; Glucose 120 mg/dl (70-99); Lipase 263 U/L (73-393); Potassium 3.3 mmol/L (3.5-5.1); Sodium 139 mmol/L (136-145)
[2020-01-26 23:29] LABS: Prothrombin Time 10.2 Seconds (9.0-12.0)
[2020-01-26 23:32] LABS: Albumin Globulin Ratio 1.4 (0.9-2); Alkaline Phosphatase 78 U/L (45-117); Bilirubin,Total 0.3 mg/dl (0.2-1); Globulin 3.1 gm/dl (2.5-4.0); Total Protein 7.4 gm/dl (6.4-8.2); Troponin I < 0.015 ng/ml (0-0.045)
[2020-01-26] MEDS ORDERED: BENZONATATE 100 MG CAPSULE PO ONE (23:34)
[2020-01-26] MEDS ORDERED: ALBUT/IPRATROP 3MG/0.5MG NEB 3 ML VIAL NEB STA (23:34)
--- NOTE | 2020-01-26 23:46 | Emergency Department Note ---
Impression & Plan Breathlessness, COVID-19 ED Provider Note Provider: Dax Lewis MD DATE OF SERVICE:01/26/2020 CHIEF COMPLAINT: Shortness of breath HISTORY OF PRESENT ILLNESS: Patient is a 59-year-old female with a history of asthma, dress syndrome, thyroiditis, vocal cord dysfunction, sleep apnea with n ightly CPAP, hypertension presenting today with report of onset this evening around 630pm of fairly severe shortness of breath. Patient states it started very suddenly reporting fever of 100.8 Fahrenheit as well as cough with the shortness of breath. Patient states she took some Motrin as well as a dose of prednisone around 830p and did use her inhaler fairly frequently this evening which did help some. Patient states her pulse ox dropped to 90% at home per EMS report she states she felt short of breath. Denies significant pain at this time. Denies trauma. Does have exposure to Covid positive family members 5 days ago at a /viewing. No symptoms until just this evening. REVIEW OF SYSTEMS: A total of 10 review of systems was obtained and negative except as stated above in the HPI. 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 NECK: Trachea midline. Supple. LUNGS: Airway patent. No retractions. Slightly tachypneic but not dyspneic. HEART: Regular rate and rhythm. ABDOMEN: Soft and non-tender, without guarding or rebound. SKIN: Acyanotic, warm, dry, without rashes EXTREMITIES: Without swelling, tenderness or deformity NEUROLOGICAL: No focal deficits. No aphasia. No facial droop or slurred speech. EK bpm normal sinus rhythm. No PVC or PAC. No acute ST segment elevation or depression noted. Some respiratory artifact is noted. QTc within normal limits. CONTINUOUS CARDIAC MONITORING: was ordered and showed a heart rate of 84 bpm in normal sinus rhythm Chest x-ray 1 view: Per my interpretation no evidence of acute pneumonia or pneumothorax. No free air under the diaphragm. Normal cardiac silhouette. Patient's laboratory studies and imaging reviewed. Differential includes Reactive airway disease, pneumonia, pneumothorax, COPD, CHF, infections, cardiac ischemia, pulmonary embolism, musculoskeletal, gastrointestinal, as well as other pathologies. IMPRESSION/MEDICAL DECISION MAKING: Patient presents with onset suddenly this evening of shortness of breath. Recent possible exposure to family member with Covid. Reports 100.8 F temperature earlier improved with Motrin prior to arrival and afebrile here. Patient initially on room air not tachypneic but had a severe coughing fit and desaturated into the mid 80s utilized her inhaler some improvement. Given some Tessalon Perles help with cough as well as dexamethasone for additional steroid benefit whether this is Covid or asthma/reactive airway disease and a DuoNeb. IV magnesium ordered to help with breathing issues. Laboratory studies show no evidence of significant leukocytosis or anemia. Borderline hypokalemia 3.3 is noted but no other significant electrolyte abnormality. Troponin is undetectable and lipase is low I doubt acute pancreatitis or hepatitis given these or ACS. CRP is just slightly elevated 0.47. Covid testing was completed here as well as influenza testing given possible exposure and symptoms. Covid test was positive. Chest x-ray without evidence of significant infiltrates. Influenza testing negative. Patient did have coughing fit with some desaturations during this coughing attack into the high 80s. Placed on some oxygen. She used and did have some improvement with her home albuterol inhaler she had with her in the room immediately available. Given a DuoNeb here and again already received steroids as well as magnesium. Discussed with the patient's via phone recommendations for further care in the hospital per her request. Procalcitonin is undetectable and no significant leukocytosis again I believe this is all viral and will not institute antibiotics. Lactates not significantly elevated and I doubt sepsis. The hospitalist was contacted. DIAGNOSIS: Shortness of breath, COVID-19 DISPOSITION: Hospitalist will evaluate Past Med/Surg History Medical History (Updated 01/27/20 @ 00:08 by Dax Lewis M.D.) Allergic rhinitis Asthma Cystocele Diverticulosis Drug-induced rash with eosinophilia and systemic symptoms Kyra's thyroiditis Hypertension Multinodular goiter Multiple thyroid nodules Nocturnal hypoxemia Pulmonary nodule Right carpal tunnel syndrome Sleep apnea Vaginal enterocele, congenital or acquired Surgical History History of hysterectomy S/P tubal ligation Family History Other Diabetes No pertinent family history in first degree relatives Social History Smoking Status: Never smoker Second Hand Exposure: No; Hx Alcohol Use: Yes Hx Substance Use: No Preferred Language: Belarusian Communication Ability: Effective Client Service Manager Required: No Beliefs That Will Affect Care: None Current Living Situation: Spouse Current Living Situation Comment: lives with Feels Safe at Home: Yes Assistive Devices: Contacts and Glasses Allergies Allergies Allergy/AdvReac Type Severity Reaction Status Date / Time Sulfa (Sulfonamide Allergy Severe DRESS Verified 01/26/20 23:50 Antibiotics) Syndrome sulfamethoxazole Allergy Severe DRESS Verified 01/26/20 23:50 SYNDROME trimethoprim Allergy Severe DRESS Verified 01/26/20 23:50 SYNDROME promethazine Allergy Unknown HYPOTENSION Verified 01/26/20 23:50 Home Meds Home Medications Medication Instructions Recorded Confirmed amlodipine 5 mg tablet 5 mg PO QAM 12/20/18 01/26/20 hydrochlorothiazide 25 mg tablet 25 mg PO QAM 12/20/18 01/26/20 pantoprazole [Protonix] 40 mg PO QAM PRN 12/30/18 01/26/20 escitalopram oxalate 5 mg tablet 5 mg PO .COMPLEX 01/14/20 01/26/20 escitalopram oxalate 10 mg PO UD 01/26/20 01/26/20 Previous Rx's Medication Instructions Recorded mometasone-formoterol HFA 200 2 puff INHALATION BID #1 inhaler 07/16/19 mcg-5 mcg/actuation aerosol inhaler montelukast 10 mg tablet 10 mg PO QAM #30 tab 07/16/19 prednisone 10 mg tablet See Rx Instructions PO .COMPLEX 11/06/19 #60 tab Results & Data (ED) Vital Signs Vital Signs - 24 hr 01/26/20 22:38 01/26/20 23:00 01/26/20 23:38 Temperature 36.9 C Temperature Source Oral Pulse Rate 89 85 Pulse Rate [Apical] Pulse Rate from SpO2 Sensor 86 Respiratory Rate 19 22 Respiratory Effort / Characteristics Blood Pressure 166/106 H 171/85 H Blood Pressure Mean 126 112 Pulse Oximetry 94 97 96 Oxygen Delivery Method Room Air Room Air Oxygen Flow Rate 86 Sepsis Recent Fever Within 48 Hours Yes Sepsis New/Unexplained Change in Mental Status N/A Sepsis Action Taken by Nursing No Action Required Oxygen Flow Rate - Titration 3 01/27/20 00:00 Temperature Temperature Source Pulse Rate 82 Pulse Rate [Apical] 82 Pulse Rate from SpO2 Sensor 81 Respiratory Rate 19 Respiratory Effort / Characteristics Non-Labored Spontaneous Blood Pressure 150/97 H Blood Pressure Mean 115 Pulse Oximetry 100 Oxygen Delivery Method Nebulizer Oxygen Flow Rate 3 Sepsis Recent Fever Within 48 Hours Sepsis New/Unexplained Change in Mental Status Sepsis Action Taken by Nursing Oxygen Flow Rate - Titration Laboratory Data Result diagrams: 01/26/20 23:00 01/26/20 23:00 Lab Results 01/26/20 01/26/20 01/26/20 Range/Units 22:25 23:00 23:00 WBC 5.49 (4.8-10.8) K/uL RBC 4.79 (4.2-5.4) M/uL Hgb 14.3 (12.0-16.0) g/dL Hct 42.7 (37-47) % MCV 89.1 (80-100) fL MCH 29.9 (25-34) pg MCHC 33.5 (32-36) g/dL RDW Std Deviation 46.1 (36.4-46.3) fL RDW Coeff of Juanjose 14.0 (11.5-14.5) % Plt Count 269 (130-400) K/uL MPV 10.7 H (7.4-10.4) fL Immature Gran % (Auto) 0.2 % Neut % (Auto) 79.3 % Lymph % (Auto) 15.7 % [place] % (Auto) 3.8 % Eos % (Auto) 0.5 % Baso % (Auto) 0.5 % Neut # (Auto) 4.35 (1.4-6.5) K/uL Lymph # (Auto) 0.86 L (1.2-3.4) K/uL [place] # (Auto) 0.21 (0.11-0.59) K/uL Eos # (Auto) 0.03 (0-0.5) K/uL Baso # (Auto) 0.03 (0-0.2) K/uL Immature Gran # (Auto) 0.01 (0.00-0.02) K/uL PT 10.2 (9.0-12.0) Seconds INR 1.0 (0.9-1.1) Sodium (136-145) mmol/L Potassium (3.5-5.1) mmol/L Chloride (98-107) mmol/L Carbon Dioxide (21-32) mmol/L Anion Gap (3-11) BUN (7-18) mg/dl Creatinine (0.6-1.2) mg/dl Est Cr Clr Drug Dosing ml/min Est GFR ( Amer) Est GFR (Non-Af Amer) BUN/Creatinine Ratio (10-20) Glucose (70-99) mg/dl Lactate (0.4-2.0) mmol/L Calcium (8.5-10.1) mg/dl Magnesium (1.8-2.4) mg/dl Total Bilirubin (0.2-1) mg/dl AST (15-37) U/L ALT (12-78) U/L Alkaline Phosphatase (45-117) U/L Troponin I (0-0.045) ng/ml C-Reactive Protein (0-0.29) mg/dl Total Protein (6.4-8.2) gm/dl Albumin (3.4-5.0) gm/dl Globulin (2.5-4.0) gm/dl Albumin/Globulin Ratio (0.9-2) Lipase (73-393) U/L Procalcitonin (0-0.5) ng/ml Urine Color Cancelled Urine Appearance Cancelled Urine pH Cancelled Ur Specific [place] Cancelled Urine Protein Cancelled Urine Glucose (UA) Cancelled Urine Ketones Cancelled Urine Blood Cancelled Urine Nitrite Cancelled Urine Bilirubin Cancelled Urine Urobilinogen Cancelled Ur Leukocyte Esterase Cancelled Urine WBC (Auto) Cancelled Urine RBC (Auto) Cancelled U Hyaline Cast (Auto) Cancelled U Epithel Cells (Auto) Cancelled Urine Bacteria (Auto) Cancelled Ur Renal Epithelial Cell Cancelled Urine Crystals Cancelled Calcium Oxalate Crystal Cancelled Uric Acid Crystals Cancelled Triple Phos Crystals Cancelled Other Crystals Cancelled Amorphous Sediment Cancelled Granular Casts Cancelled Waxy Casts Cancelled RBC Casts Cancelled WBC Casts Cancelled Other Casts Cancelled Urine Mucus Cancelled Urine Other Cancelled Urine Trichomonas Cancelled Urine Yeast Cancelled Urine Sperm Cancelled Ur Oval Fat Bodies Cancelled COVID-19 Eval Order Influ A Molecular Assay (Negative) Influ B Molecular Assay (Negative) SARS-CoV-2, RNA, NAAT (NEGATIVE) 01/26/20 01/26/20 01/26/20 Range/Units 23:00 23:00 23:17 WBC (4.8-10.8) K/uL RBC (4.2-5.4) M/uL Hgb (12.0-16.0) g/dL Hct (37-47) % MCV (80-100) fL MCH (25-34) pg MCHC (32-36) g/dL RDW Std Deviation (36.4-46.3) fL RDW Coeff of Juanjose (11.5-14.5) % Plt Count (130-400) K/uL MPV (7.4-10.4) fL Immature Gran % (Auto) % Neut % (Auto) % Lymph % (Auto) % [place] % (Auto) % Eos % (Auto) % Baso % (Auto) % Neut # (Auto) (1.4-6.5) K/uL Lymph # (Auto) (1.2-3.4) K/uL [place] # (Auto) (0.11-0.59) K/uL Eos # (Auto) (0-0.5) K/uL Baso # (Auto) (0-0.2) K/uL Immature Gran # (Auto) (0.00-0.02) K/uL PT (9.0-12.0) Seconds INR (0.9-1.1) Sodium 139 (136-145) mmol/L Potassium 3.3 L (3.5-5.1) mmol/L Chloride 107 (98-107) mmol/L Carbon Dioxide 25 (21-32) mmol/L Anion Gap 7.0 (3-11) BUN 18 (7-18) mg/dl Creatinine 0.77 (0.6-1.2) mg/dl Est Cr Clr Drug Dosing 84.3 ml/min Est GFR ( Amer) 97.3 Est GFR (Non-Af Amer) 83.9 BUN/Creatinine Ratio 22.9 H (10-20) Glucose 120 H (70-99) mg/dl Lactate (0.4-2.0) mmol/L Calcium 9.9 (8.5-10.1) mg/dl Magnesium 2.1 (1.8-2.4) mg/dl Total Bilirubin 0.3 (0.2-1) mg/dl AST 37 (15-37) U/L ALT 56 (12-78) U/L Alkaline Phosphatase 78 (45-117) U/L Troponin I < 0.015 (0-0.045) ng/ml C-Reactive Protein 0.47 H (0-0.29) mg/dl Total Protein 7.4 (6.4-8.2) gm/dl Albumin 4.3 (3.4-5.0) gm/dl Globulin 3.1 (2.5-4.0) gm/dl Albumin/Globulin Ratio 1.4 (0.9-2) Lipase 263 (73-393) U/L Procalcitonin < 0.05 (0-0.5) ng/ml Urine Color Urine Appearance Urine pH Ur Specific [place] Urine Protein Urine Glucose (UA) Urine Ketones Urine Blood Urine Nitrite Urine Bilirubin Urine Urobilinogen Ur Leukocyte Esterase Urine WBC (Auto) Urine RBC (Auto) U Hyaline Cast (Auto) U Epithel Cells (Auto) Urine Bacteria (Auto) Ur Renal Epithelial Cell Urine Crystals Calcium Oxalate Crystal Uric Acid Crystals Triple Phos Crystals Other Crystals Amorphous Sediment Granular Casts Waxy Casts RBC Casts WBC Casts Other Casts Urine Mucus Urine Other Urine Trichomonas Urine Yeast Urine Sperm Ur Oval Fat Bodies COVID-19 Eval Order Influ A Molecular Assay Negative (Negative) Influ B Molecular Assay Negative (Negative) SARS-CoV-2, RNA, NAAT (NEGATIVE) 01/26/20 01/26/20 01/26/20 Range/Units 23:17 23:17 23:20 WBC (4.8-10.8) K/uL RBC (4.2-5.4) M/uL Hgb (12.0-16.0) g/dL Hct (37-47) % MCV (80-100) fL MCH (25-34) pg MCHC (32-36) g/dL RDW Std Deviation (36.4-46.3) fL RDW Coeff of Juanjose (11.5-14.5) % Plt Count (130-400) K/uL MPV (7.4-10.4) fL Immature Gran % (Auto) % Neut % (Auto) % Lymph % (Auto) % [place] % (Auto) % Eos % (Auto) % Baso % (Auto) % Neut # (Auto) (1.4-6.5) K/uL Lymph # (Auto) (1.2-3.4) K/uL [place] # (Auto) (0.11-0.59) K/uL Eos # (Auto) (0-0.5) K/uL Baso # (Auto) (0-0.2) K/uL Immature Gran # (Auto) (0.00-0.02) K/uL PT (9.0-12.0) Seconds INR (0.9-1.1) Sodium (136-145) mmol/L Potassium (3.5-5.1) mmol/L Chloride (98-107) mmol/L Carbon Dioxide (21-32) mmol/L Anion Gap (3-11) BUN (7-18) mg/dl Creatinine (0.6-1.2) mg/dl Est Cr Clr Drug Dosing ml/min Est GFR ( Amer) Est GFR (Non-Af Amer) BUN/Creatinine Ratio (10-20) Glucose (70-99) mg/dl Lactate 1.4 (0.4-2.0) mmol/L Calcium (8.5-10.1) mg/dl Magnesium (1.8-2.4) mg/dl Total Bilirubin (0.2-1) mg/dl AST (15-37) U/L ALT (12-78) U/L Alkaline Phosphatase (45-117) U/L Troponin I (0-0.045) ng/ml C-Reactive Protein (0-0.29) mg/dl Total Protein (6.4-8.2) gm/dl Albumin (3.4-5.0) gm/dl Globulin (2.5-4.0) gm/dl Albumin/Globulin Ratio (0.9-2) Lipase (73-393) U/L Procalcitonin (0-0.5) ng/ml Urine Color Urine Appearance Urine pH Ur Specific [place] Urine Protein Urine Glucose (UA) Urine Ketones Urine Blood Urine Nitrite Urine Bilirubin Urine Urobilinogen Ur Leukocyte Esterase Urine WBC (Auto) Urine RBC (Auto) U Hyaline Cast (Auto) U Epithel Cells (Auto) Urine Bacteria (Auto) Ur Renal Epithelial Cell Urine Crystals Calcium Oxalate Crystal Uric Acid Crystals Triple Phos Crystals Other Crystals Amorphous Sediment Granular Casts Waxy Casts RBC Casts WBC Casts Other Casts Urine Mucus Urine Other Urine Trichomonas Urine Yeast Urine Sperm Ur Oval Fat Bodies COVID-19 Eval [facility] Influ A Molecular Assay (Negative) Influ B Molecular Assay (Negative) SARS-CoV-2, RNA, NAAT POSITIVE A* (NEGATIVE) Administered Medications Discontinued Medications Albuterol (Albut/Ipratrop 3mg/0.5mg Neb 3 Ml Vial) 3 ml NEB NOW STA Stop: 01/26/20 23:35 Last Admin: 01/27/20 00:00 Dose: 3 ml Documented by: [id number] Benzonatate (Benzonatate 100 Mg Capsule) 100 mg PO NOW ONE Stop: 01/26/20 23:35 Last Admin: 01/26/20 23:43 Dose: 100 mg Documented by: [id number] Dexamethasone (Dexamethasone Sod Inj 10 Mg/Ml Vial) 10 mg IV NOW ONE Stop: 01/26/20 23:03 Last Admin: 01/26/20 23:33 Dose: 10 mg Documented by: [id number] Sodium Chloride (Nss 1000ml) 1,000 mls @ 999 mls/hr IV .Q1H1M PIO Stop: 01/27/20 00:00 Last Admin: 01/26/20 23:33 Dose: 999 mls/hr Documented by: [id number] Magnesium Sulfate/Dextrose (Magnesium Sulfate / D5w) 1 gm in 100 mls @ 400 mls/hr IV Q15M PIO Stop: 01/26/20 23:16 Last Infusion: 01/27/20 00:05 Dose: 0 mls/hr Documented by: [id number] Admin: 01/26/20 23:34 Dose: 200 mls/hr Documented by: [id number] Discharge Plan Visit Data Chief Complaint: Flu Like Symptoms Stated Complaint: LOW PULSE OX, SOB, FEVER ED Provider: Dax Lewis Discharge Problem: Breathlessness, COVID-19 Patient Disposition: Being Evaluated by Hospitalist Forms Stand Alone Forms: My [facility] Prescriptions Prescriptions: No Action prednisone 10 mg tablet See Rx Instructions PO .COMPLEX Qty: 60 RF: 2 montelukast [Singulair] 10 mg tablet 10 mg PO QAM Qty: 30 RF: 6 Dulera 200-5 mcg/actuation HFA aerosol inhaler 2 puff INHALATION BID Qty: 1 RF: 6 hydrochlorothiazide 25 mg tablet 25 mg PO QAM RF: 0 amlodipine [Norvasc] 5 mg tablet 5 mg PO QAM RF: 0 escitalopram oxalate [Lexapro] 5 mg tablet 5 mg PO .COMPLEX RF: 0 pantoprazole [Protonix] 40 mg tablet,delayed release (DR/EC) 40 mg PO QAM PRN (Reason: In combo with prednisone) RF: 0 escitalopram oxalate 10 mg tablet 10 mg PO UD RF: 0 Referrals Referrals: Anuja Cam MD [Primary Care Provider] -
[2020-01-26 23:52] LABS: Magnesium 2.1 mg/dl (1.8-2.4)
[2020-01-27 00:01] LABS: Influenza A virus by PCR Negative (Negative); Influenza B virus by PCR Negative (Negative)
[2020-01-27] MEDS ORDERED: PANTOprazole 40 MG TAB PO PRN (03:03)
[2020-01-27] MEDS ORDERED: NITROGLYCERIN SL 0.4 MG/TAB TAB SL PRN (03:03)
[2020-01-27] MEDS ORDERED: REMDESIVIR 200 MG in SODIUM CHLORIDE 0.9% 210 ML IV STA (03:19)
[2020-01-27] MEDS: SODIUM CHLORIDE 0.9% 10ML FLUSH IV SCH (06:39)
[2020-01-27] MEDS: ALBUTEROL HFA 8 GM INHALER INH SCH ×4 (07:01→20:02)
[2020-01-27] MEDS: IPRATROPIUM BROMIDE HFA INHALER INH SCH ×4 (07:02→20:02)
--- NOTE | 2020-01-27 07:16 | XRay Report ---
SINGLE VIEW CHEST CLINICAL HISTORY: Dyspnea. Cough and fever. FINDINGS: An AP, portable, upright chest radiograph is compared to study dated 03/20/2019. The cardiom ediastinal silhouette is unremarkable. There is mild elevation of the right hemidiaphragm. The lungs and pleural spaces are clear. No pneumothorax is seen. The bony thorax is grossly intact. IMPRESSION: No active disease in the chest. ACT 112: Negative or not required by law. Electronically signed by: Junior Barriga M.D. 01/27/2020 7:15 AM
--- NOTE | 2020-01-27 07:45 | History and Physical Report ---
DATE OF ADMISSION: 01/27/2020 CHIEF COMPLAINT: Shortness of breath, COVID positive. HISTORY OF PRESENT ILLNESS: This is a 59-year-old female with past medical history significant for moderate persistent asthma, vocal cord dysfunction, pulmonary nodules, obstructive sleep apnea on CPAP, nocturnal hypoxia, hypertension, history of uterine leiomyoma, situational anxiety, goiter, presents with shortness of breath and found to have COVID positive. The patient attended a about a week ago and later in the weekend she was told one of the attendee was positive COVID and on 01/26/2020 evening at 05:30 the patient had developed fever,_cough and shortness of breath. The patient took a dose of prednisone and Motrin which helped her some, but the patient's pulse ox dropped to 90% at home and was feeling short of breath, so she was brought in here and here requiring 3 liters oxygen,to keep sats in the mid 90s. She is having dry cough. Hemodynamically stable. Denies any chest pain, no nausea, no vomiting, no diarrhea, no abdominal pain. Has headache, no blurred vision, no earache, no runny nose, no sore throat, no loss of sense of smell or taste. Appetite okay. Currently resting comfortably and hemodynamically stable. Her mom lives with her and she is worried about her mom that she might be exposed. ALLERGIES: SULFA ANTIBIOTICS, PROMETHAZINE. PAST MEDICAL HISTORY: As mentioned above. PAST SURGICAL HISTORY: Carpal tunnel surgery, ligation of oviduct, total hysterectomy. MEDICATIONS: The patient is on amlodipine 5 mg p.o. daily, Lexapro alternating 10 mg and 5 mg daily, hydrochlorothiazide 25 mg p.o. a.m., mometasone formoterol 2 puffs inhalation b.i.d., montelukast 10 mg p.o. p.m., Protonix 40 mg p.o. a.m. p.r.n., prednisone as directed. FAMILY HISTORY: Significant for father had bladder cancer, mother had thyroid cancer. Mother has heart problems, thyroid disorder, granddaughter has allergies, asthma, aunt has lung cancer. Maternal grandmother had diabetes. SOCIAL HISTORY: . No smoking. Alcohol occasional. No drug use. REVIEW OF SYMPTOMS: As per HPI. Rest of review of symptoms negative. PHYSICAL EXAMINATION: GENERAL: The patient is of moderate build, not in acute distress. VITAL SIGNS: Temperature 36.8, pulse 77, respiratory rate 19, blood pressure 132/73, oxygen 92% on 2 liters. HEENT: Pupils equal, round, reactive to light. Oral mucosa moist. NECK: No neck masses seen. CARDIOVASCULAR: S1, S2 heard, regular rate and rhythm, no murmur, no gallop. RESPIRATORY SYSTEM: Normal AP diameter. No accessory muscle use. Occasional mild wheezing, no crackles. ABDOMEN: Soft, bowel sounds present, nontender. No distention. CENTRAL NERVOUS SYSTEM: Cranial nerves II through XII grossly intact, nonfocal. EXTREMITIES: No edema, no erythema. LABORATORY DATA: WBC 5.4, hemoglobin 14.3, hematocrit 42.7, platelets 269. PT 10.2, INR 1. Sodium 139, potassium 3.3, chloride 107, bicarbonate 25, BUN 18, creatinine 0.77, serum glucose 128, lactate 1.4, calcium 9.9, magnesium 2.1, total bilirubin 0.3, AST 37, ALT 56, alkaline phosphatase 78. Troponin I less than 0.015. C- reactive protein 0.47. Lipase 263. Procalcitonin less than 0.05. SARS-CoV-2 positive. Influenza A and B negative. IMAGING: Chest x-ray, no acute findings seen. EKG: Normal sinus rhythm, rate of 87, no significant change was found. ASSESSMENT AND PLAN: This is a 59-year-old female who presents with shortness of breath and cough and fever and found to have COVID positive and requiring oxygen. 1. COVID positive, hypoxia, shortness of breath, requiring 2 liters oxygen, she got recently exposed to COVID, since requiring oxygen empirically starting on remdesivir and dose of dexamethasone in the ER, which we will continue. We will also consider plasma transfusion. Monitor in the tele floor.Will follw labs and d dimer, troponin and ferritin levels. Lactate and procalcitonin normal. 2. History of asthma, not in acute exacerbation currently but we will monitor. Continue home inhalers. 3. Depression, situational anxiety. Continue her Lexapro. 4. Obstructive sleep apnea. Continue CPAP. 5. Hypertension. Continue amlodipine and hydrochlorothiazide. We will monitor the blood pressure. 6. Deep venous thrombosis prophylaxis, Lovenox. DISPOSITION: Monitor in the tele floor. Expect to discharge home and follow with family doctor. Level 1 full code. [place]
[2020-01-27] MEDS: ENOXAPARIN INJ 40 MG/0.4 ML SYR SQ SCH (07:56)
[2020-01-27] MEDS: FLUTICASONE/VILANTEROL 200/25MCG 14 PUFFS/INHALER INH SCH (07:57)
[2020-01-27] MEDS: ESCITALOPRAM OXALATE 10 MG TAB PO SCH (07:58)
[2020-01-27] MEDS: amLODIPine BESYLATE 5 MG TAB PO SCH (07:59)
[2020-01-27] MEDS: MONTELUKAST SODIUM 10 MG TABLET PO SCH (07:59)
[2020-01-27] MEDS: hydroCHLOROthiazide 25 MG TAB PO SCH (07:59)
[2020-01-27] MEDS ORDERED: IPRATROPIUM BROMIDE/ALBUTEROL respimat INH INH SCH (09:00)
[2020-01-27 09:07] LABS: D Dimer 730 ug/L FEU (0-500)
--- NOTE | 2020-01-27 13:02 | Hospitalist Progress Note ---
Date of Service January 27, 2020 Assessment & Plan (1) COVID-19: COVID-19 pneumonia Continue dexamethasone and remdesivir Dr. Amado board to discuss colitis and possible effusion. Patient stated she is interested in getting convalescent plasma Discussed this in details with the patient. Since early on in disease, may be benefit if any. We did discuss controversial findings regarding convalescent plasma. Patient consented to transfusion. Consent was obtained Convalescent plasma ordered Appreciate ID recommendations Trend inflammatory markers Wean oxygen as tolerated Patient also has asthma and ADAMA Continue albuterol inhalers as needed Continue CPAP at bedtime Agree with rest of the plans as documented by Dr. Castaneda as documented in H&P this morning Admission and Anticipated Discharge Date Admission Date: January 27, 2020 Subjective Patient seen and examined. Reports weakness, cough and left-sided chest pain especially with coughing Reports occasional shortness of breath Cough is dry Denies nausea, vomiting, abdominal pain or diarrhea Reports headache and lightheadedness Physical Exam Constitutional: + well hydrated and + obese; no acute distress Eyes: PERRL, conjunctivae normal, anicteric sclerae ENMT: external ear and nose normal, oropharynx normal Respiratory: + cough; no respiratory distress Auscultation: lungs clear to auscultation bilaterally; no crackles On 2 L/min of nasal oxygen Cardiovascular: RRR, no murmur, no edema Gastrointestinal (Abdomen): normal bowel sounds, soft, nontender, no hepatosplenomegaly Musculoskeletal: no cyanosis or clubbing, extremities motor strength 5/5 Neurologic: PERRL, EOMI, accommodation nl, no face palsy, no dysarthria Psychiatric: A+Ox3, euthymic affect Results & Data Results & Data ([facility]) Vital Signs (Past 12 Hours) Vital Signs Temp Pulse Pulse Resp BP BP Pulse Ox 01/27/20 11:55 89 16 132/93 94 01/27/20 10:33 93 H 22 95 01/27/20 08:00 73 01/27/20 07:36 36.6 C 87 18 131/89 95 01/27/20 07:08 86 16 97 01/27/20 03:04 36.8 C 77 19 132/73 92 01/27/20 02:00 81 19 136/89 96 01/27/20 01:30 54 L 17 141/92 H 96 Laboratory Results Laboratory Results - last 24 hr 01/26/20 01/26/20 01/26/20 22:25 23:00 23:00 WBC 5.49 RBC 4.79 Hgb 14.3 Hct 42.7 MCV 89.1 MCH 29.9 MCHC 33.5 RDW Std Deviation 46.1 RDW Coeff of Juanjose 14.0 Plt Count 269 MPV 10.7 H Immature Gran % (Auto) 0.2 Neut % (Auto) 79.3 Lymph % (Auto) 15.7 Frio % (Auto) 3.8 Eos % (Auto) 0.5 Baso % (Auto) 0.5 Neut # (Auto) 4.35 Lymph # (Auto) 0.86 L Frio # (Auto) 0.21 Eos # (Auto) 0.03 Baso # (Auto) 0.03 Immature Gran # (Auto) 0.01 PT 10.2 INR 1.0 D-Dimer Sodium Potassium Chloride Carbon Dioxide Anion Gap BUN Creatinine Est Cr Clr Drug Dosing Est GFR ( Amer) Est GFR (Non-Af Amer) BUN/Creatinine Ratio Glucose Lactate Calcium Magnesium Total Bilirubin AST ALT Alkaline Phosphatase Troponin I C-Reactive Protein Total Protein Albumin Globulin Albumin/Globulin Ratio Lipase Procalcitonin Urine Color Cancelled Urine Appearance Cancelled Urine pH Cancelled Ur Specific [place] Cancelled Urine Protein Cancelled Urine Glucose (UA) Cancelled Urine Ketones Cancelled Urine Blood Cancelled Urine Nitrite Cancelled Urine Bilirubin Cancelled Urine Urobilinogen Cancelled Ur Leukocyte Esterase Cancelled Urine WBC (Auto) Cancelled Urine RBC (Auto) Cancelled U Hyaline Cast (Auto) Cancelled U Epithel Cells (Auto) Cancelled Urine Bacteria (Auto) Cancelled Ur Renal Epithelial Cell Cancelled Urine Crystals Cancelled Calcium Oxalate Crystal Cancelled Uric Acid Crystals Cancelled Triple Phos Crystals Cancelled Other Crystals Cancelled Amorphous Sediment Cancelled Granular Casts Cancelled Waxy Casts Cancelled RBC Casts Cancelled WBC Casts Cancelled Other Casts Cancelled Urine Mucus Cancelled Urine Other Cancelled Urine Trichomonas Cancelled Urine Yeast Cancelled Urine Sperm Cancelled Ur Oval Fat Bodies Cancelled COVID-19 Eval Order Influ A Molecular Assay Influ B Molecular Assay SARS-CoV-2, RNA, NAAT Blood Type Antibody Screen 01/26/20 01/26/20 01/26/20 23:00 23:00 23:17 WBC RBC Hgb Hct MCV MCH MCHC RDW Std Deviation RDW Coeff of Juanjose Plt Count MPV Immature Gran % (Auto) Neut % (Auto) Lymph % (Auto) Frio % (Auto) Eos % (Auto) Baso % (Auto) Neut # (Auto) Lymph # (Auto) Frio # (Auto) Eos # (Auto) Baso # (Auto) Immature Gran # (Auto) PT INR D-Dimer Sodium 139 Potassium 3.3 L Chloride 107 Carbon Dioxide 25 Anion Gap 7.0 BUN 18 Creatinine 0.77 Est Cr Clr Drug Dosing 84.3 Est GFR ( Amer) 97.3 Est GFR (Non-Af Amer) 83.9 BUN/Creatinine Ratio 22.9 H Glucose 120 H Lactate Calcium 9.9 Magnesium 2.1 Total Bilirubin 0.3 AST 37 ALT 56 Alkaline Phosphatase 78 Troponin I < 0.015 C-Reactive Protein 0.47 H Total Protein 7.4 Albumin 4.3 Globulin 3.1 Albumin/Globulin Ratio 1.4 Lipase 263 Procalcitonin < 0.05 Urine Color Urine Appearance Urine pH Ur Specific [place] Urine Protein Urine Glucose (UA) Urine Ketones Urine Blood Urine Nitrite Urine Bilirubin Urine Urobilinogen Ur Leukocyte Esterase Urine WBC (Auto) Urine RBC (Auto) U Hyaline Cast (Auto) U Epithel Cells (Auto) Urine Bacteria (Auto) Ur Renal Epithelial Cell Urine Crystals Calcium Oxalate Crystal Uric Acid Crystals Triple Phos Crystals Other Crystals Amorphous Sediment Granular Casts Waxy Casts RBC Casts WBC Casts Other Casts Urine Mucus Urine Other Urine Trichomonas Urine Yeast Urine Sperm Ur Oval Fat Bodies COVID-19 Eval Order Influ A Molecular Assay Negative Influ B Molecular Assay Negative SARS-CoV-2, RNA, NAAT Blood Type Antibody Screen 01/26/20 01/26/20 01/26/20 23:17 23:17 23:20 WBC RBC Hgb Hct MCV MCH MCHC RDW Std Deviation RDW Coeff of Juanjose Plt Count MPV Immature Gran % (Auto) Neut % (Auto) Lymph % (Auto) Frio % (Auto) Eos % (Auto) Baso % (Auto) Neut # (Auto) Lymph # (Auto) Frio # (Auto) Eos # (Auto) Baso # (Auto) Immature Gran # (Auto) PT INR D-Dimer Sodium Potassium Chloride Carbon Dioxide Anion Gap BUN Creatinine Est Cr Clr Drug Dosing Est GFR ( Amer) Est GFR (Non-Af Amer) BUN/Creatinine Ratio Glucose Lactate 1.4 Calcium Magnesium Total Bilirubin AST ALT Alkaline Phosphatase Troponin I C-Reactive Protein Total Protein Albumin Globulin Albumin/Globulin Ratio Lipase Procalcitonin Urine Color Urine Appearance Urine pH Ur Specific [place] Urine Protein Urine Glucose (UA) Urine Ketones Urine Blood Urine Nitrite Urine Bilirubin Urine Urobilinogen Ur Leukocyte Esterase Urine WBC (Auto) Urine RBC (Auto) U Hyaline Cast (Auto) U Epithel Cells (Auto) Urine Bacteria (Auto) Ur Renal Epithelial Cell Urine Crystals Calcium Oxalate Crystal Uric Acid Crystals Triple Phos Crystals Other Crystals Amorphous Sediment Granular Casts Waxy Casts RBC Casts WBC Casts Other Casts Urine Mucus Urine Other Urine Trichomonas Urine Yeast Urine Sperm Ur Oval Fat Bodies COVID-19 Eval [facility] Influ A Molecular Assay Influ B Molecular Assay SARS-CoV-2, RNA, NAAT POSITIVE A* Blood Type Antibody Screen 01/27/20 01/27/20 08:26 13:27 WBC RBC Hgb Hct MCV MCH MCHC RDW Std Deviation RDW Coeff of Juanjose Plt Count MPV Immature Gran % (Auto) Neut % (Auto) Lymph % (Auto) Frio % (Auto) Eos % (Auto) Baso % (Auto) Neut # (Auto) Lymph # (Auto) Frio # (Auto) Eos # (Auto) Baso # (Auto) Immature Gran # (Auto) PT INR D-Dimer 730 H* Sodium Potassium Chloride Carbon Dioxide Anion Gap BUN Creatinine Est Cr Clr Drug Dosing Est GFR ( Amer) Est GFR (Non-Af Amer) BUN/Creatinine Ratio Glucose Lactate Calcium Magnesium Total Bilirubin AST ALT Alkaline Phosphatase Troponin I C-Reactive Protein Total Protein Albumin Globulin Albumin/Globulin Ratio Lipase Procalcitonin Urine Color Urine Appearance Urine pH Ur Specific [place] Urine Protein Urine Glucose (UA) Urine Ketones Urine Blood Urine Nitrite Urine Bilirubin Urine Urobilinogen Ur Leukocyte Esterase Urine WBC (Auto) Urine RBC (Auto) U Hyaline Cast (Auto) U Epithel Cells (Auto) Urine Bacteria (Auto) Ur Renal Epithelial Cell Urine Crystals Calcium Oxalate Crystal Uric Acid Crystals Triple Phos Crystals Other Crystals Amorphous Sediment Granular Casts Waxy Casts RBC Casts WBC Casts Other Casts Urine Mucus Urine Other Urine Trichomonas Urine Yeast Urine Sperm Ur Oval Fat Bodies COVID-19 Eval Order Influ A Molecular Assay Influ B Molecular Assay SARS-CoV-2, RNA, NAAT Blood Type Pending Antibody Screen Pending
--- NOTE | 2020-01-27 15:25 | Electrocardiogram Report ---
Test Reason : Blood Pressure : / mmHG Vent. Rate : 087 BPM Atrial Rate : 087 BPM P-R Int : 164 ms QRS Dur : 084 ms QT Int : 358 ms P-R-T Axes : 019 -03 016 degrees QTc Int : 430 ms Poor data quality, interpretation may be adversely affected Normal sinus rhythm Normal ECG When compared with ECG of 20-MAR-2019 17:35, No significant change was found Confirmed by Antwon Mcfarland ([id number]) on 01/27/2020 3:25:30 PM Referred By: REFERRED SELF Confirmed By:Tor Mcfarland
[2020-01-27] MEDS: ACETAMINOPHEN 325 MG TAB PO PRN (16:01)
[2020-01-27] MEDS ORDERED: POTASSIUM CHLORIDE PWD 20 MEQ PACK PO ONE (16:15)
[2020-01-27] MEDS ORDERED: DEXAMETHASONE SOD INJ 4 MG/ML VIAL IV SCH (21:00)
[2020-01-27] MEDS: DEXAMETHASONE SOD PHOSPHATE 6 MG in SYRINGE 0 ML IV SCH (21:41)
[2020-01-28 01:13] LABS: Appearance Urine Clear (Clear); Bilirubin Urine Negative (Negative); Blood Urine Negative (Negative); Color Urine Yellow; Glucose Urine UA Negative (Negative); Ketones Urine Negative (Negative); Leukocyte Esterase Urine Negative (Negative); Nitrite Urine Negative (Negative); Protein Urine Negative (Negative); Specific Gravity Urine 1.011 (1.000-1.030); Urobilinogen Urine Negative (Negative)
[2020-01-28] MEDS: REMDESIVIR 100 MG in SODIUM CHLORIDE 0.9% 230 ML IV SCH (03:21)
[2020-01-28] MEDS: SODIUM CHLORIDE 0.9% 10ML FLUSH IV SCH (04:50)
[2020-01-28] MEDS: ALBUTEROL HFA 8 GM INHALER INH SCH ×4 (09:19→19:12)
[2020-01-28] MEDS: IPRATROPIUM BROMIDE HFA INHALER INH SCH ×4 (09:19→19:12)
[2020-01-28] MEDS: FLUTICASONE/VILANTEROL 200/25MCG 14 PUFFS/INHALER INH SCH (09:35)
[2020-01-28] MEDS: hydroCHLOROthiazide 25 MG TAB PO SCH (09:35)
[2020-01-28] MEDS: amLODIPine BESYLATE 5 MG TAB PO SCH (09:36)
[2020-01-28] MEDS: ESCITALOPRAM OXALATE 10 MG TAB PO SCH (09:36)
[2020-01-28] MEDS: MONTELUKAST SODIUM 10 MG TABLET PO SCH (09:36)
[2020-01-28] MEDS: ENOXAPARIN INJ 40 MG/0.4 ML SYR SQ SCH (09:37)
[2020-01-28 09:41] LABS: Hemoglobin 14.9 g/dL (12.0-16.0); Mean Corpuscular Hemoglobin 30.6 pg (25-34); Mean Corpuscular Hgb Conc 33.9 g/dL (32-36); Mean Corpuscular Volume 90.3 fL (80-100); Mean Platelet Volume 10.7 fL (7.4-10.4); Platelet Count 272 K/uL (130-400); RDW Coefficient of Variation 14.4 % (11.5-14.5); RDW Standard Deviation 47.8 fL (36.4-46.3); Red Blood Count 4.87 M/uL (4.2-5.4); White Blood Count 7.67 K/uL (4.8-10.8)
[2020-01-28 10:02] LABS: D Dimer 730 ug/L FEU (0-500)
[2020-01-28 10:14] LABS: Alanine Aminotransferase 49 U/L (12-78); Albumin Level 4.1 gm/dl (3.4-5.0); Aspartate Aminotransferase 27 U/L (15-37); BUN Creatinine Ratio 20.8 (10-20); Bilirubin Direct < 0.1 mg/dl (0-0.2); Blood Urea Nitrogen 15 mg/dl (7-18); C Reactive Protein 0.49 mg/dl (0-0.29); Calcium 9.7 mg/dl (8.5-10.1); Carbon Dioxide 26 mmol/L (21-32); Chloride 110 mmol/L (98-107); Creatinine Clr Calc Pharmacy 88.1 ml/min; Est GFR (African American) 105.5; Glucose 108 mg/dl (70-99); Sodium 142 mmol/L (136-145)
[2020-01-28 10:19] LABS: Albumin Globulin Ratio 1.1 (0.9-2); Alkaline Phosphatase 70 U/L (45-117); Bilirubin,Total 0.2 mg/dl (0.2-1); Ferritin 107.2 ng/ml (8-388); Globulin 3.6 gm/dl (2.5-4.0); Total Protein 7.7 gm/dl (6.4-8.2); Troponin I < 0.015 ng/ml (0-0.045)
--- NOTE | 2020-01-28 16:12 | Hospitalist Progress Note ---
Date of Service January 28, 2020 Assessment & Plan (1) COVID-19: COVID-19 pneumonia Hypoxia CXR:No active disease in the chest. Continue dexamethasone and remdesivir as per Protocol Also received convalescent plasma as per patient's request and consent obtained Appreciate ID input Weaned off of oxygen Continue to monitor oxygen saturation Continue isolation precautions May need 2 step prior to discharge Monitor inflammatory markers, LFTs, renal function H/O Asthma, ADAMA No wheezing on exam Continue albuterol inhalers as needed Continue CPAP at bedtime HTN Continue home medications GERD Continue PPI Depression Continue Lexapro DVT prophylaxis Lovenox SQ CODE STATUS Full code Disposition Expected discharge home when medically stable Admission and Anticipated Discharge Date Admission Date: January 27, 2020 Subjective Patient is seen and examined at bedside Feels slightly better today Still has cough with whitish expectoration Dyspnea slightly better today Reports mild dizziness Denies chest pain, nausea, abdominal pain, diarrhea Offers no other complaints Saturating well off oxygen today Review of Systems Review of Systems: All systems reviewed & are unremarkable except as noted in HPI & below Physical Exam Physical Exam: Physical Exam: Vitals signs as noted above General Appearance:Obese, no apparent distress Head: normocephalic, Atraumatic Eyes: normal inspection, EOMI Neck: supple, Trachea midline Respiratory/Chest: Normal breath sounds, CTA, No accessory muscle use Cardiovascular: S1, S2, No murmur Abdomen/GI:Soft, Non tender, Bowel sounds present Extremities/Musculoskelatal:normal inspection, no edema Neurologic/Psych:AAOX3, grossly no focal neurological deficits Skin: normal color, warm Results & Data Results & Data ([facility]) Vital Signs (Past 12 Hours) Vital Signs Temp Pulse Resp BP Pulse Ox 01/28/20 15:20 36.9 C 75 20 139/90 96 01/28/20 14:27 79 20 95 01/28/20 12:28 36.8 C 81 18 121/64 94 01/28/20 09:22 70 20 95 01/28/20 08:30 36.7 C 70 18 133/83 95 Laboratory Results Short CBC 01/28/20 Range/Units 09:05 WBC 7.67 (4.8-10.8) K/uL Hgb 14.9 (12.0-16.0) g/dL Hct 44.0 (37-47) % Plt Count 272 (130-400) K/uL BMP 01/28/20 09:05 Sodium 142 Potassium 4.0 D Chloride 110 H Carbon Dioxide 26 BUN 15 Creatinine 0.72 Glucose 108 H Calcium 9.7 Cardiac Enzymes 01/28/20 Range/Units 09:05 Troponin I < 0.015 (0-0.045) ng/ml Liver Function 01/28/20 Range/Units 09:05 Total Bilirubin 0.2 (0.2-1) mg/dl Direct Bilirubin < 0.1 (0-0.2) mg/dl AST 27 (15-37) U/L ALT 49 (12-78) U/L Alkaline Phosphatase 70 (45-117) U/L Albumin 4.1 (3.4-5.0) gm/dl Urine 01/28/20 Range/Units 00:45 Urine Color Yellow Urine Appearance Clear (Clear) Urine pH 6.0 (4.5-7.5) Ur Specific [place] 1.011 (1.000-1.030) Urine Protein Negative (Negative) Urine Glucose (UA) Negative (Negative)
[2020-01-28] MEDS: DEXAMETHASONE SOD PHOSPHATE 6 MG in SYRINGE 0 ML IV SCH (21:37)
[2020-01-28] MEDS: ACETAMINOPHEN 325 MG TAB PO PRN (23:54)
[2020-01-29] MEDS: REMDESIVIR 100 MG in SODIUM CHLORIDE 0.9% 230 ML IV SCH (03:25)
[2020-01-29] MEDS: SODIUM CHLORIDE 0.9% 10ML FLUSH IV SCH (06:16)
[2020-01-29] MEDS: IPRATROPIUM BROMIDE HFA INHALER INH SCH ×4 (07:21→19:23)
[2020-01-29] MEDS: ALBUTEROL HFA 8 GM INHALER INH SCH ×4 (07:21→19:23)
[2020-01-29] MEDS: ENOXAPARIN INJ 40 MG/0.4 ML SYR SQ SCH (08:53)
[2020-01-29] MEDS: ESCITALOPRAM OXALATE 10 MG TAB PO SCH (08:54)
[2020-01-29] MEDS: hydroCHLOROthiazide 25 MG TAB PO SCH (08:54)
[2020-01-29] MEDS: amLODIPine BESYLATE 5 MG TAB PO SCH (08:54)
[2020-01-29] MEDS: MONTELUKAST SODIUM 10 MG TABLET PO SCH (08:54)
[2020-01-29] MEDS: FLUTICASONE/VILANTEROL 200/25MCG 14 PUFFS/INHALER INH SCH (08:55)
[2020-01-29 08:56] LABS: D Dimer 650 ug/L FEU (0-500)
[2020-01-29 09:04] LABS: Alanine Aminotransferase 49 U/L (12-78); Albumin Level 4.2 gm/dl (3.4-5.0); Aspartate Aminotransferase 23 U/L (15-37); Blood Urea Nitrogen 13 mg/dl (7-18); Calcium 9.9 mg/dl (8.5-10.1); Carbon Dioxide 27 mmol/L (21-32); Chloride 107 mmol/L (98-107); Creatinine Clr Calc Pharmacy 85.5 ml/min; Est GFR (African American) 103.8; Est GFR (Non-African American) 89.5; Glucose 114 mg/dl (70-99); Sodium 141 mmol/L (136-145)
[2020-01-29 09:09] LABS: Albumin Globulin Ratio 1.1 (0.9-2); Alkaline Phosphatase 70 U/L (45-117); Bilirubin,Total 0.3 mg/dl (0.2-1); Ferritin 101.3 ng/ml (8-388); Globulin 3.8 gm/dl (2.5-4.0); Troponin I < 0.015 ng/ml (0-0.045)
--- NOTE | 2020-01-29 17:41 | Hospitalist Progress Note ---
Date of Service January 29, 2020 Assessment & Plan (1) COVID-19: COVID-19 pneumonia Hypoxia CXR:No active disease in the chest. Continue dexamethasone and remdesivir as per Protocol Received convalescent plasma as per patient's request and consent obtained Appreciate ID input Continue to monitor oxygen saturation Continue isolation precautions May need 2 step prior to discharge Monitor inflammatory markers, LFTs, renal function Saturating well on room air Continue current medications H/O Asthma, ADAMA No wheezing on exam Continue albuterol inhalers as needed Continue CPAP at bedtime HTN Continue home medications GERD Continue PPI Depression Continue Lexapro DVT prophylaxis Lovenox SQ CODE STATUS Full code Disposition Expected discharge home when medically stable Admission and Anticipated Discharge Date Admission Date: January 27, 2020 Subjective Patient is seen and examined at bedside States her cough is about the same as yesterday Less short of breath Slept well overnight Headache much improved Dizziness improved as well No new complaints Denies chest pain, nausea, abdominal pain, diarrhea Saturating 96% on room air Review of Systems Review of Systems: All systems reviewed & are unremarkable except as noted in HPI & below Physical Exam Physical Exam: Physical Exam: Vitals signs as noted above General Appearance:Obese, no apparent distress Head: normocephalic, Atraumatic Eyes: normal inspection, EOMI Neck: supple, Trachea midline Respiratory/Chest: Decreased breath sounds, CTA, No accessory muscle use Cardiovascular: S1, S2, No murmur Abdomen/GI:Soft, Non tender, Bowel sounds present Extremities/Musculoskelatal:normal inspection, no edema Neurologic/Psych:AAOX3, grossly no focal neurological deficits Skin: normal color, warm Results & Data Results & Data ([facility]) Vital Signs (Past 12 Hours) Vital Signs Temp Pulse Resp BP BP Pulse Ox 01/29/20 15:42 78 16 96 01/29/20 15:34 36.4 C L 73 20 130/76 96 01/29/20 12:14 81 16 96 01/29/20 11:27 37.0 C 80 21 133/78 94 01/29/20 07:32 36.8 C 73 18 156/97 H 94 01/29/20 07:24 72 16 94 Laboratory Results [facility] 01/29/20 08:13 Sodium 141 Potassium 4.0 Chloride 107 Carbon Dioxide 27 BUN 13 Creatinine 0.73 Glucose 114 H Calcium 9.9 Cardiac Enzymes 01/29/20 Range/Units 08:13 Troponin I < 0.015 (0-0.045) ng/ml Liver Function 01/29/20 Range/Units 08:13 Total Bilirubin 0.3 (0.2-1) mg/dl AST 23 (15-37) U/L ALT 49 (12-78) U/L Alkaline Phosphatase 70 (45-117) U/L Albumin 4.2 (3.4-5.0) gm/dl
[2020-01-29] MEDS: DEXAMETHASONE SOD PHOSPHATE 6 MG in SYRINGE 0 ML IV SCH (19:51)
[2020-01-29] MEDS: ACETAMINOPHEN 325 MG TAB PO PRN (21:27)
[2020-01-30] MEDS: REMDESIVIR 100 MG in SODIUM CHLORIDE 0.9% 230 ML IV SCH (02:39)
[2020-01-30] MEDS: SODIUM CHLORIDE 0.9% 10ML FLUSH IV SCH (04:33)
[2020-01-30 06:24] LABS: Hematocrit (blood only) 45.7 % (37-47); Hemoglobin 15.4 g/dL (12.0-16.0); Mean Corpuscular Hemoglobin 30.1 pg (25-34); Mean Corpuscular Hgb Conc 33.7 g/dL (32-36); Mean Corpuscular Volume 89.4 fL (80-100); Mean Platelet Volume 10.6 fL (7.4-10.4); Platelet Count 312 K/uL (130-400); RDW Standard Deviation 46.3 fL (36.4-46.3); Red Blood Count 5.11 M/uL (4.2-5.4); White Blood Count 6.18 K/uL (4.8-10.8)
[2020-01-30 06:49] LABS: Aspartate Aminotransferase 30 U/L (15-37); BUN Creatinine Ratio 22.3 (10-20); Blood Urea Nitrogen 16 mg/dl (7-18); Calcium 9.5 mg/dl (8.5-10.1); Carbon Dioxide 28 mmol/L (21-32); Chloride 103 mmol/L (98-107); Creatinine Clr Calc Pharmacy 85.2 ml/min; Est GFR (African American) 103.8; Est GFR (Non-African American) 89.5; Glucose 123 mg/dl (70-99); Potassium 3.8 mmol/L (3.5-5.1); Sodium 138 mmol/L (136-145)
[2020-01-30 06:54] LABS: Alanine Aminotransferase 57 U/L (12-78); Troponin I < 0.015 ng/ml (0-0.045)
[2020-01-30] MEDS: ALBUTEROL HFA 8 GM INHALER INH SCH ×3 (07:40→15:20)
[2020-01-30] MEDS: IPRATROPIUM BROMIDE HFA INHALER INH SCH ×3 (07:40→15:20)
[2020-01-30] MEDS: hydroCHLOROthiazide 25 MG TAB PO SCH (08:01)
[2020-01-30] MEDS: amLODIPine BESYLATE 5 MG TAB PO SCH (08:01)
[2020-01-30] MEDS: MONTELUKAST SODIUM 10 MG TABLET PO SCH (08:01)
[2020-01-30] MEDS: ENOXAPARIN INJ 40 MG/0.4 ML SYR SQ SCH (08:02)
[2020-01-30] MEDS: ESCITALOPRAM OXALATE 10 MG TAB PO SCH (08:02)
[2020-01-30] MEDS: FLUTICASONE/VILANTEROL 200/25MCG 14 PUFFS/INHALER INH SCH (08:03)
--- NOTE | 2020-01-30 15:59 | Hospitalist Progress Note ---
Date of Service January 30, 2020 Assessment & Plan (1) COVID-19: COVID-19 pneumonia Hypoxia CXR:No active disease in the chest. Received dexamethasone and remdesivir as per Protocol Received convalescent plasma as per patient's request and consent obtained Completed 4 days of remdesivir course. Appreciate ID input Continue to monitor oxygen saturation Continue isolation precautions Monitor inflammatory markers, LFTs, renal function Saturating 96% on room air 2 step: Did not qualify for home oxygen H/O Asthma, ADAMA No wheezing on exam Continue albuterol inhalers as needed Continue CPAP at bedtime HTN Continue home medications GERD Continue PPI Depression Continue Lexapro DVT prophylaxis Lovenox SQ CODE STATUS Full code Disposition Expected discharge home when medically stable Admission and Anticipated Discharge Date Admission Date: January 27, 2020 Subjective Patient is seen and examined at bedside Only minimal cough today No new complaints Dizziness resolved Denies chest pain, dyspnea, nausea, abdominal pain, diarrhea Saturating 96% on room air 2 STEP: Did not qualify for home oxygen Review of Systems Review of Systems: All systems reviewed & are unremarkable except as noted in HPI & below Physical Exam Physical Exam: Physical Exam: Vitals signs as noted above General Appearance:Obese, no apparent distress Head: normocephalic, Atraumatic Eyes: normal inspection, EOMI Neck: supple, Trachea midline Respiratory/Chest: Decreased breath sounds, CTA, No accessory muscle use Cardiovascular: S1, S2, No murmur Abdomen/GI:Soft, Non tender, Bowel sounds present Extremities/Musculoskelatal:normal inspection, no edema Neurologic/Psych:AAOX3, grossly no focal neurological deficits Skin: normal color, warm Results & Data Results & Data ([facility]) Vital Signs (Past 12 Hours) Vital Signs Temp Pulse Pulse Pulse Pulse Pulse Resp 01/30/20 15:34 72 01/30/20 15:16 36.6 C 75 21 01/30/20 11:20 98 H 92 H 96 H 01/30/20 11:19 87 20 01/30/20 10:57 37.0 C 68 20 01/30/20 07:43 36.5 C 65 20 01/30/20 07:36 61 01/30/20 05:04 36.8 C 59 L 20 Resp Resp Resp BP BP Pulse Ox Pulse Ox 01/30/20 15:34 01/30/20 15:16 132/89 96 01/30/20 11:20 20 18 16 95 01/30/20 11:19 95 01/30/20 10:57 122/67 93 01/30/20 07:43 127/79 95 01/30/20 07:36 01/30/20 05:04 122/76 93 Pulse Ox Pulse Ox 01/30/20 15:34 01/30/20 15:16 01/30/20 11:20 96 94 01/30/20 11:19 01/30/20 10:57 01/30/20 07:43 01/30/20 07:36 01/30/20 05:04 Laboratory Results Short CBC 01/30/20 Range/Units 05:55 WBC 6.18 (4.8-10.8) K/uL Hgb 15.4 (12.0-16.0) g/dL Hct 45.7 (37-47) % Plt Count 312 (130-400) K/uL BMP 01/30/20 05:55 Sodium 138 Potassium 3.8 Chloride 103 Carbon Dioxide 28 BUN 16 Creatinine 0.73 Glucose 123 H Calcium 9.5 Cardiac Enzymes 01/30/20 Range/Units 05:55 Troponin I < 0.015 (0-0.045) ng/ml Liver Function 01/30/20 Range/Units 05:55 AST 30 (15-37) U/L ALT 57 (12-78) U/L
--- NOTE | 2020-01-30 16:12 | Discharge Summary ---
Date of Service January 30, 2020 Admission HPI Per Admitting Provider CHIEF COMPLAINT: Shortness of breath, COVID positive. HISTORY OF PRESENT ILLNESS: This is a 59-year-old female with past medical history significant for moderate persistent asthma, vocal cord dysfunction, pulmonary nodules, obstructive sleep apnea on CPAP, nocturnal hypoxia, hypertension, history of uterine leiomyoma, situational anxiety, goiter, presents with shortness of breath and found to have COVID positive. The patient attended a about a week ago and later in the weekend she was told one of the attendee was positive COVID and on 01/26/2020 evening at 05:30 the patient had developed fever,_cough and shortness of breath. The patient took a dose of prednisone and Motrin which helped her some, but the patient's pulse ox dropped to 90% at home and was feeling short of breath, so she was brought in here and here requiring 3 liters oxygen,to keep sats in the mid 90s. She is having dry cough. Hemodynamically stable. Denies any chest pain, no nausea, no vomiting, no diarrhea, no abdominal pain. Has headache, no blurred vision, no earache, no runny nose, no sore throat, no loss of sense of smell or taste. Appetite okay. Currently resting comfortably and hemodynamically stable. Her mom lives with her and she is worried about her mom that she might be exposed. Admission Exam Per Admitting Provider PHYSICAL EXAMINATION: GENERAL: The patient is of moderate build, not in acute distress. VITAL SIGNS: Temperature 36.8, pulse 77, respiratory rate 19, blood pressure 132/73, oxygen 92% on 2 liters. HEENT: Pupils equal, round, reactive to light. Oral mucosa moist. NECK: No neck masses seen. CARDIOVASCULAR: S1, S2 heard, regular rate and rhythm, no murmur, no gallop. RESPIRATORY SYSTEM: Normal AP diameter. No accessory muscle use. Occasional mild wheezing, no crackles. ABDOMEN: Soft, bowel sounds present, nontender. No distention. CENTRAL NERVOUS SYSTEM: Cranial nerves II through XII grossly intact, nonfocal. EXTREMITIES: No edema, no erythema. Principal Diagnosis COVID-19 pneumonia Acute respiratory failure with hypoxia Discharge Data Allergies Allergy/AdvReac Type Severity Reaction Status Date / Time Sulfa (Sulfonamide Allergy Severe DRESS Verified 01/26/20 23:50 Antibiotics) Syndrome sulfamethoxazole Allergy Severe DRESS Verified 01/26/20 23:50 SYNDROME trimethoprim Allergy Severe DRESS Verified 01/26/20 23:50 SYNDROME promethazine Allergy Unknown HYPOTENSION Verified 01/26/20 23:50 Consultations 01/27/20 00:09 ED Decision to Admit Stat 01/27/20 03:03 Consult Case Management - Discharge Planning Routine 01/27/20 07:41 Consult Infectious Diseases Routine Procedures Performed CXR:No active disease in the chest. Hospital Course (1) COVID-19: COVID-19 pneumonia Hypoxia CXR:No active disease in the chest. Received dexamethasone and remdesivir as per Protocol Received convalescent plasma as per patient's request and consent obtained Completed 4 days of remdesivir course. Appreciate ID input Continue to monitor oxygen saturation Continue isolation precautions Monitor inflammatory markers, LFTs, renal function Saturating 96% on room air 2 step: Did not qualify for home oxygen H/O Asthma, ADAMA No wheezing on exam Continue albuterol inhalers as needed Continue CPAP at bedtime HTN Continue home medications GERD Continue PPI Depression Continue Lexapro DVT prophylaxis Lovenox SQ CODE STATUS Full code Disposition Expected discharge home when medically stable Total Time Total Time Spent Total Time Spent (In Minutes): 38 minutes Total Time Includes: Examination of the Patient, Discharge Planning, Medication Reconciliation, Communication With Other Providers and Other Discharge Plan Discharge Items Patient Disposition: Home - Self-Care Reason For Visit: SOB Discharge Diagnosis: COVID-19 pneumonia Acute respiratory failure with hypoxia Activity: Per Instructions section Exercise/Sports: Gradually increase as tolerated Non-emergency contact: Primary Care Provider Call non-emergency contact if: you have any medication questions, your symptoms worsen, your pain is not controlled, your pain is worsening, your pain is unusual for you, your pain is concerning for you and you have a fever Follow-up/Referrals: Anuja Cam MD [Primary Care Provider] - 02/03/20 3:40 pm (Date & Time 02/03/2020 3:40 PM Provider Anuja Rodrigues MD Department General Internal Medicine [facility] PLEASE NOTE: THIS HOSPITAL DISCHARGE FOLLOW UP IS A TELEVIDEO APPOINTMENT. PLEASE FOLLOW THE INSTRUCTIONS IN THE EMAIL THAT YOU WILL RECEIVE. IF YOU HAVE ANY QUESTIONS OR NEED TO CHANGE THE APPOINTMENT, PLEASE CALL ) Diet: Heart Healthy Addtl Attending Provider Instructions: Follow up with your primary care physician Dr. Cam on 02/03/2020 3:40 PM as scheduled Continue monitoring your oxygen saturations at home as advised Continue isolation precautions as advised Seek immediate medical attention if your symptoms reoccur or worsen Home Isolation COVID-19 Instructions The following information about Home Isolation is from the CDC Website: https://www.cdc.gov/coronavirus/2019-ncov/hcp/vgdsdngc-woekybk-uhsitl.html Stay home except to get medical care People who are mildly ill with COVID-19 are able to isolate at home during their illness. You should restrict activities outside your home, except for getting medical care. Do not go to work, school, or public areas. Avoid using public transportation, ride-sharing, or taxis. Separate yourself from other people and animals in your home People: As much as possible, you should stay in a specific room and away from other people in your home. Also, you should use a separate bathroom, if available. Animals: You should restrict contact with pets and other animals while you are sick with COVID-19, just like you would around other people. Although there have not been reports of pets or other animals becoming sick with COVID-19, it is still recommended that people sick with COVID-19 limit contact with animals until more information is known about the virus. When possible, have another member of your household care for your animals while you are sick. If you are sick with COVID-19, avoid contact with your pet, including petting, snuggling, being kissed or licked, and sharing food. If you must care for your pet or be around animals while you are sick, wash your hands before and after you interact with pets and wear a face mask. Call ahead before visiting your doctor If you have a medical appointment, call the healthcare provider and tell them that you have or may have COVID-19. This will help the healthcare providers office take steps to keep other people from getting infected or exposed. Wear a face mask You should wear a face mask when you are around other people (e.g., sharing a room or vehicle) or pets and before you enter a healthcare providers office. If you are not able to wear a face mask (for example, because it causes trouble breathing), then people who live with you should not stay in the same room with you, or they should wear a face mask if they enter your room. Cover your coughs and sneezes Cover your mouth and nose with a tissue when you cough or sneeze. Throw used tissues in a lined trash can. Immediately wash your hands with soap and water for at least 20 seconds or, if soap and water are not available, clean your hands with an alcohol-based hand airline attendant that contains at least 60% alcohol. Clean your hands often Wash your hands often with soap and water for at least 20 seconds, especially after blowing your nose, coughing, or sneezing; going to the bathroom; and before eating or preparing food. If soap and water are not readily available, use an alcohol-based hand airline attendant with at least 60% alcohol, covering all surfaces of your hands and rubbing them together until they feel dry. Soap and water are the best option if hands are visibly dirty. Avoid touching your eyes, nose, and mouth with unwashed hands. Avoid sharing personal household items You should not share dishes, drinking glasses, cups, eating utensils, towels, or bedding with other people or pets in your home. After using these items, they should be washed thoroughly with soap and water. Clean all high-touch surfaces everyday High touch surfaces include counters, tabletops, doorknobs, bathroom fixtures, toilets, phones, keyboards, tablets, and bedside tables. Also, clean any surfaces that may have blood, stool, or body fluids on them. Use a household cleaning spray or wipe, according to the label instructions. Labels contain instructions for safe and effective use of the cleaning product including precautions you should take when applying the product, such as wearing gloves and making sure you have good ventilation during use of the product. Monitor your symptoms Seek prompt medical attention if your illness is worsening (e.g., difficulty breathing).Beforeseeking care, call your healthcare provider and tell them that you have, or are being evaluated for, COVID-19. Put on a face mask before you enter the facility. These steps will help the healthcare providers office to keep other people in the office or waiting room from getting infected or exposed. Ask your healthcare provider to call the local or state health department. Persons who are placed under active monitoring or facilitated self- monitoring should follow instructions provided by their local health department or occupational health professionals, as appropriate. When working with your local health department check their available hours. If you have a medical emergency and need to call 911, notify the dispatch personnel that you have, or are being evaluated for COVID-19. If possible, put on a face mask before emergency medical services arrive. Discontinuing home isolation Patients with confirmed COVID-19 should remain under home isolation precautions until the risk of secondary transmission to others is thought to be low. The decision to discontinue home isolation precautions should be made on a [id number] basis, in consultation with healthcare providers and state and local health departments. Coronavirus disease 2019 (COVID-19) is a virus that causes a respiratory illness. It is caused by a coronavirus called 2019 novel coronavirus (2019- nCoV). There are many types of coronavirus. Coronaviruses are a very common cause of bronchitis. They may sometimes cause lung infection(pneumonia). Symptoms can range from mild to severe respiratory illness. These viruses are also foundin some animals. COVID-19 was first found in people in [facility], in late 2018. In 2020, several cases of COVID-19 have been confirmed in the [place] Public health officials are working to find the source. How the virus spreads is not yet fully known. It may be spread through droplets of fluid that a person coughs or sneezes into the air. It may be spread if you touch a surface with virus on it, such as a handle or object, and then touch your mouth. What are the symptoms of COVID-19? Some people have no symptoms or mild symptoms. Symptoms may appear 2 to 14 days after contact with the virus. Symptoms can include: Fever Coughing Trouble breathing What are possible complications from COVID-19? In many cases, this virus can cause infection (pneumonia) in both lungs. In some cases, this can cause . How is COVID-19 diagnosed? Your healthcare provider will ask about your symptoms. He or she will also ask about your recent travel and contact with sick people. Testing for the virus is only done through the CDC. If yourhealthcare provider thinks you may have COVID- 19, he or she will work with your local health department and the CDC on testing. Follow all instructions from your healthcare provider. COVID-19 is diagnosed by: Nasal and throat swab. A cotton-tipped swab is wiped inside your nose or throat. This is done to check for viruses in your nasal mucus. Sputum culture. A small sample of mucus coughed from your lungs (sputum) is collected if you have a cough. It is checked for the virus. How is COVID-19 treated? There is currently no medicine to treat the virus. Treatment is done to help your body while it fights the virus. This is known as supportive care. Supportive care may include: Pain medicine. These include acetaminophen and ibuprofen. They are used to help ease pain and reduce fever. Bed rest. This helps your body fight the illness. For severe illness, you may need to stay in the hospital. Care during severe illness may include: IV (intravenous) fluids.These are given through a vein to help keep your body hydrated. Oxygen. Supplemental oxygen or ventilation with a breathing machine (ventilator) may be given. This is done to keep enough oxygen in your body. Are you at risk for COVID-19? If youve been to a place where people have been sick with this virus, you are at risk for infection. You are at risk if you: Recently traveled to an affected area Had contact with a sick person who recently traveled to this area Had contact with a person who was diagnosed with COVID-19 How can COVID-19 be prevented? There is no vaccine yet. The best prevention is to not have contact with the virus. The CDC advises that people should not travel to areas where there are C OVID-19 outbreaks right now for any reason that is not urgent. To help prevent spreading the infection, wash your hands often, or use an alcohol-basedhand airline attendant. If you are in an area with COVID-19: Wash your hands often. Or use an alcohol-based hand airline attendant often. Only touch your eyes, nose, or mouth with clean hands. Dont have contact with people who are sick. Follow local instructions about being in public. For example, you may be told to not use public transport for a period of time. Stay away from markets that have live or animals. Wash your hands after touching any animals. Don't touch animals that may be sick. Dont share eating or drinking tools with sick people. Dont kiss someone who is sick. Clean surfaces often with disinfectant. If you were in an area with COVID-19 in the last 14 days: Call your healthcare provider. He or she can talk with local health staff to see what action may be needed. Follow all instructions from your provider. Take your temperature every morning and evening for at least 14 days. This is to check for fever. Keep a record of the readings. Keep watch for symptoms of the virus. Tell your provider right away if you have symptoms. If you were in an area with COVID-19 and have a fever or other symptoms: Dont panic. Keep in mind that other illnesses can cause similar symptoms. Stay away from work, school, and public places. Limit physical contact with family members. Don't kiss anyone or share eating or drinking utensils. Clean surfaces you touch with disinfectant. This is to help prevent the virus from spreading. Call your healthcare provider. Explain that you have been exposed to COVID-19 and have symptoms. Do this before going to any hospital. Wait for instructions. Keep in mind that healthcare staff may wear protective equipment such as masks, gowns, gloves, and eye protection. You may be put in a separate room. This is to prevent the possible virus from spreading. Tell the healthcare staff about recent travel. This includes local travel on public transport. Staff may need to find other people you have been in contact with. Follow all instructions the healthcare staff give you. If you have been diagnosed with COVID-19 Follow all instructions from your healthcare provider. Dont leave your home, except to get medical care. Call your healthcare providers office before going. They can prepare and give you instructions. This will help prevent the virus from spreading. Dont go to work, school, or public areas. Dont use public transport or taxis. Stay away from other people in your home. Have them wear face masks around you. Dont share household items or food. Wear a face mask if you can. This includes at home or in a medical facility. Cover your face with a tissue when you cough or sneeze. Throw the tissue away. Wash your hands. Wash your hands often. Caregivers should: Follow all instructions from healthcare staff. Wear a face mask and protective clothing as advised. Wash hands often. Keep track of the sick persons symptoms. Clean surfaces, fabrics, and laundry thoroughly. Keep other people away from the sick person. When to call your healthcare provider Call your healthcare provider: If youve recently traveled and have symptoms If you have been diagnosed with COVID-19 and your symptoms are worse To learn more To find out more about COVID-19, visit the CDC website at www.cdc.gov/coronavirus/2019-ncov/index.html. [employer]. [address] [place] [address]. All rights reserved. This information is not intended as a substitute for professional medical care. Always follow your healthcare professional's instructions. This information has been adapted from [employer] . Addtl Technical Editor Provider Instructions: Ms.Diane Hernandez is admitted at [facility] with COVID Pneumonia (Likely Moderate stage). Please discuss with employee health regarding appropriate time to return back to work. Continue isolation precautions appropriately as advised. Pending Studies at Discharge: No Stand-Alone Forms: [facility], Work/School Release (Inpt), Smoking Cessation Medications and DC Order Prescriptions: Continued prednisone 10 mg tablet See Rx Instructions PO .COMPLEX Qty: 60 RF: 2 montelukast [Singulair] 10 mg tablet 10 mg PO QAM Qty: 30 RF: 6 Dulera 200-5 mcg/actuation HFA aerosol inhaler 2 puff INHALATION BID Qty: 1 RF: 6 hydrochlorothiazide 25 mg tablet 25 mg PO QAM RF: 0 amlodipine [Norvasc] 5 mg tablet 5 mg PO QAM RF: 0 escitalopram oxalate [Lexapro] 5 mg tablet 5 mg PO .COMPLEX RF: 0 pantoprazole [Protonix] 40 mg tablet,delayed release (DR/EC) 40 mg PO QAM PRN (Reason: In combo with prednisone) RF: 0 escitalopram oxalate 10 mg tablet 10 mg PO UD RF: 0 Discharge Orders: Discharge Order (Routine); Ordered 01/30/20 Ordered By: Michel Finn Admission Data Admit Date/Time: 01/27/20 01:48 Attending Provider: Michel Finn Admit Provider: Raghu Castaneda Primary Care Provider: Anuja Cam Other Providers: Raghu Castaneda ; Efe Powell ; Kiarra Davis ; Trey Howell I. ; Adrian Schreiber II ; Janina Gonzalez ; Efra Faulkner Other Interventions: Discharge Summary Assessment (RN) Last Done: 01/30/20 16:23
--- NOTE | 2020-02-08 11:17 | Coding Query ---
PRESENT ON ADMISSION QUERY To promote full compliance with coding requirements relating to pateint care, physician participation is requested in all cases of remote coders uncertainty. Please assist us with the question(s) below: Please place an X within the parenthesis (x). The following diagnosis(es) listed in this patient's medical record require physician assistance to determine if they were present on admission (POA) or not. Please advise for each diagnosis whether it was present on admission, not present on admission, or if it was clinically undetermined. 1. ACUTE RESPIRATORY FAILURE WITH HYPOXIA (Regarding the Acute Respiratory Failure documented on Discharge Summary) ( ) Present On Admission ( ) Not Present On Admission ( ) Clinically Undetermined Thank you Pippa Díaz *Definition of the present on admission (POA)-Present on admission is defined as present at the time the order for inpatient admission occurs. Conditions that develop during an outpatient encounter prior to a written order for inpatient admission (including emergency department, observation, or outpatient surgery) are considered present on admission. VIRGINIAD
--- NOTE | 2020-02-11 14:06 | Communication Note ---
Date of Service: February 11, 2020 ACUTE RESPIRATORY FAILURE WITH HYPOXIA--PRESENT ON ADMISSION
== END 2020-01-30 16:57 | disposition home or self-care (01) | DRG 177 ==
LOC: ED 22:29 → SUATTDRO 01-27 01:48 → 2E 01-27 01:48

== ENCOUNTER 2024-02-27 15:50 | Inpatient (IN) ==
[2024-02-27] MEDS: ONDANSETRON INJ 2 MG/ML 2 ML VIAL IV STA (16:19)
[2024-02-27 16:39] LABS: Hematocrit (blood only) 48.9 % (37.0-47.0); Hemoglobin 16.8 g/dl (12.0-16.0); Mean Corpuscular Hemoglobin 30.7 pg (25.0-34.0); Mean Corpuscular Hgb Conc 34.4 g/dL (32.0-36.0); Mean Corpuscular Volume 89.4 fL (80.0-100.0); Mean Platelet Volume 10.1 fL (9.4-12.4); Platelet Count 343 K/uL (130-400); RDW Coefficient of Variation 13.2 % (11.5-14.5); RDW Standard Deviation 43.5 fL (36.4-46.3); Red Blood Count 5.47 M/uL (4.20-5.40); White Blood Count 17.98 K/ul (4.8-10.8)
[2024-02-27 16:53] LABS: Albumin Globulin Ratio 1.8 (0.9-2); Albumin Level 4.9 gm/dl (3.4-5.0); BUN Creatinine Ratio 24.3 (10-20); Bilirubin,Total 0.7 mg/dl (0.2-1.0); Calcium 10.1 mg/dl (8.6-10.3); Creatinine Clr Calc Pharmacy 72.8 ml/min; Globulin 2.7 gm/dl (2.5-4.0); Potassium 3.8 mmol/L (3.5-5.1); Total Protein 7.6 gm/dl (6.0-8.3)
[2024-02-27 17:00] LABS: Basophils # (auto) 0.02 K/uL (0.00-0.20); Basophils % (auto) 0.1 %; Eosinophils # (auto) 0.02 K/uL (0.00-0.50); Eosinophils % (auto) 0.1 %; Immature Granulocytes # (auto) 0.05 K/uL (0.01-0.20); Immature Granulocytes % (auto) 0.3 %; Lymphocytes # (auto) 0.89 K/uL (1.20-3.40); Lymphocytes % (auto) 4.9 %; Monocytes # (auto) 0.81 K/uL (0.11-0.59); Monocytes % (auto) 4.5 %; Neutrophils # (auto) 16.19 K/uL (1.40-6.50); Neutrophils % (auto) 90.1 %
[2024-02-27] MEDS: OPTIRAY 320 100ml IV ONE (17:06)
--- NOTE | 2024-02-27 17:20 | CT Scan Report ---
EXAM: CT Abdomen and Pelvis With Intravenous Contrast INDICATION: Diffuse abdominal pain. TECHNIQUE: Axial computed tomography images of the abdomen and pelvis with intravenous contrast. Sagittal and coronal reformatted images were created and reviewed. This CT exam was performed using one or more of the following dose reduction techniques: automated exposure control, adjustment of the mA and/or kV according to patient size, and/or use of iterative reconstruction technique. CONTRAST: 90 ml of Optiray 320 was administered intravenously. COMPARISON: 09/29/2022 FINDINGS: Limitations: None. Lung bases: No abnormality noted. Pleural space: No visualized pleural effusion or pneumothorax. Heart: No abnormality noted. Mediastinum: No abnormality noted. ABDOMEN: Liver: Normal size and contour. Hypodense typical of steatosis. No mass or ductal dilation. Gallbladder and bile ducts: The gallbladder is distended. No calcified stones. No ductal dilatation or stone noted. Pancreas: Homogeneous enhancement. No mass, inflammation or ductal dilation. Spleen: No significant abnormality noted. Adrenals: No significant abnormality noted. Kidneys and ureters: Simple bilateral renal cysts noted. No follow-up necessary. No stones or hydronephrosis. Stomach and bowel: Colonic diverticulosis without diverticulitis. No intestinal thickening or obstruction. PELVIS: Appendix: Well seen and appears normal. Bladder: Incompletely distended and not optimally assessed. No gas or stone. Reproductive: Hysterectomy. ABDOMEN and PELVIS: Intraperitoneal space: No free air. No significant fluid collection. Bones/joints: Degenerative changes noted in the scoliotic spine. No acute osseous abnormality noted. Soft tissues: Small fat-containing left inguinal hernia. Vasculature: No abdominal aortic aneurysm. Lymph nodes: No pathologically enlarged lymph nodes. IMPRESSION: 1. Distended gallbladder. If there is concern for acute cholecystitis, sonography is the modality of choice. 2. Diverticulosis without diverticulitis. 3. Hepatic steatosis. ACT 112: Negative or not required by law. Electronically signed by Rosemary Orantes 02-27-2024 5:20 PM
[2024-02-27] MEDS: MoRPHine SULFATE 4 MG/ML 1 ML CARP\\VIAL IV STA (18:14)
--- NOTE | 2024-02-27 19:13 | Emergency Department Note ---
ED Provider Note History of Present Illness Chief Complaint: Vomiting Stated Complaint: VOMITING, UPPER BODY HURTS Time Seen by Provider: 02/27/24 16:31 Source: patient Mode of arrival: ambulatory Limitations: no limitations Patient is a 63-year-old female that presents to the emergency department with complaints of upper abdominal pain that began around 730 this morning. Patient notes that she is also been vomiting since approximately 730 this morning. Patient states that she has had some brown and red flecks in her emesis as well. Patient notes that she has been nauseous. Home Medications Medication Instructions Recorded Confirmed Type amlodipine 5 mg tablet (Norvasc) 5 mg PO QAM 12/20/18 02/27/24 History loratadine 10 mg tablet (Claritin) 10 mg PO QAM 06/22/20 02/27/24 History acetaminophen 500 mg tablet 1,000 mg PO Q6H PRN Fever Or Pain 10/05/20 02/27/24 History (Tylenol Extra Strength) guaifenesin 1,200 mg tablet, 1,200 mg PO BID PRN Congestion 03/02/22 02/27/24 History extended release 12 hr (Mucinex) docusate sodium 100 mg capsule 100 mg PO QAM 04/13/22 02/27/24 History (Colace) polyethylene glycol 3350 17 17 g PO DAILY PRN Constipation 04/13/22 02/27/24 History gram/dose oral powder (Miralax) losartan 50 mg tablet 75 mg PO QAM 09/29/22 02/27/24 History semaglutide 0.25 mg or 0.5 mg (2 0.5 mg subcut Q7D 11/05/23 02/27/24 History mg/3 mL) subcutaneous pen injector (Ozempic) mometasone-formoterol HFA 200 2 puff inhalation BID 11/19/23 02/27/24 History mcg-5 mcg/actuation aerosol inhaler (Dulera) montelukast 10 mg tablet 10 mg PO QAM 11/19/23 02/27/24 History potassium 99 mg tablet 99 mg PO DAILY 11/19/23 02/27/24 History ondansetron 4 mg disintegrating 4 mg PO Q6H PRN nausea and 11/29/23 02/27/24 Rx tablet vomiting #10 tabs escitalopram oxalate 10 mg tablet 10 mg PO QAM 01/11/24 02/27/24 History azelastine 137 mcg (0.1 %) nasal 2 spray intranasal DAILY #30 mL 01/18/24 02/27/24 Rx spray ipratropium 20 mcg-albuterol 100 1 puff inhalation Q4H PRN 01/18/24 02/27/24 Rx mcg/actuation mist for inhalation shortness of breath or wheezing #4 (Combivent Respimat) grams cholecalciferol (vitamin D3) 10 10 mcg PO DAILY 02/27/24 02/27/24 History mcg (400 unit) capsule (Vitamin D3) Allergies Allergy/AdvReac Type Severity Reaction Status Date / Time Sulfa (Sulfonamide Allergy Severe DRESS Verified 02/27/24 21:05 Antibiotics) Syndrome sulfamethoxazole Allergy Severe DRESS Verified 02/27/24 21:05 SYNDROME trimethoprim Allergy Severe DRESS Verified 02/27/24 21:05 SYNDROME promethazine Allergy Intermediate HYPOTENSION Verified 02/27/24 21:05 ibuprofen Allergy Swelling Unverified 02/27/24 21:05 of Lip/Tongue/Throat nickel Allergy Verified 02/27/24 21:05 lisinopril AdvReac Cough Unverified 02/27/24 21:05 CLEANING SOLUTION Allergy Severe respiratory Uncoded 02/27/24 21:05 SMELLS/VINEGAR failure Past Med/Surg History Problem List (Updated 02/28/24 @ 02:08 by AMANDA Cortes) Cholecystitis (Acute) S/P left knee arthroscopy Operation Date: 11/29/23 08:15 Actual Procedures p Left Knee Arthroscopy, Partial Medial Menisectomy and Chondroplasty(Left) - Pedro Hopkins MD Tear of medial meniscus of left knee Voice hoarseness Encounter for pre-operative examination Left carpal tunnel syndrome Multiple chemical sensitivity syndrome Upper airway cough syndrome Asthma Right knee pain Patellofemoral arthritis of right knee Multinodular goiter Vaginal enterocele, congenital or acquired Drug-induced rash with eosinophilia and systemic symptoms 15 YEARS AGO Sleep apnea has since resolved. Hypertension Nocturnal hypoxemia Allergic rhinitis Medical History Voice hoarseness Hx of sleep apnea only with her respiratory failure, no current issues; no longer on oxygen or CPAP Hypertension Chronic cough "only w/asthma flares" Asthma Allergic rhinitis Hx of respiratory failure 2016, treated at [facility] caused by cleaning supplies. no ventilator/trach needed. Diabetes mellitus, type 2 NIDDM DRESS syndrome 2006 History of COVID-15 January 2020 (hospitalized but resolved symptoms) Kyra's thyroiditis hx Multiple thyroid nodules Cystocele mild Diverticulosis hx Pulmonary nodule Surgical History History of carpal tunnel release RT/Left History of colonoscopy History of bronchoscopy S/P thyroid biopsy BENIGN History of hysterectomy S/P tubal ligation Family History Mother Family history of diabetes mellitus Other Diabetes No family history of adverse response to anesthesia No pertinent family history in first degree relatives Social History Smoking Status: Never smoker Second Hand Exposure: No; Do You Dip or Chew Tobacco: No; Hx Alcohol Use: No Hx Substance Use: No Preferred Language: [place] Communication Ability: Effective Visual Impairment: No Limitations County Director Required: No Beliefs That Will Affect Care: None Current Living Situation: Spouse Current Living Situation Comment: AND MOTHER Feels Safe at Home: Yes Safety Concerns: Feels Safe At This Time Assistive Devices: Glasses Physical Exam Vital Signs Vital Signs - 24 hr 02/27/24 15:54 02/27/24 17:43 02/27/24 18:19 Temperature 36.2 C L Temperature Source Temporal Artery Scan Pulse Rate 115 H 114 H Pulse Rate [Apical] Pulse Rate [Finger] 115 H Pulse Rhythm Regular Pulse Strength Normal Respiratory Rate 20 20 Respiratory Effort / Characteristics Non-Labored Spontaneous Non-Labored Spontaneous Respiratory Depth Normal Normal Respiratory Pattern Regular Regular Blood Pressure 136/86 Blood Pressure [Left Arm] Blood Pressure [Right Arm] 156/81 H Blood Pressure Mean 102 Blood Pressure Mean [Left Arm] Blood Pressure Mean [Right Arm] 106 Blood Pressure Position Sitting Pulse Oximetry 98 98 Oxygen Delivery Method Room Air Room Air Oxygen Flow Rate Sepsis Recent Fever Within 48 Hours No Sepsis New/Unexplained Change in Mental Status No Sepsis Action Taken by Nursing No Action Required Oxygen Flow Rate - Titration Pulse Oximetry Post Tiitration 02/27/24 18:28 02/27/24 19:05 Temperature Temperature Source Pulse Rate Pulse Rate [Apical] 111 H Pulse Rate [Finger] Pulse Rhythm Pulse Strength Respiratory Rate 16 Respiratory Effort / Characteristics Non-Labored Spontaneous Respiratory Depth Normal Respiratory Pattern Regular Blood Pressure Blood Pressure [Left Arm] 161/82 H Blood Pressure [Right Arm] Blood Pressure Mean Blood Pressure Mean [Left Arm] 108 Blood Pressure Mean [Right Arm] Blood Pressure Position Pulse Oximetry 88 L 96 Oxygen Delivery Method Room Air Room Air Oxygen Flow Rate 0 Sepsis Recent Fever Within 48 Hours Sepsis New/Unexplained Change in Mental Status Sepsis Action Taken by Nursing Oxygen Flow Rate - Titration 2 Pulse Oximetry Post Tiitration 94 VITAL SIGNS - Vital signs and nursing notes were reviewed. GENERAL -63-year-old female appearing her stated age who is in no acute distress. Communicates well with provider and answers questions appropriately. HEAD - NC/AT. EYES - PERRL with EOMI bilaterally. Conjunctiva pink and moist with no injection noted. LUNGS - Chest wall symmetric without accessory muscle use, intercostals retractions, or central cyanosis. Breath sounds clear throughout all estrada. No wheezes, rales, or rhonchi appreciated. CARDIAC - RRR with S1/S2. No murmur, rubs, or gallops appreciated. ABDOMEN - Abdominal contour without pulsations or visible masses. Negative Tal's or Arias Smalls's Signs. BS normoactive all four quadrants. Mildly increased tenderness to palpation appreciated at the upper abdomen on both sides. No rebound Tenderness. No palpable masses, hepatosplenomegaly, or ascites noted. NEUROLOGIC - Sensory intact to light touch throughout. PSYCH - A&Ox3 and cooperates fully with examiner. Pt is very pleasant and interacts well with examiner. Course Administered Medications Potassium Chloride/Sodium Chloride (1/2 Nss + 20meq Kcl 1000ml) 20 meq in 1,000 mls @ 60 mls/hr IV .[id number] ONE Stop: 02/28/24 12:45 Last Admin: 02/27/24 21:14 Dose: 60 mls/hr Documented By: NEREYDA Insulin Aspart (Insulin Aspart Per Unit Charge) 0 units SC ACHS PIO Stop: 03/28/24 21:11 Last Admin: 02/27/24 21:40 Dose: Not Given Documented By: NEREYDA Co-signed By: MONICA Morphine Sulfate (Morphine Sulfate 4 Mg/Ml 1 Ml Carp\\Vial) 4 mg IV Q4H PRN PRN Reason: Pain Stop: 03/12/24 20:06 Last Admin: 02/27/24 22:47 Dose: 4 mg Documented By: NEREYDA Ondansetron HCl (Ondansetron Inj 2 Mg/Ml 2 Ml Vial) 4 mg IV Q4H PRN PRN Reason: Nausea Stop: 03/28/24 20:07 Last Admin: 02/28/24 01:44 Dose: 4 mg Documented By: Admin: 02/27/24 21:34 Dose: 4 mg Documented By: NEREYDA Oxycodone HCl (Oxycodone Hcl Ir 5 Mg Tab (Immediate Release)) 5 - 10 mg PO QID PRN PRN Reason: Pain Stop: 03/12/24 20:06 Last Admin: 02/27/24 21:36 Dose: 5 mg Documented By: NEREYDA Discontinued Medications Pantoprazole Sodium 80 mg/ (Dextrose) 120 mls @ 480 mls/hr IV ONE STA Stop: 02/27/24 20:23 Last Infusion: 02/27/24 21:15 Dose: Infused Documented By: Admin: 02/27/24 20:56 Dose: 480 mls/hr Documented By: NEREYDA Piperacillin Sod/Tazobactam Sod (Zosyn) 4.5 gm in 100 mls @ 200 mls/hr IV NOW STA; Protocol Stop: 02/27/24 21:25 Last Infusion: 02/27/24 22:59 Dose: Infused Documented By: Admin: 02/27/24 22:00 Dose: 200 mls/hr Documented By: NEREYDA Magnesium Sulfate/Dextrose (Magnesium Sulfate / D5w) 1 gm in 100 mls @ 50 mls/hr IV ONE ONE Stop: 02/28/24 00:38 Last Infusion: 02/28/24 01:41 Dose: Infused Documented By: Admin: 02/27/24 23:37 Dose: 50 mls/hr Documented By: OFE Ioversol (Optiray 320 100ml) 90 ml IV ONCE ONE Stop: 02/27/24 17:07 Last Admin: 02/27/24 17:06 Dose: 90 ml Documented By: DELANO Metoprolol Tartrate (Metoprolol Tartrate 1 Mg/Ml Vial) 2.5 mg IV NOW STA Stop: 02/27/24 20:06 Last Admin: 02/27/24 20:52 Dose: Not Given Documented By: NEREYDA Metoprolol Tartrate (Metoprolol Tartrate 1 Mg/Ml Vial) 2.5 mg IV NOW STA Stop: 02/27/24 22:39 Last Admin: 02/27/24 23:36 Dose: 2.5 mg Documented By: OFE Morphine Sulfate (Morphine Sulfate 4 Mg/Ml 1 Ml Carp\\Vial) 4 mg IV NOW STA Stop: 02/27/24 17:47 Last Admin: 02/27/24 18:14 Dose: 4 mg Documented By: LKLeonard Ondansetron HCl (Ondansetron Inj 2 Mg/Ml 2 Ml Vial) 4 mg IV NOW STA Stop: 02/27/24 15:58 Last Admin: 02/27/24 16:19 Dose: 4 mg Documented By: GEETA Potassium Chloride (Potassium Chloride Crtab 20 Meq Tabcr) 20 meq PO NOW STA Stop: 02/27/24 20:06 Last Admin: 02/27/24 20:53 Dose: 20 meq Documented By: NEREYDA Medical Decision Making Differential Diagnosis Differential diagnoses includes gastritis, gastroenteritis, IBS, small bowel obstruction, pancreatitis, acute cholecystitis, constipation, abdominal abcess, among others. Medical Records Attestation: I reviewed the patient's medical records. Home Medications was personally reviewed by me Laboratory Data Attestation: I reviewed the patient's lab results. 02/27/24 21:11 02/27/24 16:18 Lab Results 02/27/24 02/27/24 Range/Units 16:18 20:55 WBC 17.98 H (4.8-10.8) K/ul RBC 5.47 H (4.20-5.40) M/uL Hgb 16.8 H (12.0-16.0) g/dl Hct 48.9 H (37.0-47.0) % MCV 89.4 (80.0-100.0) fL MCH 30.7 (25.0-34.0) pg MCHC 34.4 (32.0-36.0) g/dL RDW Std Deviation 43.5 (36.4-46.3) fL RDW Coeff of Juanjose 13.2 (11.5-14.5) % Plt Count 343 (130-400) K/uL MPV 10.1 (9.4-12.4) fL Immature Gran % (Auto) 0.3 % Neut % (Auto) 90.1 % Lymph % (Auto) 4.9 % [place] % (Auto) 4.5 % Eos % (Auto) 0.1 % Baso % (Auto) 0.1 % Neut # (Auto) 16.19 H (1.40-6.50) K/uL Lymph # (Auto) 0.89 L (1.20-3.40) K/uL [place] # (Auto) 0.81 H (0.11-0.59) K/uL Eos # (Auto) 0.02 (0.00-0.50) K/uL Baso # (Auto) 0.02 (0.00-0.20) K/uL Immature Gran # (Auto) 0.05 (0.01-0.20) K/uL Sodium 141 (136-145) mmol/L Potassium 3.8 (3.5-5.1) mmol/L Chloride 106 (98-107) mmol/L Carbon Dioxide 26 (21-32) mmol/L Anion Gap 9 (3-11) BUN 18 (6-23) mg/dl Creatinine 0.74 (0.6-1.2) mg/dl Est Cr Clr Drug Dosing 72.8 ml/min eGFR 90.29 BUN/Creatinine Ratio 24.3 H (10-20) Glucose 138 H (70-99(Fasting)) mg/dl Calcium 10.1 (8.6-10.3) mg/dl Magnesium 1.9 (1.7-2.4) mg/dl Total Bilirubin 0.7 (0.2-1.0) mg/dl AST 23 (13-39) U/L ALT 32 (7-52) U/L Alkaline Phosphatase 71 (34-104) U/L Total Protein 7.6 (6.0-8.3) gm/dl Albumin 4.9 (3.4-5.0) gm/dl Globulin 2.7 (2.5-4.0) gm/dl Albumin/Globulin Ratio 1.8 (0.9-2) Lipase 21 (11-82) U/L Urine Color Yellow Urine Appearance Clear (Clear) Urine pH 5.0 (4.5-7.5) Ur Specific [place] > 1.045 H (1.000-1.030) Urine Protein Trace H (Negative) Urine Glucose (UA) Negative (Negative) Urine Ketones Trace H (Negative) Urine Blood Negative (Negative) Urine Nitrite Negative (Negative) Urine Bilirubin Negative (Negative) Urine Urobilinogen Negative (Negative) Ur Leukocyte Esterase Negative (Negative) Urine WBC (Auto) 0-5 (0-5) /hpf Urine RBC (Auto) 0-2 (0-2) /hpf U Hyaline Cast (Auto) 0-2 (0-2) /lpf U Epithel Cells (Auto) 0-2 (0-2) /hpf Urine Bacteria (Auto) None Seen (None Seen) Imaging Data Radiologist's Impression: Abdomen/Pelvis CT 02/27/24 16:31 EXAM: CT Abdomen and Pelvis With Intravenous Contrast INDICATION: Diffuse abdominal pain. TECHNIQUE: Axial computed tomography images of the abdomen and pelvis with intravenous contrast. Sagittal and coronal reformatted images were created and reviewed. This CT exam was performed using one or more of the following dose reduction techniques: automated exposure control, adjustment of the mA and/or kV according to patient size, and/or use of iterative reconstruction technique. CONTRAST: 90 ml of Optiray 320 was administered intravenously. COMPARISON: 09/29/2022 FINDINGS: Limitations: None. Lung bases: No abnormality noted. Pleural space: No visualized pleural effusion or pneumothorax. Heart: No abnormality noted. Mediastinum: No abnormality noted. ABDOMEN: Liver: Normal size and contour. Hypodense typical of steatosis. No mass or ductal dilation. Gallbladder and bile ducts: The gallbladder is distended. No calcified stones. No ductal dilatation or stone noted. Pancreas: Homogeneous enhancement. No mass, inflammation or ductal dilation. Spleen: No significant abnormality noted. Adrenals: No significant abnormality noted. Kidneys and ureters: Simple bilateral renal cysts noted. No follow-up necessary. No stones or hydronephrosis. Stomach and bowel: Colonic diverticulosis without diverticulitis. No intestinal thickening or obstruction. PELVIS: Appendix: Well seen and appears normal. Bladder: Incompletely distended and not optimally assessed. No gas or stone. Reproductive: Hysterectomy. ABDOMEN and PELVIS: Intraperitoneal space: No free air. No significant fluid collection. Bones/joints: Degenerative changes noted in the scoliotic spine. No acute osseous abnormality noted. Soft tissues: Small fat-containing left inguinal hernia. Vasculature: No abdominal aortic aneurysm. Lymph nodes: No pathologically enlarged lymph nodes. IMPRESSION: 1. Distended gallbladder. If there is concern for acute cholecystitis, sonography is the modality of choice. 2. Diverticulosis without diverticulitis. 3. Hepatic steatosis. ACT 112: Negative or not required by law. Electronically signed by Lamberto Rosemary 02-27-2024 5:20 PM Gallbladder Ultrasound 02/27/24 17:28 Exam(s): US GALLBLADDER EXAM: US Abdomen Limited, Gallbladder CLINICAL HISTORY: Reason for exam: distended gallbladder on CT, r/o acute dereje. TECHNIQUE: Real-time ultrasound of the right upper quadrant with image documentation. COMPARISON: CT abdomen and pelvis of the same date FINDINGS: Liver: Liver measures 15 cm. Small calcification left hepatic lobe may represent chronic granulomatous disease. Echogenic liver parenchyma suggesting steatosis. Gallbladder: Cholelithiasis and gallbladder sludge. No wall thickening. Equivocal Mclain sign. Common bile duct: No biliary dilatation. CBD measures 5 mm. Pancreas: Pancreas suboptimally characterized. Right kidney: Right kidney measures 10.9 cm. No hydronephrosis. Subcentimeter simple cyst; no follow-up indicated. IMPRESSION: Cholelithiasis and gallbladder sludge. No wall thickening. Equivocal Mclain sign. Imaging appearance is not strongly suggestive of cholecystitis, but clinical correlation requested. Electronically signed by: Christy Horowitz M.D. 02/27/24 19:26 PM MDM Narrative Patient is a 63-year-old female that presents to the emergency department with complaints of upper abdominal pain that began around 730 this morning. Patient notes that she is also been vomiting since approximately 730 this morning. Patient states that she has had some brown and red flecks in her emesis as well. Patient notes that she has been nauseous. Patient was evaluated by myself and findings were noted in the physical exam above. Patient was ordered an IV, lab work, urinalysis, Zofran, and a CT of the abdomen pelvis. Patient's lab work resulted with an elevated white blood cell count of 17.98. Otherwise lab work was relatively unremarkable. Patient CT of the abdomen and pelvis resulted with a distended gallbladder concerning for possible acute cholecystitis and radiology recommended ultrasound follow-up. Patient CT of the abdomen pelvis also showed diverticulosis without evidence of diverticulitis. Patient was ordered a dose of morphine for her discomfort, notes that her nausea has improved since Zofran. Patient was also ordered an ultrasound of her gallbladder as well. Patient's ultrasound was interpreted by radiology to show cholelithiasis and gallbladder sludge as well as an equivocal Mclain sign. Because of the patient's clinical presentation, lab work, and imaging results I reached out to Dr. Alfonso with general surgery. I gave Dr. Alfonso a full report on the patient's chief complaint, current status, and results of labs and imaging. Dr. Alfonso advised that the patient should be admitted to the hospital and that he would do a cholecystectomy tomorrow but wanted the patient to be admitted to the hospital under the the medicine team. I reached out to case management who got me in contact with the [facility]. I spoke with Dr. Persaud of the [facility] and gave him the same report on the patient and he verbalized understanding and was agreeable to admit this patient under his service. Please refer to the [facility] and Dr. Alfonso's documentation for further evaluation and management of this patient. Impression Cholecystitis Discharge Plan Visit Data Chief Complaint: Vomiting Stated Complaint: VOMITING, UPPER BODY HURTS ED Provider: Rhett Zamora ED Midlevel Provider: Anh Rankin Discharge Problem: Cholecystitis Patient Disposition: Admitted As Inpatient Discharge Instructions Interventions: ED Discharge Assessment Last Done: 02/27/24 22:53
--- NOTE | 2024-02-27 19:26 | Ultrasound Report ---
Exam(s): US GALLBLADDER EXAM: US Abdomen Limited, Gallbladder CLINICAL HISTORY: Reason for exam: distended gallbladder on CT, r/o acute dereje. TECHNIQUE: Real-time ultrasound of the right upper quadrant with image documentation. COMPARISON: CT abdomen and pelvis of the same date FINDINGS: Liver: Liver measures 15 cm. Small calcification left hepatic lobe may represent chronic granulomatous disease. Echogenic liver parenchyma suggesting steatosis. Gallbladder: Cholelithiasis and gallbladder sludge. No wall thickening. Equivocal Mclain sign. Common bile duct: No biliary dilatation. CBD measures 5 mm. Pancreas: Pancreas suboptimally characterized. Right kidney: Right kidney measures 10.9 cm. No hydronephrosis. Subcentimeter simple cyst; no follow-up indicated. IMPRESSION: Cholelithiasis and gallbladder sludge. No wall thickening. Equivocal Mclain sign. Imaging appearance is not strongly suggestive of cholecystitis, but clinical correlation requested. Electronically signed by: Christy Horowitz M.D. 02/27/24 19:26 PM
[2024-02-27] MEDS: METOPROLOL TARTRATE 1 MG/ML VIAL IV STA ×2 (20:52→23:36)
[2024-02-27] MEDS: POTASSIUM CHLORIDE CRTAB 20 MEQ TABCR PO STA (20:53)
[2024-02-27] MEDS: PANTOprazole 80 MG in DEXTROSE 5% 100 ML IV STA (20:56)
--- NOTE | 2024-02-27 20:56 | History & Physical Report ---
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 Milton who recommends surgery in AM.) N.p.o. until seen by surgery IV PPI, GI consult if with progressive UGIB (Patient known to [facility] ISS BG goal 1 10-1 40 DVT prophylaxis. SCDs re: GI bleed Full code Text document was generated using [employer] voice recognition software. It may contain grammatical or spelling errors. Kindly contact undersigned for clarification of any documentation item in question. History of Present Illness Chief Complaint: Abdominal pain Primary Care Provider: Anuja Rodrigues MD History obtained from patient and records. Medical history significant for hypertension, bronchial asthma, ADAMA/nocturnal hypoxemia as per records, DM2 on Ozempic, past history adrenal insufficiency as per records, primary hyperparathyroidism as per records, thyroid nodule, NAFLD, recurrent diverticulitis, mood disorder. Last confinement 2019 for site respiratory failure secondary to COVID-19 pneumonia. Last week, patient noted epigastric discomfort somewhat worsened with food intake. Pain going to the chest. Emesis today with red flecks of blood. Denies headache, SOB, fever, chills. Patient brought by to ER for evaluation. 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 Allergies Allergy/AdvReac Type Severity Reaction Status Date / Time Sulfa (Sulfonamide Allergy Severe DRESS Verified 02/27/24 21:05 Antibiotics) Syndrome sulfamethoxazole Allergy Severe DRESS Verified 02/27/24 21:05 SYNDROME trimethoprim Allergy Severe DRESS Verified 02/27/24 21:05 SYNDROME promethazine Allergy Intermediate HYPOTENSION Verified 02/27/24 21:05 ibuprofen Allergy Swelling Unverified 02/27/24 21:05 of Lip/Tongue/Throat nickel Allergy Verified 02/27/24 21:05 lisinopril AdvReac Cough Unverified 02/27/24 21:05 CLEANING SOLUTION Allergy Severe respiratory Uncoded 02/27/24 21:05 SMELLS/VINEGAR failure Home Medications Medication Instructions Recorded Confirmed Type amlodipine 5 mg tablet (Norvasc) 5 mg PO QAM 12/20/18 02/27/24 History loratadine 10 mg tablet (Claritin) 10 mg PO QAM 06/22/20 02/27/24 History acetaminophen 500 mg tablet 1,000 mg PO Q6H PRN Fever Or Pain 10/05/20 02/27/24 History (Tylenol Extra Strength) guaifenesin 1,200 mg tablet, 1,200 mg PO BID PRN Congestion 03/02/22 02/27/24 History extended release 12 hr (Mucinex) docusate sodium 100 mg capsule 100 mg PO QAM 04/13/22 02/27/24 History (Colace) polyethylene glycol 3350 17 17 g PO DAILY PRN Constipation 04/13/22 02/27/24 History gram/dose oral powder (Miralax) losartan 50 mg tablet 75 mg PO QAM 09/29/22 02/27/24 History semaglutide 0.25 mg or 0.5 mg (2 0.5 mg subcut Q7D 11/05/23 02/27/24 History mg/3 mL) subcutaneous pen injector (Ozempic) mometasone-formoterol HFA 200 2 puff inhalation BID 11/19/23 02/27/24 History mcg-5 mcg/actuation aerosol inhaler (Dulera) montelukast 10 mg tablet 10 mg PO QAM 11/19/23 02/27/24 History potassium 99 mg tablet 99 mg PO DAILY 11/19/23 02/27/24 History ondansetron 4 mg disintegrating 4 mg PO Q6H PRN nausea and 11/29/23 02/27/24 Rx tablet vomiting #10 tabs escitalopram oxalate 10 mg tablet 10 mg PO QAM 01/11/24 02/27/24 History azelastine 137 mcg (0.1 %) nasal 2 spray intranasal DAILY #30 mL 01/18/24 02/27/24 Rx spray ipratropium 20 mcg-albuterol 100 1 puff inhalation Q4H PRN 01/18/24 02/27/24 Rx mcg/actuation mist for inhalation shortness of breath or wheezing #4 (Combivent Respimat) grams cholecalciferol (vitamin D3) 10 10 mcg PO DAILY 02/27/24 02/27/24 History mcg (400 unit) capsule (Vitamin D3) Past Med/Surg History Problem List (Updated 02/28/24 @ 10:00 by Abrahan Mayfield MD) Sepsis Cholecystitis (Acute) S/P left knee arthroscopy Operation Date: 11/29/23 08:15 Actual Procedures p Left Knee Arthroscopy, Partial Medial Menisectomy and Chondroplasty(Left) - Pedro Hopkins MD Tear of medial meniscus of left knee Voice hoarseness Encounter for pre-operative examination Left carpal tunnel syndrome Multiple chemical sensitivity syndrome Upper airway cough syndrome Asthma Right knee pain Patellofemoral arthritis of right knee Multinodular goiter Vaginal enterocele, congenital or acquired Drug-induced rash with eosinophilia and systemic symptoms 15 YEARS AGO Sleep apnea has since resolved. Hypertension Nocturnal hypoxemia Allergic rhinitis Medical History Voice hoarseness Hx of sleep apnea only with her respiratory failure, no current issues; no longer on oxygen or CPAP Hypertension Chronic cough "only w/asthma flares" Asthma Allergic rhinitis Hx of respiratory failure 2016, treated at [facility] caused by cleaning supplies. no ventilator/trach needed. Diabetes mellitus, type 2 NIDDM DRESS syndrome 2005 History of COVID-15 January 2020 (hospitalized but resolved symptoms) Kyra's thyroiditis hx Multiple thyroid nodules Cystocele mild Diverticulosis hx Pulmonary nodule Surgical History History of carpal tunnel release RT/Left History of colonoscopy History of bronchoscopy S/P thyroid biopsy BENIGN History of hysterectomy S/P tubal ligation Family History Mother Family history of diabetes mellitus Other Diabetes No family history of adverse response to anesthesia No pertinent family history in first degree relatives Social History Smoking Status: Never smoker Second Hand Exposure: No; Do You Dip or Chew Tobacco: No; Hx Alcohol Use: No Hx Substance Use: No Preferred Language: Tongan Communication Ability: Effective Visual Impairment: No Limitations Stock Roller Required: No Beliefs That Will Affect Care: None Current Living Situation: Spouse Current Living Situation Comment: AND MOTHER Feels Safe at Home: Yes Safety Concerns: Feels Safe At This Time Assistive Devices: None Review of Systems Review of Systems: As per HPI, all other systems reviewed and negative Physical Exam Physical Exam: GENERAL: Comfortable, obese, pleasant, no respiratory distress SKIN: Normal color, warm HEENT: [place] palpebral conjunctivae, no ptosis, dry buccal mucosa NECK : Supple, no tenderness CHEST : CTA, no tenderness HEART : Tachycardic, no obvious murmurs ABDOMEN: Some distention, epigastric tenderness EXTREMITIES : No LE swelling/tenderness, no other conspicuous deformities noted NEUROLOGIC : Coherent, no facial asymmetry, no other gross focality Results & Data Results & Data Vital Signs (Past 12 Hours) Vital Signs Temp Pulse Pulse Pulse Resp BP BP 02/27/24 19:05 111 H 16 161/82 H 02/27/24 18:28 02/27/24 18:19 114 H 02/27/24 17:43 115 H 20 02/27/24 15:54 36.2 C L 115 H 20 136/86 BP Pulse Ox O2 Del Method O2 Flow Rate 02/27/24 19:05 96 Room Air 02/27/24 18:28 88 L Room Air 0 02/27/24 18:19 02/27/24 17:43 156/81 H 98 Room Air 02/27/24 15:54 98 Room Air Laboratory Results Laboratory Results WBC 17.98 K/ul (4.8-10.8) H 02/27/24 16:18 RBC 5.47 M/uL (4.20-5.40) H 02/27/24 16:18 Hgb 16.8 g/dl (12.0-16.0) H 02/27/24 16:18 Hct 48.9 % (37.0-47.0) H 02/27/24 16:18 MCV 89.4 fL (80.0-100.0) 02/27/24 16:18 MCH 30.7 pg (25.0-34.0) 02/27/24 16:18 MCHC 34.4 g/dL (32.0-36.0) 02/27/24 16:18 RDW Std Deviation 43.5 fL (36.4-46.3) 02/27/24 16:18 RDW Coeff of Juanjose 13.2 % (11.5-14.5) 02/27/24 16:18 Plt Count 343 K/uL (130-400) 02/27/24 16:18 MPV 10.1 fL (9.4-12.4) 02/27/24 16:18 Immature Gran % (Auto) 0.3 % 02/27/24 16:18 Neut % (Auto) 90.1 % 02/27/24 16:18 Lymph % (Auto) 4.9 % 02/27/24 16:18 [place] % (Auto) 4.5 % 02/27/24 16:18 Eos % (Auto) 0.1 % 02/27/24 16:18 Baso % (Auto) 0.1 % 02/27/24 16:18 Neut # (Auto) 16.19 K/uL (1.40-6.50) H 02/27/24 16:18 Lymph # (Auto) 0.89 K/uL (1.20-3.40) L 02/27/24 16:18 [place] # (Auto) 0.81 K/uL (0.11-0.59) H 02/27/24 16:18 Eos # (Auto) 0.02 K/uL (0.00-0.50) 02/27/24 16:18 Baso # (Auto) 0.02 K/uL (0.00-0.20) 02/27/24 16:18 Immature Gran # (Auto) 0.05 K/uL (0.01-0.20) 02/27/24 16:18 Sodium 141 mmol/L (136-145) 02/27/24 16:18 Potassium 3.8 mmol/L (3.5-5.1) 02/27/24 16:18 Chloride 106 mmol/L (98-107) 02/27/24 16:18 Carbon Dioxide 26 mmol/L (21-32) 02/27/24 16:18 Anion Gap 9 (3-11) 02/27/24 16:18 BUN 18 mg/dl (6-23) 02/27/24 16:18 Creatinine 0.74 mg/dl (0.6-1.2) 02/27/24 16:18 Est Cr Clr Drug Dosing 72.8 ml/min 02/27/24 16:18 eGFR 90.29 02/27/24 16:18 BUN/Creatinine Ratio 24.3 (10-20) H 02/27/24 16:18 Glucose 138 mg/dl (70-99(Fasting)) H 02/27/24 16:18 Calcium 10.1 mg/dl (8.6-10.3) 02/27/24 16:18 Total Bilirubin 0.7 mg/dl (0.2-1.0) 02/27/24 16:18 AST 23 U/L (13-39) 02/27/24 16:18 ALT 32 U/L (7-52) 02/27/24 16:18 Alkaline Phosphatase 71 U/L (34-104) 02/27/24 16:18 Total Protein 7.6 gm/dl (6.0-8.3) 02/27/24 16:18 Albumin 4.9 gm/dl (3.4-5.0) 02/27/24 16:18 Globulin 2.7 gm/dl (2.5-4.0) 02/27/24 16:18 Albumin/Globulin Ratio 1.8 (0.9-2) 02/27/24 16:18 Lipase 21 U/L (11-82) 02/27/24 16:18 Impressions Abdomen/Pelvis CT 02/27/24 16:31 EXAM: CT Abdomen and Pelvis With Intravenous Contrast INDICATION: Diffuse abdominal pain. TECHNIQUE: Axial computed tomography images of the abdomen and pelvis with intravenous contrast. Sagittal and coronal reformatted images were created and reviewed. This CT exam was performed using one or more of the following dose reduction techniques: automated exposure control, adjustment of the mA and/or kV according to patient size, and/or use of iterative reconstruction technique. CONTRAST: 90 ml of Optiray 320 was administered intravenously. COMPARISON: 09/29/2022 FINDINGS: Limitations: None. Lung bases: No abnormality noted. Pleural space: No visualized pleural effusion or pneumothorax. Heart: No abnormality noted. Mediastinum: No abnormality noted. ABDOMEN: Liver: Normal size and contour. Hypodense typical of steatosis. No mass or ductal dilation. Gallbladder and bile ducts: The gallbladder is distended. No calcified stones. No ductal dilatation or stone noted. Pancreas: Homogeneous enhancement. No mass, inflammation or ductal dilation. Spleen: No significant abnormality noted. Adrenals: No significant abnormality noted. Kidneys and ureters: Simple bilateral renal cysts noted. No follow-up necessary. No stones or hydronephrosis. Stomach and bowel: Colonic diverticulosis without diverticulitis. No intestinal thickening or obstruction. PELVIS: Appendix: Well seen and appears normal. Bladder: Incompletely distended and not optimally assessed. No gas or stone. Reproductive: Hysterectomy. ABDOMEN and PELVIS: Intraperitoneal space: No free air. No significant fluid collection. Bones/joints: Degenerative changes noted in the scoliotic spine. No acute osseous abnormality noted. Soft tissues: Small fat-containing left inguinal hernia. Vasculature: No abdominal aortic aneurysm. Lymph nodes: No pathologically enlarged lymph nodes. IMPRESSION: 1. Distended gallbladder. If there is concern for acute cholecystitis, sonography is the modality of choice. 2. Diverticulosis without diverticulitis. 3. Hepatic steatosis. ACT 112: Negative or not required by law. Electronically signed by Rosemary Orantes 02-27-2024 5:20 PM Gallbladder Ultrasound 02/27/24 17:28 Exam(s): US GALLBLADDER EXAM: US Abdomen Limited, Gallbladder CLINICAL HISTORY: Reason for exam: distended gallbladder on CT, r/o acute dereje. TECHNIQUE: Real-time ultrasound of the right upper quadrant with image documentation. COMPARISON: CT abdomen and pelvis of the same date FINDINGS: Liver: Liver measures 15 cm. Small calcification left hepatic lobe may represent chronic granulomatous disease. Echogenic liver parenchyma suggesting steatosis. Gallbladder: Cholelithiasis and gallbladder sludge. No wall thickening. Equivocal [place]ain sign. Common bile duct: No biliary dilatation. CBD measures 5 mm. Pancreas: Pancreas suboptimally characterized. Right kidney: Right kidney measures 10.9 cm. No hydronephrosis. Subcentimeter simple cyst; no follow-up indicated. IMPRESSION: Cholelithiasis and gallbladder sludge. No wall thickening. Equivocal Mclain sign. Imaging appearance is not strongly suggestive of cholecystitis, but clinical correlation requested. Electronically signed by: Christy Horowitz M.D. 02/27/24 19:26 PM
[2024-02-27 20:58] LABS: Magnesium 1.9 mg/dl (1.7-2.4)
[2024-02-27] MEDS ORDERED: GLUCOSE 40% GEL 15 GM TUBE PO PRN (21:12)
[2024-02-27] MEDS ORDERED: DEXTROSE 50% 50 ML SYRINGE IV PRN (21:12)
[2024-02-27] MEDS ORDERED: CARBOHYDRATES FOR HYPOGLYCEMIA PO PRN (21:12)
[2024-02-27] MEDS ORDERED: GLUCOSE 10 TAB/TUBE PO PRN (21:12)
[2024-02-27] MEDS ORDERED: GLUCAGON FOR INJ 1 MG VIAL SQ PRN (21:12)
[2024-02-27] MEDS: SODIUM CHLOR 0.45% + 20MEQ KCL 20 MEQ/1,000 ML BAG IV ONE (21:14)
[2024-02-27 21:19] LABS: Appearance Urine Clear (Clear); Bacteria Urine Automated None Seen (None Seen); Bilirubin Urine Negative (Negative); Blood Urine Negative (Negative); Cast Urine Automated 0-2 /lpf (0-2); Color Urine Yellow; Epithelial Cell Urine Auto 0-2 /hpf (0-2); Glucose Urine UA Negative (Negative); Ketones Urine Trace (Negative); Leukocyte Esterase Urine Negative (Negative); Nitrite Urine Negative (Negative); Protein Urine Trace (Negative); RBC Urine Automated 0-2 /hpf (0-2); Specific Gravity Urine > 1.045 (1.000-1.030); Urobilinogen Urine Negative (Negative); WBC Urine Automated 0-5 /hpf (0-5)
[2024-02-27] MEDS: ONDANSETRON INJ 2 MG/ML 2 ML VIAL IV PRN (21:34)
[2024-02-27] MEDS: oxyCODONE HCL IR 5 MG TAB (IMMEDIATE RELEASE) PO PRN (21:36)
[2024-02-27] MEDS: INSULIN ASPART PER UNIT CHARGE SC SCH (21:40)
[2024-02-27 21:55] LABS: Hematocrit (blood only) 45.8 % (37.0-47.0); Hemoglobin 15.6 g/dl (12.0-16.0)
[2024-02-27] MEDS: 4.5GM X1 IV STA (22:00)
[2024-02-27] MEDS: MoRPHine SULFATE 4 MG/ML 1 ML CARP\\VIAL IV PRN (22:47)
[2024-02-27] MEDS: MAGNESIUM SULFATE / D5W 1 GM/100 ML BAG IV ONE (23:37)
[2024-02-28] MEDS: PIPERACILLIN/TAZOBACTAM 4.5 GM/100 ML BAG IV SCH (02:10)
[2024-02-28 06:37] LABS: Albumin Level 3.9 gm/dl (3.4-5.0); Bilirubin,Total 0.8 mg/dl (0.2-1.0); Calcium 8.8 mg/dl (8.6-10.3); Potassium 4.4 mmol/L (3.5-5.1)
[2024-02-28 06:42] LABS: Basophils # (auto) 0.03 K/uL (0.00-0.20); Basophils % (auto) 0.3 %; Eosinophils # (auto) 0.02 K/uL (0.00-0.50); Eosinophils % (auto) 0.2 %; Hematocrit (blood only) 43.1 % (37.0-47.0); Hemoglobin 14.8 g/dl (12.0-16.0); Immature Granulocytes # (auto) 0.05 K/uL (0.01-0.20); Immature Granulocytes % (auto) 0.5 %; Lymphocytes # (auto) 1.16 K/uL (1.20-3.40); Lymphocytes % (auto) 11.3 %; Mean Corpuscular Hemoglobin 30.8 pg (25.0-34.0); Mean Corpuscular Hgb Conc 34.3 g/dL (32.0-36.0); Mean Corpuscular Volume 89.8 fL (80.0-100.0); Mean Platelet Volume 10.9 fL (9.4-12.4); Monocytes # (auto) 1.02 K/uL (0.11-0.59); Neutrophils # (auto) 7.96 K/uL (1.40-6.50); Neutrophils % (auto) 77.7 %; Platelet Count 230 K/uL (130-400); RDW Coefficient of Variation 13.3 % (11.5-14.5); White Blood Count 10.24 K/ul (4.8-10.8)
[2024-02-28 06:43] LABS: Albumin Globulin Ratio 1.7 (0.9-2); Creatinine Clr Calc Pharmacy 67.3 ml/min; Globulin 2.3 gm/dl (2.5-4.0); Total Protein 6.2 gm/dl (6.0-8.3)
[2024-02-28] MEDS: ACETAMINOPHEN 500 MG TAB PO PRN (07:29)
[2024-02-28] MEDS: AZELASTINE HCL 0.1% NASAL 200 SPRAYS/27,400 MCG BTL SCH (07:30)
[2024-02-28] MEDS: DOCUSATE SODIUM 100 MG CAP PO SCH (07:30)
[2024-02-28] MEDS: MONTELUKAST SODIUM 10 MG TABLET PO SCH (07:30)
[2024-02-28] MEDS: ESCITALOPRAM OXALATE 10 MG TAB PO SCH (07:30)
[2024-02-28] MEDS: LORATADINE 10 MG TAB PO SCH (07:31)
[2024-02-28] MEDS: PANTOprazole 40 MG/10 ML SYR IV SCH (07:31)
[2024-02-28] MEDS: FLUTICASONE/VILANTEROL 200/25MCG 14 PUFFS/INHALER INH SCH (07:31)
[2024-02-28] MEDS: LOSARTAN POTASSIUM 25 MG TAB PO SCH (07:32)
[2024-02-28] MEDS: amLODIPine BESYLATE 5 MG TAB PO SCH (07:32)
--- NOTE | 2024-02-28 07:37 | Hospitalist Progress Note ---
Date of Service February 28, 2024 Assessment & Plan (1) Sepsis: Plan: Sepsis secondary to calculous cholecystitis UGIB secondary to emesis Medical telemetry CS, Lauren General Surgery consult Re: Cholecystitis (ED provider already in touch with Dr. Milton who recommends surgery) Plan for cholecystectomy today N.p.o. IV PPI, GI consult if with progressive UGIB (Patient known to [facility] Chronic conditions: Hypertension, cont. 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 SCDs re: GI bleed Full code Admission and Anticipated Discharge Date Admission Date: February 27, 2024 Subjective Pt seen in follow up of cholecystitis Plan for cholecystectomy today Currently laying in bed in NAD Reports RUQ pain, nausea vomiting at home Started on zosyn , will cont. Review of Systems Review of Systems: All systems reviewed & are unremarkable except as noted in Subjective Physical Exam Constitutional: WD/WN, vitals as above Eyes: PERRL, conjunctivae normal, anicteric sclerae ENMT: external ear and nose normal, oropharynx normal Neck: normal visual inspection Respiratory: normal respiratory effort, lungs clear to auscultation Cardiovascular: RRR, no murmur, no edema Chest (Breasts): Chest: normal inspection of chest Gastrointestinal (Abdomen): + RUQ pain to palp, abdomen soft, + sha l sounds Musculoskeletal: no cyanosis or clubbing, extremities motor strength 5/5 Skin: no rashes, warm and dry Neurologic: PERRL, EOMI, accommodation nl, no face palsy, no dysarthria Psychiatric: A+Ox3, euthymic affect Results & Data Results & Data Vital Signs (Past 12 Hours) Vital Signs Temp Pulse Pulse Pulse Resp BP BP 02/28/24 07:23 37.6 C H 93 H 17 02/28/24 05:45 84 02/28/24 03:04 37.3 C 87 16 02/28/24 00:01 92 H 111/74 02/27/24 23:47 02/27/24 23:36 114 H 114/80 02/27/24 23:34 37.4 C 114 H 18 114/80 02/27/24 23:20 111 H 02/27/24 22:53 117 H 20 109/79 02/27/24 22:07 36.8 C 107 H 20 172/86 H 02/27/24 21:57 02/27/24 21:28 94 H 16 172/86 H BP Pulse Ox Pulse Ox O2 Del Method O2 Del Method O2 Flow Rate 02/28/24 07:23 135/77 93 Nasal Cannula 2 02/28/24 05:45 02/28/24 03:04 92/61 L 94 Nasal Cannula 2 02/28/24 00:01 02/27/24 23:47 Nasal Cannula 2 02/27/24 23:36 02/27/24 23:34 96 Nasal Cannula 2 02/27/24 23:20 02/27/24 22:53 94 Room Air 02/27/24 22:07 96 Room Air 02/27/24 21:57 95 Room Air 02/27/24 21:28 96 Room Air Laboratory Results 02/28/24 02/27/24 02/27/24 Range/Units 05:27 21:39 21:11 WBC 10.24 (4.8-10.8) K/ul RBC 4.80 (4.20-5.40) M/uL Hgb 14.8 15.6 (12.0-16.0) g/dl Hct 43.1 45.8 (37.0-47.0) % MCV 89.8 (80.0-100.0) fL MCH 30.8 (25.0-34.0) pg MCHC 34.3 (32.0-36.0) g/dL RDW Std Deviation 44.0 (36.4-46.3) fL RDW Coeff of Juanjose 13.3 (11.5-14.5) % Plt Count 230 (130-400) K/uL MPV 10.9 (9.4-12.4) fL Immature Gran % (Auto) 0.5 % Neut % (Auto) 77.7 % Lymph % (Auto) 11.3 % [place] % (Auto) 10.0 % Eos % (Auto) 0.2 % Baso % (Auto) 0.3 % Neut # (Auto) 7.96 H (1.40-6.50) K/uL Lymph # (Auto) 1.16 L (1.20-3.40) K/uL [place] # (Auto) 1.02 H (0.11-0.59) K/uL Eos # (Auto) 0.02 (0.00-0.50) K/uL Baso # (Auto) 0.03 (0.00-0.20) K/uL Immature Gran # (Auto) 0.05 (0.01-0.20) K/uL Sodium 138 (136-145) mmol/L Potassium 4.4 (3.5-5.1) mmol/L Chloride 107 (98-107) mmol/L Carbon Dioxide 21 (21-32) mmol/L Anion Gap 10 (3-11) BUN 16 (6-23) mg/dl Creatinine 0.80 (0.6-1.2) mg/dl Est Cr Clr Drug Dosing 67.3 ml/min eGFR 82.23 BUN/Creatinine Ratio 20.0 (10-20) Glucose 94 (70-99(Fasting)) mg/dl POC Glucose 107 H (70-99) mg/dl Lactate 2.0 (0.4-2.0) mmol/L Calcium 8.8 (8.6-10.3) mg/dl Magnesium (1.7-2.4) mg/dl Total Bilirubin 0.8 (0.2-1.0) mg/dl AST 22 (13-39) U/L ALT 22 (7-52) U/L Alkaline Phosphatase 48 (34-104) U/L Total Protein 6.2 (6.0-8.3) gm/dl Albumin 3.9 (3.4-5.0) gm/dl Globulin 2.3 L (2.5-4.0) gm/dl Albumin/Globulin Ratio 1.7 (0.9-2) Lipase (11-82) U/L Urine Color Urine Appearance (Clear) Urine pH (4.5-7.5) Ur Specific [place] (1.000-1.030) Urine Protein (Negative) Urine Glucose (UA) (Negative) Urine Ketones (Negative) Urine Blood (Negative) Urine Nitrite (Negative) Urine Bilirubin (Negative) Urine Urobilinogen (Negative) Ur Leukocyte Esterase (Negative) Urine WBC (Auto) (0-5) /hpf Urine RBC (Auto) (0-2) /hpf U Hyaline Cast (Auto) (0-2) /lpf U Epithel Cells (Auto) (0-2) /hpf Urine Bacteria (Auto) (None Seen) Blood Type O Positive Antibody Screen NEGATIVE 02/27/24 02/27/24 Range/Units 20:55 16:18 WBC 17.98 H (4.8-10.8) K/ul RBC 5.47 H (4.20-5.40) M/uL Hgb 16.8 H (12.0-16.0) g/dl Hct 48.9 H (37.0-47.0) % MCV 89.4 (80.0-100.0) fL MCH 30.7 (25.0-34.0) pg MCHC 34.4 (32.0-36.0) g/dL RDW Std Deviation 43.5 (36.4-46.3) fL RDW Coeff of Juanjose 13.2 (11.5-14.5) % Plt Count 343 (130-400) K/uL MPV 10.1 (9.4-12.4) fL Immature Gran % (Auto) 0.3 % Neut % (Auto) 90.1 % Lymph % (Auto) 4.9 % [place] % (Auto) 4.5 % Eos % (Auto) 0.1 % Baso % (Auto) 0.1 % Neut # (Auto) 16.19 H (1.40-6.50) K/uL Lymph # (Auto) 0.89 L (1.20-3.40) K/uL [place] # (Auto) 0.81 H (0.11-0.59) K/uL Eos # (Auto) 0.02 (0.00-0.50) K/uL Baso # (Auto) 0.02 (0.00-0.20) K/uL Immature Gran # (Auto) 0.05 (0.01-0.20) K/uL Sodium 141 (136-145) mmol/L Potassium 3.8 (3.5-5.1) mmol/L Chloride 106 (98-107) mmol/L Carbon Dioxide 26 (21-32) mmol/L Anion Gap 9 (3-11) BUN 18 (6-23) mg/dl Creatinine 0.74 (0.6-1.2) mg/dl Est Cr Clr Drug Dosing 72.8 ml/min eGFR 90.29 BUN/Creatinine Ratio 24.3 H (10-20) Glucose 138 H (70-99(Fasting)) mg/dl POC Glucose (70-99) mg/dl Lactate (0.4-2.0) mmol/L Calcium 10.1 (8.6-10.3) mg/dl Magnesium 1.9 (1.7-2.4) mg/dl Total Bilirubin 0.7 (0.2-1.0) mg/dl AST 23 (13-39) U/L ALT 32 (7-52) U/L Alkaline Phosphatase 71 (34-104) U/L Total Protein 7.6 (6.0-8.3) gm/dl Albumin 4.9 (3.4-5.0) gm/dl Globulin 2.7 (2.5-4.0) gm/dl Albumin/Globulin Ratio 1.8 (0.9-2) Lipase 21 (11-82) U/L Urine Color Yellow Urine Appearance Clear (Clear) Urine pH 5.0 (4.5-7.5) Ur Specific [place] > 1.045 H (1.000-1.030) Urine Protein Trace H (Negative) Urine Glucose (UA) Negative (Negative) Urine Ketones Trace H (Negative) Urine Blood Negative (Negative) Urine Nitrite Negative (Negative) Urine Bilirubin Negative (Negative) Urine Urobilinogen Negative (Negative) Ur Leukocyte Esterase Negative (Negative) Urine WBC (Auto) 0-5 (0-5) /hpf Urine RBC (Auto) 0-2 (0-2) /hpf U Hyaline Cast (Auto) 0-2 (0-2) /lpf U Epithel Cells (Auto) 0-2 (0-2) /hpf Urine Bacteria (Auto) None Seen (None Seen) Blood Type Antibody Screen Medications Administered Current Inpatient Medications Acetaminophen (Acetaminophen 500 Mg Tab) 500 mg PO Q6H PRN PRN Reason: fever/pain Stop: 03/28/24 20:06 Last Admin: 02/28/24 07:29 Dose: 500 mg Amlodipine Besylate (Amlodipine Besylate 5 Mg Tab) 5 mg PO QAM PIO Stop: 03/29/24 08:59 Last Admin: 02/28/24 07:32 Dose: 5 mg Azelastine HCl (Azelastine Hcl 0.1% Nasal 200 Sprays/27,400 Mcg Btl) 2 sprays NA DAILY PIO Stop: 03/29/24 08:59 Last Admin: 02/28/24 07:30 Dose: Not Given Dextrose (Dextrose 50% 50 Ml Syringe) 25 - 50 ml IV UD PRN; Protocol PRN Reason: Hypoglycemia Protocol Stop: 03/28/24 21:11 Docusate Sodium (Docusate Sodium 100 Mg Cap) 100 mg PO QAM [facility] Stop: 03/29/24 08:59 Last Admin: 02/28/24 07:30 Dose: Not Given Escitalopram Oxalate (Escitalopram Oxalate 10 Mg Tab) 10 mg PO QAM [facility] Stop: 03/29/24 08:59 Last Admin: 02/28/24 07:30 Dose: Not Given Fluticasone/Vilanterol (Fluticasone/Vilanterol 200/25mcg 14 Puffs/Inhaler) 1 puffs INH DAILY PIO Stop: 03/29/24 08:59 Last Admin: 02/28/24 07:31 Dose: 1 puffs Glucagon (Glucagon For Inj 1 Mg Vial) 1 mg SQ UD PRN; Protocol PRN Reason: Hypoglycemia Protocol Stop: 03/28/24 21:11 Glucose (Glucose 40% Gel 15 Gm Tube) 15 - 30 gm PO UD PRN; Protocol PRN Reason: Hypoglycemia Protocol Stop: 03/28/24 21:11 Glucose (Glucose 10 Tab/Tube) 4 - 8 tab PO UD PRN; Protocol PRN Reason: Hypoglycemia Protocol Stop: 03/28/24 21:11 Potassium Chloride/Sodium Chloride (1/2 Nss + 20meq Kcl 1000ml) 20 meq in 1,000 mls @ 60 mls/hr IV .[id number] Stop: 02/28/24 12:45 Last Admin: 02/27/24 21:14 Dose: 60 mls/hr Piperacillin Sod/Tazobactam Sod (Zosyn) 4.5 gm in 100 mls @ 25 mls/hr IV Q8H PIO; Protocol Stop: 03/09/24 01:59 Last Infusion: 02/28/24 06:33 Dose: Infused Pantoprazole Sodium (Protonix) 40 mg in 10 mls @ 5 mls/min IV BID [facility] Stop: 03/29/24 08:59 Last Admin: 02/28/24 07:31 Dose: 5 mls/min Insulin Aspart (Insulin Aspart Per Unit Charge) 0 units SC ACHS [facility] Stop: 03/28/24 21:11 Last Admin: 02/27/24 21:40 Dose: Not Given Loratadine (Loratadine 10 Mg Tab) 10 mg PO [facility] Stop: 03/29/24 08:59 Last Admin: 02/28/24 07:31 Dose: Not Given Losartan Potassium (Losartan Potassium 25 Mg Tab) 75 mg PO [facility] Stop: 03/29/24 08:59 Last Admin: 02/28/24 07:32 Dose: 75 mg Miscellaneous (Carbohydrates For Hypoglycemia ) 15 - 30 gm PO UD PRN PRN Reason: Hypoglycemia Protocol Stop: 03/28/24 21:11 Montelukast Sodium (Montelukast Sodium 10 Mg Tablet) 10 mg PO [facility] Stop: 03/29/24 08:59 Last Admin: 02/28/24 07:30 Dose: Not Given Morphine Sulfate (Morphine Sulfate 4 Mg/Ml 1 Ml Carp\Vial) 4 mg IV Q4H PRN PRN Reason: Pain Stop: 03/12/24 20:06 Last Admin: 02/28/24 02:07 Dose: 4 mg Ondansetron HCl (Ondansetron Inj 2 Mg/Ml 2 Ml Vial) 4 mg IV Q4H PRN PRN Reason: Nausea Stop: 03/28/24 20:07 Last Admin: 02/28/24 01:44 Dose: 4 mg Oxycodone HCl (Oxycodone Hcl Ir 5 Mg Tab (Immediate Release)) 5 - 10 mg PO QID PRN PRN Reason: Pain Stop: 03/12/24 20:06 Last Admin: 02/27/24 21:36 Dose: 5 mg Polyethylene Glycol (Polyethylene (Miralax) 17 Gm Pack) 17 gm PO DAILY PRN PRN Reason: Constipation Stop: 03/28/24 22:36
--- NOTE | 2024-02-28 08:44 | Surgery Consultation ---
Date of Consultation February 28, 2024 Assessment & Plan (1) Cholecystitis: IV abx IVF cleared medically lap dereje today; consent obtained Present on Admission?: Yes History of Present Illness Attending Physician: Tremayne Ortiz MD History of Present Illness This is a 63YO female that admitted with upper abdominal pain radiating to right shoulder that began yesterday. She had a previous episode a few weeks ago. She has had nausea and vomiting. An US shows likely acute cholecystitis. She feels better this AM. Allergies Allergy/AdvReac Type Severity Reaction Status Date / Time Sulfa (Sulfonamide Allergy Severe DRESS Verified 02/27/24 21:05 Antibiotics) Syndrome sulfamethoxazole Allergy Severe DRESS Verified 02/27/24 21:05 SYNDROME trimethoprim Allergy Severe DRESS Verified 02/27/24 21:05 SYNDROME promethazine Allergy Intermediate HYPOTENSION Verified 02/27/24 21:05 ibuprofen Allergy Swelling Unverified 02/27/24 21:05 of Lip/Tongue/Throat nickel Allergy Verified 02/27/24 21:05 lisinopril AdvReac Cough Unverified 02/27/24 21:05 CLEANING SOLUTION Allergy Severe respiratory Uncoded 02/27/24 21:05 SMELLS/VINEGAR failure Home Medications Medication Instructions Recorded Confirmed Type amlodipine 5 mg tablet (Norvasc) 5 mg PO QAM 12/20/18 02/27/24 History loratadine 10 mg tablet (Claritin) 10 mg PO QAM 06/22/20 02/27/24 History acetaminophen 500 mg tablet 1,000 mg PO Q6H PRN Fever Or Pain 10/05/20 02/27/24 History (Tylenol Extra Strength) guaifenesin 1,200 mg tablet, 1,200 mg PO BID PRN Congestion 03/02/22 02/27/24 History extended release 12 hr (Mucinex) docusate sodium 100 mg capsule 100 mg PO QAM 04/13/22 02/27/24 History (Colace) polyethylene glycol 3350 17 17 g PO DAILY PRN Constipation 04/13/22 02/27/24 History gram/dose oral powder (Miralax) losartan 50 mg tablet 75 mg PO QAM 09/29/22 02/27/24 History semaglutide 0.25 mg or 0.5 mg (2 0.5 mg subcut Q7D 11/05/23 02/27/24 History mg/3 mL) subcutaneous pen injector (Ozempic) mometasone-formoterol HFA 200 2 puff inhalation BID 11/19/23 02/27/24 History mcg-5 mcg/actuation aerosol inhaler (Dulera) montelukast 10 mg tablet 10 mg PO QAM 11/19/23 02/27/24 History potassium 99 mg tablet 99 mg PO DAILY 11/19/23 02/27/24 History ondansetron 4 mg disintegrating 4 mg PO Q6H PRN nausea and 11/29/23 02/27/24 Rx tablet vomiting #10 tabs escitalopram oxalate 10 mg tablet 10 mg PO QAM 01/11/24 02/27/24 History azelastine 137 mcg (0.1 %) nasal 2 spray intranasal DAILY #30 mL 01/18/24 02/27/24 Rx spray ipratropium 20 mcg-albuterol 100 1 puff inhalation Q4H PRN 01/18/24 02/27/24 Rx mcg/actuation mist for inhalation shortness of breath or wheezing #4 (Combivent Respimat) grams cholecalciferol (vitamin D3) 10 10 mcg PO DAILY 02/27/24 02/27/24 History mcg (400 unit) capsule (Vitamin D3) Patient History Medical History Voice hoarseness Hx of sleep apnea only with her respiratory failure, no current issues; no longer on oxygen or CPAP Hypertension Chronic cough "only w/asthma flares" Asthma Allergic rhinitis Hx of respiratory failure 2016, treated at [facility] caused by cleaning supplies. no ventilator/trach needed. Diabetes mellitus, type 2 NIDDM DRESS syndrome 2005 History of COVID-15 January 2020 (hospitalized but resolved symptoms) Kyra's thyroiditis hx Multiple thyroid nodules Cystocele mild Diverticulosis hx Pulmonary nodule Surgical History History of carpal tunnel release RT/Left History of colonoscopy History of bronchoscopy S/P thyroid biopsy BENIGN History of hysterectomy S/P tubal ligation Family History Mother Family history of diabetes mellitus Other Diabetes No family history of adverse response to anesthesia No pertinent family history in first degree relatives Social History Smoking Status: Never smoker Second Hand Exposure: No; Do You Dip or Chew Tobacco: No; Hx Alcohol Use: No Hx Substance Use: No Preferred Language: Maltese Communication Ability: Effective Visual Impairment: No Limitations Guitar Teacher Required: No Beliefs That Will Affect Care: None Current Living Situation: Spouse Current Living Situation Comment: AND MOTHER Feels Safe at Home: Yes Safety Concerns: Feels Safe At This Time Assistive Devices: Glasses Review of Systems Constitutional: + fever and + anorexia; no chills Eyes: no problem reported Ear, Nose, Mouth, Throat: no problem reported Respiratory: no cough and no dyspnea Cardiovascular: no chest pain Gastrointestinal: + abdominal pain, + nausea and + vomitin g; no change in bowel habits Genitourinary: no dysuria Musculoskeletal: + back pain Integumentary: no problem reported Neurologic: no localized weakness and no generalized weakness Psychiatric: no behavioral changes Endocrine: no fatigue Hematologic / Lymphatic: no easy bleeding and no easy bruising Physical Exam Constitutional: WD/WN, vitals as above Eyes: PERRL, conjunctivae normal, anicteric sclerae ENMT: external ear and nose normal, oropharynx normal Neck: trachea midline Respiratory: normal respiratory effort, lungs clear to auscultation Cardiovascular: RRR, no murmur, no edema Gastrointestinal (Abdomen): Inspection/Auscultation: abdomen normal to inspection and normal bowel sounds; abdomen not distended Percussion/Palpation: + abdomen tender and abdomen soft; no guarding and abdomen not rigid Musculoskeletal: Head/Neck/Chest: normocephalic and head atraumatic Skin: no rashes, warm and dry Results & Data Vital Signs (Past 12 Hours) Vital Signs Temp Pulse Pulse Pulse Resp BP BP 02/28/24 08:18 37.3 C 02/28/24 07:29 02/28/24 07:23 37.6 C H 93 H 17 02/28/24 05:45 84 02/28/24 03:04 37.3 C 87 16 02/28/24 00:01 92 H 111/74 02/27/24 23:47 02/27/24 23:36 114 H 114/80 02/27/24 23:34 37.4 C 114 H 18 114/80 02/27/24 23:20 111 H 02/27/24 22:53 117 H 20 109/79 02/27/24 22:07 36.8 C 107 H 20 172/86 H 02/27/24 21:57 02/27/24 21:28 94 H 16 172/86 H BP Pulse Ox Pulse Ox O2 Del Method O2 Del Method O2 Flow Rate 02/28/24 08:18 02/28/24 07:29 Nasal Cannula 02/28/24 07:23 135/77 93 Nasal Cannula 2 02/28/24 05:45 02/28/24 03:04 92/61 L 94 Nasal Cannula 2 02/28/24 00:01 02/27/24 23:47 Nasal Cannula 2 02/27/24 23:36 02/27/24 23:34 96 Nasal Cannula 2 02/27/24 23:20 02/27/24 22:53 94 Room Air 02/27/24 22:07 96 Room Air 02/27/24 21:57 95 Room Air 02/27/24 21:28 96 Room Air Diagnostic Findings EXAM: US Abdomen Limited, Gallbladder CLINICAL HISTORY: Reason for exam: distended gallbladder on CT, r/o acute dereje. TECHNIQUE: Real-time ultrasound of the right upper quadrant with image documentation. COMPARISON: CT abdomen and pelvis of the same date FINDINGS: Liver: Liver measures 15 cm. Small calcification left hepatic lobe may represent chronic granulomatous disease. Echogenic liver parenchyma suggesting steatosis. Gallbladder: Cholelithiasis and gallbladder sludge. No wall thickening. Equivocal Mclain sign. Common bile duct: No biliary dilatation. CBD measures 5 mm. Pancreas: Pancreas suboptimally characterized. Right kidney: Right kidney measures 10.9 cm. No hydronephrosis. Subcentimeter simple cyst; no follow-up indicated. IMPRESSION: Cholelithiasis and gallbladder sludge. No wall thickening. Equivocal Mclain sign. Imaging appearance is not strongly suggestive of cholecystitis, but clinical correlation requested.
[2024-02-28] MEDS ORDERED: MIDAZOLAM HCL 1 MG/ML 2ML VIAL ONE (11:26)
[2024-02-28] MEDS ORDERED: PROPOFOL IV EMULSION 10 MG/ML 20 ML VIAL IV ONE (11:26)
[2024-02-28] MEDS ORDERED: ROCURONIUM BROMIDE 10 MG/ML 5 ML VIAL IV ONE (11:26)
[2024-02-28] MEDS ORDERED: DEXAMETHASONE SOD INJ 4 MG/ML VIAL ONE (11:26)
[2024-02-28] MEDS ORDERED: LIDOCAINE 2% 2 ML VIAL/AMP(20MG/ML) INFIL ONE (11:26)
[2024-02-28] MEDS ORDERED: ONDANSETRON INJ 2 MG/ML 2 ML VIAL ONE (11:26)
[2024-02-28] MEDS ORDERED: fentaNYL citrate PF 100 MCG/2 ML VIAL ONE (11:26)
[2024-02-28] MEDS: LR 15ML/HR IV SCH (11:44)
[2024-02-28] MEDS ORDERED: Nursing to Pharmacy Communication SCH (11:45)
[2024-02-28] MEDS ORDERED: ATROPINE SULFATE 0.1 MG/ML 10ML SYR IV PRN (12:04)
[2024-02-28] MEDS ORDERED: ePHEDrine sulfate 50 MG/ML AMP IV PRN (12:04)
--- NOTE | 2024-02-28 12:04 | Anesthesiology Consultation ---
Date of Service February 28, 2024 Assessment & Plan Chart Review Chart Review: Acceptable Risk for Surgery and Patient NOT seen in Pre Admission Testing Consults Requested none ASA ASA3 Proposed Anesthesia Anesthesia Type: General Risk / Benefits Reviewed With: PT / POA / Parent / Guardian, Accepts Plan and Informed Consent Obtained History Surgery Operation Date: 02/28/24 10:55 Proposed Procedures p Laparoscopic Cholecystectomy - Jordan Alfonso MD Height/Weight Height: 5 ft 2 in Weight: 74.9 kg Allergies Allergy/AdvReac Type Severity Reaction Status Date / Time Sulfa (Sulfonamide Allergy Severe DRESS Verified 02/27/24 21:05 Antibiotics) Syndrome sulfamethoxazole Allergy Severe DRESS Verified 02/27/24 21:05 SYNDROME trimethoprim Allergy Severe DRESS Verified 02/27/24 21:05 SYNDROME promethazine Allergy Intermediate HYPOTENSION Verified 02/27/24 21:05 ibuprofen Allergy Swelling Unverified 02/27/24 21:05 of Lip/Tongue/Throat nickel Allergy Verified 02/27/24 21:05 lisinopril AdvReac Cough Unverified 02/27/24 21:05 CLEANING SOLUTION Allergy Severe respiratory Uncoded 02/27/24 21:05 SMELLS/VINEGAR failure Medications Home Medications Medication Instructions Recorded Confirmed Last Taken amlodipine 5 mg tablet (Norvasc) 5 mg PO QAM 12/20/18 02/27/24 02/26/24 09:00 loratadine 10 mg tablet (Claritin) 10 mg PO QAM 06/22/20 02/27/24 02/26/24 09:00 acetaminophen 500 mg tablet 1,000 mg PO Q6H PRN Fever Or Pain 10/05/20 02/27/24 11/28/23 21:00 (Tylenol Extra Strength) guaifenesin 1,200 mg tablet, 1,200 mg PO BID PRN Congestion 03/02/22 02/27/24 02/26/24 09:00 extended release 12 hr (Mucinex) docusate sodium 100 mg capsule 100 mg PO QAM 04/13/22 02/27/24 11/28/23 09:00 (Colace) polyethylene glycol 3350 17 17 g PO DAILY PRN Constipation 04/13/22 02/27/24 06/08/22 gram/dose oral powder (Miralax) losartan 50 mg tablet 75 mg PO QAM 09/29/22 02/27/2402/25/24 09:00 semaglutide 0.25 mg or 0.5 mg (2 0.5 mg subcut Q7D 11/05/23 02/27/24 02/23/24 11:00 mg/3 mL) subcutaneous pen injector (Ozempic) mometasone-formoterol HFA 200 2 puff inhalation BID 11/19/23 02/27/24 02/26/24 20:00 mcg-5 mcg/actuation aerosol inhaler (Dulera) montelukast 10 mg tablet 10 mg PO QAM 11/19/23 02/27/24 02/26/24 09:00 potassium 99 mg tablet 99 mg PO DAILY 11/19/23 02/27/24 02/26/24 09:00 ondansetron 4 mg disintegrating 4 mg PO Q6H PRN nausea and 11/29/23 02/27/24 02/26/24 09:00 tablet vomiting #10 tabs escitalopram oxalate 10 mg tablet 10 mg PO QAM 01/11/24 02/27/24 02/26/24 09:00 azelastine 137 mcg (0.1 %) nasal 2 spray intranasal DAILY #30 mL 01/18/24 02/27/24 02/26/24 09:00 spray ipratropium 20 mcg-albuterol 100 1 puff inhalation Q4H PRN 01/18/24 02/27/24 02/26/24 09:00 mcg/actuation mist for inhalation shortness of breath or wheezing #4 (Combivent Respimat) grams cholecalciferol (vitamin D3) 10 10 mcg PO DAILY 02/27/24 02/27/24 02/26/24 09:00 mcg (400 unit) capsule (Vitamin D3) Active Medications Generic Name Dose Route Start Last Admin Trade Name Freq PRN Reason Stop Dose Admin Acetaminophen 500 mg 02/27/24 20:07 02/28/24 07:29 Acetaminophen 500 Mg Tab PO 03/28/24 20:06 500 mg Q6H PRN Administration fever/pain Amlodipine Besylate 5 mg 02/28/24 09:00 02/28/24 07:32 Amlodipine Besylate 5 Mg Tab PO 03/29/24 08:59 5 mg QAM PIO Administration Azelastine HCl 2 sprays 02/28/24 09:00 02/28/24 07:30 Azelastine Hcl 0.1% Nasal 200 Sprays/27,400 Mcg Btl NA 03/29/24 08:59 Not Given DAILY PIO Docusate Sodium 100 mg 02/28/24 09:00 02/28/24 07:30 Docusate Sodium 100 Mg Cap PO 03/29/24 08:59 Not Given QAM PIO Escitalopram Oxalate 10 mg 02/28/24 09:00 02/28/24 07:30 Escitalopram Oxalate 10 Mg Tab PO 03/29/24 08:59 Not Given QAM PIO Fluticasone/Vilanterol 1 puffs 02/28/24 09:00 02/28/24 07:31 Fluticasone/Vilanterol 200/25mcg 14 Puffs/Inhaler INH 03/29/24 08:59 1 puffs DAILY PIO Administration Potassium Chloride/Sodium Chloride 20 meq in 1,000 mls @ 60 mls/hr 02/27/24 20:06 02/28/24 11:49 1/2 Nss + 20meq Kcl 1000ml IV 02/28/24 12:45 Infused .[id number] ONE Infusion Piperacillin Sod/Tazobactam Sod 4.5 gm in 100 mls @ 25 mls/hr 02/28/24 02:00 02/28/24 09:33 Zosyn IV 03/09/24 01:59 25 mls/hr Q8H PIO Administration Protocol Pantoprazole Sodium 40 mg in 10 mls @ 5 mls/min 02/28/24 09:00 02/28/24 07:31 Protonix IV 03/29/24 08:59 5 mls/min BID PIO Administration Lactated Ringer's 1,000 mls @ 15 mls/hr 02/28/24 11:45 02/28/24 11:44 Lr IV 02/29/24 11:44 0 mls/hr .Q24H PIO Infusion Insulin Aspart 0 units 02/27/24 21:12 02/28/24 11:50 Insulin Aspart Per Unit Charge SC 03/28/24 21:11 Not Given ACHS PIO Loratadine 10 mg 02/28/24 09:00 02/28/24 07:31 Loratadine 10 Mg Tab PO 03/29/24 08:59 Not Given QAM PIO Losartan Potassium 75 mg 02/28/24 09:00 02/28/24 07:32 Losartan Potassium 25 Mg Tab PO 03/29/24 08:59 75 mg QAM PIO Administration Montelukast Sodium 10 mg 02/28/24 09:00 02/28/24 07:30 Montelukast Sodium 10 Mg Tablet PO 03/29/24 08:59 Not Given QAM PIO Morphine Sulfate 4 mg 02/27/24 20:07 02/28/24 02:07 Morphine Sulfate 4 Mg/Ml 1 Ml Carp\\Vial IV 03/12/24 20:06 4 mg Q4H PRN Administration Pain Ondansetron HCl 4 mg 02/27/24 20:08 02/28/24 09:38 Ondansetron Inj 2 Mg/Ml 2 Ml Vial IV 03/28/24 20:07 4 mg Q4H PRN Administration Nausea Oxycodone HCl 5 - 10 mg 02/27/24 20:07 02/27/24 21:36 Oxycodone Hcl Ir 5 Mg Tab (Immediate Release) PO 03/12/24 20:06 5 mg QID PRN Administration Pain NPO Date Last Intake of Fluids: 02/28/24 Time Last Intake of Fluids: 08:00 Date Last Intake of Solids: 02/27/24 Time Last Intake of Solids: 21:00 Past Medical History Medical History Voice hoarseness Hx of sleep apnea only with her respiratory failure, no current issues; no longer on oxygen or CPAP Hypertension Chronic cough "only w/asthma flares" Asthma Allergic rhinitis Hx of respiratory failure 2016, treated at [facility] caused by cleaning supplies. no ventilator/trach needed. Diabetes mellitus, type 2 NIDDM DRESS syndrome 2005 History of COVID-15 January 2020 (hospitalized but resolved symptoms) Kyra's thyroiditis hx Multiple thyroid nodules Cystocele mild Diverticulosis hx Pulmonary nodule Exercise / Class Metabolic Activity II 4-5 Yardwork/Stairs/Walk up hill Past Family History Family History Mother Family history of diabetes mellitus Other Diabetes No family history of adverse response to anesthesia No pertinent family history in first degree relatives Past Surgical History Surgical History History of carpal tunnel release RT/Left History of colonoscopy History of bronchoscopy S/P thyroid biopsy BENIGN History of hysterectomy S/P tubal ligation Past Anesthesia History No Hx of Anesthesia Complications and No Family Hx of Anesthesia Complications History of PONV No Hx of PONV and No Hx of Motion Sickness Social History Smoking Status: Never smoker Do You Dip or Chew Tobacco: No Hx Alcohol Use: No alcohol intake frequency: holidays/special occasions only Hx Substance Use: No substance use type: does not use Physical Exam Vital Signs Last Vital Signs Temp 36.3 C L 02/28/24 11:30 Pulse 86 02/28/24 11:30 Resp 20 02/28/24 11:30 BP 84/49 L 02/28/24 11:30 Pulse Ox 3 L 02/28/24 11:30 O2 Del Method Room Air 02/28/24 11:30 O2 Flow Rate 2 02/28/24 07:23 ENMT Mouth: no dentition abnormality Thyromental Distance: > or= 3.5 Finger Breadths Mallampati Class: II Neck normal visual inspection Respiratory normal respiratory effort Auscultation: lungs clear to auscultation bilaterally Cardiovascular Rate/Rhythm: regular rate and regular rhythm Psychiatric Orientation: alert Testing Laboratory Results 02/28/24 05:27 02/28/24 05:27 Urine Color Yellow 02/27/24 20:55 Urine Appearance Clear (Clear) 02/27/24 20:55 Urine pH 5.0 (4.5-7.5) 02/27/24 20:55 Ur Specific [place] > 1.045 (1.000-1.030) H 02/27/24 20:55 Urine Protein Trace (Negative) H 02/27/24 20:55 Urine Glucose (UA) Negative (Negative) 02/27/24 20:55 Urine Ketones Trace (Negative) H 02/27/24 20:55 Urine Nitrite Negative (Negative) 02/27/24 20:55 Ur Leukocyte Esterase Negative (Negative) 02/27/24 20:55 Urine WBC (Auto) 0-5 /hpf (0-5) 02/27/24 20:55 Urine RBC (Auto) 0-2 /hpf (0-2) 02/27/24 20:55 U Hyaline Cast (Auto) 0-2 /lpf (0-2) 02/27/24 20:55 U Epithel Cells (Auto) 0-2 /hpf (0-2) 02/27/24 20:55 Urine Bacteria (Auto) None Seen (None Seen) 02/27/24 20:55 Blood Type O Positive 02/27/24 21:11 Antibody Screen NEGATIVE 02/27/24 21:11 02/28/24 02/28/24 11:42 08:06 POC Glucose 80 94
[2024-02-28] MEDS ORDERED: SUGAMMADEX SODIUM 200 MG/2 ML VIAL IV ONE (12:45)
[2024-02-28] MEDS: BUPIVACAINE/EPINEPHRINE 0.5% MPF 1:200,000 30 ML VIAL ONE (13:08)
--- NOTE | 2024-02-28 13:26 | Operative Report ---
Post Operative Report Pre & Post Diagnosis Operation Date: 02/28/24 10:55 Acute calculus cholecystitis I identified the patient and participated in the time-out.: Yes Procedure Operation Date: 02/28/24 10:55 Laparoscopic cholecystectomy Surgeon Jordan Alfonso MD [employer] Prachi Madrigal PA-C Estimated Blood Loss 10 Findings Consistent with Post-Op Diagnosis Specimens Gallbladder to pathology Drains None Anesthesia Type General Complications none Disposition Accompanied Patient To Recovery: No Disposition: Recovery Room Indications This is a 63-year-old female admitted through the ED with acute abdominal pain. Workup showed acute cholecystitis. She is admitted to medical service and underwent preoperative workup was cleared for surgery. Will plan for laparoscopic cholecystectomy. She we discussed all the risks in detail and she wished to proceed. Description of Procedure The patient was taken the OR, placed in the supine position and underwent excellent general endotracheal anesthesia. Their abdomen is prepped and draped normal sterile fashion. A transverse supraumbilical incision was made and dissection was taken down to identify the anterior fascia. Two Vicryl sutures were placed on either side of the midline and his midline was then incised. The peritoneal cavity was entered bluntly with Zahida clamp. A 12mm Galicia trocar was then inserted and secured. Good pneumoperitoneum was achieved to 15 mmHg pressure. The patient was placed in head up and rolled to the left position. A 11mm subxiphoid and two 5mm lateral ports were placed in the normal fashion. The gallbladder was identified and was acutely inflamed. The the fundus of the gallbladder was then retracted superiorly. The neck of the gallbladder was grasped and then retracted laterally. This splayed open the Hepatocystic triangle. Attention was then turned to taking down the peritoneal attachments and identify the cystic duct and cystic artery. Once these were skeletonized and a medial and lateral window was created between the gallbladder fossa and the duct, thereby ensuring the critical view. Then three clips were then placed distally on cystic duct one proximally on the cystic duct, it was then transected. Two clips were then placed approximately on the cystic artery one distally, the cystic artery was transected. An electrocautery hook was then used to move the gallbladder off the gallbladder fossa. There was some bile spillage but no stones were spilled. The gallbladder was then placed into an Endobag and brought out through the supraumbilical incision. The pneumoperitoneum was re-established and abdomen was irrigated out until the suction fluid was clear. There were some areas on the gallbladder fossa which were raw which were cauterized. The ports were then removed and the abdomen decompressed. The fascia of the supraumbilical incision was closed with Vicryls. 0.5% Marcaine with epinephrine local was to create a local field block. Interrupted Vicryl was used to close the skin. Dermabond was used to reinforce the incisions. Sterile dressings were applied. Patient tolerated the procedure without complication and sent to the postop recovery period of observation. They will then be sent to the floor for the rest of their care. I attest to the content of the Intraoperative Record and any orders documented therein. Any exceptions are noted below.
[2024-02-28] MEDS: ONDANSETRON INJ 2 MG/ML 2 ML VIAL IV PRN (14:19)
[2024-02-28] MEDS: fentaNYL citrate PF 100 MCG/2 ML VIAL IV PRN (14:40)
--- NOTE | 2024-02-28 15:35 | Anesthesiology Progress Note ---
Date of Service February 28, 2024 Anesthesia Post Procedure Vital Signs Vital Signs: Temp Pulse Pulse Pulse Resp BP BP 02/28/24 15:30 80 18 111/67 02/28/24 15:20 80 19 109/63 02/28/24 15:10 79 18 112/68 02/28/24 15:00 81 18 110/65 02/28/24 14:50 84 17 118/61 02/28/24 14:40 79 20 126/67 02/28/24 14:30 80 20 115/76 02/28/24 14:20 81 23 127/72 02/28/24 14:10 78 21 121/69 02/28/24 14:00 80 24 124/69 02/28/24 13:50 83 22 133/72 02/28/24 13:40 88 20 105/64 02/28/24 13:34 36.1 C L 84 23 113/93 02/28/24 11:30 36.3 C L 86 20 84/49 L 02/28/24 10:55 37.4 C 79 18 97/63 L 02/28/24 08:18 37.3 C 02/28/24 07:29 02/28/24 07:23 37.6 C H 93 H 17 02/28/24 05:45 84 02/28/24 03:04 37.3 C 87 16 02/28/24 00:01 92 H 111/74 02/27/24 23:47 02/27/24 23:36 114 H 114/80 02/27/24 23:34 37.4 C 114 H 18 114/80 02/27/24 23:20 111 H 02/27/24 22:53 117 H 20 109/79 02/27/24 22:07 36.8 C 107 H 20 172/86 H 02/27/24 21:57 02/27/24 21:28 94 H 16 172/86 H 02/27/24 19:05 111 H 16 161/82 H 02/27/24 18:28 02/27/24 18:19 114 H 02/27/24 17:43 115 H 20 02/27/24 15:54 36.2 C L 115 H 20 136/86 BP Pulse Ox Pulse Ox O2 Del Method O2 Del Method O2 Flow Rate 02/28/24 15:30 91 Nasal Cannula 3 02/28/24 15:20 92 Oxymask 5 02/28/24 15:10 94 Oxymask 5 02/28/24 15:00 94 Oxymask 9 02/28/24 14:50 94 Oxymask 9 02/28/24 14:40 94 Non-rebreather 10 02/28/24 14:30 92 Non-rebreather 10 02/28/24 14:20 92 Non-rebreather 10 02/28/24 14:10 93 Non-rebreather 10 02/28/24 14:00 95 Non-rebreather 15 02/28/24 13:50 95 Non-rebreather 15 02/28/24 13:40 86 L Oxymask 15 02/28/24 13:34 86 L Oxymask 10 02/28/24 11:30 3 L Room Air 02/28/24 10:55 92 Room Air 02/28/24 08:18 02/28/24 07:29 Nasal Cannula 02/28/24 07:23 135/77 93 Nasal Cannula 2 02/28/24 05:45 02/28/24 03:04 92/61 L 94 Nasal Cannula 2 02/28/24 00:01 02/27/24 23:47 Nasal Cannula 2 02/27/24 23:36 02/27/24 23:34 96 Nasal Cannula 2 02/27/24 23:20 02/27/24 22:53 94 Room Air 02/27/24 22:07 96 Room Air 02/27/24 21:57 95 Room Air 02/27/24 21:28 96 Room Air 02/27/24 19:05 96 Room Air 02/27/24 18:28 88 L Room Air 0 02/27/24 18:19 02/27/24 17:43 156/81 H 98 Room Air 02/27/24 15:54 98 Room Air Pain Intensity Right Abdomen: Pain Intensity: 6 Head: Pain Intensity: 5 Transfer of Care Handoff Completed per policy Notes Mental Status: alert / awake / arousable Patient Amnestic to Procedure: Yes Nausea / Vomiting: adequately controlled Pain: adequately controlled Airway Patency, RR, SpO2: stable & adequate BP & HR: stable & adequate Hydration State: stable & adequate Anesthetic Complications: no major complications apparent
--- NOTE | 2024-02-28 15:41 | XRay Report ---
XR chest 1V portable CLINICAL HISTORY: LOW O2 SAT'S TECHNIQUE: Single frontal radiograph of the chest was obtained. Comparison: Comparison is made to chest radiograph 06/22/2020 FINDINGS: No lines and tubes are seen. The cardiomediastinal silhouette is normal. Lungs are underinflated. Pro minent vasculature is seen. No evidence of pleural effusion or pneumothorax. IMPRESSION: Mild pulmonary edema. Bibasilar atelectasis. ACT 112: Negative or not required by law. Electronically signed by: Diego Barron M.D. 02/28/2024 3:40 PM
[2024-02-28] MEDS: KETOROLAC 30 MG/ML VIAL ONE (16:08)
[2024-02-28] MEDS ORDERED: oxyCODONE/ACETAMINOPHEN 5mg/325mg TAB PO PRN (16:27)
[2024-02-28] MEDS ORDERED: MoRPHine SULFATE 2 MG/ML CARP IV PRN (16:27)
[2024-02-28] MEDS ORDERED: MoRPHine SULFATE 4 MG/ML 1 ML CARP\\VIAL IV PRN (16:27)
[2024-02-28] MEDS: ACETAMINOPHEN 1000 MG/100 ML IV IV ONE (16:34)
[2024-02-28] MEDS: KETOROLAC 30 MG/ML VIAL IV ONE (16:35)
[2024-02-28] MEDS: oxyCODONE/ACETAMINOPHEN 5mg/325mg TAB PO PRN (17:39)
[2024-02-29 08:32] LABS: Hemoglobin 12.4 g/dl (12.0-16.0); Mean Corpuscular Hemoglobin 30.2 pg (25.0-34.0); Mean Corpuscular Hgb Conc 33.5 g/dL (32.0-36.0); Platelet Count 224 K/uL (130-400); RDW Coefficient of Variation 13.1 % (11.5-14.5); Red Blood Count 4.11 M/uL (4.20-5.40); White Blood Count 6.34 K/ul (4.8-10.8)
[2024-02-29 08:49] LABS: Albumin Globulin Ratio 1.7 (0.9-2); Albumin Level 3.8 gm/dl (3.4-5.0); BUN Creatinine Ratio 14.9 (10-20); Bilirubin,Total 0.5 mg/dl (0.2-1.0); Calcium 8.9 mg/dl (8.6-10.3); Globulin 2.2 gm/dl (2.5-4.0); Magnesium 2.1 mg/dl (1.7-2.4); Phosphorus 3.7 mg/dl (2.5-4.9); Potassium 3.8 mmol/L (3.5-5.1)
[2024-02-29] MEDS: POLYETHYLENE (MIRALAX) 17 GM PACK PO PRN (10:04)
--- NOTE | 2024-02-29 10:43 | Surgery Progress Note ---
Date of Service February 29, 2024 Assessment & Plan (1) Cholecystitis: Plan: POD # 1 s/p laparoscopic cholecystectomy avss minimal postop pain, controlled with Tylenol t. bili and lfts normal Plan: Okay from surgical standpoint for discharge discharge instructions reviewed dressing change on umbilical incision 2 week follow-up in surgery office Discussed with Dr. Alfonso who agrees with above. Admission and Anticipated Discharge Date Admission Date: February 27, 2024 Subjective feeling good, minimal pain shoulder pain has resolved no nausea tolerating clears ambulating to bathroom urinating without difficulty no chest pain or sob has only had Tylenol this am for pain management Physical Exam Constitutional: WD/WN, vitals as above cooperative and comfortable; no acute distress and not ill appearing Respiratory: normal respiratory effort; no respiratory distress Gastrointestinal (Abdomen): Inspection/Auscultation: abdomen normal to inspection, + abdominal wall ecchymosis (around incision sites) and + abdominal surgical incision (c/d/i , supraumbilical incision with some mild dermal bleeding,); abdomen not distended Percussion/Palpation: + abdomen tender (mild at incision sites, appropriate postop) and abdomen soft; no guarding, abdomen not rigid and abdomen not firm Skin: no rashes, warm and dry Psychiatric: Orientation: alert and oriented x 3 Results & Data Vital Signs (Past 12 Hours) Vital Signs Temp Pulse Pulse Pulse Resp BP Pulse Ox 02/29/24 05:44 78 02/29/24 03:59 36.8 C 84 16 108/68 91 02/28/24 23:50 37.0 C 87 18 103/64 91 O2 Del Method 02/29/24 05:44 02/29/24 03:59 Room Air 02/28/24 23:50 Room Air Laboratory Results 02/29/24 02/29/24 02/28/24 Range/Units 08:18 08:06 20:20 WBC 6.34 (4.8-10.8) K/ul RBC 4.11 L (4.20-5.40) M/uL Hgb 12.4 (12.0-16.0) g/dl Hct 37.0 (37.0-47.0) % MCV 90.0 (80.0-100.0) fL MCH 30.2 (25.0-34.0) pg MCHC 33.5 (32.0-36.0) g/dL RDW Std Deviation 43.0 (36.4-46.3) fL RDW Coeff of Juanjose 13.1 (11.5-14.5) % Plt Count 224 (130-400) K/uL MPV 10.0 (9.4-12.4) fL Sodium 140 (136-145) mmol/L Potassium 3.8 (3.5-5.1) mmol/L Chloride 108 H (98-107) mmol/L Carbon Dioxide 24 (21-32) mmol/L Anion Gap 8 (3-11) BUN 10 (6-23) mg/dl Creatinine 0.67 (0.6-1.2) mg/dl Est Cr Clr Drug Dosing 80.0 ml/min eGFR 97.54 BUN/Creatinine Ratio 14.9 (10-20) Glucose 89 (70-99(Fasting)) mg/dl POC Glucose 81 146 H (70-99) mg/dl Calcium 8.9 (8.6-10.3) mg/dl Phosphorus 3.7 (2.5-4.9) mg/dl Magnesium 2.1 (1.7-2.4) mg/dl Total Bilirubin 0.5 (0.2-1.0) mg/dl AST 48 H (13-39) U/L ALT 48 (7-52) U/L Alkaline Phosphatase 39 (34-104) U/L Total Protein 6.0 (6.0-8.3) gm/dl Albumin 3.8 (3.4-5.0) gm/dl Globulin 2.2 L (2.5-4.0) gm/dl Albumin/Globulin Ratio 1.7 (0.9-2) 02/28/24 02/28/24 02/28/24 Range/Units 17:12 14:25 11:42 WBC (4.8-10.8) K/ul RBC (4.20-5.40) M/uL Hgb (12.0-16.0) g/dl Hct (37.0-47.0) % MCV (80.0-100.0) fL MCH (25.0-34.0) pg MCHC (32.0-36.0) g/dL RDW Std Deviation (36.4-46.3) fL RDW Coeff of Juanjose (11.5-14.5) % Plt Count (130-400) K/uL MPV (9.4-12.4) fL Sodium (136-145) mmol/L Potassium (3.5-5.1) mmol/L Chloride (98-107) mmol/L Carbon Dioxide (21-32) mmol/L Anion Gap (3-11) BUN (6-23) mg/dl Creatinine (0.6-1.2) mg/dl Est Cr Clr Drug Dosing ml/min eGFR BUN/Creatinine Ratio (10-20) Glucose (70-99(Fasting)) mg/dl POC Glucose 108 H 121 H 80 (70-99) mg/dl Calcium (8.6-10.3) mg/dl Phosphorus (2.5-4.9) mg/dl Magnesium (1.7-2.4) mg/dl Total Bilirubin (0.2-1.0) mg/dl AST (13-39) U/L ALT (7-52) U/L Alkaline Phosphatase (34-104) U/L Total Protein (6.0-8.3) gm/dl Albumin (3.4-5.0) gm/dl Globulin (2.5-4.0) gm/dl Albumin/Globulin Ratio (0.9-2)
[2024-02-29 12:00] VITALS: BP 135/86; RESP 18; TEMP 98.6; O2SAT 95
--- NOTE | 2024-02-29 12:08 | Discharge Summary ---
Date of Service February 29, 2024 Admission HPI Per Admitting Provider History obtained from patient and records. Medical history significant for hypertension, bronchial asthma, ADAMA/nocturnal hypoxemia as per records, DM2 on Ozempic, past history adrenal insufficiency as per records, primary hyperparathyroidism as per records, thyroid nodule, NAFLD, recurrent diverticulitis, mood disorder. Last confinement 2019 for site respiratory failure secondary to COVID-19 pneumonia. Last week, patient noted epigastric discomfort somewhat worsened with food intake. Pain going to the chest. Emesis today with red flecks of blood. Denies headache, SOB, fever, chills. Patient brought by to ER for evaluation. 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 Exam Per Admitting Provider GENERAL: Comfortable, obese, pleasant, no respiratory distress SKIN: Normal color, warm HEENT: [place] palpebral conjunctivae, no ptosis, dry buccal mucosa NECK : Supple, no tenderness CHEST : CTA, no tenderness HEART : Tachycardic, no obvious murmurs ABDOMEN: Some distention, epigastric tenderness EXTREMITIES : No LE swelling/tenderness, no other conspicuous deformities noted NEUROLOGIC : Coherent, no facial asymmetry, no other gross focality Principal Diagnosis Cholecystitis s/p cholecystectomy Discharge Exam Constitutional: WD/WN, vitals as above Eyes: PERRL, conjunctivae normal, anicteric sclerae ENMT: external ear and nose normal, oropharynx normal Neck: normal visual inspection Respiratory: normal respiratory effort, lungs clear to auscultation Cardiovascular: RRR, no murmur, no edema Chest (Breasts): Chest: normal inspection of chest Gastrointestinal (Abdomen): abdomen soft, + bowel sounds , + abdominal wall ecchymosis (around incision sites) and + abdominal surgical incision (c/d/i , supraumbilical incision with some mild dermal bleeding,); abdomen not distended Percussion/Palpation: + abdomen tender (mild at incision sites, appropriate postop) Musculoskeletal: extremities motor strength 5/5 Skin: no rashes, warm and dry Neurologic: PERRL, EOMI, no face palsy, no dysarthria, moves extremities Psychiatric: A+Ox3, euthymic affect Discharge Data Allergies Allergy/AdvReac Type Severity Reaction Status Date / Time Sulfa (Sulfonamide Allergy Severe DRESS Verified 02/27/24 21:05 Antibiotics) Syndrome sulfamethoxazole Allergy Severe DRESS Verified 02/27/24 21:05 SYNDROME trimethoprim Allergy Severe DRESS Verified 02/27/24 21:05 SYNDROME promethazine Allergy Intermediate HYPOTENSION Verified 02/27/24 21:05 ibuprofen Allergy Swelling Unverified 02/27/24 21:05 of Lip/Tongue/Throat nickel Allergy Verified 02/27/24 21:05 lisinopril AdvReac Cough Unverified 02/27/24 21:05 CLEANING SOLUTION Allergy Severe respiratory Uncoded 02/27/24 21:05 SMELLS/VINEGAR failure Consultations 02/27/24 20:01 ED Decision to Admit Stat 02/27/24 22:39 Consult General Surgery Routine Procedures Performed Operation Date: 02/28/24 10:55 Actual Procedures p Laparoscopic Cholecystectomy(Not Applicable) - Jordan Alfonso MD Ordered Studies 02/27/24 16:31 CT abd pelvis IV con only Stat FINDINGS: Limitations: None. Lung bases: No abnormality noted. Pleural space: No visualized pleural effusion or pneumothorax. Heart: No abnormality noted. Mediastinum: No abnormality noted. ABDOMEN: Liver: Normal size and contour. Hypodense typical of steatosis. No mass or ductal dilation. Gallbladder and bile ducts: The gallbladder is distended. No calcified stones. No ductal dilatation or stone noted. Pancreas: Homogeneous enhancement. No mass, inflammation or ductal dilation. Spleen: No significant abnormality noted. Adrenals: No significant abnormality noted. Kidneys and ureters: Simple bilateral renal cysts noted. No follow-up necessary. No stones or hydronephrosis. Stomach and bowel: Colonic diverticulosis without diverticulitis. No intestinal thickening or obstruction. PELVIS: Appendix: Well seen and appears normal. Bladder: Incompletely distended and not optimally assessed. No gas or stone. Reproductive: Hysterectomy. ABDOMEN and PELVIS: Intraperitoneal space: No free air. No significant fluid collection. Bones/joints: Degenerative changes noted in the scoliotic spine. No acute osseous abnormality noted. Soft tissues: Small fat-containing left inguinal hernia. Vasculature: No abdominal aortic aneurysm. Lymph nodes: No pathologically enlarged lymph nodes. IMPRESSION: 1. Distended gallbladder. If there is concern for acute cholecystitis, sonography is the modality of choice. 2. Diverticulosis without diverticulitis. 3. Hepatic steatosis. 02/27/24 17:28 US gallbladder Stat FINDINGS: Liver: Liver measures 15 cm. Small calcification left hepatic lobe may represent chronic granulomatous disease. Echogenic liver parenchyma suggesting steatosis. Gallbladder: Cholelithiasis and gallbladder sludge. No wall thickening. Equivocal Mclain sign. Common bile duct: No biliary dilatation. CBD measures 5 mm. Pancreas: Pancreas suboptimally characterized. Right kidney: Right kidney measures 10.9 cm. No hydronephrosis. Subcentimeter simple cyst; no follow-up indicated. IMPRESSION: Cholelithiasis and gallbladder sludge. No wall thickening. Equivocal Mclain sign. Imaging appearance is not strongly suggestive of cholecystitis, but clinical correlation requested. Hospital Course (1) Sepsis: Sepsis secondary to calculous cholecystitis UGIB secondary to emesis Medical telemetry , Lauren General Surgery consult Re: Cholecystitis (ED provider already in touch with Dr. Milton who recommends surgery) Pt is s/p cholecystectomy on 02/27/2023 Currently pt is feeling well, had a good night Pain is controlled well Pt is ambulating, tolerating liquids Voiding w/o difficulty and already had a BM. No n/v Discussed w/ surgery at the bedside - advance diet now as tolerated Discussed discharge instructions at the bedside in detail. Follow up w/ surgery in 2 weeks. Chronic conditions: Hypertension, cont. 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 Total Time Total Time Spent Total Time Spent (In Minutes): 40 Discharge Plan Discharge Items Patient Disposition: Home - Self-Care Reason For Visit: SEPSIS Discharge Diagnosis: Cholecystitis s/p cholecystectomy Activity: Per Instructions section Non-emergency contact: Primary Care Provider and Surgeon Call non-emergency contact if: you have any medication questions and your symptoms worsen Follow-up/Referrals: Prachi Madrigal PA-C [Physician Loan Supervisor] - Anuja Rodrigues MD [Primary Care Provider] - (Date & Time 03/06/2024 8:00 AM Provider: Kenya Santa MD Department: General Internal [facility] ) Diet: Regular Addtl Attending Provider Instructions: Follow up with primary care doctor and surgery. Please read instructions from your surgeon in detail, below. Advance your diet as tolerated. For pain, take tylenol 1,000 mg three times a day. For more severe pain, take oxycodone as needed as prescribed. Your blood pressure is on lower side, so do not take losartan and amlodipine yet. If you can, check your blood pressure at home. Recommend to hold losartan and amlodipine for next 2 days. If you have any concerns regarding your blood pressure, please contact your primary care doctor or hospital. Addtl Freight Manager Provider Instructions: Post-Surgical ~Discharge Instructions Activity Recommendations: - lifting limitation: (20 pounds for 3 weeks), - exercise/sex/sports limit: (nonstrenuous for 2 weeks), - driving or machine use limit: (none for at least 3 days and until pain is gone), - Shower/bathe limit: (may shower , no submerging incisions undewater for 2 weeks) Diet: - Resume previous diet SPECIAL CARE INSTRUCTIONS: - May shower. Let water run over area and pat dry. - Leave surgical glue on incisions, this will fall off on its own. - Replace dressing on the incision above the belly button daily and as needed to keep clean and dry - Call the surgeon's office with any questions or concerns - - (ex. temperature higher than 101 degrees F, excessive bleeding or pain). MEDICATIONS: - Resume previous medications unless instructed otherwise by your surgeon. - May take extra strength Tylenol and Ibuprofen as needed for pain - 650 mg Tylenol every 6 hours as needed - Ibuprofen 600 mg every 6 hours with food FOLLOW UP VISIT: - If not already scheduled, please call the office to schedule a two week follow-up appointment. Office number Pending Studies at Discharge: Yes (gallbladder pathology, will be reviewed at postop visit) Stand-Alone Forms: My Submitnet, Smoking Cessation Medications and DC Order Prescriptions: New oxycodone 5 mg Tablet 5 mg PO QID PRN (Reason: pain) Qty: 7 0RF ondansetron 4 mg tablet,disintegrating 4 mg PO BID PRN (Reason: nausea and vomiting) Qty: 7 0RF Continued azelastine 137 mcg (0.1 %) spray,non-aerosol 2 spray intranasal DAILY Qty: 30 11RF Patient Comments: QAM Combivent Respimat 20-100 mcg/actuation mist 1 puff inhalation Q4H PRN (Reason: shortness of breath or wheezing) Qty: 4 11RF loratadine [Claritin] 10 mg tablet 10 mg PO QAM docusate sodium [Colace] 100 mg capsule 100 mg PO QAM polyethylene glycol 3350 [Miralax] 17 gram/dose powder 17 g PO DAILY PRN (Reason: Constipation) Mucinex 1,200 mg tablet extended release 12hr 1,200 mg PO BID PRN (Reason: Congestion) Ozempic 0.25 mg or 0.5 mg (2 mg/3 mL) pen injector 0.5 mg subcut Q7D Patient Comments: saturdays Rx Instructions: escitalopram oxalate 10 mg tablet 10 mg PO QAM acetaminophen [Tylenol Extra Strength] 500 mg Tablet 1,000 mg PO Q6H PRN (Reason: Fever Or Pain) potassium 99 mg Tablet 99 mg PO DAILY montelukast 10 mg tablet 10 mg PO QAM Rx Instructions: TAKE 1 TABLET BY MOUTH EVERY MORNING Dulera 200-5 mcg/actuation HFA aerosol inhaler 2 puff inhalation BID Rx Instructions: INHALE 2 PUFFS BY MOUTH TWICE A DAY ondansetron 4 mg tablet,disintegrating 4 mg PO Q6H PRN (Reason: nausea and vomiting) Qty: 10 0RF cholecalciferol (vitamin D3) [Vitamin D3] 10 mcg (400 unit) Capsule 10 mcg PO DAILY Held amlodipine [Norvasc] 5 mg tablet 5 mg PO QAM Hold Instructions: Resume on 03/03/24. losartan 50 mg tablet 75 mg PO QAM Hold Instructions: Resume on 03/03/24. Discharge Orders: Discharge Order (Routine); Ordered 02/29/24 Ordered By: Tremayne Ortiz Admission Data Admit Date/Time: 02/27/24 20:57 Attending Provider: Tremayne Ortiz Admit Provider: Abrahan Mayfield Primary Care Provider: Anuja Rodrigues Other Providers: Abrahan Mayfield; Jordan Alfonso
[2024-02-29 14:26] VITALS: PULSE 81
[2024-02-29] MEDS: ONDANSETRON 4 MG OD TAB PO STA (14:28)
--- NOTE | 2024-03-12 11:05 | Operative Report ---
Post Operative Report Pre & Post Diagnosis Operation Date: 02/28/24 10:55 Pre-Op Diagnosis: Acute cholecystitis Post-Op Diagnosis: Acute cholecystitis I identified the patient and participated in the time-out.: Yes Procedure Operation Date: 02/28/24 10:55 Actual Procedures p Laparoscopic Cholecystectomy(Not Applicable) - Jordan Alfonso MD Surgeon Jordan Alfonso MD Supervisor Case Loading Prachi Madrigal PA-C Estimated Blood Loss 10 Findings Consistent with Post-Op Diagnosis Specimens gallbladder to path Description of Procedure Prachi Madrigal PA-C participated in the procedure with positioning, camera manipulation, and skin closure. There was no qualified resident available. I attest to the content of the Intraoperative Record and any orders documented therein. Any exceptions are noted below.
== END 2024-02-29 14:39 | disposition home or self-care (01) | DRG 854 ==
LOC: ED 15:50 → EDINP 20:57 → 2W 22:53